=== PATIENT | female | born 1940 | race Caucasian/White ===

== ENCOUNTER 2017-04-09 10:18 | Day surgery (SDC) | payer MEDICARE, BC ==
[2017-04-03 13:47] VITALS: BMI 25.7
[~2017-04-09 10:18] MED LIST: ALPRAZolam 0.25 MG TAB PO PRN; ALPRAZolam 0.5 MG TAB PO PRN; ASPIRIN 325 MG TAB PO STA; ATORVASTATIN 80 MG TAB PO STA; NITROGLYCERIN SL TABS 0.4 MG TAB SUBLINGUAL PRN; SODIUM CHLORIDE 0.9% 1,000 ML in EMPTY BAG 1 BAG IV ONE
[2017-04-09] MEDS ORDERED: MIDAZOLAM 2 MG/2 ML VIAL ONE (10:57)
[2017-04-09] MEDS ORDERED: fentaNYL (PF) 50 MCG/ML 2 ML AMP ONE (10:57)
[2017-04-09] MEDS: BENZOCAINE SPRAY 1 SPRAY CAN MUCOUS MEM ONE ×2 (11:06→11:37)
[2017-04-09] MEDS ORDERED: BENZOCAINE SPRAY 1 SPRAY CAN MUCOUS MEM ONE (11:35)
[2017-04-09] MEDS ORDERED: MIDAZOLAM 2 MG/2 ML VIAL IV ONE (11:37)
[2017-04-09] MEDS ORDERED: fentaNYL (PF) 50 MCG/ML 2 ML AMP IV ONE (11:40)
[2017-04-09] MEDS ORDERED: SODIUM CHLORIDE 0.9% 1,000 ML IV ONE (12:01)
[2017-04-09] MEDS ORDERED: LIDOCAINE 2% INJ 20 MG/ML (20 ML MDV) ONE (12:19)
[2017-04-09] MEDS ORDERED: LIDOCAINE 2% INJ 20 MG/ML SQ ONE (12:26)
[2017-04-09] MEDS ORDERED: SODIUM CHLORIDE 0.9% 1,000 ML IV SCH (13:30)
[2017-04-09] MEDS ORDERED: RX INFO: IV CONTRAST WAS GIVEN 1 EACH MISC MISCELLANE PRN (13:30)
[2017-04-09] MEDS ORDERED: IOHEXOL 350 MG/ML 125ML BOTTLE INJ ONE (13:31)
[2017-04-09 14:05] VITALS: RESP 16
--- NOTE | 2017-04-09 15:05 | ECHOT ---
TRANSESOPHAGEAL ECHOCARDIOGRAM: Mrs. Mcdonough is a 76-year-old female who was advised transesophageal echocardiogram to assess the aortic stenosis. Patient was given intravenous sedation with Versed and fentanyl and transesophageal echocardiogram was performed without any complications. Left ventricular chamber is normal in size with mild degree of left ventricular hypertrophy and normal left ventricular systolic function. Aortic wall is calcified, appears to be bicuspid with aortic valve area by HALEY examination appears to be in the range of 0.5 to 0.6 cm2 suggestive of severe aortic stenosis. There is mild mitral regurgitation and moderate tricuspid regurgitation is noted. The left atrium is mildly enlarged. Left atrial appendage is clear. Intra-atrial septum is intact. There is no evidence of any PFO. The descending thoracic aorta shows mild diffuse atherosclerotic plaque. FINAL IMPRESSION: This study shows aortic valve to be calcified with aortic wall area in the range of 0.5 to 0.6 cm2 suggestive of severe aortic stenosis. Left ventricular systolic function is normal. There is evidence of mild degree of mitral regurgitation, moderate degree of tricuspid regurgitation. There is no evidence of any patent foramen ovale. MTDD
--- NOTE | 2017-04-09 16:48 | US ---
EXAMINATION TYPE: US carotid duplex BILAT DATE OF EXAM: 04/09/2017 COMPARISON: NONE CLINICAL HISTORY: Ankle Brachial Index (BEL) . EXAM MEASUREMENTS: RIGHT: Peak Systolic Velocity (PSV) cm/sec ----- Right CCA: 62.4 ----- Right ICA: 111.8 ----- Right ECA: 100.2 ICA/CCA ratio: 1.8 RIGHT: End Diastole cm/sec ----- Right CCA: 15.9 ----- Right ICA: 36.2 ----- Right ECA: 8.6 LEFT: Peak Systolic Velocity (PSV) cm/sec ----- Left CCA: 68.2 ----- Left ICA: 104.5 ----- Left ECA: 90.0 ICA/CCA ratio: 1.5 LEFT: End Diastole cm/sec ----- Left CCA: 18.8 ----- Left ICA: 40.6 ----- Left ECA: 8.9 VERTEBRALS (direction of flow): Right Vertebral: Antegrade Left Vertebral: Antegrade No significant stenosis visualized IMPRESSION: No evidence for hemodynamically significant stenosis. Criteria for Assigning % of Stenosis / Diameter reduction (Estimation based on the indirect measurements of the internal carotid artery velocities (ICA PSV). 1. Normal (no stenosis)=ICA PSV < 125 cm/s: ratio < 2.0: ICA EDV<40 cm/s. 2. Less than 50% stenosis=ICA PSV < 125 cm/s: ratio < 2.0: ICA EDV<40 cm/s. 3. 50 to 69% stenosis=ICA PSV of 125 to 230 cm/s: ration 2.0 ? 4.0: ICA EDV 40-100 cm/s. 4. Greater than 70% stenosis to near occlusion= ICA PSV > 230 cm/s: ratio > 4.0: ICA EDV > 100 cm/s. 5. Near occlusion= ICA PSV velocities may be low or undetectable: variable ratio and ICA EDV. 6. Total occlusion=unable to detect flow.
--- NOTE | 2017-04-09 16:50 | P.GSCN ---
History of Present Illness Consult date: 04/09/17 Reason for Consult: Severe aortic stenosis Requesting physician: Denis Robles History of present illness: This is a 76-year-old female patient who is followed on an outpatient basis by Dr. Katerina Dexter. The patient has a history of hyperlipidemia, breast cancer status post lumpectomy in 1989 with 35 treatments of radiation and 6 months of chemotherapy treatment, she also underwent a right mastectomy and 2012 , hysterectomy with subsequent oophorectomy, and cholecystectomy. The patient has a history of aortic stenosis which has been followed on an outpatient basis with serial 2-D echocardiograms. Recently, the patient was following up with her primary care physician on a 6 month checkup and was noted to have a worsening murmur. Subsequently the patient underwent a 2-D echocardiogram which showed her aortic valve to be moderately to severely thickened and calcified, her calculated aortic valve area was 0.5 cm with a maximum pressure gradient of 97 mmHg and a mean pressure gradient of 40 mmHg, trace aortic regurgitation, mild mitral regurgitation, mild tricuspid regurgitation, mild pulmonic regurgitation, and it showed her left ventricular systolic function to be normal with an ejection fraction of 60%. The patient reports that she wakes up frequently during the night and feels a pressure or thumping to her left chest and feels that she can sometimes hear her murmur. For further evaluation she was seen by Dr. VC Robles from [facility] who recommended the patient undergo a cardiac catheterization and transesophageal cardiogram. On the patient underwent an elective cardiac catheterization and transesophageal echocardiogram. Her HALEY results showed her aortic valve to be calcified with aortic and aortic valve area of 0.5-0.6 cm, a left ventricular systolic function to be normal, mild degree of mitral regurgitation, and a moderate degree of tricuspid regurgitation. Patient's cardiac catheterization results demonstrated normal coronary arteries with severe aortic stenosis. Subsequently Dr. Alejandro Somers from cardiothoracic surgery was asked to evaluate the patient. Review of Systems A 14 point review of systems was completed and was negative except for what was mentioned in the HPI. Past Medical History Past Medical History: Cancer, Hyperlipidemia Additional Past Medical History / Comment(s): increased fatigue and feels like heart is pounding at night,heart murmur, having difficulty sleeping at night, breast CA with lumpectomy 1989, 35 treatments of radiation and 6 months of chemotherapy, 2013 right breast mastectomy,increased gas and freq diarrhea, urge urinary incontinence. History of Any Multi-Drug Resistant Organisms: None Reported Past Surgical History: Cholecystectomy, Hysterectomy Additional Past Surgical History / Comment(s): right lumpectomy 1989, right masectomy 2012, hemorrhoidectomy. Past Anesthesia/Blood Transfusion Reactions: No Reported Reaction Past Psychological History: No Psychological Hx Reported Smoking Status: Never smoker Past Alcohol Use History: Occasional Additional Past Alcohol Use History / Comment(s): Less than 1 drink a week Past Drug Use History: None Reported - Past Family History Mother Additional Family Medical History / Comment(s): Alzheimer's Father Additional Family Medical History / Comment(s): heart problems due to rheumatic fever Sister(s) Family Medical History: Cancer Additional Family Medical History / Comment(s): 1 sister of ovarian cancer in 1993 , her other sister was diagnosed with breast cancer. Medications and Allergies Home Medications Medication Instructions Recorded Confirmed Type Anastrozole [Arimidex] 1 mg PO HS 09/23/15 04/09/17 History Simvastatin [Zocor] 20 mg PO HS 09/23/15 04/09/17 History Aspirin 81 mg PO DAILY 04/03/17 04/09/17 History Cholecalciferol [Vitamin D3] 500 unit PO DAILY 04/03/17 04/09/17 History L.acidoph,Paracasei, B.lactis 1 each PO DAILY 04/03/17 04/09/17 History [Probiotic] Multivit-Min/Iron/Folic/Lutein 1 each PO DAILY 04/03/17 04/09/17 History [Centrum Silver Women Tablet] Allergies Allergy/AdvReac Type Severity Reaction Status Date / Time Penicillins Allergy Rash/Hives Verified 04/03/17 13:37 Surgical - Exam Vital Signs Temp Pulse Resp BP Pulse Ox 98.0 F 56 L 18 168/77 98 04/09/17 10:31 04/09/17 10:31 04/09/17 10:31 04/09/17 10:31 04/09/17 10:31 - General well developed, well nourished, no distress, no pain - Eyes normal ocular movement - ENT normal pinna, normal nares, no hearing loss, no congestion - Neck . no masses, trachea midline, no lymphadectomy, no venous distension carotid bruit: bilateral - Respiratory Respirations are symmetrical and unlabored. normal expansion, normal respiratory effort, clear to percussion, clear to auscultation - Cardiovascular Heart Rate: 65 (Remote telemetry showing normal sinus rhythm.) Rhythm: regular Heart Sounds: normal: S1, S2 Abnormal Heart Sounds: systolic murmur (Pansystolic) - Abdomen Abdomen: soft, non tender (, Nondistended.), bowel sounds (Positive to all 4 abdominal quadrants.), surgical scars - Genitourinary Deferred - Rectum Deferred - Integumentary Warm and dry. no rash, no growths, no abnormal pigmentation - Neurologic Alert. normal coordination, normal sensation - Musculoskeletal normal gait, normal posture - Psychiatric oriented to time, oriented to person, oriented to place, speech is normal, memory intact Results - Labs Comments: Lab results pending, nasal swab and urinalysis result pending. - Imaging Comments: Carotid Doppler results pending. Chest x-ray: pending CT scan - chest: pending (CAT scan of the chest without contrast results.) Additional studies: Transesophageal echocardiogram results reviewed, 2-D echocardiogram results reviewed, and heart catheterization results were reviewed. Assessment and Plan (1) Aortic valve stenosis, nonrheumatic Status: Acute (2) Hyperlipidemia Status: Acute (3) History of cancer of right breast Status: Acute Plan: The patient was seen and examined, preoperative testing has been ordered and the results are pending. Preoperative teaching was initiated, and reinforced. She will follow-up in the office with Dr. Somers as scheduled on Saturday, 2016 at 11:15 AM to review her test results and to discuss possible surgical intervention. Thank you Dr. VC Robles for this consult and we will look forward to working with you in the care of your patient. Time with Patient: Greater than 30
[2017-04-09 18:45] LABS: Appearance,Urine Clear (Clear); Bilirubin,Urine Negative (Negative); Glucose,Urine (UA) 1+ (Negative); Ketones,Urine 1+ (Negative); Leukocyte Esterase,Urine Negative (Negative); Nitrite,Urine Negative (Negative); PH, Urine 6.5 (5.0-8.0); Particle Count 435; Protein,Urine Negative (Negative); RBC,Urine <1 /hpf (0-5); Specific Gravity,Urine 1.036 (1.001-1.035); Squamous Epithelial Cell,Urine <1 /hpf (0-4); UA Billing (MACRO vs. MICRO) MICRO; Urobilinogen,Urine <2.0 mg/dL (<2.0); WBC,Urine <1 /hpf (0-5)
[2017-04-09 19:01] LABS: Basophils % (A) 0 %; CH 31.9; Eosinophils # (A) 0.1 k/uL (0-0.7); Eosinophils % (A) 1 %; HCT 38.6 % (34.0-46.0); HDW 2.46; HGB 12.9 gm/dL (11.4-16.0); Luc # (Auto) 0.11; Luc % (Auto) 1; Lymphocytes # (A) 1.6 k/uL (1.0-4.8); Lymphocytes % (A) 20 %; MCH 32.4 pg (25.0-35.0); MCHC 33.3 g/dL (31.0-37.0); MCV 97.3 fL (80.0-100.0); Mean Platelet Volume 7.7; Monocytes # (A) 0.5 k/uL (0-1.0); Monocytes % (A) 6 %; Neutrophils % (A) 73 %; RBC 3.97 m/uL (3.80-5.40); RDW 12.7 % (11.5-15.5); WBC 8.2 k/uL (3.8-10.6); WBC (Perox) 8.13
[2017-04-09 19:10] LABS: ALT 35 U/L (9-52); AST 29 U/L (14-36); Alkaline Phosphatase 58 U/L (38-126); Anion Gap 8 mmol/L; Blood Urea Nitrogen 13 mg/dL (7-17); Calcium 8.7 mg/dL (8.4-10.2); Carbon Dioxide 24 mmol/L (22-30); Chloride 104 mmol/L (98-107); Cholesterol 106 mg/dL (<200); Glucose 194 mg/dL (74-99); HDL Cholesterol 44 mg/dL (40-60); Magnesium 1.8 mg/dL (1.6-2.3); Non-African American GFR(MDRD) >60 (>60 ml/min/1.73 sqM); Potassium 3.7 mmol/L (3.5-5.1); Sodium 136 mmol/L (137-145); Total Bilirubin 0.8 mg/dL (0.2-1.3); Total Protein 5.6 g/dL (6.3-8.2)
[2017-04-09 19:39] LABS: Hepatitis B Surface Ag Index 0.05; INR 1.1 (<1.2); Partial Thromboplastin Time 22.3 sec (22.0-30.0)
[2017-04-09 19:45] LABS: Hepatitis B Core IgM Index 0.02
[2017-04-09 19:56] LABS: Hepatitis C Virus IgG Ab Negative (Negative); Hepatitis C Virus IgG Index 0.02
[2017-04-09 20:10] VITALS: BP 127/59; PULSE 74; TEMP 98
[2017-04-09 20:26] LABS: Hemoglobin A1C 5.6 % (4.2-6.1)
--- NOTE | 2017-04-10 07:03 | CT ---
EXAMINATION TYPE: CT chest wo con DATE OF EXAM: 04/09/2017 COMPARISON: NONE HISTORY: Pre-Op. Hx of right breast CA. CT DLP: 316.0 mGycm. Automated Exposure Control for Dose Reduction was Utilized. TECHNIQUE: CT scan of the thorax is performed without IV contrast. FINDINGS: There has been a previous right-sided mastectomy. There is elevation of the right hemidiaphragm. The lungs are clear without evidence of metastatic disease. There are clips in the right axilla. There is no significant axillary, internal mammary, mediastinal or hilar adenopathy. There is no pleu ral or pericardial fluid. The heart is not enlarged. The aorta is normal in caliber. There is a small hiatal hernia. 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 There is some increased density associated with the posterior upper pole calyx of the right kidney wi thout a discrete calculus. This may be medullary calcification. The gallbladder is been removed. Visualized portions of the upper abdomen are otherwise normal. There is mild hypertrophic spondylosis within the spine. No bony destructive lesion is seen. IMPRESSION: 1. STATUS POST RIGHT MASTECTOMY AND AXILLARY DISSECTION. 2. ELEVATION OF THE RIGHT HEMIDIAPHRAGM. 3. NO EVIDENCE OF METASTATIC DISEASE AT THIS TIME. 4. SMALL HIATAL HERNIA. 5. SOME CALCIFICATION ASSOCIATED WITH THE POSTERIOR POLE CALYX RIGHT KIDNEY WITHOUT ISCHEMIC CALCULUS . 6. MILD HYPERTROPHIC CHANGE OF THE SPINE.
--- NOTE | 2017-04-10 07:26 | XR ---
EXAMINATION TYPE: XR chest 2V DATE OF EXAM: 04/09/2017 HISTORY: PreOp Cardiac Surgery. REFERENCE: Previous study dated 11/04/2010. FINDINGS: There are surgical skin clips in the right exit lobe. There is chronic appearing elevation right hemidiaphragm. The lungs are clear. Heart size is obscured. Pleural spaces are clear. IMPRESSION: NO DEFINITE ACUTE INTRATHORACIC ABNORMALITY AT THIS TIME.
--- NOTE | 2017-04-11 06:15 | CC ---
CARDIAC CATHETERIZATION REPORT DATE OF PROCEDURE: 04/09/2017 Mrs. Mcdonough is a 76-year-old female who was seen in the office for cardiac evaluation. The patient was found to have severe aortic stenosis. In view of that the patient was advised right and left heart catheterization. The right groin was prepped and draped in the usual manner. Initially, right femoral artery was entered using Seldinger technique and #6 [place] sheath was placed in. Subsequently right femoral vein was entered using Seldinger technique and # 8 [place] sheath was placed in. A right heart catheter was attempted and [place] catheter was advanced. However, the catheter could not be advanced beyond the IVC into the ( ). A guidewire was also used, however, the guidewire as well as the catheter was going into the hepatic vein. IVC gram was performed, which showed that the junction of the IVC and the right atrium was tortuous and we could not advance the [place] catheter into the right atrium and so the procedure was terminated. Subsequently, the coronary angiography was performed in multiple projections and the aortic valve was entered and the left ventricular pressures were obtained. HEMODYNAMICS: The peak gradient across the aortic valve was about 40 mmHg and left ventricular end-diastolic pressure was 20 to 24 mmHg. SELECTIVE CORONARY ANGIOGRAPHY: Left main coronary artery was patent. LAD is a good caliber blood vessel and gives rise to a diagonal branch. LAD and its branches are normal. Circumflex coronary artery gives rise to a good size obtuse marginal branch and it is normal. Right coronary artery is normal. FINAL IMPRESSION: This study reveals normal coronary arteries. A peak gradient of 40 mmHg was noted across the aortic valve, however, by Doppler study and transesophageal echocardiographic study this patient does have evidence of severe aortic stenosis. Right heart catheter was incomplete as the [place] catheter could not be advanced into the right atrium. RECOMMENDATIONS: We will get a surgical opinion for aortic valve replacement, preferably TAVR. SAMSOND
--- NOTE | 2017-04-11 15:09 | CDI ---
The TRANSESOPHAGEAL ECHOCARDIOGRAM report states "Patient was given intravenous sedation with Versed and fentanyl". Will you please clarify the level of sedation, such as moderate or conscious? The Cardiac Cath report does not state if the patient received a type of sedation or anesthesia. Will you please describe what type of sedation was used? This information is required for proper coding and billing purposes. Please answer as an addendum to your op report. If you don't understand what is needed, please contact my coding assistant, Desiree Diaz . Thank you, NICOLE Martin
--- NOTE | 2017-04-17 11:15 | P.VSCSTY ---
Greater Saphenous Vein Mapping This is bilateral lower extremity greater saphenous vein mapping. Date of service 04/09/2017 Vein quality and ultrasound appearance normal. Vein size groin right 7.3 x 7.3 groin left 6.8 x 5.7 High thigh right 5.7 x 5.2 high thigh left 3.9 x 3.2 Mid thigh right 3.4 x 3.3 mid thigh left 4.2 x 4.1 Above-knee right 3.7 x 3.9 above- knee left 3.7 x 3.3 Below knee right 3.4 x 3.6 below-knee left 4.3 x 4.9 Mid calf right 2.2 x 2.0 mid calf left 3.2 x 3.3 Ankle right 1.2 x 2.0 ankle left 2.3 x 2.7 Impression usable bilateral greater saphenous vein. The left leg is somewhat more consistent. Right ankle may be a bit small..
--- NOTE | 2017-04-19 15:21 | CDI ---
PHYSICIAN QUERY SECOND REQUEST -- ADDENDUM REQUIRED Dear Dr. Robles, The TRANSESOPHAGEAL ECHOCARDIOGRAM report states "Patient was given intravenous sedation with Versed and fentanyl". Will you please clarify the level of sedation, such as moderate or conscious? The Cardiac Cath report does not state if the patient received a type of sedation or anesthesia. Will you please describe what type of sedation was used? This information is required for proper coding and billing purposes. Please answer as an addendum to your op report. If you don't understand what is needed, please contact my manager truck, Desiree Diaz . Thank you, NICOLE Martin
--- NOTE | 2017-04-30 09:22 | CDI ---
Dear Dr. Robles, This is the second query request and an answer is needed in order to code and bill properly. The TRANSESOPHAGEAL ECHOCARDIOGRAM report states "Patient was given intravenous sedation with Versed and fentanyl". Will you please clarify the level of sedation, such as moderate or conscious? The Cardiac Cath report does not state if the patient received a type of sedation or anesthesia. Will you please describe what type of sedation was used? This information is required for proper coding and billing purposes. Please answer as an addendum to your op report. If you don't understand what is needed, please contact my subcontract manager, Desiree Diaz . Thank you, NICOLE Martin
--- NOTE | 2017-05-08 08:54 | CDI ---
THIRD QUERY REQUEST. RESPONSE REQUIRED. Dear. Dr. Robles, The TRANSESOPHAGEAL ECHOCARDIOGRAM report states "Patient was given intravenous sedation with Versed and fentanyl". Will you please clarify the level of sedation, such as moderate or conscious? The Cardiac Cath report does not state if the patient received a type of sedation or anesthesia. Will you please describe what type of sedation was used? This information is required for proper coding and billing purposes. Please answer as an addendum to your op report. If you don't understand what is needed, please contact my financial compliance manager, Desiree Diaz . Thank you, NICOLE Martin
== END 2017-04-09 20:15 | disposition home or self-care (01) ==
LOC: CATHCVL 10:18 → 3OBS 13:30 → CATHCVL 20:15
PROVIDERS: ATTEND Internal Medicine Cardiovascular Disease
DX: I70.0 Atherosclerosis of aorta (principal); R01.1 Cardiac murmur, unspecified; I37.1 Nonrheumatic pulmonary valve insufficiency; K44.9 Diaphragmatic hernia without obstruction or gangrene; N28.89 Other specified disorders of kidney and ureter; M47.9 Spondylosis, unspecified; E78.2 Mixed hyperlipidemia; Z85.3 Personal history of malignant neoplasm of breast; Z92.21 Personal history of antineoplastic chemotherapy; Z92.3 Personal history of irradiation; Z90.11 Acquired absence of right breast and nipple; Z79.899 Other long term (current) drug therapy; Z79.82 Long term (current) use of aspirin; Z88.0 Allergy status to penicillin
CPT/HCPCS: 94150; 93312; 93320; 93325; 93460; 83880; 80061; 80053; 80074; 84443; 83036; 83735; 85025; 85610; 85730; 81001; 87070; 87086; 71020; 93970; 93880; 71250; C1760; C1769 ×3; C1894 ×2; J2001; J2250; J3010; Q9967

== ENCOUNTER → 2017-04-24 | Outpatient (CLI) | payer MEDICARE, BC ==
[2017-04-24 09:19] LABS: ALT 28 U/L (9-52); AST 26 U/L (14-36); Alkaline Phosphatase 74 U/L (38-126); Anion Gap 9 mmol/L; Blood Urea Nitrogen 11 mg/dL (7-17); Calcium 9.6 mg/dL (8.4-10.2); Carbon Dioxide 27 mmol/L (22-30); Chloride 105 mmol/L (98-107); Glucose 70 mg/dL (74-99); Non-African American GFR(MDRD) >60 (>60 ml/min/1.73 sqM); Potassium 4.3 mmol/L (3.5-5.1); Sodium 141 mmol/L (137-145); Total Bilirubin 0.6 mg/dL (0.2-1.3); Total Protein 6.9 g/dL (6.3-8.2)
[2017-04-24 09:25] LABS: CH 32.6; CHCM 32.1; HCT 41.7 % (34.0-46.0); HDW 2.49; HGB 13.3 gm/dL (11.4-16.0); MCH 32.5 pg (25.0-35.0); MCHC 31.8 g/dL (31.0-37.0); Macrocytosis Slight; Mean Platelet Volume 7.9; RBC 4.09 m/uL (3.80-5.40); RDW 13.5 % (11.5-15.5); WBC 5.5 k/uL (3.8-10.6)
== END | disposition home or self-care (01) ==
LOC: LABWHC1 08:43
PROVIDERS: ATTEND Surgery
DX: I35.0 Nonrheumatic aortic (valve) stenosis (principal)
CPT/HCPCS: 36415; 80053; 83735; 85027

== ENCOUNTER 2017-04-29 05:45 | Inpatient (IN) | payer MEDICARE, BC ==
[~2017-04-29 05:45] MED LIST changes: +ALBUMIN HUMAN 25% 50 ML IV ONE; +ALBUMIN HUMAN 5% 500 ML IVPB ONE; -ALPRAZolam 0.25 MG TAB PO PRN; -ALPRAZolam 0.5 MG TAB PO PRN; +AMINOCAPROIC ACID 250 MG/ML 20 ML VIAL IV ONE; +AMINOCAPROIC ACID 5,000 MG in DEXTROSE 5% IN WATER 50 ML IV ONE; +ASPIRIN 325 MG TAB PO ONE; -ASPIRIN 325 MG TAB PO STA; +ATORVASTATIN 10 MG TAB PO ONE; -ATORVASTATIN 80 MG TAB PO STA; +CALCIUM CHLORIDE 100 MG/ML 10 ML SYRINGE IV ONE; +CHLORHEXIDINE GLUCONATE 15 ML CUP MUCOUS MEM ONE; +CLEVIDIPINE BUTYRATE 25 MG in EMPTY BAG 1 BAG IV ONE; +DEXTROSE 5% IN WATER 1,000 ML with POTASSIUM CHLORIDE 110 MEQ, MAGNESIUM SULFATE 16 MEQ... IV ONE; +DEXTROSE 5% IN WATER 1,000 ML with POTASSIUM CHLORIDE 25 MEQ, SODIUM CHLORIDE 4MEQ/ML V... IV ONE; +HEPARIN SODIUM 1,000 UN/ML (10ML VL) IV ONE; +HEPARIN SODIUM,PORCINE 5,000 UNIT in SODIUM CHLORIDE 0.9% 500 ML IV ONE; +INSULIN REGULAR 100 UNIT in SODIUM CHLORIDE 0.9% 100 ML IV ONE; +LACTATED RINGERS 1,000 ML IV ONE; +LACTATED RINGERS 1,000 ML IV SCH; +MAGNESIUM SULFATE MG 500 MG/ML VIAL IV ONE; +MANNITOL 25% 12.5 GM/50 ML VIAL IV ONE; +METOPROLOL TARTRATE 12.5 MG TAB PO ONE; +MUPIROCIN 2% OINT 22 GM TUBE NASAL ONE; +NITROGLYCERIN SL TABS 0.4 MG TAB SUBLINGUAL ONE; -NITROGLYCERIN SL TABS 0.4 MG TAB SUBLINGUAL PRN; +NITROGLYCERIN-D5W PMX 25 MG/250 ML BTL IV ONE; +NITROGLYCERIN-D5W PMX 50 MG in DEXTROSE/WATER 1 250ML.BAG IV ONE; +NOREPINEPHRIN 4 MG-0.9% NS PMX 4 MG/250 ML ML IV ONE; +PHENYLEPHRINE 40 MG in SODIUM CHLORIDE 0.9% 250 ML IV ONE; +PHENYLEPHRINE-0.9% NACL SYG 1 MG/10 ML SYRINGE IV ONE; +PROPOFOL 1,000 MG/100 ML VIAL IV ONE; +PROTAMINE SULFATE 10 MG/ML 25 ML VIAL IV ONE; +PROTAMINE SULFATE 250 MG in EMPTY BAG 1 BAG IV ONE; +SODIUM BICARB 8.4% 50 ML SYR (1 MEQ/ML) IV ONE; +SODIUM CHLORIDE 0.9% 1,000 ML IV ONE; -SODIUM CHLORIDE 0.9% 1,000 ML in EMPTY BAG 1 BAG IV ONE; +ceFAZolin 1,000 MG in SODIUM CHLORIDE 0.9% IRRIGATIO 1,000 ML IRRIGATION ONE; +ceFAZolin 2,000 MG in SODIUM CHLORIDE 0.9% 30 ML IVPB ONE
[2017-04-29] MEDS ORDERED: VECURONIUM 10 MG VIAL IV ONE ×2 (08:10→19:45)
[2017-04-29] MEDS ORDERED: SODIUM CHLORIDE 0.9% IRRIG 1,000 ML BTL IRRIGATION ONE (08:10)
[2017-04-29] MEDS ORDERED: CALCIUM CHLORIDE 100 MG/ML 10 ML SYRINGE ONE (08:10)
[2017-04-29] MEDS ORDERED: PROTAMINE SULFATE 10 MG/ML 5 ML VIAL IV ONE (08:10)
[2017-04-29] MEDS ORDERED: ALBUMIN HUMAN 5% 500 ML VIAL IVPB ONE (08:10)
[2017-04-29] MEDS ORDERED: ELECTROLYTE-R (PH 7.4) 1,000 ML IV.SOLN IV ONE (08:10)
[2017-04-29] MEDS ORDERED: LIDOCAINE 2% SYG (PF) 100 MG/5 ML ONE (08:10)
[2017-04-29] MEDS ORDERED: MIDAZOLAM 2 MG/2 ML VIAL ONE ×2 (08:10→19:45)
[2017-04-29] MEDS ORDERED: WATER FOR INJECTION, STERILE 10 ML VIAL IV ONE (08:10)
[2017-04-29] MEDS ORDERED: PROTAMINE SULFATE 10 MG/ML 25 ML VIAL IV ONE (08:10)
[2017-04-29] MEDS ORDERED: fentaNYL (PF) 50 MCG/ML 2 ML AMP ONE (08:10)
[2017-04-29] MEDS ORDERED: HEPARIN SODIUM,PORCINE 10,000 UNIT/ML 1 ML VIAL ONE (08:10)
[2017-04-29] MEDS ORDERED: ceFAZolin 1,000 MG VIAL ONE (08:10)
[2017-04-29] MEDS ORDERED: PROPOFOL 10 MG/ML 20 ML VIAL IV ONE (08:10)
[2017-04-29] MEDS ORDERED: MAGNESIUM SULFATE 4 MEQ/ML 2 ML VIAL ONE ×2 (08:10→19:45)
[2017-04-29] MEDS ORDERED: fentaNYL (PF) 50 MCG/ML 50 ML VIAL ONE (08:10)
[2017-04-29 09:00] LABS: Glucose,Whole Blood 96 mg/dL (75-99)
[2017-04-29 09:41] LABS: Glucose,Whole Blood 109 mg/dL (75-99)
[2017-04-29 10:21] LABS: Glucose,Whole Blood 253 mg/dL (75-99)
[2017-04-29 11:03] LABS: Glucose,Whole Blood 211 mg/dL (75-99)
[2017-04-29 11:45] LABS: Glucose,Whole Blood 192 mg/dL (75-99)
[2017-04-29 13:13] LABS: Partial Thromboplastin Time 50.6 sec (22.0-30.0)
[2017-04-29 13:14] LABS: Basophils % (A) 0 %; CH 32.7; CHCM 32.5; Eosinophils % (A) 0 %; HCT 21.8 % (34.0-46.0); HDW 2.48; Luc # (Auto) 0.04; Luc % (Auto) 1; Lymphocytes # (A) 0.7 k/uL (1.0-4.8); Lymphocytes % (A) 12 %; MCH 31.6 pg (25.0-35.0); MCHC 31.2 g/dL (31.0-37.0); MCV 101.2 fL (80.0-100.0); Macrocytosis Slight; Mean Platelet Volume 8.5; Monocytes # (A) 0.4 k/uL (0-1.0); Monocytes % (A) 6 %; Neutrophils # (A) 5.2 k/uL (1.3-7.7); Neutrophils % (A) 81 %; RBC 2.16 m/uL (3.80-5.40); RDW 13.6 % (11.5-15.5); WBC 6.4 k/uL (3.8-10.6); WBC (Perox) 6.46
[2017-04-29 13:15] LABS: INR 1.8 (<1.2); Prothrombin Time 17.7 sec (9.0-12.0)
[2017-04-29 13:19] LABS: Glucose,Whole Blood 136 mg/dL (75-99)
[2017-04-29 13:22] LABS: HGB 6.8 gm/dL (11.4-16.0)
[2017-04-29 14:05] LABS: Glucose,Whole Blood 157 mg/dL (75-99)
[2017-04-29 14:45] LABS: Glucose,Whole Blood 170 mg/dL (75-99)
[2017-04-29] MEDS ORDERED: BENZOCAINE/MENTHOL LOZENG 1 EACH LOZENGE MUCOUS MEM PRN (14:52)
[2017-04-29] MEDS ORDERED: Potassium Replacement Protocol 1 EACH MISC MISCELLANE PRN (14:52)
[2017-04-29] MEDS ORDERED: ONDANSETRON 4 MG/2 ML VIAL IVP PRN (14:52)
[2017-04-29] MEDS ORDERED: METOCLOPRAMIDE 5 MG/ML 2 ML VIAL IVP PRN (14:52)
[2017-04-29] MEDS ORDERED: CALCIUM GLUCONATE 2,000 MG in SODIUM CHLORIDE 0.9% 100 ML IVPB PRN (14:52)
[2017-04-29] MEDS ORDERED: Phosphorus Replacement Protoco 1 EACH MISC MISCELLANE PRN (14:52)
[2017-04-29] MEDS ORDERED: Magnesium Replacement Protocol 1 EACH MISC MISCELLANE PRN (14:52)
[2017-04-29] MEDS ORDERED: ALBUMIN HUMAN 5% 250 ML IVPB ONE (14:59)
[2017-04-29] MEDS: INSULIN REGULAR 100 UNIT in SODIUM CHLORIDE 0.9% 100 ML IV SCH (15:15)
--- NOTE | 2017-04-29 15:15 | XR ---
EXAMINATION TYPE: XR chest 1V portable DATE OF EXAM: 04/29/2017 COMPARISON: Prior chest x-ray 04/09/2017 HISTORY: Postop cardiac surgery TECHNIQUE: Single frontal view of the chest is obtained. FINDINGS: Patient is rotated. Patient is post median sternotomy and aortic valve replacement. Endotr acheal tube, NG tube, right jugular central venous catheter, median sternal drain are in place and ar e overlying appropriate positions. Surgical clips are present in the right axilla. There is no sizabl e pneumothorax or pleural effusion evident. There is persistent elevation of the right hemidiaphragm. Heart size within normal limits accounting for technique. Minimal patchy basilar density is noted. P ulmonary vascularity mildly increased, interstitium somewhat prominent, lung volumes may be low. Surg ical clips present in the upper abdomen. IMPRESSION: Satisfactory postoperative chest x-ray, there may be a component of volume overload. Pro bable basilar atelectasis.
[2017-04-29 15:16] LABS: Ionized Calcium 3.9 mg/dL (4.5-5.3)
[2017-04-29 15:19] LABS: Partial Thromboplastin Time 36.9 sec (22.0-30.0)
[2017-04-29 15:23] LABS: INR 1.6 (<1.2); Prothrombin Time 15.1 sec (9.0-12.0)
[2017-04-29 15:26] LABS: ABG Base Excess -0.8 mmol/L; ABG HCO3 23 mmol/L (21-25); ABG PCO2 38 mmHg (35-45); ABG PH 7.41 (7.35-7.45); ABG PO2 382 mmHg (83-108); ABG TCO2 25 mmol/L (19-24)
[2017-04-29 15:26] LABS: ALT 266 U/L (9-52); AST 512 U/L (14-36); Alkaline Phosphatase 32 U/L (38-126); Anion Gap 9 mmol/L; Basophils % (A) 0 %; Blood Urea Nitrogen 7 mg/dL (7-17); CH 31.3; CHCM 33.4; Calcium 7.8 mg/dL (8.4-10.2); Carbon Dioxide 25 mmol/L (22-30); Chloride 106 mmol/L (98-107); Eosinophils % (A) 0 %; Glucose 150 mg/dL (74-99); HCT 21.6 % (34.0-46.0); HDW 2.78; HGB 7.1 gm/dL (11.4-16.0); Luc # (Auto) 0.03; Luc % (Auto) 1; Lymphocytes # (A) 0.7 k/uL (1.0-4.8); Lymphocytes % (A) 14 %; MCH 30.9 pg (25.0-35.0); MCHC 32.7 g/dL (31.0-37.0); Monocytes # (A) 0.4 k/uL (0-1.0); Monocytes % (A) 7 %; Neutrophils # (A) 4.2 k/uL (1.3-7.7); Neutrophils % (A) 78 %; Non-African American GFR(MDRD) >60 (>60 ml/min/1.73 sqM); Potassium 4.2 mmol/L (3.5-5.1); RBC 2.29 m/uL (3.80-5.40); RDW 15.1 % (11.5-15.5); Sodium 140 mmol/L (137-145); Total Bilirubin 1.6 mg/dL (0.2-1.3); Total Protein 4.4 g/dL (6.3-8.2); WBC 5.3 k/uL (3.8-10.6); WBC (Perox) 5.37
[2017-04-29 15:30] LABS: MCV 94.3 fL (80.0-100.0)
[2017-04-29] MEDS: IPRATROPIUM-ALBUTEROL 3 ML NEB INHALATION SCH ×4 (15:45→22:55)
[2017-04-29 16:26] LABS: Glucose,Whole Blood 185 mg/dL (75-99)
--- NOTE | 2017-04-29 16:41 | P.CNPUL ---
History of Present Illness Consult date: 04/29/17 Requesting physician: Alejandro Somers Reason for consult: other (Status post aortic valve replacement, patient is presently on mechanical ventilation) Chief complaint: Status post aortic valve replacement History of present illness: This is a 76-year-old female who is primarily a patient of Dr. andrade, had history of multiple medical problems including breast cancer, previous radiation treatment and chemotherapy, history of right mastectomy, multiple surgical procedures including hysterectomy and cholecystectomy, patient had a recent echocardiogram which revealed evidence of significant aortic stenosis. There was also trace of aortic regurgitation, her EF was 60%. On 04/09/2017, elective cardiac catheterization and HALEY showed aortic valve area of 0.5-0.6 cm and she was noted to have normal coronaries as well as trace of mitral regurgitation. Patient was referred to cardiac surgery, today she underwent elective aortic valve replacement by Dr. Somers. Postoperatively patient was noted to be on mechanical ventilation, and I was asked to see her on consultation. Chest x-ray was relatively unremarkable except for postoperative changes, tubes and lines were noted to be in the proper position, ABG showed pO2 of 382 pCO2 of 38 pH of 7.41. Postoperative hemoglobin was 7.1, and the patient was noted to have moderate the bleeding from the chest tubes. She was already receiving blood products as well as cryoprecipitate. So far the patient received 10 units of cryoprecipitate, 1 unit of platelets, 4 units of fresh was a plasma. And 3 units of packed RBCs. Ventilator settings were reviewed she is presently on IMV of 12 tidal volume of 450 PEEP of 5 and FiO2 of 50%. Patient is sedated, hemodynamically stable in spite of the moderate to bleeding noted. Review of Systems Cannot be obtained, patient is fully sedated on mechanical ventilation. Past Medical History Past Medical History: Cancer, Hyperlipidemia Additional Past Medical History / Comment(s): increased fatigue and feels like heart is pounding at night,heart murmur, having difficulty sleeping at night, breast CA 1989- treatments of radiation and 6 months of chemotherapy, increased gas and freq diarrhea, urge urinary incontinence. finishing antibiotic today-stated was put on by surgeon because of hx. past UTI's History of Any Multi-Drug Resistant Organisms: None Reported Past Surgical History: Appendectomy, Breast Surgery, Cholecystectomy, Heart Catheterization, Hysterectomy Additional Past Surgical History / Comment(s): right lumpectomy 1989, right mastectomy 2012, hemorrhoidectomy. Past Anesthesia/Blood Transfusion Reactions: No Reported Reaction Smoking Status: Never smoker - Past Family History Mother Family Medical History: No Reported History Additional Family Medical History / Comment(s): Alzheimer's Father Additional Family Medical History / Comment(s): heart problems due to rheumatic fever Sister(s) Family Medical History: Cancer Additional Family Medical History / Comment(s): 1 sister of ovarian cancer in 1993 , her other sister was diagnosed with breast cancer. Medications and Allergies Home Medications Medication Instructions Recorded Confirmed Type Anastrozole [Arimidex] 1 mg PO HS 09/23/15 04/29/17 History Simvastatin [Zocor] 20 mg PO HS 09/23/15 04/29/17 History Aspirin 81 mg PO DAILY 04/03/17 04/29/17 History Cholecalciferol [Vitamin D3] 500 unit PO DAILY 04/03/17 04/29/17 History L.acidoph,Paracasei, B.lactis 1 cap PO DAILY 04/03/17 04/29/17 History [Probiotic] Multivit-Min/Iron/Folic/Lutein 1 tab PO DAILY 04/03/17 04/29/17 History [Centrum Silver Women Tablet] Ciprofloxacin HCl [Cipro] 500 mg PO BID 04/29/17 04/29/17 History Allergies Allergy/AdvReac Type Severity Reaction Status Date / Time Penicillins Allergy Rash/Hives Verified 04/24/17 09:01 Physical Exam Vitals: Vital Signs Temp Pulse Pulse Resp BP BP Pulse Ox 04/29/17 16:16 65 04/29/17 16:11 95.4 F L 72 12 125/59 100 04/29/17 16:09 95.4 F L 70 12 131/59 100 04/29/17 15:56 63 04/29/17 15:30 64 100 04/29/17 15:27 95.0 F L 60 12 133/59 100 04/29/17 15:17 95.0 F L 60 12 127/53 100 04/29/17 15:15 70 100 04/29/17 15:00 54 L 100 04/29/17 14:52 95.2 F L 100 04/29/17 14:45 70 100 04/29/17 14:39 78 04/29/17 14:22 94.8 F L 65 12 74/36 04/29/17 13:37 94.8 F L 68 12 100/60 04/29/17 06:02 98.2 F 67 16 164/73 96 Intake and Output 04/29/17 04/29/17 04/29/17 06:59 14:59 22:59 Intake Total 1342 1244 Output Total 3400 220 Balance -2058 1024 Intake: IV 32 610 Albumin 250 LR 50 PRBC 310 Blood Product 1310 634 Cryoprecipitate Unit 10 [id number] Cryoprecipitate Unit 10 [id number] Cryoprecipitate Unit 10 [id number] Cryoprecipitate Unit 10 [id number] Cryoprecipitate Unit 10 [id number] Cryoprecipitate Unit 10 [id number] Cryoprecipitate Unit 10 [id number] Cryoprecipitate Unit 10 [id number] Cryoprecipitate Unit 10 [id number] Cryoprecipitate Unit 10 [id number] Ffp 24 Cpd Unit 0 [id number] Ffp 24 Cpda Unit 184 [id number] Ffp 24 Cpda Unit 213 [id number] Ffp 24 Cpda Unit 224 [id number] Platelet Pheresis Acda1 293 Unit [id number] Rc As-1 Unit 310 [id number] Rc As-3 Unit 310 [id number] Rc Pheresis As-3 Unit 310 [id number] Output: Chest Tube Drainage 180 MSx2 180 Urine 1400 40 Estimated Blood Loss 2000 ABP, PAP, CO, CI - Last 8 Hours Arterial Blood Pressure 132/56 Arterial Blood Pressure 90/40 Arterial Blood Pressure 94/40 Arterial Blood Pressure 104/33 Pulmonary Artery Pressure 40/17 Pulmonary Artery Pressure 37/16 Pulmonary Artery Pressure 38/15 Pulmonary Artery Pressure 41/11 Cardiac Output 5.3 Cardiac Output 5.3 Cardiac Output 5.3 Cardiac Output 5.3 Cardiac Index 3.0 Physical Exam: Revealed a 76-year-old female on mechanical ventilation, in no distress. Endotracheal tube and orogastric tube were noted to be intact. 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 Strep pericardial rub.] Abdomen: [Soft, nontender, no megaly, no rebound, no guarding, normal bowel sounds.] Extremities: [No clubbing, no edema, no cyanosis.] Neurological Exam:cannot be assessed. Results - Laboratory Findings CBC and BMP: 04/29/17 14:40 04/29/17 14:40 ABG ABG pH 7.41 (7.35-7.45) 04/29/17 15:19 ABG pCO2 38 mmHg (35-45) 04/29/17 15:19 ABG pO2 382 mmHg (83-108) H 04/29/17 15:19 ABG O2 Saturation 100.0 % (94-97) H 04/29/17 15:19 PT/INR, D-dimer PT 15.1 sec (9.0-12.0) H 04/29/17 14:40 INR 1.6 (<1.2) H 04/29/17 14:40 Abnormal lab findings: Abnormal Labs 04/24/17 04/29/17 04/29/17 08:45 09:40 10:17 RBC Hgb Hct MCV Plt Count Lymphocytes # PT INR APTT Fibrinogen ABG pO2 ABG Total CO2 ABG O2 Saturation Creatinine Glucose POC Glucose (mg/dL) 109 H 253 H Calcium Ionized Calcium Sofya Total Bilirubin AST ALT Alkaline Phosphatase Total Protein Albumin Crossmatch See Detail 04/29/17 04/29/17 04/29/17 10:49 11:41 12:45 RBC 2.16 L Hgb 6.8 L* D Hct 21.8 L MCV 101.2 H Plt Count 117 L D Lymphocytes # 0.7 L PT INR APTT Fibrinogen ABG pO2 ABG Total CO2 ABG O2 Saturation Creatinine Glucose POC Glucose (mg/dL) 211 H 192 H Calcium Ionized Calcium Sofya Total Bilirubin AST ALT Alkaline Phosphatase Total Protein Albumin Crossmatch 04/29/17 04/29/17 04/29/17 12:45 13:16 14:02 RBC Hgb Hct MCV Plt Count Lymphocytes # PT 17.7 H INR 1.8 H APTT 50.6 H Fibrinogen 87 L* ABG pO2 ABG Total CO2 ABG O2 Saturation Creatinine Glucose POC Glucose (mg/dL) 136 H 157 H Calcium Ionized Calcium Sofya Total Bilirubin AST ALT Alkaline Phosphatase Total Protein Albumin Crossmatch 04/29/17 04/29/17 04/29/17 14:40 14:40 14:40 RBC 2.29 L Hgb 7.1 L Hct 21.6 L MCV Plt Count 113 L Lymphocytes # 0.7 L PT 15.1 H INR 1.6 H APTT 36.9 H Fibrinogen ABG pO2 ABG Total CO2 ABG O2 Saturation Creatinine 0.47 L Glucose 150 H POC Glucose (mg/dL) Calcium 7.8 L Ionized Calcium Sofya 3.9 L Total Bilirubin 1.6 H AST 512 H ALT 266 H Alkaline Phosphatase 32 L Total Protein 4.4 L Albumin 3.1 L Crossmatch 04/29/17 04/29/17 04/29/17 14:43 15:19 16:24 RBC Hgb Hct MCV Plt Count Lymphocytes # PT INR APTT Fibrinogen ABG pO2 382 H ABG Total CO2 25 H ABG O2 Saturation 100.0 H Creatinine Glucose POC Glucose (mg/dL) 170 H 185 H Calcium Ionized Calcium Sofya Total Bilirubin AST ALT Alkaline Phosphatase Total Protein Albumin Crossmatch - Diagnostic Findings Chest x-ray: image reviewed Assessment and Plan Plan: Impression: 1 status post aortic valve replacement for severe aortic stenosis 2 postoperative anemia secondary to intraoperative and perioperative blood loss. , Expected. 3 history of breast cancer and previous lumpectomy followed by radiation and chemotherapy. History of right breast mastectomy. Recommendation: I fully agree with the present treatment plan, patient is being transfused with different blood products and she received already cryoprecipitate. Ventilator settings and chest x-ray were reviewed. We will continue to follow the protocol for possible weaning and extubation later this evening or in a.m. Time with Patient: Greater than 30
[2017-04-29 16:46] LABS: Glucose,Whole Blood 188 mg/dL (75-99)
[2017-04-29] MEDS: PROPOFOL 1,000 MG/100 ML VIAL IV SCH (16:47)
[2017-04-29 17:01] LABS: Basophils % (A) 0 %; CH 31.8; CHCM 33.6; Eosinophils % (A) 0 %; HDW 2.79; Luc # (Auto) 0.02; Luc % (Auto) 1; Lymphocytes # (A) 0.3 k/uL (1.0-4.8); Lymphocytes % (A) 7 %; MCH 31.9 pg (25.0-35.0); MCHC 33.4 g/dL (31.0-37.0); MCV 95.4 fL (80.0-100.0); Mean Platelet Volume 8.6; Monocytes # (A) 0.3 k/uL (0-1.0); Monocytes % (A) 7 %; Neutrophils # (A) 3.8 k/uL (1.3-7.7); Neutrophils % (A) 86 %; RBC 1.87 m/uL (3.80-5.40); RDW 15.2 % (11.5-15.5); WBC 4.5 k/uL (3.8-10.6); WBC (Perox) 4.27
[2017-04-29 17:02] LABS: INR 1.3 (<1.2); Partial Thromboplastin Time 30.5 sec (22.0-30.0); Prothrombin Time 12.6 sec (9.0-12.0)
[2017-04-29 17:05] LABS: HCT 17.8 % (34.0-46.0)
[2017-04-29 18:06] LABS: Appearance,Urine Clear (Clear); Bilirubin,Urine Negative (Negative); Glucose,Urine (UA) Negative (Negative); Ketones,Urine Trace (Negative); Leukocyte Esterase,Urine Negative (Negative); Nitrite,Urine Negative (Negative); PH, Urine 5.5 (5.0-8.0); Protein,Urine Negative (Negative); Specific Gravity,Urine 1.013 (1.001-1.035); UA Billing (MACRO vs. MICRO) CHEM; Urobilinogen,Urine <2.0 mg/dL (<2.0)
[2017-04-29 18:19] LABS: Glucose,Whole Blood 142 mg/dL (75-99)
[2017-04-29] MEDS: ACETAMINOPHEN IV (For NPO) 1,000 MG in EMPTY BAG 1 BAG IVPB SCH ×2 (18:34→18:39)
[2017-04-29] MEDS: NITROGLYCERIN-D5W PMX 50 MG in DEXTROSE/WATER 1 250ML.BAG IV SCH (18:37)
[2017-04-29] MEDS: LACTATED RINGERS 1,000 ML IV SCH (18:37)
[2017-04-29] MEDS: ceFAZolin 2 GM in SODIUM CHLORIDE 0.9% 100 ML IVPB SCH ×2 (18:38→19:30)
[2017-04-29 18:56] LABS: Glucose,Whole Blood 122 mg/dL (75-99)
[2017-04-29 19:07] LABS: Basophils % (A) 0 %; CH 31.3; CHCM 34.3; Eosinophils % (A) 0 %; HCT 24.4 % (34.0-46.0); HDW 2.81; Luc # (Auto) 0.03; Luc % (Auto) 1; Lymphocytes # (A) 0.4 k/uL (1.0-4.8); Lymphocytes % (A) 7 %; MCH 30.3 pg (25.0-35.0); MCHC 32.9 g/dL (31.0-37.0); Mean Platelet Volume 9.3; Monocytes # (A) 0.3 k/uL (0-1.0); Monocytes % (A) 6 %; Neutrophils # (A) 4.6 k/uL (1.3-7.7); Neutrophils % (A) 86 %; RBC 2.65 m/uL (3.80-5.40); RDW 15.9 % (11.5-15.5); WBC 5.4 k/uL (3.8-10.6); WBC (Perox) 5.43
[2017-04-29] MEDS ORDERED: ALBUMIN HUMAN 5% 250 ML BOTTLE IVPB ONE (19:45)
[2017-04-29 20:17] LABS: Glucose,Whole Blood 112 mg/dL (75-99)
[2017-04-29 20:49] LABS: Mean Platelet Volume 7.6
[2017-04-29 20:58] LABS: INR 1.3 (<1.2); Partial Thromboplastin Time 30.9 sec (22.0-30.0); Prothrombin Time 13.2 sec (9.0-12.0)
[2017-04-29 21:31] LABS: Glucose,Whole Blood 151 mg/dL (75-99)
[2017-04-29 22:04] LABS: Glucose,Whole Blood 130 mg/dL (75-99)
[2017-04-29 22:19] LABS: Ionized Calcium 4.9 mg/dL (4.5-5.3)
--- NOTE | 2017-04-29 22:24 | XR ---
EXAM: XR Chest, 1 View CLINICAL HISTORY: Reason: post CABG TECHNIQUE: Frontal view of the chest. COMPARISON: Earlier same date FINDINGS/IMPRESSION: Tip of endotracheal tube appears low. Projects less than a centimeter above the inferior rodrigue. Suggest retraction by about 3 cm for more ideal positioning. Other tubes and lines appear in stable position. Increasing bilateral lung opacities extending from the perihilar regions suspicious for edema. No other significant changes. Critical Value Communications 04/29/17 22:31 Verify Receipt with Nurse Verified receipt with bill of lading clerk Adelfo who will give to RN Fannie on 04/29 22:31 (-04:00)
[2017-04-29 22:26] LABS: Anion Gap 6 mmol/L; Blood Urea Nitrogen 8 mg/dL (7-17); Calcium 8.2 mg/dL (8.4-10.2); Carbon Dioxide 25 mmol/L (22-30); Chloride 108 mmol/L (98-107); Glucose 117 mg/dL (74-99); Non-African American GFR(MDRD) >60 (>60 ml/min/1.73 sqM); Phosphorous 3.4 mg/dL (2.5-4.5); Potassium 3.6 mmol/L (3.5-5.1); Sodium 139 mmol/L (137-145)
[2017-04-29 23:08] LABS: Glucose,Whole Blood 133 mg/dL (75-99)
[2017-04-29] MEDS: MORPHINE SULFATE 2 MG/ML SYRINGE IVP PRN (23:10)
[2017-04-29 23:38] LABS: Basophils % (A) 0 %; CH 31.8; CHCM 34.3; Eosinophils % (A) 0 %; HCT 25.5 % (34.0-46.0); HDW 2.89; HGB 8.3 gm/dL (11.4-16.0); Luc # (Auto) 0.02; Luc % (Auto) 1; Lymphocytes # (A) 0.4 k/uL (1.0-4.8); Lymphocytes % (A) 9 %; MCH 30.5 pg (25.0-35.0); MCHC 32.7 g/dL (31.0-37.0); MCV 93.4 fL (80.0-100.0); Mean Platelet Volume 8.8; Monocytes # (A) 0.3 k/uL (0-1.0); Monocytes % (A) 5 %; Neutrophils # (A) 4.2 k/uL (1.3-7.7); Neutrophils % (A) 85 %; RBC 2.73 m/uL (3.80-5.40); RDW 15.5 % (11.5-15.5); WBC 4.9 k/uL (3.8-10.6); WBC (Perox) 5.27
[2017-04-30 00:07] LABS: Glucose,Whole Blood 126 mg/dL (75-99)
[2017-04-30] MEDS: HEPARIN SODIUM,PORCINE 5,000 UNIT/ML 1 ML VIAL SQ SCH ×4 (00:07→16:28)
[2017-04-30] MEDS ORDERED: POTASSIUM CHLORIDE ORAL LIQUID 40 MEQ/30 ML CUP NG-TUBE SCH ×2 (01:00→02:00)
[2017-04-30 01:03] LABS: Glucose,Whole Blood 116 mg/dL (75-99)
[2017-04-30 01:40] LABS: Basophils % (A) 0 %; CH 32.1; CHCM 34.8; Eosinophils % (A) 0 %; HCT 25.3 % (34.0-46.0); HDW 2.92; HGB 8.2 gm/dL (11.4-16.0); Luc # (Auto) 0.06; Luc % (Auto) 1; Lymphocytes # (A) 0.6 k/uL (1.0-4.8); Lymphocytes % (A) 10 %; MCH 30.2 pg (25.0-35.0); MCHC 32.5 g/dL (31.0-37.0); MCV 92.8 fL (80.0-100.0); Mean Platelet Volume 9.3; Monocytes # (A) 0.5 k/uL (0-1.0); Monocytes % (A) 7 %; Neutrophils # (A) 5.1 k/uL (1.3-7.7); Neutrophils % (A) 82 %; RBC 2.73 m/uL (3.80-5.40); RDW 15.6 % (11.5-15.5); WBC 6.2 k/uL (3.8-10.6); WBC (Perox) 6.08
[2017-04-30 01:48] LABS: INR 1.2 (<1.2); Partial Thromboplastin Time 29.8 sec (22.0-30.0); Prothrombin Time 12.3 sec (9.0-12.0)
[2017-04-30] MEDS: PROPOFOL 1,000 MG/100 ML VIAL IV SCH (01:51)
[2017-04-30 02:04] LABS: Glucose,Whole Blood 109 mg/dL (75-99)
[2017-04-30 03:05] LABS: Glucose,Whole Blood 118 mg/dL (75-99)
[2017-04-30] MEDS: IPRATROPIUM-ALBUTEROL 3 ML NEB INHALATION SCH ×7 (03:19→20:50)
[2017-04-30] MEDS: ALBUMIN HUMAN 5% 250 ML in EMPTY BAG 1 BAG IVPB PRN ×3 (03:54→23:44)
[2017-04-30 04:13] LABS: Glucose,Whole Blood 127 mg/dL (75-99)
[2017-04-30 05:06] LABS: Glucose,Whole Blood 123 mg/dL (75-99)
[2017-04-30 05:13] LABS: Basophils % (A) 0 %; CH 31.8; CHCM 34.8; Eosinophils % (A) 0 %; HCT 25.2 % (34.0-46.0); HDW 3.05; HGB 8.3 gm/dL (11.4-16.0); Luc # (Auto) 0.05; Luc % (Auto) 1; Lymphocytes # (A) 0.7 k/uL (1.0-4.8); Lymphocytes % (A) 11 %; MCH 30.5 pg (25.0-35.0); MCHC 33.1 g/dL (31.0-37.0); MCV 92.1 fL (80.0-100.0); Mean Platelet Volume 9.1; Monocytes # (A) 0.5 k/uL (0-1.0); Monocytes % (A) 8 %; Neutrophils % (A) 80 %; RBC 2.73 m/uL (3.80-5.40); WBC 6.3 k/uL (3.8-10.6); WBC (Perox) 6.51
[2017-04-30 05:21] LABS: INR 1.2 (<1.2); Prothrombin Time 12.3 sec (9.0-12.0)
[2017-04-30 05:23] LABS: ALT 115 U/L (9-52); AST 115 U/L (14-36); Alkaline Phosphatase 33 U/L (38-126); Anion Gap 8 mmol/L; Blood Urea Nitrogen 10 mg/dL (7-17); Calcium 8.4 mg/dL (8.4-10.2); Carbon Dioxide 24 mmol/L (22-30); Chloride 109 mmol/L (98-107); Glucose 113 mg/dL (74-99); Non-African American GFR(MDRD) >60 (>60 ml/min/1.73 sqM); Potassium 4.1 mmol/L (3.5-5.1); Sodium 141 mmol/L (137-145); Total Bilirubin 1.8 mg/dL (0.2-1.3); Total Protein 4.6 g/dL (6.3-8.2)
[2017-04-30 05:31] LABS: Ionized Calcium 4.9 mg/dL (4.5-5.3)
[2017-04-30 05:37] LABS: ABG Base Excess 1.2 mmol/L; ABG HCO3 23 mmol/L (21-25); ABG Oxygen Saturation 99.9 % (94-97); ABG PCO2 27 mmHg (35-45); ABG PH 7.53 (7.35-7.45); ABG PO2 284 mmHg (83-108); ABG TCO2 24 mmol/L (19-24)
[2017-04-30 05:39] LABS: ABG Base Excess 0.7 mmol/L; ABG HCO3 24 mmol/L (21-25); ABG Oxygen Saturation 99.8 % (94-97); ABG PCO2 35 mmHg (35-45); ABG PH 7.45 (7.35-7.45); ABG PO2 220 mmHg (83-108); ABG TCO2 25 mmol/L (19-24)
[2017-04-30 05:39] LABS: ABG HCO3 22 mmol/L (21-25); ABG PCO2 34 mmHg (35-45); ABG PH 7.43 (7.35-7.45); ABG PO2 365 mmHg (83-108); ABG TCO2 23 mmol/L (19-24)
[2017-04-30 05:40] LABS: ABG Base Excess 0.5 mmol/L; ABG HCO3 24 mmol/L (21-25); ABG PCO2 32 mmHg (35-45); ABG PH 7.48 (7.35-7.45); ABG PO2 288 mmHg (83-108); ABG TCO2 24 mmol/L (19-24)
[2017-04-30 05:40] LABS: ABG Base Excess -1.3 mmol/L
[2017-04-30 05:41] LABS: ABG Oxygen Saturation 99.9 % (94-97)
[2017-04-30 05:41] LABS: ABG Base Excess -1.3 mmol/L; ABG HCO3 22 mmol/L (21-25); ABG PCO2 34 mmHg (35-45); ABG PH 7.43 (7.35-7.45); ABG PO2 248 mmHg (83-108); ABG TCO2 23 mmol/L (19-24)
[2017-04-30 05:42] LABS: ABG Oxygen Saturation 99.9 % (94-97)
[2017-04-30 05:42] LABS: ABG Base Excess -2.8 mmol/L; ABG HCO3 21 mmol/L (21-25); ABG Oxygen Saturation 99.9 % (94-97); ABG PCO2 34 mmHg (35-45); ABG PH 7.41 (7.35-7.45); ABG PO2 292 mmHg (83-108); ABG TCO2 22 mmol/L (19-24)
[2017-04-30 05:44] LABS: ABG Base Excess 0.3 mmol/L; ABG HCO3 24 mmol/L (21-25); ABG PCO2 33 mmHg (35-45); ABG PH 7.47 (7.35-7.45); ABG PO2 361 mmHg (83-108); ABG TCO2 25 mmol/L (19-24)
[2017-04-30 06:15] LABS: Glucose,Whole Blood 117 mg/dL (75-99)
[2017-04-30 07:14] LABS: Glucose,Whole Blood 116 mg/dL (75-99)
--- NOTE | 2017-04-30 07:38 | XR ---
EXAMINATION TYPE: XR chest 1V portable DATE OF EXAM: 04/30/2017 HISTORY: Post Op CABG COMPARISON: April 29, 2017 TECHNIQUE: Single view of the chest is submitted. FINDINGS: Endotracheal tube, NG tube, SG catheter, mediastinal drains are appropriately placed. Post operative changes of CABG. No sizeable pneumothorax. Scattered Pleural-parenchymal opacities may reflect atelectasis. Elevation right hemidiaphragm. The heart mildly enlarged. IMPRESSION: 1. Post operative changes of CABG.
[2017-04-30 08:12] LABS: Glucose,Whole Blood 121 mg/dL (75-99)
[2017-04-30 08:38] LABS: ABG Base Excess -0.3 mmol/L; ABG HCO3 24 mmol/L (21-25); ABG PCO2 38 mmHg (35-45); ABG PH 7.42 (7.35-7.45); ABG PO2 89 mmHg (83-108); ABG TCO2 25 mmol/L (19-24)
[2017-04-30] MEDS: ACETAMINOPHEN IV (For NPO) 1,000 MG in EMPTY BAG 1 BAG IVPB SCH ×3 (08:38→12:00)
[2017-04-30] MEDS: ceFAZolin 2 GM in SODIUM CHLORIDE 0.9% 100 ML IVPB SCH (08:39)
[2017-04-30] MEDS: METOPROLOL TARTRATE 12.5 MG TAB PO SCH ×2 (08:40→21:38)
[2017-04-30] MEDS: ASPIRIN 81 MG CHEW PO SCH (08:40)
--- NOTE | 2017-04-30 08:43 | OP ---
DATE OF PROCEDURE: 04/29/2017 SURGEON: Dr. Alejandro Somers. FINISH CARPENTER: Lily Ozuna and Denisse Ho [facility] PREOPERATIVE DIAGNOSIS: Severe calcific aortic valve stenosis, hyperlipidemia, preserved left ventricular function, status post right modified radical mastectomy with radiation with resultant phrenic never paralysis and elevation of right hemidiaphragm. POSTOPERATIVE DIAGNOSIS: Severe trileaflet calcific aortic valve stenosis. PROCEDURE: 1. Aortic valve replacement using a 21 mm pericardia bioprosthesis Magna Ease bovine. 2. Exclusion of the left atrial appendage using a 35 mm AtriClip. 3. Intraoperative transesophageal echocardiogram and epiaortic scanning. INDICATIONS FOR THE PROCEDURE: The patient is a 76-year-old lady diagnosed at this point with severe aortic valve stenosis. Cardiac catheterization showed nonsignificant coronary artery disease. The patient is status post modified radical mastectomy with elevation of the right hemidiaphragm, probably from the radiation that followed. The patient is being brought in for surgical aortic valve replacement. The risks, benefits and alternatives were discussed with her. She understood and agreed to proceed. DESCRIPTION OF THE PROCEDURE: The patient had a right internal jugular [place] catheter and a right radial arterial line placed. her cardiac index was 2 and PA pressure were normal. Subsequently, general endotracheal anesthesia was induced on ( ). A Morales catheter was inserted. Chest, abdomen and both lower extremities were prepped and draped using ChloraPrep. Ioban was used to cover the skin. The patient received 2 gm of Cefazolin intravenously. Transesophageal echocardiogram showed severe aortic valve stenosis that appeared to be trileaflet, contrary to the preop diagnosis of bicuspid aortic valve. The left ventricular function was preserved. There were no other significant valvular abnormalities except for a mild mitral valve regurgitation. Midline sternotomy was performed and the bone was reasonably perfused. No bone wax was used. Standard retractor was used and the mediastinal fat was transected between two ties. Epiaortic scanning revealed normal ascending aorta. Pericardium was opened in a vertical fashion. The pericardial cradle was created. Findings included a normal soft aorta and a normal size heart. After systemic heparinization and placement of respective pledgeted pursestring , aortic cannulation with a 21 Swedish Soft-Flow cannula. Venous cannulation with a 29 three stage cannula was performed. Antegrade as well as retrograde cardioplegia were placed.. Cardiopulmonary bypass was initiated with adequate decompression of the heart. The aorta was clamped and during 64 minutes of aortic clamping, myocardial protection was achieved with initial dose of antegrade cold blood cardioplegia followed by retrograde cold blood cardioplegia. All subsequent doses were given at 15 minute interval. First part of the surgery was to exclude the left atrial appendage with a 35 mm Atriclip deployed at its base. Subsequently, the aorta was opened in a transverse fashion around 1 cm above the sinotubular junction. The aortic wall was reasonably thick. Exploration revealed the presence of a trileaflet severely calcified aortic valve that was stenotic. The valve was excised and the annulus debrided nicely. Further irrigation performed. The annulus was measured to a 21 mm bovine Magna Ease pericardial bioprosthesis which was selected and prepared on the back table as we passed a total of 14 Tycron 2-0 sutures pledgeted on the ventricular side. All those sutures were passed into the cusp of the valve symmetrically and the valve was seated nicely in the supraannular position. All the needles cut and the sutures tied using the core- knot device. Both coronary arteries were cleared. Prewarming was started as we closed the arthrotomy using Prolene 4-0 in two layers pledgeted on each corner in a horizontal mattress and the second layer in [id number] technique. Usual deaiiring maneuvers were done. Lidocaine and magnesium were given. Aorta was unclamped with the head down and the aortic vent on high suction. The patient regained spontaneous sinus rhythm. The HALEY showed no paravalvular leak and deairing was guided by HALEY. Once satisfied, we were able to wean off cardiopulmonary bypass without the need of any inotropic or vasopressor support. Two monopolar atrial pacing wires were affixed to the right atrium and one bipolar ventricular pacing wire was driven via the inferior aspect of the right ventricle. I had passed one bipolar ventricular pacing wire on the anterior aspect of the right ventricle but that caused bleeding and it was removed at that level and the bleeding controlled with a pledgeted Prolene 4-0. After repeated of reperfusion we were able to wean off bypass without the need for any inotropic or vasopressor support Test dose than full dose protamine were given. Hemostasis achieved. I applied some CoSeal over the aortotomy. Decannulation followed. The aortic cannulation site was reinforced with a Prolene 4-0 . The venous cannulation site was also reinforced with running 4-0 Prolene. Pericardium was approximated over the aorta. Two mediastinal drains 32F were placed. After ensuring adequate hemostasis, although patient seemed coagulopathic with profuse bleeding from a porous sternum, and hemodynamics and after correct sponge, instrument and needle count, the sternum was approximated using six interrupted stainless steel wires after interposing Fibrillar between the sternal edges. Thorough irrigation with Cefazolin followed. The rest of the closure proceeded in layers. Skin glue was applied. The patient did not receive any blood bank product but received 1200 cc of Cell Saver blood. She was transferred to the ICU in normal sinus rhythm at 73 mean arterial pressure of 63, PA pressure of 29/14 with a cardiac index of 2. MTDD
--- NOTE | 2017-04-30 08:59 | P.CRDCN ---
History of Present Illness Consult date: 04/30/17 History of present illness: This is a pleasant 77-year-old female patient who sees Dr. VC Robles as an outpatient who was admitted to the hospital yesterday and underwent an aortic valve replacement using a bioprosthetic valve for severe symptomatic aortic stenosis. The surgery was complicated by bleeding from the mediastinal tube and the patient was taken again to the OR for the bleeding. Currently the patient is intubated and she is on ventilator. She seems to be awake. The patient is going to be extubated later on today. Hemodynamically she continues to be stable and continues to be in normal sinus mechanism. She is not on any vasopressors at this point. Past Medical History Past Medical History: Cancer, Hyperlipidemia Additional Past Medical History / Comment(s): increased fatigue and feels like heart is pounding at night,heart murmur, having difficulty sleeping at night, breast CA 1989- treatments of radiation and 6 months of chemotherapy, increased gas and freq diarrhea, urge urinary incontinence. finishing antibiotic today-stated was put on by surgeon because of hx. past UTI's History of Any Multi-Drug Resistant Organisms: None Reported Past Surgical History: Appendectomy, Breast Surgery, Cholecystectomy, Heart Catheterization, Hysterectomy Additional Past Surgical History / Comment(s): right lumpectomy 1989, right mastectomy 2012, hemorrhoidectomy. Past Anesthesia/Blood Transfusion Reactions: No Reported Reaction Smoking Status: Never smoker - Past Family History Mother Family Medical History: No Reported History Additional Family Medical History / Comment(s): Alzheimer's Father Additional Family Medical History / Comment(s): heart problems due to rheumatic fever Sister(s) Family Medical History: Cancer Additional Family Medical History / Comment(s): 1 sister of ovarian cancer in 1993 , her other sister was diagnosed with breast cancer. Medications and Allergies Home Medications Medication Instructions Recorded Confirmed Type Anastrozole [Arimidex] 1 mg PO HS 09/23/15 04/29/17 History Simvastatin [Zocor] 20 mg PO HS 09/23/15 04/29/17 History Aspirin 81 mg PO DAILY 04/03/17 04/29/17 History Cholecalciferol [Vitamin D3] 500 unit PO DAILY 04/03/17 04/29/17 History L.acidoph,Paracasei, B.lactis 1 cap PO DAILY 04/03/17 04/29/17 History [Probiotic] Multivit-Min/Iron/Folic/Lutein 1 tab PO DAILY 04/03/17 04/29/17 History [Centrum Silver Women Tablet] Ciprofloxacin HCl [Cipro] 500 mg PO BID 04/29/17 04/29/17 History Allergies Allergy/AdvReac Type Severity Reaction Status Date / Time Penicillins Allergy Rash/Hives Verified 04/24/17 09:01 Physical Exam Vitals: Vital Signs Temp Pulse Resp BP Pulse Ox 04/30/17 07:56 90 04/30/17 07:49 99 04/30/17 07:33 70 04/30/17 07:00 71 17 99 04/30/17 06:30 69 18 100 04/30/17 06:00 70 18 99 04/30/17 05:30 69 17 100 04/30/17 05:00 76 16 100 04/30/17 04:30 68 15 100 04/30/17 04:00 65 14 100 04/30/17 03:31 70 04/30/17 03:30 65 12 100 04/30/17 03:20 77 04/30/17 03:00 62 12 100 04/30/17 02:45 62 12 100 04/30/17 02:30 65 14 100 04/30/17 02:15 63 12 100 04/30/17 02:00 65 12 100 04/30/17 01:45 65 12 100 04/30/17 01:30 61 15 100 04/30/17 01:15 61 13 100 04/30/17 01:00 61 12 100 04/30/17 00:45 61 12 100 04/30/17 00:30 61 12 100 04/30/17 00:15 61 12 100 04/30/17 00:00 63 12 100 04/29/17 23:45 63 12 100 04/29/17 23:30 62 12 100 04/29/17 23:15 62 12 100 04/29/17 23:06 76 04/29/17 23:00 62 12 100 04/29/17 22:55 68 04/29/17 22:45 68 12 100 04/29/17 22:30 72 12 100 04/29/17 22:15 71 12 100 04/29/17 22:00 71 04/29/17 19:30 57 L 12 100 04/29/17 19:15 57 L 12 100 04/29/17 19:00 57 L 100 04/29/17 18:45 57 L 100 04/29/17 18:30 57 L 100 04/29/17 18:15 57 L 100 04/29/17 18:00 60 100 04/29/17 17:45 62 100 04/29/17 17:30 62 100 04/29/17 17:15 64 100 04/29/17 17:00 66 100 04/29/17 16:58 96.8 F L 65 12 118/55 100 04/29/17 16:48 96.4 F L 68 12 120/55 100 04/29/17 16:45 66 100 04/29/17 16:30 71 100 04/29/17 16:26 96.4 F L 68 12 105/52 100 04/29/17 16:16 65 04/29/17 16:15 62 100 04/29/17 16:11 95.4 F L 72 12 125/59 100 04/29/17 16:09 95.4 F L 70 12 131/59 100 04/29/17 16:00 61 100 04/29/17 15:56 63 04/29/17 15:45 65 100 04/29/17 15:30 64 100 04/29/17 15:27 95.0 F L 60 12 133/59 100 04/29/17 15:17 95.0 F L 60 12 127/53 100 04/29/17 15:15 70 100 04/29/17 15:00 54 L 100 04/29/17 14:52 95.2 F L 100 04/29/17 14:45 70 100 04/29/17 14:39 78 04/29/17 14:22 94.8 F L 65 12 74/36 04/29/17 13:37 94.8 F L 68 12 100/60 Intake and Output 04/29/17 04/30/17 04/30/17 22:59 06:59 14:59 Intake Total 3174.247 1157.637 89 Output Total 4157 919 63 Balance -982.753 238.637 26 Intake: IV 1816 1062 89 0.9 NaCl- for CO 30 340 30 injectate 0.9 NaCl- for Pressure 18 72 9 bag infusion Albumin 250 250 Cryopricipitate 100 FFP 545 LR 50 400 50 PLT 203 PRBC 620 Intake, IV Titration 211.247 95.637 Amount Insulin Regular 100 unit 11.247 13.352 In Sodium Chloride 0.9% 100 ml @ Per Protocol IV .Q0M [facility] Rx#:[id number] Lactated Ringers 1,000 ml 200 @ 50 mls/hr IV .Q20H [facility] Rx#:[id number] Propofol 1,000 mg In 100 82.285 ml @ Titrate IV .Q0M [facility] Rx#:[id number] Blood Product 1147 Cryoprecipitate Unit 10 [id number] Cryoprecipitate Unit 10 [id number] Cryoprecipitate Unit 10 [id number] Cryoprecipitate Unit 10 [id number] Cryoprecipitate Unit 10 [id number] Cryoprecipitate Unit 10 [id number] Cryoprecipitate Unit 10 [id number] Cryoprecipitate Unit 10 [id number] Cryoprecipitate Unit 10 [id number] Cryoprecipitate Unit 10 [id number] Ffp 24 Cpd Unit 0 [id number] Ffp 24 Cpda Unit 224 [id number] Platelet Pheresis Acda2 203 Unit [id number] Rc As-1 Unit 310 [id number] Rc As-1 Unit 310 [id number] Rc As-1 Unit 0 [id number] Rc As-1 Unit 0 [id number] Output: Chest Tube Drainage 2690 290 10 MSx2 2690 290 10 Gastric Drainage 100 60 30 Urine 867 569 23 Estimated Blood Loss 500 Other: Voiding Method Indwelling Catheter Indwelling Catheter Weight 73.6 kg ABP, PAP, CO, CI - Last 8 Hours Arterial Blood Pressure 119/55 Arterial Blood Pressure 109/49 Arterial Blood Pressure 112/53 Arterial Blood Pressure 120/54 Arterial Blood Pressure 115/56 Arterial Blood Pressure 122/55 Arterial Blood Pressure 114/52 Arterial Blood Pressure 121/55 Arterial Blood Pressure 118/55 Arterial Blood Pressure 117/55 Arterial Blood Pressure 114/55 Arterial Blood Pressure 119/56 Arterial Blood Pressure 120/56 Arterial Blood Pressure 121/57 Arterial Blood Pressure 120/58 Arterial Blood Pressure 121/56 Arterial Blood Pressure 108/51 Pulmonary Artery Pressure 31/17 Pulmonary Artery Pressure 29/13 Pulmonary Artery Pressure 31/17 Pulmonary Artery Pressure 32/17 Pulmonary Artery Pressure 33/18 Pulmonary Artery Pressure 35/18 Pulmonary Artery Pressure 33/17 Pulmonary Artery Pressure 30/16 Pulmonary Artery Pressure 32/17 Pulmonary Artery Pressure 32/16 Pulmonary Artery Pressure 33/17 Pulmonary Artery Pressure 33/16 Pulmonary Artery Pressure 32/16 Pulmonary Artery Pressure 33/17 Pulmonary Artery Pressure 36/20 Pulmonary Artery Pressure 33/17 Pulmonary Artery Pressure 30/15 Cardiac Output 4.2 Cardiac Output 4.2 Cardiac Output 4.4 Cardiac Output 4.9 Cardiac Output 4.1 Cardiac Output 3.8 Cardiac Output 4 Cardiac Output 3.5 Cardiac Output 3.8 Cardiac Output 3.8 Cardiac Index 2.4 Cardiac Index 2.4 Cardiac Index 2.5 Cardiac Index 2.8 Cardiac Index 2.3 Cardiac Index 2.1 Cardiac Index 2.3 Cardiac Index 2.0 Cardiac Index 2.1 - Constitutional General appearance: no acute distress - Respiratory Respiratory: bilateral: diminished - Cardiovascular Rhythm: regular Heart sounds: normal: S1, S2 Results 04/30/17 05:00 04/30/17 05:00 Cardiac Enzymes 04/29/17 04/30/17 Range/Units 14:40 05:00 AST 512 H 115 H (14-36) U/L Coagulation 04/29/17 04/29/17 04/29/17 Range/Units 12:45 14:40 16:40 PT 17.7 H 15.1 H 12.6 H (9.0-12.0) sec APTT 50.6 H 36.9 H 30.5 H (22.0-30.0) sec 04/29/17 04/30/17 04/30/17 Range/Units 20:40 01:15 05:00 PT 13.2 H 12.3 H 12.3 H (9.0-12.0) sec APTT 30.9 H 29.8 (22.0-30.0) sec CBC 04/29/17 04/29/17 04/29/17 Range/Units 12:45 14:40 16:40 WBC 6.4 5.3 4.5 (3.8-10.6) k/uL RBC 2.16 L 2.29 L 1.87 L (3.80-5.40) m/uL Hgb 6.8 L* D 7.1 L 6.0 L* (11.4-16.0) gm/dL Hct 21.8 L 21.6 L 17.8 L* (34.0-46.0) % Plt Count 117 L D 113 L 79 L (150-450) k/uL 04/29/17 04/29/17 04/29/17 Range/Units 18:50 20:40 22:04 WBC 5.4 4.9 (3.8-10.6) k/uL RBC 2.65 L 2.73 L (3.80-5.40) m/uL Hgb 8.0 L D 8.3 L (11.4-16.0) gm/dL Hct 24.4 L 25.5 L (34.0-46.0) % Plt Count 103 L 93 L 84 L (150-450) k/uL 04/30/17 04/30/17 Range/Units 01:15 05:00 WBC 6.2 6.3 (3.8-10.6) k/uL RBC 2.73 L 2.73 L (3.80-5.40) m/uL Hgb 8.2 L 8.3 L (11.4-16.0) gm/dL Hct 25.3 L 25.2 L (34.0-46.0) % Plt Count 85 L 90 L (150-450) k/uL Comprehensive Metabolic Panel 04/29/17 04/29/17 04/30/17 Range/Units 14:40 22:04 05:00 Sodium 140 139 141 (137-145) mmol/L Potassium 4.2 3.6 4.1 (3.5-5.1) mmol/L Chloride 106 108 H 109 H (98-107) mmol/L Carbon Dioxide 25 25 24 (22-30) mmol/L BUN 7 8 10 (7-17) mg/dL Creatinine 0.47 L 0.46 L 0.50 L (0.52-1.04) mg/dL Glucose 150 H 117 H 113 H (74-99) mg/dL Calcium 7.8 L 8.2 L 8.4 (8.4-10.2) mg/dL AST 512 H 115 H (14-36) U/L ALT 266 H 115 H (9-52) U/L Alkaline Phosphatase 32 L 33 L (38-126) U/L Total Protein 4.4 L 4.6 L (6.3-8.2) g/dL Albumin 3.1 L 3.0 L (3.5-5.0) g/dL Current Medications Generic Name Dose Route Start Last Admin Trade Name Freq PRN Reason Stop Dose Admin Hydrocodone Bitart/Acetaminophen 2 each 04/30/17 11:49 [place] 5-325 PO Q4HR PRN Severe Pain Hydrocodone Bitart/Acetaminophen 1 each 04/30/17 11:49 [place] 5-325 PO Q4HR PRN Moderate Pain Albuterol/Ipratropium 3 ml 04/29/17 14:52 04/30/17 07:31 Duoneb 0.5 Mg-3 Mg/3 Ml Soln INHALATION 3 ml RT-Q4H [facility] Administration Albuterol/Ipratropium 3 ml 04/30/17 11:50 Duoneb 0.5 Mg-3 Mg/3 Ml Soln INHALATION RT-Q2H PRN Shortness Of Breath Or Wheezing Albuterol/Ipratropium 3 ml 04/30/17 11:50 04/30/17 07:33 Duoneb 0.5 Mg-3 Mg/3 Ml Soln INHALATION Not Given RT-QID [facility] Aspirin 81 mg 04/30/17 09:00 04/30/17 08:40 Aspirin PO 81 mg DAILY [facility] Administration Benzocaine/Menthol 1 each 04/29/17 14:52 Cepacol Lozenge MUCOUS MEM Q2H PRN Sore Throat Bisacodyl 10 mg 04/30/17 11:50 Dulcolax RECTAL DAILY PRN Constipation Clopidogrel Bisulfate 75 mg 04/30/17 09:00 Plavix PO DAILY [facility] Heparin Sodium (Porcine) 5,000 unit 04/29/17 19:50 04/30/17 08:39 Heparin SQ 5,000 unit Q8HR [facility] Administration Albumin Human 250 ml/ IV 250 mls @ 250 mls/hr 04/29/17 14:52 04/30/17 03:54 Solution IVPB 05/01/17 14:53 250 mls/hr Q1HR PRN Administration For Volume Acetaminophen 1,000 mg/ IV 100 mls @ 400 mls/hr 04/29/17 14:52 04/30/17 08:38 Solution IVPB 04/30/17 14:53 400 mls/hr Q6HR [facility] Administration Cefazolin Sodium 2 gm/ Sodium 100 mls @ 100 mls/hr 04/29/17 16:00 04/30/17 08 :39 Chloride IVPB 04/30/17 08:59 100 mls/hr Q8HR [facility] Administration Calcium Gluconate 2,000 mg/ 120 mls @ 100 mls/hr 04/29/17 14:52 04/29/17 17: 12 Sodium Chloride IVPB 04/30/17 14:53 100 mls/hr ONCE PRN Administration Ionized Calcium less than 4.4 Insulin Human Regular 100 unit 101 mls @ 0 mls/hr 04/29/17 14:52 04/30/17 05: 05 / Sodium Chloride IV 0.5 units/hr .Q0M [facility] 0.5 mls/hr Protocol Titration Per Protocol Lactated Ringer's 1,000 mls @ 50 mls/hr 04/29/17 14:52 04/29/17 18:37 Lactated Ringers IV 50 mls/hr .Q20H [facility] Administration Nitroglycerin/Dextrose 50 mg/ 250 mls @ 1.5 mls/hr 04/29/17 14:52 04/29/17 18 :37 IV Solution IV Not Given .Q24H [facility] 5 MCG/MIN Propofol 1,000 mg in 100 mls @ 0 mls/hr 04/29/17 14:52 04/30/17 05:36 Diprivan IV 2.49 mcg/kg/min .Q0M [facility] 1.1 mls/hr Protocol Titration Titrate Magnesium Hydroxide 2,400 mg 04/30/17 11:50 Milk Of Magnesia PO BID PRN Constipation Metoclopramide HCl 5 mg 04/29/17 14:52 Reglan IVP Q4H PRN Nausea And Vomiting Metoprolol Tartrate 12.5 mg 04/30/17 09:00 04/30/17 08:40 Lopressor PO 12.5 mg BID [facility] Administration Miscellaneous Information 1 each 04/29/17 14:52 Magnesium Per Protocol MISCELLANE DAILY PRN Per Protocol Protocol Miscellaneous Information 1 each 04/29/17 14:52 Phosphorus Per Protocol MISCELLANE DAILY PRN Per Protocol Protocol Miscellaneous Information 1 each 04/29/17 14:52 Potassium Per Protocol MISCELLANE DAILY PRN Per Protocol Protocol Morphine Sulfate 2 mg 08/14/17 14:52 04/29/17 23:10 Morphine Sulfate (Inj) IVP 2 mg Q2H PRN Administration Severe Pain Ondansetron HCl 4 mg 04/29/17 14:52 Zofran IVP Q6HR PRN Nausea And Vomiting Oxycodone HCl 10 mg 04/29/17 14:52 Oxyir PO 04/30/17 14:53 Q4H PRN Severe Pain Oxycodone HCl 5 mg 04/29/17 14:52 Oxyir PO 04/30/17 14:53 Q4H PRN Moderate Pain Pantoprazole Sodium 40 mg 04/30/17 09:00 04/30/17 08:40 Protonix IVP 40 mg DAILY [facility] Administration Senna/Docusate Sodium 2 each 04/30/17 21:00 Senokot-S PO HS [facility] Sodium Chloride 10 ml 04/29/17 21:00 04/30/17 00:00 Saline Flush IV 10 ml BID [facility] Administration Intake and Output 04/29/17 04/30/17 04/30/17 22:59 06:59 14:59 Intake Total 3174.247 1157.637 89 Output Total 4157 919 63 Balance -982.753 238.637 26 Intake: IV 1816 1062 89 0.9 NaCl- for CO 30 340 30 injectate 0.9 NaCl- for Pressure 18 72 9 bag infusion Albumin 250 250 Cryopricipitate 100 FFP 545 LR 50 400 50 PLT 203 PRBC 620 Intake, IV Titration 211.247 95.637 Amount Insulin Regular 100 unit 11.247 13.352 In Sodium Chloride 0.9% 100 ml @ Per Protocol IV .Q0M [facility] Rx#:[id number] Lactated Ringers 1,000 ml 200 @ 50 mls/hr IV .Q20H [facility] Rx#:[id number] Propofol 1,000 mg In 100 82.285 ml @ Titrate IV .Q0M [facility] Rx#:[id number] Blood Product 1147 Cryoprecipitate Unit 10 [id number] Cryoprecipitate Unit 10 [id number] Cryoprecipitate Unit 10 [id number] Cryoprecipitate Unit 10 [id number] Cryoprecipitate Unit 10 [id number] Cryoprecipitate Unit 10 [id number] Cryoprecipitate Unit 10 [id number] Cryoprecipitate Unit 10 [id number] Cryoprecipitate Unit 10 [id number] Cryoprecipitate Unit 10 [id number] Ffp 24 Cpd Unit 0 [id number] Ffp 24 Cpda Unit 224 [id number] Platelet Pheresis Acda2 203 Unit [id number] Rc As-1 Unit 310 [id number] Rc As-1 Unit 310 [id number] Rc As-1 Unit 0 [id number] Rc As-1 Unit 0 [id number] Output: Chest Tube Drainage 2690 290 10 MSx2 2690 290 10 Gastric Drainage 100 60 30 Urine 867 569 23 Estimated Blood Loss 500 Other: Voiding Method Indwelling Catheter Indwelling Catheter Weight 73.6 kg 04/30/17 05:00 04/30/17 05:00 Assessment and Plan Plan: This is a pleasant 77-year-old female patient was admitted to the hospital and underwent an aortic valve replacement using a bioprosthetic valve for severe symptomatic aortic stenosis. The patient is going to be extubated later on today. Hemodynamically she continues to be stable. She is currently on aspirin. We are holding Plavix and statin at this point.
[2017-04-30 09:00] LABS: Glucose,Whole Blood 133 mg/dL (75-99)
[2017-04-30] MEDS ORDERED: PANTOPRAZOLE 40 MG/10 ML VIAL IVP SCH (09:00)
[2017-04-30] MEDS ORDERED: ATORVASTATIN 40 MG TAB PO SCH (09:00)
[2017-04-30] MEDS ORDERED: ASPIRIN 325 MG TAB PO SCH (09:00)
[2017-04-30] MEDS: MORPHINE SULFATE 2 MG/ML SYRINGE IVP PRN (09:03)
[2017-04-30 10:01] LABS: Glucose,Whole Blood 139 mg/dL (75-99)
[2017-04-30 11:05] LABS: Glucose,Whole Blood 129 mg/dL (75-99)
--- NOTE | 2017-04-30 11:11 | OP ---
DATE OF SERVICE: 04/29/17 SURGEON: DR. OTT SHANK BONER: LYNDA SANCHEZ NP PREOPERATIVE DIAGNOSIS: Status post aortic valve replacement, postoperative bleeding. POSTOPERATIVE DIAGNOSIS: Status post aortic valve replacement, postoperative bleeding. Sternal edge bleeders. PROCEDURE PERFORMED: Re-sternotomy, evacuation of mediastinal clots and control of bleeding. The patient is a 76 -year-old lady that underwent earlier today aortic valve replacement. The patient was coagulopathic postoperatively and had increased chest tube output. At some point and despite correcting her coagulopathy, she had persistent moderate level mediastinal drains output and I decided to bring the patient to the OR. She remained hemodynamically stable throughout the whole course. Risks, benefits and alternatives were discussed with the patient s son. DESCRIPTION OF THE PROCEDURE: The patient was brought to the operating room from the ICU, intubated. Again, she remained hemodynamically stable. The patient received 2 gm of Cefazolin intravenously. The chest was prepped and draped using ChloraPrep. Ioban was used to cover the skin. The skin incision was reopened and all suture material removed. The subcutaneous closure was also reopened and suture removed. The fascial layer was also reopened and all the suture removed. We removed six stainless steel wires. There was moderate amount of anterior mediastinal clot. There were no clots in the pericardium. Thorough irrigation was performed. At this point, after thorough exploration, all we could see was some bleeding from the lower aspect of the sterna edge inferiorly towards the right side. There was no bleeding from the wire side. The marrow was not bleeding at this point. We opened the pericardial closure over the aorta and looked at the aortotomy one more time. There was no bleeding. All cannulation sites were fine and no bleeder. All pacemaker sites , entry and exits were checked. There was no bleeding. The exit and entry ports of the chest tube were also checked and there was no bleeding. With that , thorough irrigation was performed one more time. Pericardium was reapproximated over the aorta. Subsequently the sternum was closed using six interrupted stainless steel wires. We paid careful control to all the wire sites. We interposed fibrillar between the sterna edges. Thorough irrigation with Cefazolin followed. The rest of the closure proceeded in layers. Skin glue was applied. The patient was transferred back to the ICU in stable condition. Cardiac index was 2. PA pressure 42/23 and mean arterial pressure 76 on no pressors. MTDD
--- NOTE | 2017-04-30 11:19 | P.PN ---
Subjective Principal diagnosis: Status post aortic valve replacement using a bioprosthetic valve for severe symptomatic aortic stenosis. Postoperative day #1. This is a 76-year-old female who is primarily a patient of Dr. andrade, had history of multiple medical problems including breast cancer, previous radiation treatment and chemotherapy, history of right mastectomy, multiple surgical procedures including hysterectomy and cholecystectomy, patient had a recent echocardiogram which revealed evidence of significant aortic stenosis. There was also trace of aortic regurgitation, her EF was 60%. On 04/09/2017, elective cardiac catheterization and HALEY showed aortic valve area of 0.5-0.6 cm and she was noted to have normal coronaries as well as trace of mitral regurgitation. Patient was referred to cardiac surgery, today she underwent elective aortic valve replacement by Dr. Somers. Postoperatively patient was noted to be on mechanical ventilation, and I was asked to see her on consultation. Chest x-ray was relatively unremarkable except for postoperative changes, tubes and lines were noted to be in the proper position, ABG showed pO2 of 382 pCO2 of 38 pH of 7.41. Postoperative hemoglobin was 7.1, and the patient was noted to have moderate the bleeding from the chest tubes. She was already receiving blood products as well as cryoprecipitate. So far the patient received 10 units of cryoprecipitate, 1 unit of platelets, 4 units of fresh was a plasma. And 3 units of packed RBCs. Ventilator settings were reviewed she is presently on IMV of 12 tidal volume of 450 PEEP of 5 and FiO2 of 50%. Patient is sedated, hemodynamically stable in spite of the moderate to bleeding noted. Patient was reevaluated today on 04/30/2017, her postoperative bleeding yesterday required reexploration in the ER, and finally the bleeding was controlled. Patient came back to the ICU, and early this morning she had a relatively adequate blood gases, good weaning parameters, chest x-ray showed postoperative changes with right hemidiaphragm elevation, and atelectasis, however considering the overall picture, patient was extubated uneventfully and placed on a nasal cannula. Labs were reviewed, hemoglobin is 8.2. Patient received a total of 5 units of packed RBCs, 4 units of fresh frozen plasma, 1 unit of platelets, and 10 units of cryoprecipitate. Objective - Vital Signs Vital signs: Vital Signs Temp 96.8 F L 04/29/17 16:58 Pulse 76 04/30/17 10:00 Resp 25 H 04/30/17 10:00 BP 118/55 04/29/17 16:58 Pulse Ox 96 04/30/17 10:00 Intake & Output 04/29/17 04/30/17 04/30/17 18:59 06:59 18:59 Intake Total 4158.247 1515.637 288.458 Output Total 6390 2086 280 Balance -2231.753 -570.363 8.458 Weight 73.6 kg Intake: IV 1800 1110 286 0.9 NaCl- for CO 370 50 injectate 0.9 NaCl- for Pressure 90 36 bag infusion Albumin 250 250 Cryopricipitate 100 FFP 545 LR 50 400 200 PLT 203 PRBC 620 Intake, IV Titration 211.247 95.637 2.458 Amount Insulin Regular 100 unit 11.247 13.352 2.458 In Sodium Chloride 0.9% 100 ml @ Per Protocol IV .Q0M PEPE Rx#:[id number] Lactated Ringers 1,000 ml 200 @ 50 mls/hr IV .Q20H PEPE Rx#:[id number] Propofol 1,000 mg In 100 82.285 ml @ Titrate IV .Q0M PEPE Rx#:[id number] Blood Product 2147 310 Cryoprecipitate Unit 10 [id number] Cryoprecipitate Unit 10 [id number] Cryoprecipitate Unit 10 [id number] Cryoprecipitate Unit 10 [id number] Cryoprecipitate Unit 10 [id number] Cryoprecipitate Unit 10 [id number] Cryoprecipitate Unit 10 [id number] Cryoprecipitate Unit 10 [id number] Cryoprecipitate Unit 10 [id number] Cryoprecipitate Unit 10 [id number] Ffp 24 Cpd Unit 0 [id number] Ffp 24 Cpda Unit 184 [id number] Ffp 24 Cpda Unit 213 [id number] Ffp 24 Cpda Unit 224 [id number] Platelet Pheresis Acda1 293 Unit [id number] Platelet Pheresis Acda2 203 Unit [id number] Rc As-1 Unit 310 [id number] Rc As-1 Unit 310 [id number] Rc As-1 Unit 0 [id number] Rc As-1 Unit 0 [id number] Rc As-3 Unit 310 [id number] Rc Pheresis As-3 Unit 310 [id number] Output: Chest Tube Drainage 2240 740 140 MSx2 2240 740 140 Gastric Drainage 160 30 Urine 2150 686 110 Estimated Blood Loss 2000 500 Other: Voiding Method Indwelling Catheter Indwelling Catheter Indwelling Catheter ABP, PAP, CO, CI - Last Documented Arterial Blood Pressure 114/54 Pulmonary Artery Pressure 32/16 Cardiac Output 5.4 Cardiac Index 3 - Exam Physical Exam: Revealed a 77-year-old female in no distress. Off mechanical ventilation HEENT:[Neck is supple.] [No neck masses.] [No thyromegaly.] [No JVD.] Chest: [Diminished breath sounds at the bases no crackles or rhonchi or wheezes Cardiac Exam: [Normal S1 and S2, no S3 gallop, no murmur.] Abdomen: [Soft, nontender, no megaly, no rebound, no guarding, normal bowel sounds.] Extremities: [No clubbing, no edema, no cyanosis.] Neurological Exam: [No focal neurologic deficit.] - Labs CBC & Chem 7: 04/30/17 05:00 04/30/17 05:00 Labs: Abnormal Lab Results - Last 24 Hours (Table) 04/24/17 04/29/17 04/29/17 Range/Units 08:45 08:47 09:41 RBC (3.80-5.40) m/uL Hgb (11.4-16.0) gm/dL Hct (34.0-46.0) % MCV (80.0-100.0) fL RDW (11.5-15.5) % Plt Count (150-450) k/uL Lymphocytes # (1.0-4.8) k/uL PT (9.0-12.0) sec INR (<1.2) APTT (22.0-30.0) sec Fibrinogen (200-500) mg/dL ABG pH 7.53 H (7.35-7.45) ABG pCO2 27 L (35-45) mmHg ABG pO2 284 H 220 H (83-108) mmHg ABG Total CO2 25 H (19-24) mmol/L ABG O2 Saturation 99.9 H 99.8 H (94-97) % ABG Hematocrit 33 L (34.0-46.0) % ABG Potassium (3.4-4.5) mmol/L Chloride (98-107) mmol/L Creatinine (0.52-1.04) mg/dL Glucose (74-99) mg/dL POC Glucose (mg/dL) (75-99) mg/dL Calcium (8.4-10.2) mg/dL Ionized Calcium Sofya (4.5-5.3) mg/dL Total Bilirubin (0.2-1.3) mg/dL AST (14-36) U/L ALT (9-52) U/L Alkaline Phosphatase (38-126) U/L Total Protein (6.3-8.2) g/dL Albumin (3.5-5.0) g/dL Arterial Blood Potassium (3.4-4.5) mmol/L Urine Ketones (Negative) Crossmatch See Detail 04/29/17 04/29/17 04/29/17 Range/Units 10:18 10:51 11:41 RBC (3.80-5.40) m/uL Hgb (11.4-16.0) gm/dL Hct (34.0-46.0) % MCV (80.0-100.0) fL RDW (11.5-15.5) % Plt Count (150-450) k/uL Lymphocytes # (1.0-4.8) k/uL PT (9.0-12.0) sec INR (<1.2) APTT (22.0-30.0) sec Fibrinogen (200-500) mg/dL ABG pH 7.48 H (7.35-7.45) ABG pCO2 34 L 32 L (35-45) mmHg ABG pO2 365 H 288 H (83-108) mmHg ABG Total CO2 (19-24) mmol/L ABG O2 Saturation 100.0 H 99.9 H (94-97) % ABG Hematocrit 28 L 26 L (34.0-46.0) % ABG Potassium 5.3 H 4.6 H (3.4-4.5) mmol/L Chloride (98-107) mmol/L Creatinine (0.52-1.04) mg/dL Glucose (74-99) mg/dL POC Glucose (mg/dL) 192 H (75-99) mg/dL Calcium (8.4-10.2) mg/dL Ionized Calcium Sofya (4.5-5.3) mg/dL Total Bilirubin (0.2-1.3) mg/dL AST (14-36) U/L ALT (9-52) U/L Alkaline Phosphatase (38-126) U/L Total Protein (6.3-8.2) g/dL Albumin (3.5-5.0) g/dL Arterial Blood Potassium 5.3 H 4.6 H (3.4-4.5) mmol/L Urine Ketones (Negative) Crossmatch 04/29/17 04/29/17 04/29/17 Range/Units 11:42 12:45 12:45 RBC 2.16 L (3.80-5.40) m/uL Hgb 6.8 L* D (11.4-16.0) gm/dL Hct 21.8 L (34.0-46.0) % MCV 101.2 H (80.0-100.0) fL RDW (11.5-15.5) % Plt Count 117 L D (150-450) k/uL Lymphocytes # 0.7 L (1.0-4.8) k/uL PT 17.7 H (9.0-12.0) sec INR 1.8 H (<1.2) APTT 50.6 H (22.0-30.0) sec Fibrinogen 87 L* (200-500) mg/dL ABG pH (7.35-7.45) ABG pCO2 34 L (35-45) mmHg ABG pO2 248 H (83-108) mmHg ABG Total CO2 (19-24) mmol/L ABG O2 Saturation 99.9 H (94-97) % ABG Hematocrit 26 L (34.0-46.0) % ABG Potassium (3.4-4.5) mmol/L Chloride (98-107) mmol/L Creatinine (0.52-1.04) mg/dL Glucose (74-99) mg/dL POC Glucose (mg/dL) (75-99) mg/dL Calcium (8.4-10.2) mg/dL Ionized Calcium Sofya (4.5-5.3) mg/dL Total Bilirubin (0.2-1.3) mg/dL AST (14-36) U/L ALT (9-52) U/L Alkaline Phosphatase (38-126) U/L Total Protein (6.3-8.2) g/dL Albumin (3.5-5.0) g/dL Arterial Blood Potassium (3.4-4.5) mmol/L Urine Ketones (Negative) Crossmatch 04/29/17 04/29/17 04/29/17 Range/Units 13:16 13:17 14:02 RBC (3.80-5.40) m/uL Hgb (11.4-16.0) gm/dL Hct (34.0-46.0) % MCV (80.0-100.0) fL RDW (11.5-15.5) % Plt Count (150-450) k/uL Lymphocytes # (1.0-4.8) k/uL PT (9.0-12.0) sec INR (<1.2) APTT (22.0-30.0) sec Fibrinogen (200-500) mg/dL ABG pH (7.35-7.45) ABG pCO2 34 L (35-45) mmHg ABG pO2 292 H (83-108) mmHg ABG Total CO2 (19-24) mmol/L ABG O2 Saturation 99.9 H (94-97) % ABG Hematocrit 22 L (34.0-46.0) % ABG Potassium (3.4-4.5) mmol/L Chloride (98-107) mmol/L Creatinine (0.52-1.04) mg/dL Glucose (74-99) mg/dL POC Glucose (mg/dL) 136 H 157 H (75-99) mg/dL Calcium (8.4-10.2) mg/dL Ionized Calcium Sofya (4.5-5.3) mg/dL Total Bilirubin (0.2-1.3) mg/dL AST (14-36) U/L ALT (9-52) U/L Alkaline Phosphatase (38-126) U/L Total Protein (6.3-8.2) g/dL Albumin (3.5-5.0) g/dL Arterial Blood Potassium (3.4-4.5) mmol/L Urine Ketones (Negative) Crossmatch 04/29/17 04/29/17 04/29/17 Range/Units 14:02 14:40 14:40 RBC 2.29 L (3.80-5.40) m/uL Hgb 7.1 L (11.4-16.0) gm/dL Hct 21.6 L (34.0-46.0) % MCV (80.0-100.0) fL RDW (11.5-15.5) % Plt Count 113 L (150-450) k/uL Lymphocytes # 0.7 L (1.0-4.8) k/uL PT (9.0-12.0) sec INR (<1.2) APTT (22.0-30.0) sec Fibrinogen (200-500) mg/dL ABG pH 7.47 H (7.35-7.45) ABG pCO2 33 L (35-45) mmHg ABG pO2 361 H (83-108) mmHg ABG Total CO2 25 H (19-24) mmol/L ABG O2 Saturation 100.0 H (94-97) % ABG Hematocrit 20 L* (34.0-46.0) % ABG Potassium 4.6 H (3.4-4.5) mmol/L Chloride (98-107) mmol/L Creatinine 0.47 L (0.52-1.04) mg/dL Glucose 150 H (74-99) mg/dL POC Glucose (mg/dL) (75-99) mg/dL Calcium 7.8 L (8.4-10.2) mg/dL Ionized Calcium Sofya 3.9 L (4.5-5.3) mg/dL Total Bilirubin 1.6 H (0.2-1.3) mg/dL AST 512 H (14-36) U/L ALT 266 H (9-52) U/L Alkaline Phosphatase 32 L (38-126) U/L Total Protein 4.4 L (6.3-8.2) g/dL Albumin 3.1 L (3.5-5.0) g/dL Arterial Blood Potassium 4.6 H (3.4-4.5) mmol/L Urine Ketones (Negative) Crossmatch 0804/29/17 04/29/17 Range/Units 14:40 14:43 15:19 RBC (3.80-5.40) m/uL Hgb (11.4-16.0) gm/dL Hct (34.0-46.0) % MCV (80.0-100.0) fL RDW (11.5-15.5) % Plt Count (150-450) k/uL Lymphocytes # (1.0-4.8) k/uL PT 15.1 H (9.0-12.0) sec INR 1.6 H (<1.2) APTT 36.9 H (22.0-30.0) sec Fibrinogen (200-500) mg/dL ABG pH (7.35-7.45) ABG pCO2 (35-45) mmHg ABG pO2 382 H (83-108) mmHg ABG Total CO2 25 H (19-24) mmol/L ABG O2 Saturation 100.0 H (94-97) % ABG Hematocrit (34.0-46.0) % ABG Potassium (3.4-4.5) mmol/L Chloride (98-107) mmol/L Creatinine (0.52-1.04) mg/dL Glucose (74-99) mg/dL POC Glucose (mg/dL) 170 H (75-99) mg/dL Calcium (8.4-10.2) mg/dL Ionized Calcium Sofya (4.5-5.3) mg/dL Total Bilirubin (0.2-1.3) mg/dL AST (14-36) U/L ALT (9-52) U/L Alkaline Phosphatase (38-126) U/L Total Protein (6.3-8.2) g/dL Albumin (3.5-5.0) g/dL Arterial Blood Potassium (3.4-4.5) mmol/L Urine Ketones (Negative) Crossmatch 04/29/17 04/29/17 04/29/17 Range/Units 16:24 16:40 16:40 RBC 1.87 L (3.80-5.40) m/uL Hgb 6.0 L* (11.4-16.0) gm/dL Hct 17.8 L* (34.0-46.0) % MCV (80.0-100.0) fL RDW (11.5-15.5) % Plt Count 79 L (150-450) k/uL Lymphocytes # 0.3 L (1.0-4.8) k/uL PT 12.6 H (9.0-12.0) sec INR 1.3 H (<1.2) APTT 30.5 H (22.0-30.0) sec Fibrinogen (200-500) mg/dL ABG pH (7.35-7.45) ABG pCO2 (35-45) mmHg ABG pO2 (83-108) mmHg ABG Total CO2 (19-24) mmol/L ABG O2 Saturation (94-97) % ABG Hematocrit (34.0-46.0) % ABG Potassium (3.4-4.5) mmol/L Chloride (98-107) mmol/L Creatinine (0.52-1.04) mg/dL Glucose (74-99) mg/dL POC Glucose (mg/dL) 185 H (75-99) mg/dL Calcium (8.4-10.2) mg/dL Ionized Calcium Sofya (4.5-5.3) mg/dL Total Bilirubin (0.2-1.3) mg/dL AST (14-36) U/L ALT (9-52) U/L Alkaline Phosphatase (38-126) U/L Total Protein (6.3-8.2) g/dL Albumin (3.5-5.0) g/dL Arterial Blood Potassium (3.4-4.5) mmol/L Urine Ketones (Negative) Crossmatch 04/29/17 04/29/17 04/29/17 Range/Units 16:44 17:55 18:17 RBC (3.80-5.40) m/uL Hgb (11.4-16.0) gm/dL Hct (34.0-46.0) % MCV (80.0-100.0) fL RDW (11.5-15.5) % Plt Count (150-450) k/uL Lymphocytes # (1.0-4.8) k/uL PT (9.0-12.0) sec INR (<1.2) APTT (22.0-30.0) sec Fibrinogen (200-500) mg/dL ABG pH (7.35-7.45) ABG pCO2 (35-45) mmHg ABG pO2 (83-108) mmHg ABG Total CO2 (19-24) mmol/L ABG O2 Saturation (94-97) % ABG Hematocrit (34.0-46.0) % ABG Potassium (3.4-4.5) mmol/L Chloride (98-107) mmol/L Creatinine (0.52-1.04) mg/dL Glucose (74-99) mg/dL POC Glucose (mg/dL) 188 H 142 H (75-99) mg/dL Calcium (8.4-10.2) mg/dL Ionized Calcium Sofya (4.5-5.3) mg/dL Total Bilirubin (0.2-1.3) mg/dL AST (14-36) U/L ALT (9-52) U/L Alkaline Phosphatase (38-126) U/L Total Protein (6.3-8.2) g/dL Albumin (3.5-5.0) g/dL Arterial Blood Potassium (3.4-4.5) mmol/L Urine Ketones Trace H (Negative) Crossmatch 04/29/17 04/29/17 04/29/17 Range/Units 18:48 18:50 20:13 RBC 2.65 L (3.80-5.40) m/uL Hgb 8.0 L D (11.4-16.0) gm/dL Hct 24.4 L (34.0-46.0) % MCV (80.0-100.0) fL RDW 15.9 H (11.5-15.5) % Plt Count 103 L (150-450) k/uL Lymphocytes # 0.4 L (1.0-4.8) k/uL PT (9.0-12.0) sec INR (<1.2) APTT (22.0-30.0) sec Fibrinogen (200-500) mg/dL ABG pH (7.35-7.45) ABG pCO2 (35-45) mmHg ABG pO2 (83-108) mmHg ABG Total CO2 (19-24) mmol/L ABG O2 Saturation (94-97) % ABG Hematocrit (34.0-46.0) % ABG Potassium (3.4-4.5) mmol/L Chloride (98-107) mmol/L Creatinine (0.52-1.04) mg/dL Glucose (74-99) mg/dL POC Glucose (mg/dL) 122 H 112 H (75-99) mg/dL Calcium (8.4-10.2) mg/dL Ionized Calcium Sofya (4.5-5.3) mg/dL Total Bilirubin (0.2-1.3) mg/dL AST (14-36) U/L ALT (9-52) U/L Alkaline Phosphatase (38-126) U/L Total Protein (6.3-8.2) g/dL Albumin (3.5-5.0) g/dL Arterial Blood Potassium (3.4-4.5) mmol/L Urine Ketones (Negative) Crossmatch 04/29/17 04/29/17 04/29/17 Range/Units 20:40 20:40 21:17 RBC (3.80-5.40) m/uL Hgb (11.4-16.0) gm/dL Hct (34.0-46.0) % MCV (80.0-100.0) fL RDW (11.5-15.5) % Plt Count 93 L (150-450) k/uL Lymphocytes # (1.0-4.8) k/uL PT 13.2 H (9.0-12.0) sec INR 1.3 H (<1.2) APTT 30.9 H (22.0-30.0) sec Fibrinogen 168 L (200-500) mg/dL ABG pH (7.35-7.45) ABG pCO2 (35-45) mmHg ABG pO2 (83-108) mmHg ABG Total CO2 (19-24) mmol/L ABG O2 Saturation (94-97) % ABG Hematocrit (34.0-46.0) % ABG Potassium (3.4-4.5) mmol/L Chloride (98-107) mmol/L Creatinine (0.52-1.04) mg/dL Glucose (74-99) mg/dL POC Glucose (mg/dL) 151 H (75-99) mg/dL Calcium (8.4-10.2) mg/dL Ionized Calcium Sofya (4.5-5.3) mg/dL Total Bilirubin (0.2-1.3) mg/dL AST (14-36) U/L ALT (9-52) U/L Alkaline Phosphatase (38-126) U/L Total Protein (6.3-8.2) g/dL Albumin (3.5-5.0) g/dL Arterial Blood Potassium (3.4-4.5) mmol/L Urine Ketones (Negative) Crossmatch 04/29/17 04/29/17 04/29/17 Range/Units 22:02 22:04 22:04 RBC 2.73 L (3.80-5.40) m/uL Hgb 8.3 L (11.4-16.0) gm/dL Hct 25.5 L (34.0-46.0) % MCV (80.0-100.0) fL RDW (11.5-15.5) % Plt Count 84 L (150-450) k/uL Lymphocytes # 0.4 L (1.0-4.8) k/uL PT (9.0-12.0) sec INR (<1.2) APTT (22.0-30.0) sec Fibrinogen (200-500) mg/dL ABG pH (7.35-7.45) ABG pCO2 (35-45) mmHg ABG pO2 (83-108) mmHg ABG Total CO2 (19-24) mmol/L ABG O2 Saturation (94-97) % ABG Hematocrit (34.0-46.0) % ABG Potassium (3.4-4.5) mmol/L Chloride 108 H (98-107) mmol/L Creatinine 0.46 L (0.52-1.04) mg/dL Glucose 117 H (74-99) mg/dL POC Glucose (mg/dL) 130 H (75-99) mg/dL Calcium 8.2 L (8.4-10.2) mg/dL Ionized Calcium Sofya (4.5-5.3) mg/dL Total Bilirubin (0.2-1.3) mg/dL AST (14-36) U/L ALT (9-52) U/L Alkaline Phosphatase (38-126) U/L Total Protein (6.3-8.2) g/dL Albumin (3.5-5.0) g/dL Arterial Blood Potassium (3.4-4.5) mmol/L Urine Ketones (Negative) Crossmatch 04/29/17 04/30/17 04/30/17 Range/Units 23:05 00:05 01:02 RBC (3.80-5.40) m/uL Hgb (11.4-16.0) gm/dL Hct (34.0-46.0) % MCV (80.0-100.0) fL RDW (11.5-15.5) % Plt Count (150-450) k/uL Lymphocytes # (1.0-4.8) k/uL PT (9.0-12.0) sec INR (<1.2) APTT (22.0-30.0) sec Fibrinogen (200-500) mg/dL ABG pH (7.35-7.45) ABG pCO2 (35-45) mmHg ABG pO2 (83-108) mmHg ABG Total CO2 (19-24) mmol/L ABG O2 Saturation (94-97) % ABG Hematocrit (34.0-46.0) % ABG Potassium (3.4-4.5) mmol/L Chloride (98-107) mmol/L Creatinine (0.52-1.04) mg/dL Glucose (74-99) mg/dL POC Glucose (mg/dL) 133 H 126 H 116 H (75-99) mg/dL Calcium (8.4-10.2) mg/dL Ionized Calcium Sofya (4.5-5.3) mg/dL Total Bilirubin (0.2-1.3) mg/dL AST (14-36) U/L ALT (9-52) U/L Alkaline Phosphatase (38-126) U/L Total Protein (6.3-8.2) g/dL Albumin (3.5-5.0) g/dL Arterial Blood Potassium (3.4-4.5) mmol/L Urine Ketones (Negative) Crossmatch 04/30/17 04/30/17 04/30/17 Range/Units 01:15 01:15 02:02 RBC 2.73 L (3.80-5.40) m/uL Hgb 8.2 L (11.4-16.0) gm/dL Hct 25.3 L (34.0-46.0) % MCV (80.0-100.0) fL RDW 15.6 H (11.5-15.5) % Plt Count 85 L (150-450) k/uL Lymphocytes # 0.6 L (1.0-4.8) k/uL PT 12.3 H (9.0-12.0) sec INR 1.2 H (<1.2) APTT (22.0-30.0) sec Fibrinogen (200-500) mg/dL ABG pH (7.35-7.45) ABG pCO2 (35-45) mmHg ABG pO2 (83-108) mmHg ABG Total CO2 (19-24) mmol/L ABG O2 Saturation (94-97) % ABG Hematocrit (34.0-46.0) % ABG Potassium (3.4-4.5) mmol/L Chloride (98-107) mmol/L Creatinine (0.52-1.04) mg/dL Glucose (74-99) mg/dL POC Glucose (mg/dL) 109 H (75-99) mg/dL Calcium (8.4-10.2) mg/dL Ionized Calcium Sofya (4.5-5.3) mg/dL Total Bilirubin (0.2-1.3) mg/dL AST (14-36) U/L ALT (9-52) U/L Alkaline Phosphatase (38-126) U/L Total Protein (6.3-8.2) g/dL Albumin (3.5-5.0) g/dL Arterial Blood Potassium (3.4-4.5) mmol/L Urine Ketones (Negative) Crossmatch 04/30/17 04/30/17 04/30/17 Range/Units 03:03 04:10 04:59 RBC (3.80-5.40) m/uL Hgb (11.4-16.0) gm/dL Hct (34.0-46.0) % MCV (80.0-100.0) fL RDW (11.5-15.5) % Plt Count (150-450) k/uL Lymphocytes # (1.0-4.8) k/uL PT (9.0-12.0) sec INR (<1.2) APTT (22.0-30.0) sec Fibrinogen (200-500) mg/dL ABG pH (7.35-7.45) ABG pCO2 (35-45) mmHg ABG pO2 (83-108) mmHg ABG Total CO2 (19-24) mmol/L ABG O2 Saturation (94-97) % ABG Hematocrit (34.0-46.0) % ABG Potassium (3.4-4.5) mmol/L Chloride (98-107) mmol/L Creatinine (0.52-1.04) mg/dL Glucose (74-99) mg/dL POC Glucose (mg/dL) 118 H 127 H 123 H (75-99) mg/dL Calcium (8.4-10.2) mg/dL Ionized Calcium Sofya (4.5-5.3) mg/dL Total Bilirubin (0.2-1.3) mg/dL AST (14-36) U/L ALT (9-52) U/L Alkaline Phosphatase (38-126) U/L Total Protein (6.3-8.2) g/dL Albumin (3.5-5.0) g/dL Arterial Blood Potassium (3.4-4.5) mmol/L Urine Ketones (Negative) Crossmatch 04/30/17 04/30/17 04/30/17 Range/Units 05:00 05:00 05:00 RBC 2.73 L (3.80-5.40) m/uL Hgb 8.3 L (11.4-16.0) gm/dL Hct 25.2 L (34.0-46.0) % MCV (80.0-100.0) fL RDW 16.0 H (11.5-15.5) % Plt Count 90 L (150-450) k/uL Lymphocytes # 0.7 L (1.0-4.8) k/uL PT 12.3 H (9.0-12.0) sec INR 1.2 H (<1.2) APTT (22.0-30.0) sec Fibrinogen (200-500) mg/dL ABG pH (7.35-7.45) ABG pCO2 (35-45) mmHg ABG pO2 (83-108) mmHg ABG Total CO2 (19-24) mmol/L ABG O2 Saturation (94-97) % ABG Hematocrit (34.0-46.0) % ABG Potassium (3.4-4.5) mmol/L Chloride 109 H (98-107) mmol/L Creatinine 0.50 L (0.52-1.04) mg/dL Glucose 113 H (74-99) mg/dL POC Glucose (mg/dL) (75-99) mg/dL Calcium (8.4-10.2) mg/dL Ionized Calcium Sofya (4.5-5.3) mg/dL Total Bilirubin 1.8 H (0.2-1.3) mg/dL AST 115 H (14-36) U/L ALT 115 H (9-52) U/L Alkaline Phosphatase 33 L (38-126) U/L Total Protein 4.6 L (6.3-8.2) g/dL Albumin 3.0 L (3.5-5.0) g/dL Arterial Blood Potassium (3.4-4.5) mmol/L Urine Ketones (Negative) Crossmatch 04/30/17 04/30/17 04/30/17 Range/Units 06:14 07:07 08:10 RBC (3.80-5.40) m/uL Hgb (11.4-16.0) gm/dL Hct (34.0-46.0) % MCV (80.0-100.0) fL RDW (11.5-15.5) % Plt Count (150-450) k/uL Lymphocytes # (1.0-4.8) k/uL PT (9.0-12.0) sec INR (<1.2) APTT (22.0-30.0) sec Fibrinogen (200-500) mg/dL ABG pH (7.35-7.45) ABG pCO2 (35-45) mmHg ABG pO2 (83-108) mmHg ABG Total CO2 (19-24) mmol/L ABG O2 Saturation (94-97) % ABG Hematocrit (34.0-46.0) % ABG Potassium (3.4-4.5) mmol/L Chloride (98-107) mmol/L Creatinine (0.52-1.04) mg/dL Glucose (74-99) mg/dL POC Glucose (mg/dL) 117 H 116 H 121 H (75-99) mg/dL Calcium (8.4-10.2) mg/dL Ionized Calcium Sofya (4.5-5.3) mg/dL Total Bilirubin (0.2-1.3) mg/dL AST (14-36) U/L ALT (9-52) U/L Alkaline Phosphatase (38-126) U/L Total Protein (6.3-8.2) g/dL Albumin (3.5-5.0) g/dL Arterial Blood Potassium (3.4-4.5) mmol/L Urine Ketones (Negative) Crossmatch 04/30/17 04/30/17 04/30/17 Range/Units 08:32 08:59 10:00 RBC (3.80-5.40) m/uL Hgb (11.4-16.0) gm/dL Hct (34.0-46.0) % MCV (80.0-100.0) fL RDW (11.5-15.5) % Plt Count (150-450) k/uL Lymphocytes # (1.0-4.8) k/uL PT (9.0-12.0) sec INR (<1.2) APTT (22.0-30.0) sec Fibrinogen (200-500) mg/dL ABG pH (7.35-7.45) ABG pCO2 (35-45) mmHg ABG pO2 (83-108) mmHg ABG Total CO2 25 H (19-24) mmol/L ABG O2 Saturation (94-97) % ABG Hematocrit (34.0-46.0) % ABG Potassium (3.4-4.5) mmol/L Chloride (98-107) mmol/L Creatinine (0.52-1.04) mg/dL Glucose (74-99) mg/dL POC Glucose (mg/dL) 133 H 139 H (75-99) mg/dL Calcium (8.4-10.2) mg/dL Ionized Calcium Sofya (4.5-5.3) mg/dL Total Bilirubin (0.2-1.3) mg/dL AST (14-36) U/L ALT (9-52) U/L Alkaline Phosphatase (38-126) U/L Total Protein (6.3-8.2) g/dL Albumin (3.5-5.0) g/dL Arterial Blood Potassium (3.4-4.5) mmol/L Urine Ketones (Negative) Crossmatch 04/30/17 Range/Units 11:03 RBC (3.80-5.40) m/uL Hgb (11.4-16.0) gm/dL Hct (34.0-46.0) % MCV (80.0-100.0) fL RDW (11.5-15.5) % Plt Count (150-450) k/uL Lymphocytes # (1.0-4.8) k/uL PT (9.0-12.0) sec INR (<1.2) APTT (22.0-30.0) sec Fibrinogen (200-500) mg/dL ABG pH (7.35-7.45) ABG pCO2 (35-45) mmHg ABG pO2 (83-108) mmHg ABG Total CO2 (19-24) mmol/L ABG O2 Saturation (94-97) % ABG Hematocrit (34.0-46.0) % ABG Potassium (3.4-4.5) mmol/L Chloride (98-107) mmol/L Creatinine (0.52-1.04) mg/dL Glucose (74-99) mg/dL POC Glucose (mg/dL) 129 H (75-99) mg/dL Calcium (8.4-10.2) mg/dL Ionized Calcium Sofya (4.5-5.3) mg/dL Total Bilirubin (0.2-1.3) mg/dL AST (14-36) U/L ALT (9-52) U/L Alkaline Phosphatase (38-126) U/L Total Protein (6.3-8.2) g/dL Albumin (3.5-5.0) g/dL Arterial Blood Potassium (3.4-4.5) mmol/L Urine Ketones (Negative) Crossmatch Microbiology - Last 24 Hours (Table) 04/29/17 17:55 Urine Culture - Preliminary Urine,Catheterized Assessment and Plan Plan: Impression: 1 status post aortic valve replacement for severe aortic stenosis 2 postoperative anemia secondary to intraoperative and perioperative blood loss. , However the bleeding became more extensive requiring reexploration, patient was taken back to the OR, and this was unexpected. 3 history of breast cancer and previous lumpectomy followed by radiation and chemotherapy. History of right breast mastectomy. Recommendation: Patient was extubated uneventfully, continue incentive spirometry, bronchodilators, early ambulation, and continue to monitor for any further episodes of bleeding. We'll continue to follow. Time with Patient: Less than 30
[2017-04-30] MEDS ORDERED: IPRATROPIUM-ALBUTEROL 3 ML NEB INHALATION PRN (11:50)
[2017-04-30 12:20] LABS: Glucose,Whole Blood 120 mg/dL (75-99)
[2017-04-30 13:34] LABS: Glucose,Whole Blood 118 mg/dL (75-99)
[2017-04-30] MEDS: CLOPIDOGREL 75 MG TAB PO SCH (13:48)
[2017-04-30 14:26] LABS: Glucose,Whole Blood 114 mg/dL (75-99)
[2017-04-30 15:08] LABS: Glucose,Whole Blood 113 mg/dL (75-99)
--- NOTE | 2017-04-30 16:03 | P.PN ---
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 POD #1 elective aortic valve replacement using a 21 mm pericardial bioprosthesis magna ease bovine. Exclusion of the left atrial appendage using a 35 mm AtriClip. Intraoperative transesophageal echocardiogram and epi-aortic scanning. Postoperative bleeding, inherent to this surgery. POD #1 return to the OR for emergent exploratory chest, evacuation of clots Patient is currently up in the chair in no acute distress. Was extubated this morning. Denies pain, shortness of breath. Tolerating diet. Objective - Vital Signs Vital signs: Vital Signs Temp 96.8 F L 04/29/17 16:58 Pulse 83 04/30/17 15:26 Resp 18 04/30/17 15:00 BP 118/55 04/29/17 16:58 Pulse Ox 96 04/30/17 14:00 Intake & Output 04/29/17 04/30/17 04/30/17 18:59 06:59 18:59 Intake Total 4789.247 1515.637 881.458 Output Total 6390 2086 558 Balance -1600.753 -570.363 323.458 Weight 73.6 kg Intake: IV 1800 1110 569 0.9 NaCl- for CO 370 50 injectate 0.9 NaCl- for Pressure 90 69 bag infusion Albumin 250 250 Cryopricipitate 100 FFP 545 LR 50 400 450 PLT 203 PRBC 620 Intake, IV Titration 211.247 95.637 2.458 Amount Insulin Regular 100 unit 11.247 13.352 2.458 In Sodium Chloride 0.9% 100 ml @ Per Protocol IV .Q0M PEPE Rx#:[id number] Lactated Ringers 1,000 ml 200 @ 20 mls/hr IV .Q24H PEPE Rx#:[id number] Propofol 1,000 mg In 100 82.285 ml @ Titrate IV .Q0M PEPE Rx#:[id number] Blood Product 2778 310 310 Cryoprecipitate Unit 10 [id number] Cryoprecipitate Unit 10 [id number] Cryoprecipitate Unit 10 [id number] Cryoprecipitate Unit 10 [id number] Cryoprecipitate Unit 10 [id number] Cryoprecipitate Unit 10 [id number] Cryoprecipitate Unit 10 [id number] Cryoprecipitate Unit 10 [id number] Cryoprecipitate Unit 10 [id number] Cryoprecipitate Unit 10 [id number] Ffp 24 Cpd Unit 321 [id number] Ffp 24 Cpda Unit 184 [id number] Ffp 24 Cpda Unit 213 [id number] Ffp 24 Cpda Unit 224 [id number] Platelet Pheresis Acda1 293 Unit [id number] Platelet Pheresis Acda2 203 Unit [id number] Rc As-1 Unit 310 [id number] Rc As-1 Unit 310 [id number] Rc As-1 Unit 310 [id number] Rc As-1 Unit 0 310 [id number] Rc As-3 Unit 310 [id number] Rc Pheresis As-3 Unit 310 [id number] Output: Chest Tube Drainage 2240 740 300 MSx2 2240 740 300 Gastric Drainage 160 30 Urine 2150 686 228 Estimated Blood Loss 1999 500 Other: Voiding Method Indwelling Catheter Indwelling Catheter Indwelling Catheter ABP, PAP, CO, CI - Last Documented Arterial Blood Pressure 102/51 Pulmonary Artery Pressure 34/19 Cardiac Output 5.4 Cardiac Index 3.0 - Constitutional General appearance: Present: cooperative, no acute distress - Respiratory Details: Lungs sounds diminished bilaterally. Respirations even, nonlabored. Currently on 3 L nasal cannula with oxygen saturations 96%. Mediastinal chest tube to - 20 cm wall suction, 170 mL serosanguineous drainage overnight, 800 mL present in second atrium. No air leak present. - Cardiovascular Details: S1, S2 present. Regular rate and rhythm, normal sinus rhythm on telemetry. A/ V epicardial pacemaker wires present, connected to generator which is currently turned off. Sternum stable. Heart hugger in place with patient demonstrating appropriate use. No edema present. Palpable pulses bilaterally. Teds/SCDs present. Right internal jugular Cordis, left radial arterial line present. - Gastrointestinal Gastrointestinal Comment(s): Abdomen soft, nontender, nondistended. Active bowel sounds 4 quadrants. Tolerating diet. - Genitourinary Genitourinary Comment(s): Morales present draining clear, yellow urine. - Neurologic Neurologic: Present: CNII-XII intact - Musculoskeletal Musculoskeletal: Present: gait normal, strength equal bilaterally - Psychiatric Psychiatric: Present: A&O x's 3, appropriate affect, intact judgment & insight - Allied health notes Allied health notes reviewed: nursing - Labs CBC & Chem 7: 04/30/17 05:00 04/30/17 05:00 Labs: Abnormal Lab Results - Last 24 Hours (Table) 04/24/17 04/29/17 04/29/17 Range/Units 08:45 08:47 09:41 RBC (3.80-5.40) m/uL Hgb (11.4-16.0) gm/dL Hct (34.0-46.0) % RDW (11.5-15.5) % Plt Count (150-450) k/uL Lymphocytes # (1.0-4.8) k/uL PT (9.0-12.0) sec INR (<1.2) APTT (22.0-30.0) sec Fibrinogen (200-500) mg/dL ABG pH 7.53 H (7.35-7.45) ABG pCO2 27 L (35-45) mmHg ABG pO2 284 H 220 H (83-108) mmHg ABG Total CO2 25 H (19-24) mmol/L ABG O2 Saturation 99.9 H 99.8 H (94-97) % ABG Hematocrit 33 L (34.0-46.0) % ABG Potassium (3.4-4.5) mmol/L Chloride (98-107) mmol/L Creatinine (0.52-1.04) mg/dL Glucose (74-99) mg/dL POC Glucose (mg/dL) (75-99) mg/dL Calcium (8.4-10.2) mg/dL Total Bilirubin (0.2-1.3) mg/dL AST (14-36) U/L ALT (9-52) U/L Alkaline Phosphatase (38-126) U/L Total Protein (6.3-8.2) g/dL Albumin (3.5-5.0) g/dL Arterial Blood Potassium (3.4-4.5) mmol/L Urine Ketones (Negative) Crossmatch See Detail 0804/29/17 04/29/17 Range/Units 10:18 10:51 11:42 RBC (3.80-5.40) m/uL Hgb (11.4-16.0) gm/dL Hct (34.0-46.0) % RDW (11.5-15.5) % Plt Count (150-450) k/uL Lymphocytes # (1.0-4.8) k/uL PT (9.0-12.0) sec INR (<1.2) APTT (22.0-30.0) sec Fibrinogen (200-500) mg/dL ABG pH 7.48 H (7.35-7.45) ABG pCO2 34 L 32 L 34 L (35-45) mmHg ABG pO2 365 H 288 H 248 H (83-108) mmHg ABG Total CO2 (19-24) mmol/L ABG O2 Saturation 100.0 H 99.9 H 99.9 H (94-97) % ABG Hematocrit 28 L 26 L 26 L (34.0-46.0) % ABG Potassium 5.3 H 4.6 H (3.4-4.5) mmol/L Chloride (98-107) mmol/L Creatinine (0.52-1.04) mg/dL Glucose (74-99) mg/dL POC Glucose (mg/dL) (75-99) mg/dL Calcium (8.4-10.2) mg/dL Total Bilirubin (0.2-1.3) mg/dL AST (14-36) U/L ALT (9-52) U/L Alkaline Phosphatase (38-126) U/L Total Protein (6.3-8.2) g/dL Albumin (3.5-5.0) g/dL Arterial Blood Potassium 5.3 H 4.6 H (3.4-4.5) mmol/L Urine Ketones (Negative) Crossmatch 04/29/17 04/29/17 04/29/17 Range/Units 13:17 14:02 16:24 RBC (3.80-5.40) m/uL Hgb (11.4-16.0) gm/dL Hct (34.0-46.0) % RDW (11.5-15.5) % Plt Count (150-450) k/uL Lymphocytes # (1.0-4.8) k/uL PT (9.0-12.0) sec INR (<1.2) APTT (22.0-30.0) sec Fibrinogen (200-500) mg/dL ABG pH 7.47 H (7.35-7.45) ABG pCO2 34 L 33 L (35-45) mmHg ABG pO2 292 H 361 H (83-108) mmHg ABG Total CO2 25 H (19-24) mmol/L ABG O2 Saturation 99.9 H 100.0 H (94-97) % ABG Hematocrit 22 L 20 L* (34.0-46.0) % ABG Potassium 4.6 H (3.4-4.5) mmol/L Chloride (98-107) mmol/L Creatinine (0.52-1.04) mg/dL Glucose (74-99) mg/dL POC Glucose (mg/dL) 185 H (75-99) mg/dL Calcium (8.4-10.2) mg/dL Total Bilirubin (0.2-1.3) mg/dL AST (14-36) U/L ALT (9-52) U/L Alkaline Phosphatase (38-126) U/L Total Protein (6.3-8.2) g/dL Albumin (3.5-5.0) g/dL Arterial Blood Potassium 4.6 H (3.4-4.5) mmol/L Urine Ketones (Negative) Crossmatch 04/29/17 04/29/17 04/29/17 Range/Units 16:40 16:40 16:44 RBC 1.87 L (3.80-5.40) m/uL Hgb 6.0 L* (11.4-16.0) gm/dL Hct 17.8 L* (34.0-46.0) % RDW (11.5-15.5) % Plt Count 79 L (150-450) k/uL Lymphocytes # 0.3 L (1.0-4.8) k/uL PT 12.6 H (9.0-12.0) sec INR 1.3 H (<1.2) APTT 30.5 H (22.0-30.0) sec Fibrinogen (200-500) mg/dL ABG pH (7.35-7.45) ABG pCO2 (35-45) mmHg ABG pO2 (83-108) mmHg ABG Total CO2 (19-24) mmol/L ABG O2 Saturation (94-97) % ABG Hematocrit (34.0-46.0) % ABG Potassium (3.4-4.5) mmol/L Chloride (98-107) mmol/L Creatinine (0.52-1.04) mg/dL Glucose (74-99) mg/dL POC Glucose (mg/dL) 188 H (75-99) mg/dL Calcium (8.4-10.2) mg/dL Total Bilirubin (0.2-1.3) mg/dL AST (14-36) U/L ALT (9-52) U/L Alkaline Phosphatase (38-126) U/L Total Protein (6.3-8.2) g/dL Albumin (3.5-5.0) g/dL Arterial Blood Potassium (3.4-4.5) mmol/L Urine Ketones (Negative) Crossmatch 04/29/17 04/29/17 04/29/17 Range/Units 17:55 18:17 18:48 RBC (3.80-5.40) m/uL Hgb (11.4-16.0) gm/dL Hct (34.0-46.0) % RDW (11.5-15.5) % Plt Count (150-450) k/uL Lymphocytes # (1.0-4.8) k/uL PT (9.0-12.0) sec INR (<1.2) APTT (22.0-30.0) sec Fibrinogen (200-500) mg/dL ABG pH (7.35-7.45) ABG pCO2 (35-45) mmHg ABG pO2 (83-108) mmHg ABG Total CO2 (19-24) mmol/L ABG O2 Saturation (94-97) % ABG Hematocrit (34.0-46.0) % ABG Potassium (3.4-4.5) mmol/L Chloride (98-107) mmol/L Creatinine (0.52-1.04) mg/dL Glucose (74-99) mg/dL POC Glucose (mg/dL) 142 H 122 H (75-99) mg/dL Calcium (8.4-10.2) mg/dL Total Bilirubin (0.2-1.3) mg/dL AST (14-36) U/L ALT (9-52) U/L Alkaline Phosphatase (38-126) U/L Total Protein (6.3-8.2) g/dL Albumin (3.5-5.0) g/dL Arterial Blood Potassium (3.4-4.5) mmol/L Urine Ketones Trace H (Negative) Crossmatch 04/29/17 04/29/17 04/29/17 Range/Units 18:50 20:13 20:40 RBC 2.65 L (3.80-5.40) m/uL Hgb 8.0 L D (11.4-16.0) gm/dL Hct 24.4 L (34.0-46.0) % RDW 15.9 H (11.5-15.5) % Plt Count 103 L (150-450) k/uL Lymphocytes # 0.4 L (1.0-4.8) k/uL PT 13.2 H (9.0-12.0) sec INR 1.3 H (<1.2) APTT 30.9 H (22.0-30.0) sec Fibrinogen 168 L (200-500) mg/dL ABG pH (7.35-7.45) ABG pCO2 (35-45) mmHg ABG pO2 (83-108) mmHg ABG Total CO2 (19-24) mmol/L ABG O2 Saturation (94-97) % ABG Hematocrit (34.0-46.0) % ABG Potassium (3.4-4.5) mmol/L Chloride (98-107) mmol/L Creatinine (0.52-1.04) mg/dL Glucose (74-99) mg/dL POC Glucose (mg/dL) 112 H (75-99) mg/dL Calcium (8.4-10.2) mg/dL Total Bilirubin (0.2-1.3) mg/dL AST (14-36) U/L ALT (9-52) U/L Alkaline Phosphatase (38-126) U/L Total Protein (6.3-8.2) g/dL Albumin (3.5-5.0) g/dL Arterial Blood Potassium (3.4-4.5) mmol/L Urine Ketones (Negative) Crossmatch 04/29/17 04/29/17 04/29/17 Range/Units 20:40 21:17 22:02 RBC (3.80-5.40) m/uL Hgb (11.4-16.0) gm/dL Hct (34.0-46.0) % RDW (11.5-15.5) % Plt Count 93 L (150-450) k/uL Lymphocytes # (1.0-4.8) k/uL PT (9.0-12.0) sec INR (<1.2) APTT (22.0-30.0) sec Fibrinogen (200-500) mg/dL ABG pH (7.35-7.45) ABG pCO2 (35-45) mmHg ABG pO2 (83-108) mmHg ABG Total CO2 (19-24) mmol/L ABG O2 Saturation (94-97) % ABG Hematocrit (34.0-46.0) % ABG Potassium (3.4-4.5) mmol/L Chloride (98-107) mmol/L Creatinine (0.52-1.04) mg/dL Glucose (74-99) mg/dL POC Glucose (mg/dL) 151 H 130 H (75-99) mg/dL Calcium (8.4-10.2) mg/dL Total Bilirubin (0.2-1.3) mg/dL AST (14-36) U/L ALT (9-52) U/L Alkaline Phosphatase (38-126) U/L Total Protein (6.3-8.2) g/dL Albumin (3.5-5.0) g/dL Arterial Blood Potassium (3.4-4.5) mmol/L Urine Ketones (Negative) Crossmatch 04/29/17 04/29/17 04/29/17 Range/Units 22:04 22:04 23:05 RBC 2.73 L (3.80-5.40) m/uL Hgb 8.3 L (11.4-16.0) gm/dL Hct 25.5 L (34.0-46.0) % RDW (11.5-15.5) % Plt Count 84 L (150-450) k/uL Lymphocytes # 0.4 L (1.0-4.8) k/uL PT (9.0-12.0) sec INR (<1.2) APTT (22.0-30.0) sec Fibrinogen (200-500) mg/dL ABG pH (7.35-7.45) ABG pCO2 (35-45) mmHg ABG pO2 (83-108) mmHg ABG Total CO2 (19-24) mmol/L ABG O2 Saturation (94-97) % ABG Hematocrit (34.0-46.0) % ABG Potassium (3.4-4.5) mmol/L Chloride 108 H (98-107) mmol/L Creatinine 0.46 L (0.52-1.04) mg/dL Glucose 117 H (74-99) mg/dL POC Glucose (mg/dL) 133 H (75-99) mg/dL Calcium 8.2 L (8.4-10.2) mg/dL Total Bilirubin (0.2-1.3) mg/dL AST (14-36) U/L ALT (9-52) U/L Alkaline Phosphatase (38-126) U/L Total Protein (6.3-8.2) g/dL Albumin (3.5-5.0) g/dL Arterial Blood Potassium (3.4-4.5) mmol/L Urine Ketones (Negative) Crossmatch 04/30/17 04/30/17 04/30/17 Range/Units 00:05 01:02 01:15 RBC 2.73 L (3.80-5.40) m/uL Hgb 8.2 L (11.4-16.0) gm/dL Hct 25.3 L (34.0-46.0) % RDW 15.6 H (11.5-15.5) % Plt Count 85 L (150-450) k/uL Lymphocytes # 0.6 L (1.0-4.8) k/uL PT (9.0-12.0) sec INR (<1.2) APTT (22.0-30.0) sec Fibrinogen (200-500) mg/dL ABG pH (7.35-7.45) ABG pCO2 (35-45) mmHg ABG pO2 (83-108) mmHg ABG Total CO2 (19-24) mmol/L ABG O2 Saturation (94-97) % ABG Hematocrit (34.0-46.0) % ABG Potassium (3.4-4.5) mmol/L Chloride (98-107) mmol/L Creatinine (0.52-1.04) mg/dL Glucose (74-99) mg/dL POC Glucose (mg/dL) 126 H 116 H (75-99) mg/dL Calcium (8.4-10.2) mg/dL Total Bilirubin (0.2-1.3) mg/dL AST (14-36) U/L ALT (9-52) U/L Alkaline Phosphatase (38-126) U/L Total Protein (6.3-8.2) g/dL Albumin (3.5-5.0) g/dL Arterial Blood Potassium (3.4-4.5) mmol/L Urine Ketones (Negative) Crossmatch 04/30/17 04/30/17 04/30/17 Range/Units 01:15 02:02 03:03 RBC (3.80-5.40) m/uL Hgb (11.4-16.0) gm/dL Hct (34.0-46.0) % RDW (11.5-15.5) % Plt Count (150-450) k/uL Lymphocytes # (1.0-4.8) k/uL PT 12.3 H (9.0-12.0) sec INR 1.2 H (<1.2) APTT (22.0-30.0) sec Fibrinogen (200-500) mg/dL ABG pH (7.35-7.45) ABG pCO2 (35-45) mmHg ABG pO2 (83-108) mmHg ABG Total CO2 (19-24) mmol/L ABG O2 Saturation (94-97) % ABG Hematocrit (34.0-46.0) % ABG Potassium (3.4-4.5) mmol/L Chloride (98-107) mmol/L Creatinine (0.52-1.04) mg/dL Glucose (74-99) mg/dL POC Glucose (mg/dL) 109 H 118 H (75-99) mg/dL Calcium (8.4-10.2) mg/dL Total Bilirubin (0.2-1.3) mg/dL AST (14-36) U/L ALT (9-52) U/L Alkaline Phosphatase (38-126) U/L Total Protein (6.3-8.2) g/dL Albumin (3.5-5.0) g/dL Arterial Blood Potassium (3.4-4.5) mmol/L Urine Ketones (Negative) Crossmatch 04/30/17 04/30/17 04/30/17 Range/Units 04:10 04:59 05:00 RBC 2.73 L (3.80-5.40) m/uL Hgb 8.3 L (11.4-16.0) gm/dL Hct 25.2 L (34.0-46.0) % RDW 16.0 H (11.5-15.5) % Plt Count 90 L (150-450) k/uL Lymphocytes # 0.7 L (1.0-4.8) k/uL PT (9.0-12.0) sec INR (<1.2) APTT (22.0-30.0) sec Fibrinogen (200-500) mg/dL ABG pH (7.35-7.45) ABG pCO2 (35-45) mmHg ABG pO2 (83-108) mmHg ABG Total CO2 (19-24) mmol/L ABG O2 Saturation (94-97) % ABG Hematocrit (34.0-46.0) % ABG Potassium (3.4-4.5) mmol/L Chloride (98-107) mmol/L Creatinine (0.52-1.04) mg/dL Glucose (74-99) mg/dL POC Glucose (mg/dL) 127 H 123 H (75-99) mg/dL Calcium (8.4-10.2) mg/dL Total Bilirubin (0.2-1.3) mg/dL AST (14-36) U/L ALT (9-52) U/L Alkaline Phosphatase (38-126) U/L Total Protein (6.3-8.2) g/dL Albumin (3.5-5.0) g/dL Arterial Blood Potassium (3.4-4.5) mmol/L Urine Ketones (Negative) Crossmatch 04/30/17 04/30/17 04/30/17 Range/Units 05:00 05:00 06:14 RBC (3.80-5.40) m/uL Hgb (11.4-16.0) gm/dL Hct (34.0-46.0) % RDW (11.5-15.5) % Plt Count (150-450) k/uL Lymphocytes # (1.0-4.8) k/uL PT 12.3 H (9.0-12.0) sec INR 1.2 H (<1.2) APTT (22.0-30.0) sec Fibrinogen (200-500) mg/dL ABG pH (7.35-7.45) ABG pCO2 (35-45) mmHg ABG pO2 (83-108) mmHg ABG Total CO2 (19-24) mmol/L ABG O2 Saturation (94-97) % ABG Hematocrit (34.0-46.0) % ABG Potassium (3.4-4.5) mmol/L Chloride 109 H (98-107) mmol/L Creatinine 0.50 L (0.52-1.04) mg/dL Glucose 113 H (74-99) mg/dL POC Glucose (mg/dL) 117 H (75-99) mg/dL Calcium (8.4-10.2) mg/dL Total Bilirubin 1.8 H (0.2-1.3) mg/dL AST 115 H (14-36) U/L ALT 115 H (9-52) U/L Alkaline Phosphatase 33 L (38-126) U/L Total Protein 4.6 L (6.3-8.2) g/dL Albumin 3.0 L (3.5-5.0) g/dL Arterial Blood Potassium (3.4-4.5) mmol/L Urine Ketones (Negative) Crossmatch 04/30/17 04/30/17 04/30/17 Range/Units 07:07 08:10 08:32 RBC (3.80-5.40) m/uL Hgb (11.4-16.0) gm/dL Hct (34.0-46.0) % RDW (11.5-15.5) % Plt Count (150-450) k/uL Lymphocytes # (1.0-4.8) k/uL PT (9.0-12.0) sec INR (<1.2) APTT (22.0-30.0) sec Fibrinogen (200-500) mg/dL ABG pH (7.35-7.45) ABG pCO2 (35-45) mmHg ABG pO2 (83-108) mmHg ABG Total CO2 25 H (19-24) mmol/L ABG O2 Saturation (94-97) % ABG Hematocrit (34.0-46.0) % ABG Potassium (3.4-4.5) mmol/L Chloride (98-107) mmol/L Creatinine (0.52-1.04) mg/dL Glucose (74-99) mg/dL POC Glucose (mg/dL) 116 H 121 H (75-99) mg/dL Calcium (8.4-10.2) mg/dL Total Bilirubin (0.2-1.3) mg/dL AST (14-36) U/L ALT (9-52) U/L Alkaline Phosphatase (38-126) U/L Total Protein (6.3-8.2) g/dL Albumin (3.5-5.0) g/dL Arterial Blood Potassium (3.4-4.5) mmol/L Urine Ketones (Negative) Crossmatch 04/30/17 04/30/17 04/30/17 Range/Units 08:59 10:00 11:03 RBC (3.80-5.40) m/uL Hgb (11.4-16.0) gm/dL Hct (34.0-46.0) % RDW (11.5-15.5) % Plt Count (150-450) k/uL Lymphocytes # (1.0-4.8) k/uL PT (9.0-12.0) sec INR (<1.2) APTT (22.0-30.0) sec Fibrinogen (200-500) mg/dL ABG pH (7.35-7.45) ABG pCO2 (35-45) mmHg ABG pO2 (83-108) mmHg ABG Total CO2 (19-24) mmol/L ABG O2 Saturation (94-97) % ABG Hematocrit (34.0-46.0) % ABG Potassium (3.4-4.5) mmol/L Chloride (98-107) mmol/L Creatinine (0.52-1.04) mg/dL Glucose (74-99) mg/dL POC Glucose (mg/dL) 133 H 139 H 129 H (75-99) mg/dL Calcium (8.4-10.2) mg/dL Total Bilirubin (0.2-1.3) mg/dL AST (14-36) U/L ALT (9-52) U/L Alkaline Phosphatase (38-126) U/L Total Protein (6.3-8.2) g/dL Albumin (3.5-5.0) g/dL Arterial Blood Potassium (3.4-4.5) mmol/L Urine Ketones (Negative) Crossmatch 04/30/17 04/30/17 04/30/17 Range/Units 12:18 13:33 14:24 RBC (3.80-5.40) m/uL Hgb (11.4-16.0) gm/dL Hct (34.0-46.0) % RDW (11.5-15.5) % Plt Count (150-450) k/uL Lymphocytes # (1.0-4.8) k/uL PT (9.0-12.0) sec INR (<1.2) APTT (22.0-30.0) sec Fibrinogen (200-500) mg/dL ABG pH (7.35-7.45) ABG pCO2 (35-45) mmHg ABG pO2 (83-108) mmHg ABG Total CO2 (19-24) mmol/L ABG O2 Saturation (94-97) % ABG Hematocrit (34.0-46.0) % ABG Potassium (3.4-4.5) mmol/L Chloride (98-107) mmol/L Creatinine (0.52-1.04) mg/dL Glucose (74-99) mg/dL POC Glucose (mg/dL) 120 H 118 H 114 H (75-99) mg/dL Calcium (8.4-10.2) mg/dL Total Bilirubin (0.2-1.3) mg/dL AST (14-36) U/L ALT (9-52) U/L Alkaline Phosphatase (38-126) U/L Total Protein (6.3-8.2) g/dL Albumin (3.5-5.0) g/dL Arterial Blood Potassium (3.4-4.5) mmol/L Urine Ketones (Negative) Crossmatch 04/30/17 Range/Units 15:06 RBC (3.80-5.40) m/uL Hgb (11.4-16.0) gm/dL Hct (34.0-46.0) % RDW (11.5-15.5) % Plt Count (150-450) k/uL Lymphocytes # (1.0-4.8) k/uL PT (9.0-12.0) sec INR (<1.2) APTT (22.0-30.0) sec Fibrinogen (200-500) mg/dL ABG pH (7.35-7.45) ABG pCO2 (35-45) mmHg ABG pO2 (83-108) mmHg ABG Total CO2 (19-24) mmol/L ABG O2 Saturation (94-97) % ABG Hematocrit (34.0-46.0) % ABG Potassium (3.4-4.5) mmol/L Chloride (98-107) mmol/L Creatinine (0.52-1.04) mg/dL Glucose (74-99) mg/dL POC Glucose (mg/dL) 113 H (75-99) mg/dL Calcium (8.4-10.2) mg/dL Total Bilirubin (0.2-1.3) mg/dL AST (14-36) U/L ALT (9-52) U/L Alkaline Phosphatase (38-126) U/L Total Protein (6.3-8.2) g/dL Albumin (3.5-5.0) g/dL Arterial Blood Potassium (3.4-4.5) mmol/L Urine Ketones (Negative) Crossmatch Microbiology - Last 24 Hours (Table) 04/29/17 17:55 Urine Culture - Preliminary Urine,Catheterized - Imaging and Cardiology Chest x-ray: report reviewed, image reviewed Assessment and Plan (1) Severe aortic valve stenosis Status: Acute (2) Status post chemotherapy Status: Acute (3) Status post radiation therapy Status: Acute (4) History of cancer of right breast Status: Acute (5) Hyperlipidemia Status: Acute Plan: 1. Continue low-dose aspirin, heparin, beta taylor. Hold Plavix for now. Hold statin for now with elevated liver enzymes. Will maximize beta taylor therapy as tolerated. 2. Wean oxygen, encourage incentive spirometry use. 3. Increase activity, out of bed to chair. Physical therapy to follow. 4. GI/DVT prophylaxis. 5. [place] catheter discontinued this morning. 6. Will monitor daily labs, x-rays. 7. Insulin management per primary care service. 8. Pain management per ordered medications. 9. More recommendations as patient progresses. Time with Patient: Greater than 30
[2017-04-30 16:16] LABS: Glucose,Whole Blood 125 mg/dL (75-99)
[2017-04-30] MEDS: KETOROLAC 30 MG/ML 1 ML VIAL IVP SCH ×2 (16:27→23:52)
[2017-04-30] MEDS: NITROGLYCERIN-D5W PMX 50 MG in DEXTROSE/WATER 1 250ML.BAG IV SCH (16:28)
[2017-04-30 17:09] LABS: Glucose,Whole Blood 135 mg/dL (75-99)
[2017-04-30 17:59] LABS: Glucose,Whole Blood 156 mg/dL (75-99)
[2017-04-30 19:15] LABS: Glucose,Whole Blood 160 mg/dL (75-99)
[2017-04-30] MEDS: LACTATED RINGERS 1,000 ML IV SCH (19:19)
[2017-04-30 20:02] LABS: Glucose,Whole Blood 142 mg/dL (75-99)
[2017-04-30 21:07] LABS: Glucose,Whole Blood 123 mg/dL (75-99)
[2017-04-30] MEDS: HYDROcodone/APAP 5-325MG 1 EACH TAB PO PRN (21:37)
[2017-04-30] MEDS: SENNOSIDES-DOCUSATE SODIUM 1 EACH TAB PO SCH (21:38)
[2017-04-30 22:04] LABS: Glucose,Whole Blood 108 mg/dL (75-99)
[2017-04-30 23:10] LABS: Glucose,Whole Blood 101 mg/dL (75-99)
[2017-05-01 00:07] LABS: Glucose,Whole Blood 110 mg/dL (75-99)
[2017-05-01] MEDS: ALBUMIN HUMAN 5% 250 ML in EMPTY BAG 1 BAG IVPB PRN (00:07)
[2017-05-01 01:12] LABS: Glucose,Whole Blood 116 mg/dL (75-99)
[2017-05-01] MEDS: HEPARIN SODIUM,PORCINE 5,000 UNIT/ML 1 ML VIAL SQ SCH ×4 (01:42→23:30)
[2017-05-01 01:55] LABS: Glucose,Whole Blood 117 mg/dL (75-99)
[2017-05-01 03:06] LABS: Glucose,Whole Blood 117 mg/dL (75-99)
[2017-05-01 03:36] LABS: Ionized Calcium 5.1 mg/dL (4.5-5.3)
[2017-05-01 03:43] LABS: ALT 58 U/L (9-52); AST 39 U/L (14-36); Alkaline Phosphatase 33 U/L (38-126); Anion Gap 9 mmol/L; Blood Urea Nitrogen 16 mg/dL (7-17); Calcium 8.7 mg/dL (8.4-10.2); Carbon Dioxide 25 mmol/L (22-30); Chloride 106 mmol/L (98-107); Glucose 102 mg/dL (74-99); Non-African American GFR(MDRD) >60 (>60 ml/min/1.73 sqM); Potassium 4.1 mmol/L (3.5-5.1); Sodium 140 mmol/L (137-145); Total Bilirubin 1.4 mg/dL (0.2-1.3); Total Protein 4.6 g/dL (6.3-8.2)
[2017-05-01 03:46] LABS: Basophils % (A) 0 %; CHCM 33.1; Eosinophils # (A) 0.1 k/uL (0-0.7); Eosinophils % (A) 1 %; HCT 20.5 % (34.0-46.0); HDW 3.03; Luc # (Auto) 0.13; Luc % (Auto) 2; Lymphocytes # (A) 1.4 k/uL (1.0-4.8); Lymphocytes % (A) 18 %; MCH 30.6 pg (25.0-35.0); MCHC 32.4 g/dL (31.0-37.0); MCV 94.5 fL (80.0-100.0); Monocytes # (A) 0.5 k/uL (0-1.0); Monocytes % (A) 6 %; Neutrophils # (A) 5.8 k/uL (1.3-7.7); Neutrophils % (A) 73 %; RBC 2.17 m/uL (3.80-5.40); RDW 15.8 % (11.5-15.5); WBC 7.9 k/uL (3.8-10.6); WBC (Perox) 8.19
[2017-05-01 04:04] LABS: Glucose,Whole Blood 111 mg/dL (75-99)
[2017-05-01 04:10] LABS: HGB 6.6 gm/dL (11.4-16.0)
[2017-05-01] MEDS ORDERED: FUROSEMIDE 10 MG/ML 2 ML VIAL IV STA (04:18)
[2017-05-01 05:06] LABS: Glucose,Whole Blood 113 mg/dL (75-99)
[2017-05-01 06:06] LABS: Glucose,Whole Blood 106 mg/dL (75-99)
[2017-05-01] MEDS: KETOROLAC 30 MG/ML 1 ML VIAL IVP SCH ×2 (06:06→11:58)
[2017-05-01 07:11] LABS: Glucose,Whole Blood 120 mg/dL (75-99)
[2017-05-01 08:04] LABS: Glucose,Whole Blood 133 mg/dL (75-99)
[2017-05-01] MEDS: HYDROcodone/APAP 5-325MG 1 EACH TAB PO PRN ×5 (08:04→22:18)
[2017-05-01] MEDS: PANTOPRAZOLE 40 MG TABLET PO SCH (08:05)
[2017-05-01] MEDS: CLOPIDOGREL 75 MG TAB PO SCH (08:06)
[2017-05-01] MEDS: ASPIRIN 81 MG CHEW PO SCH (08:06)
--- NOTE | 2017-05-01 08:38 | XR ---
EXAMINATION TYPE: XR chest 1V portable DATE OF EXAM: 05/01/2017 Comparison: 04/30/2017 Clinical History: 77-year-old female Post Operative Cardiac Surgery Findings: Heart margin obscured by adjacent pleural-parenchymal disease. There appears to be some leftward medi astinal shift though there is also leftward rotation altering the normal cardiac and mediastinal cont ours. Median sternotomy wires are present with prosthetic aortic valve. 2 mediastinal drains are pres ent. Right axillary surgical clips. Interval extubation and removal of the [place] catheter. Right IJ sheath remains in place. Perihilar and interstitial opacities persist though lung volumes are dimi nished as compared to prior exam. Small left effusion with a continued retrocardiac opacity. Increasi ng small to moderate right pleural effusion, possibly with a prominent subpulmonic component. Impression: 1. Worsening lung volumes and aeration after extubation with persistent interstitial edema. 2. Apparent elevation of the right hemidiaphragm. A moderate effusion with a prominent subpulmonic co mponent and underlying atelectasis is possible. 3. Continued small left effusion with dense retrocardiac atelectasis.
[2017-05-01] MEDS: IPRATROPIUM-ALBUTEROL 3 ML NEB INHALATION SCH ×2 (08:50→12:20)
--- NOTE | 2017-05-01 08:50 | P.PN ---
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 POD #2 elective aortic valve replacement using a 21 mm pericardial bioprosthesis magna ease bovine. Exclusion of the left atrial appendage using a 35 mm AtriClip. Intraoperative transesophageal echocardiogram and epi-aortic scanning. Postoperative bleeding, inherent to this surgery. POD #2 return to the OR for emergent exploratory chest, evacuation of clots Patient is currently up in the chair in no acute distress. Denies pain, shortness of breath. States she feels much better sitting up in the chair versus lying in the bed. Hemoglobin was low this morning, received 1 unit packed red blood cells followed by 20 mg IV Lasix. Objective - Vital Signs Vital signs: Vital Signs Temp 97.5 F L 05/01/ 08:00 Pulse 82 05/01/17 08:00 Resp 21 05/01/17 08:00 BP 112/62 05/01/17 08:00 Pulse Ox 96 05/01/17 08:00 Intake & Output 04/30/05/01/17 05/01/17 18:59 06:59 18:59 Intake Total 8984.926 4702.249 483 Output Total 698 798 140 Balance 194.142 7550.249 343 Weight 77.4 kg Intake: IV 687 1352 173 0.9 NaCl- for CO 50 injectate 0.9 NaCl- for Pressure 87 72 12 bag infusion Albumin 500 LR 550 480 80 PRBC 300 81 Intake, IV Titration 10.504 6.249 Amount Insulin Regular 100 unit 10.504 6.249 In Sodium Chloride 0.9% 100 ml @ Per Protocol IV .Q0M [facility] Rx#:[id number] Oral 500 Blood Product 310 0 310 Rc As-1 Unit 0 310 [id number] Rc As-1 Unit 310 [id number] Output: Chest Tube Drainage 350 260 40 MSx2 350 260 40 Gastric Drainage 30 Urine 318 538 100 Other: Voiding Method Indwelling Catheter Indwelling Catheter ABP, PAP, CO, CI - Last Documented Arterial Blood Pressure 116/56 Pulmonary Artery Pressure 34/19 Cardiac Output 5.4 Cardiac Index 3.0 - Constitutional General appearance: Present: cooperative, no acute distress - Respiratory Details: Lungs sounds diminished bilaterally. Respirations even, nonlabored. Currently on 3 L nasal cannula with oxygen saturation 96%. Only able to achieve 500 mL on her incentive spirometer. Mediastinal chest tubes to -20 cm wall suction, 170 mL serosanguineous drainage overnight, 650 mL last 24 hours. No air leak present. - Cardiovascular Details: S1, S2 present. Regular rate and rhythm, normal sinus rhythm on telemetry. Sternum stable. A/V epicardial pacemaker wires present, capped. Right internal jugular Cordis, left radial arterial line present. Palpable pulses bilaterally. No edema present. Heart hugger in place with patient demonstrating appropriate use. Teds/SCDs present. - Gastrointestinal Gastrointestinal Comment(s): Abdomen soft, nontender, nondistended. Active bowel sounds 4 quadrants. Tolerating diet. - Genitourinary Genitourinary Comment(s): Morales present draining clear, yellow urine. Output dwindled overnight. After blood and Lasix given output has picked up. - Integumentary Integumentary Comment(s): Anterior chest incision well approximated and covered with dry intact dressing. - Neurologic Neurologic: Present: CNII-XII intact - Musculoskeletal Musculoskeletal: Present: gait normal, strength equal bilaterally - Psychiatric Psychiatric: Present: A&O x's 3, appropriate affect, intact judgment & insight - Allied health notes Allied health notes reviewed: nursing - Labs CBC & Chem 7: 05/01/17 03:15 05/01/17 03:15 Labs: Abnormal Lab Results - Last 24 Hours (Table) 04/24/17 04/30/17 04/30/17 Range/Units 08:45 08:59 10:00 RBC (3.80-5.40) m/uL Hgb (11.4-16.0) gm/dL Hct (34.0-46.0) % RDW (11.5-15.5) % Plt Count (150-450) k/uL Glucose (74-99) mg/dL POC Glucose (mg/dL) 133 H 139 H (75-99) mg/dL Total Bilirubin (0.2-1.3) mg/dL AST (14-36) U/L ALT (9-52) U/L Alkaline Phosphatase (38-126) U/L Total Protein (6.3-8.2) g/dL Albumin (3.5-5.0) g/dL Crossmatch See Detail 04/30/17 04/30/17 04/30/17 Range/Units 11:03 12:18 13:33 RBC (3.80-5.40) m/uL Hgb (11.4-16.0) gm/dL Hct (34.0-46.0) % RDW (11.5-15.5) % Plt Count (150-450) k/uL Glucose (74-99) mg/dL POC Glucose (mg/dL) 129 H 120 H 118 H (75-99) mg/dL Total Bilirubin (0.2-1.3) mg/dL AST (14-36) U/L ALT (9-52) U/L Alkaline Phosphatase (38-126) U/L Total Protein (6.3-8.2) g/dL Albumin (3.5-5.0) g/dL Crossmatch 04/30/17 04/30/17 04/30/17 Range/Units 14:24 15:06 16:09 RBC (3.80-5.40) m/uL Hgb (11.4-16.0) gm/dL Hct (34.0-46.0) % RDW (11.5-15.5) % Plt Count (150-450) k/uL Glucose (74-99) mg/dL POC Glucose (mg/dL) 114 H 113 H 125 H (75-99) mg/dL Total Bilirubin (0.2-1.3) mg/dL AST (14-36) U/L ALT (9-52) U/L Alkaline Phosphatase (38-126) U/L Total Protein (6.3-8.2) g/dL Albumin (3.5-5.0) g/dL Crossmatch 04/30/17 04/30/17 04/30/17 Range/Units 17:07 17:58 19:14 RBC (3.80-5.40) m/uL Hgb (11.4-16.0) gm/dL Hct (34.0-46.0) % RDW (11.5-15.5) % Plt Count (150-450) k/uL Glucose (74-99) mg/dL POC Glucose (mg/dL) 135 H 156 H 160 H (75-99) mg/dL Total Bilirubin (0.2-1.3) mg/dL AST (14-36) U/L ALT (9-52) U/L Alkaline Phosphatase (38-126) U/L Total Protein (6.3-8.2) g/dL Albumin (3.5-5.0) g/dL Crossmatch 04/30/17 04/30/17 04/30/17 Range/Units 20:01 21:06 22:02 RBC (3.80-5.40) m/uL Hgb (11.4-16.0) gm/dL Hct (34.0-46.0) % RDW (11.5-15.5) % Plt Count (150-450) k/uL Glucose (74-99) mg/dL POC Glucose (mg/dL) 142 H 123 H 108 H (75-99) mg/dL Total Bilirubin (0.2-1.3) mg/dL AST (14-36) U/L ALT (9-52) U/L Alkaline Phosphatase (38-126) U/L Total Protein (6.3-8.2) g/dL Albumin (3.5-5.0) g/dL Crossmatch 04/30/17 05/01/17 05/01/17 Range/Units 23:08 00:04 01:09 RBC (3.80-5.40) m/uL Hgb (11.4-16.0) gm/dL Hct (34.0-46.0) % RDW (11.5-15.5) % Plt Count (150-450) k/uL Glucose (74-99) mg/dL POC Glucose (mg/dL) 101 H 110 H 116 H (75-99) mg/dL Total Bilirubin (0.2-1.3) mg/dL AST (14-36) U/L ALT (9-52) U/L Alkaline Phosphatase (38-126) U/L Total Protein (6.3-8.2) g/dL Albumin (3.5-5.0) g/dL Crossmatch 05/01/17 05/01/17 05/01/17 Range/Units 01:53 03:04 03:15 RBC (3.80-5.40) m/uL Hgb (11.4-16.0) gm/dL Hct (34.0-46.0) % RDW (11.5-15.5) % Plt Count (150-450) k/uL Glucose 102 H (74-99) mg/dL POC Glucose (mg/dL) 117 H 117 H (75-99) mg/dL Total Bilirubin 1.4 H (0.2-1.3) mg/dL AST 39 H (14-36) U/L ALT 58 H (9-52) U/L Alkaline Phosphatase 33 L (38-126) U/L Total Protein 4.6 L (6.3-8.2) g/dL Albumin 3.1 L (3.5-5.0) g/dL Crossmatch 05/01/17 05/01/17 05/01/17 Range/Units 03:15 04:00 05:04 RBC 2.17 L (3.80-5.40) m/uL Hgb 6.6 L* D (11.4-16.0) gm/dL Hct 20.5 L (34.0-46.0) % RDW 15.8 H (11.5-15.5) % Plt Count 65 L (150-450) k/uL Glucose (74-99) mg/dL POC Glucose (mg/dL) 111 H 113 H (75-99) mg/dL Total Bilirubin (0.2-1.3) mg/dL AST (14-36) U/L ALT (9-52) U/L Alkaline Phosphatase (38-126) U/L Total Protein (6.3-8.2) g/dL Albumin (3.5-5.0) g/dL Crossmatch 05/01/17 05/01/17 05/01/17 Range/Units 06:05 07:10 08:02 RBC (3.80-5.40) m/uL Hgb (11.4-16.0) gm/dL Hct (34.0-46.0) % RDW (11.5-15.5) % Plt Count (150-450) k/uL Glucose (74-99) mg/dL POC Glucose (mg/dL) 106 H 120 H 133 H (75-99) mg/dL Total Bilirubin (0.2-1.3) mg/dL AST (14-36) U/L ALT (9-52) U/L Alkaline Phosphatase (38-126) U/L Total Protein (6.3-8.2) g/dL Albumin (3.5-5.0) g/dL Crossmatch Microbiology - Last 24 Hours (Table) 04/29/17 17:55 Urine Culture - Final Urine,Catheterized - Imaging and Cardiology Chest x-ray: report reviewed, image reviewed Assessment and Plan (1) Severe aortic valve stenosis Status: Acute (2) Status post chemotherapy Status: Acute (3) Status post radiation therapy Status: Acute (4) History of cancer of right breast Status: Acute (5) Hyperlipidemia Status: Acute Plan: 1. Continue low-dose aspirin, heparin, beta taylor. Hold Plavix for now. Will restart statin. Will maximize beta taylor therapy as tolerated. 2. Wean oxygen, encourage incentive spirometry use. 3. Increase activity, ambulate in hallway. Physical therapy to follow. 4. GI/DVT prophylaxis. 5. Will discontinue Morales, Cordis, a line later today. 6. Will monitor daily labs, x-rays. 7. Insulin management per primary care service. 8. Pain management per ordered medications. 9. More recommendations as patient progresses. Likely will transfer out of the ICU later today. Time with Patient: Greater than 30
--- NOTE | 2017-05-01 09:01 | P.PN ---
Subjective Principal diagnosis: Status post aVR This is a pleasant 77-year-old female patient who sees Dr. VC Robles as an outpatient who was admitted to the hospital yesterday and underwent an aortic valve replacement using a bioprosthetic valve for severe symptomatic aortic stenosis. The surgery was complicated by bleeding from the mediastinal tube and the patient was taken again to the OR for the bleeding. The patient was extubated yesterday. Hemodynamically she continues to be stable and not on any vasopressors. The hemoglobin is low and is about 6 and the patient is in process to receive one unit of packed RBC. Objective - Vital Signs Vital signs: Vital Signs Temp 97.5 F L 05/01/17 08:00 Pulse 80 05/01/17 08:50 Resp 21 05/01/17 08:00 BP 112/62 05/01/17 08:00 Pulse Ox 96 05/01/17 08:00 Intake & Output 04/30/17 05/01/17 05/01/17 18:59 06:59 18:59 Intake Total 7882.234 9440.249 483 Output Total 698 798 140 Balance 862.849 3617.249 343 Weight 77.4 kg Intake: IV 687 1352 173 0.9 NaCl- for CO 50 injectate 0.9 NaCl- for Pressure 87 72 12 bag infusion Albumin 500 LR 550 480 80 PRBC 300 81 Intake, IV Titration 10.504 6.249 Amount Insulin Regular 100 unit 10.504 6.249 In Sodium Chloride 0.9% 100 ml @ Per Protocol IV .Q0M [facility] Rx#:[id number] Oral 500 Blood Product 310 0 310 Rc As-1 Unit 0 310 [id number] Rc As-1 Unit 310 [id number] Output: Chest Tube Drainage 350 260 40 MSx2 350 260 40 Gastric Drainage 30 Urine 318 538 100 Other: Voiding Method Indwelling Catheter Indwelling Catheter ABP, PAP, CO, CI - Last Documented Arterial Blood Pressure 116/56 Pulmonary Artery Pressure 34/19 Cardiac Output 5.4 Cardiac Index 3.0 - Constitutional General appearance: Present: no acute distress - Respiratory Respiratory: bilateral: diminished - Cardiovascular Rhythm: regular Heart sounds: normal: S1, S2 - Labs CBC & Chem 7: 05/01/17 03:15 05/01/17 03:15 Labs: Abnormal Lab Results - Last 24 Hours (Table) 0804/30/17 04/30/17 Range/Units 08:45 08:59 10:00 RBC (3.80-5.40) m/uL Hgb (11.4-16.0) gm/dL Hct (34.0-46.0) % RDW (11.5-15.5) % Plt Count (150-450) k/uL Glucose (74-99) mg/dL POC Glucose (mg/dL) 133 H 139 H (75-99) mg/dL Total Bilirubin (0.2-1.3) mg/dL AST (14-36) U/L ALT (9-52) U/L Alkaline Phosphatase (38-126) U/L Total Protein (6.3-8.2) g/dL Albumin (3.5-5.0) g/dL Crossmatch See Detail 04/30/17 04/30/17 04/30/17 Range/Units 11:03 12:18 13:33 RBC (3.80-5.40) m/uL Hgb (11.4-16.0) gm/dL Hct (34.0-46.0) % RDW (11.5-15.5) % Plt Count (150-450) k/uL Glucose (74-99) mg/dL POC Glucose (mg/dL) 129 H 120 H 118 H (75-99) mg/dL Total Bilirubin (0.2-1.3) mg/dL AST (14-36) U/L ALT (9-52) U/L Alkaline Phosphatase (38-126) U/L Total Protein (6.3-8.2) g/dL Albumin (3.5-5.0) g/dL Crossmatch 04/30/17 04/30/17 04/30/17 Range/Units 14:24 15:06 16:09 RBC (3.80-5.40) m/uL Hgb (11.4-16.0) gm/dL Hct (34.0-46.0) % RDW (11.5-15.5) % Plt Count (150-450) k/uL Glucose (74-99) mg/dL POC Glucose (mg/dL) 114 H 113 H 125 H (75-99) mg/dL Total Bilirubin (0.2-1.3) mg/dL AST (14-36) U/L ALT (9-52) U/L Alkaline Phosphatase (38-126) U/L Total Protein (6.3-8.2) g/dL Albumin (3.5-5.0) g/dL Crossmatch 04/30/17 04/30/17 04/30/17 Range/Units 17:07 17:58 19:14 RBC (3.80-5.40) m/uL Hgb (11.4-16.0) gm/dL Hct (34.0-46.0) % RDW (11.5-15.5) % Plt Count (150-450) k/uL Glucose (74-99) mg/dL POC Glucose (mg/dL) 135 H 156 H 160 H (75-99) mg/dL Total Bilirubin (0.2-1.3) mg/dL AST (14-36) U/L ALT (9-52) U/L Alkaline Phosphatase (38-126) U/L Total Protein (6.3-8.2) g/dL Albumin (3.5-5.0) g/dL Crossmatch 04/30/17 04/30/17 04/30/17 Range/Units 20:01 21:06 22:02 RBC (3.80-5.40) m/uL Hgb (11.4-16.0) gm/dL Hct (34.0-46.0) % RDW (11.5-15.5) % Plt Count (150-450) k/uL Glucose (74-99) mg/dL POC Glucose (mg/dL) 142 H 123 H 108 H (75-99) mg/dL Total Bilirubin (0.2-1.3) mg/dL AST (14-36) U/L ALT (9-52) U/L Alkaline Phosphatase (38-126) U/L Total Protein (6.3-8.2) g/dL Albumin (3.5-5.0) g/dL Crossmatch 04/30/17 05/01/17 05/01/17 Range/Units 23:08 00:04 01:09 RBC (3.80-5.40) m/uL Hgb (11.4-16.0) gm/dL Hct (34.0-46.0) % RDW (11.5-15.5) % Plt Count (150-450) k/uL Glucose (74-99) mg/dL POC Glucose (mg/dL) 101 H 110 H 116 H (75-99) mg/dL Total Bilirubin (0.2-1.3) mg/dL AST (14-36) U/L ALT (9-52) U/L Alkaline Phosphatase (38-126) U/L Total Protein (6.3-8.2) g/dL Albumin (3.5-5.0) g/dL Crossmatch 05/01/17 05/01/17 05/01/17 Range/Units 01:53 03:04 03:15 RBC (3.80-5.40) m/uL Hgb (11.4-16.0) gm/dL Hct (34.0-46.0) % RDW (11.5-15.5) % Plt Count (150-450) k/uL Glucose 102 H (74-99) mg/dL POC Glucose (mg/dL) 117 H 117 H (75-99) mg/dL Total Bilirubin 1.4 H (0.2-1.3) mg/dL AST 39 H (14-36) U/L ALT 58 H (9-52) U/L Alkaline Phosphatase 33 L (38-126) U/L Total Protein 4.6 L (6.3-8.2) g/dL Albumin 3.1 L (3.5-5.0) g/dL Crossmatch 05/01/17 05/01/17 05/01/17 Range/Units 03:15 04:00 05:04 RBC 2.17 L (3.80-5.40) m/uL Hgb 6.6 L* D (11.4-16.0) gm/dL Hct 20.5 L (34.0-46.0) % RDW 15.8 H (11.5-15.5) % Plt Count 65 L (150-450) k/uL Glucose (74-99) mg/dL POC Glucose (mg/dL) 111 H 113 H (75-99) mg/dL Total Bilirubin (0.2-1.3) mg/dL AST (14-36) U/L ALT (9-52) U/L Alkaline Phosphatase (38-126) U/L Total Protein (6.3-8.2) g/dL Albumin (3.5-5.0) g/dL Crossmatch 05/01/17 05/01/17 05/01/17 Range/Units 06:05 07:10 08:02 RBC (3.80-5.40) m/uL Hgb (11.4-16.0) gm/dL Hct (34.0-46.0) % RDW (11.5-15.5) % Plt Count (150-450) k/uL Glucose (74-99) mg/dL POC Glucose (mg/dL) 106 H 120 H 133 H (75-99) mg/dL Total Bilirubin (0.2-1.3) mg/dL AST (14-36) U/L ALT (9-52) U/L Alkaline Phosphatase (38-126) U/L Total Protein (6.3-8.2) g/dL Albumin (3.5-5.0) g/dL Crossmatch Microbiology - Last 24 Hours (Table) 04/29/17 17:55 Urine Culture - Final Urine,Catheterized Assessment and Plan Plan: This is a pleasant 77-year-old female patient was admitted to the hospital and underwent an aortic valve replacement using a bioprosthetic valve for severe symptomatic aortic stenosis. The patient hemodynamically is a stable and overall she seems to be doing good. She is going to receive one unit of packed RBC later on today.
[2017-05-01 09:16] LABS: Glucose,Whole Blood 146 mg/dL (75-99)
[2017-05-01] MEDS ORDERED: FUROSEMIDE 10 MG/ML 4 ML VIAL IV STA (09:17)
[2017-05-01] MEDS: INSULIN REGULAR 100 UNIT in SODIUM CHLORIDE 0.9% 100 ML IV SCH (09:17)
[2017-05-01 10:04] LABS: Glucose,Whole Blood 133 mg/dL (75-99)
[2017-05-01] MEDS ORDERED: DEXTROSE 5% IN WATER 100 ML with AMIODARONE 150 MG IV ONE ×2 (10:04→12:53)
[2017-05-01 10:20] LABS: Anisocytosis Slight; CH 28.8; CHCM 32.4; HCT 25.1 % (34.0-46.0); Hypochromasia Slight; MCH 29.3 pg (25.0-35.0); MCHC 32.8 g/dL (31.0-37.0); Mean Platelet Volume 9.8; Poikilocytosis Slight; RBC 2.81 m/uL (3.80-5.40); RDW 18.9 % (11.5-15.5); WBC 8.6 k/uL (3.8-10.6)
[2017-05-01 10:24] LABS: HGB 8.2 gm/dL (11.4-16.0); MCV 89.3 fL (80.0-100.0)
[2017-05-01] MEDS: AMIODARONE 450 MG in DEXTROSE 5% IN WATER 250 ML IV SCH ×4 (10:49→18:20)
[2017-05-01 11:02] LABS: Glucose,Whole Blood 153 mg/dL (75-99)
[2017-05-01] MEDS: METOPROLOL TARTRATE 12.5 MG TAB PO SCH ×3 (11:33→21:12)
--- NOTE | 2017-05-01 11:46 | P.PN ---
Subjective Principal diagnosis: Status post aortic valve replacement using a bioprosthetic valve for severe symptomatic aortic stenosis. Postoperative day # 2 This is a 76-year-old female who is primarily a patient of Dr. andrade, had history of multiple medical problems including breast cancer, previous radiation treatment and chemotherapy, history of right mastectomy, multiple surgical procedures including hysterectomy and cholecystectomy, patient had a recent echocardiogram which revealed evidence of significant aortic stenosis. There was also trace of aortic regurgitation, her EF was 60%. On 04/09/2017, elective cardiac catheterization and HALEY showed aortic valve area of 0.5-0.6 cm and she was noted to have normal coronaries as well as trace of mitral regurgitation. Patient was referred to cardiac surgery, today she underwent elective aortic valve replacement by Dr. Somers. Postoperatively patient was noted to be on mechanical ventilation, and I was asked to see her on consultation. Chest x-ray was relatively unremarkable except for postoperative changes, tubes and lines were noted to be in the proper position, ABG showed pO2 of 382 pCO2 of 38 pH of 7.41. Postoperative hemoglobin was 7.1, and the patient was noted to have moderate the bleeding from the chest tubes. She was already receiving blood products as well as cryoprecipitate. So far the patient received 10 units of cryoprecipitate, 1 unit of platelets, 4 units of fresh was a plasma. And 3 units of packed RBCs. Ventilator settings were reviewed she is presently on IMV of 12 tidal volume of 450 PEEP of 5 and FiO2 of 50%. Patient is sedated, hemodynamically stable in spite of the moderate to bleeding noted. Patient was reevaluated today on 04/30/2017, her postoperative bleeding yesterday required reexploration in the ER, and finally the bleeding was controlled. Patient came back to the ICU, and early this morning she had a relatively adequate blood gases, good weaning parameters, chest x-ray showed postoperative changes with right hemidiaphragm elevation, and atelectasis, however considering the overall picture, patient was extubated uneventfully and placed on a nasal cannula. Labs were reviewed, hemoglobin is 8.2. Patient received a total of 5 units of packed RBCs, 4 units of fresh frozen plasma, 1 unit of platelets, and 10 units of cryoprecipitate. Patient was reevaluated today on , clinically the patient seems to be doing quite well, however her chest x-ray seems to be worse with significant elevation of the right hemidiaphragm, and suspect mild interstitial edema with right pleural effusion. Given earlier a dose of Lasix 20 mg with fair response and 400 mL of urine noted post Lasix, patient will likely benefit from another dose of 40 mg of Lasix today. She did receive a unit of packed RBCs for hemoglobin of 6.6 today. In spite of her abnormal chest x-ray, the patient denies being short of breath. No cough no wheezing and no chest pain. Posttransfusion hemoglobin was noted to be 8.2. Objective - Vital Signs Vital signs: Vital Signs Temp 97.5 F L 05/01/17 08:00 Pulse 99 05/01/17 11:00 Resp 25 H 05/01/17 11:00 BP 100/62 05/01/17 11:00 Pulse Ox 96 05/01/17 11:00 Intake & Output 04/30/17 05/01/17 05/01/17 18:59 06:59 18:59 Intake Total 5848.483 7451.249 773.02 Output Total 698 798 820 Balance 644.138 9975.249 -46.98 Weight 77.4 kg Intake: IV 687 1352 461 0.9 NaCl- for CO 50 injectate 0.9 NaCl- for Pressure 87 72 30 bag infusion Albumin 500 LR 550 480 200 PRBC 300 81 amiodarone 150 Intake, IV Titration 10.504 6.249 2.02 Amount Insulin Regular 100 unit 10.504 6.249 2.02 In Sodium Chloride 0.9% 100 ml @ Per Protocol IV .Q0M [facility] 234 BEDS AT [facility] Rx#:[id number] Oral 500 Blood Product 310 0 310 As-1 Unit 0 310 [id number] As-1 Unit 310 [id number] Output: Chest Tube Drainage 350 260 130 MSx2 350 260 130 Gastric Drainage 30 Urine 318 538 690 Other: Voiding Method Indwelling Catheter Indwelling Catheter ABP, PAP, CO, CI - Last Documented Arterial Blood Pressure 102/57 Pulmonary Artery Pressure 34/19 Cardiac Output 5.4 Cardiac Index 3.0 - Exam Physical Exam: Revealed a 77-year-old female in no distress. On nasal cannula HEENT:[Neck is supple.] [No neck masses.] [No thyromegaly.] [No JVD.] Chest: [Diminished breath sounds at the bases no crackles or rhonchi or wheezes Cardiac Exam: [Normal S1 and S2, no S3 gallop, no murmur.] Abdomen: [Soft, nontender, no megaly, no rebound, no guarding, normal bowel sounds.] Extremities: [No clubbing, no edema, no cyanosis.] Neurological Exam: [No focal neurologic deficit.] - Labs CBC & Chem 7: 05/01/17 10:01 05/01/17 03:15 Labs: Abnormal Lab Results - Last 24 Hours (Table) 04/24/17 04/30/17 04/30/17 Range/Units 08:45 12:18 13:33 RBC (3.80-5.40) m/uL Hgb (11.4-16.0) gm/dL Hct (34.0-46.0) % RDW (11.5-15.5) % Plt Count (150-450) k/uL Glucose (74-99) mg/dL POC Glucose (mg/dL) 120 H 118 H (75-99) mg/dL Total Bilirubin (0.2-1.3) mg/dL AST (14-36) U/L ALT (9-52) U/L Alkaline Phosphatase (38-126) U/L Total Protein (6.3-8.2) g/dL Albumin (3.5-5.0) g/dL Crossmatch See Detail 04/30/17 04/30/17 04/30/17 Range/Units 14:24 15:06 16:09 RBC (3.80-5.40) m/uL Hgb (11.4-16.0) gm/dL Hct (34.0-46.0) % RDW (11.5-15.5) % Plt Count (150-450) k/uL Glucose (74-99) mg/dL POC Glucose (mg/dL) 114 H 113 H 125 H (75-99) mg/dL Total Bilirubin (0.2-1.3) mg/dL AST (14-36) U/L ALT (9-52) U/L Alkaline Phosphatase (38-126) U/L Total Protein (6.3-8.2) g/dL Albumin (3.5-5.0) g/dL Crossmatch 0804/30/17 04/30/17 Range/Units 17:07 17:58 19:14 RBC (3.80-5.40) m/uL Hgb (11.4-16.0) gm/dL Hct (34.0-46.0) % RDW (11.5-15.5) % Plt Count (150-450) k/uL Glucose (74-99) mg/dL POC Glucose (mg/dL) 135 H 156 H 160 H (75-99) mg/dL Total Bilirubin (0.2-1.3) mg/dL AST (14-36) U/L ALT (9-52) U/L Alkaline Phosphatase (38-126) U/L Total Protein (6.3-8.2) g/dL Albumin (3.5-5.0) g/dL Crossmatch 04/30/17 04/30/17 04/30/17 Range/Units 20:01 21:06 22:02 RBC (3.80-5.40) m/uL Hgb (11.4-16.0) gm/dL Hct (34.0-46.0) % RDW (11.5-15.5) % Plt Count (150-450) k/uL Glucose (74-99) mg/dL POC Glucose (mg/dL) 142 H 123 H 108 H (75-99) mg/dL Total Bilirubin (0.2-1.3) mg/dL AST (14-36) U/L ALT (9-52) U/L Alkaline Phosphatase (38-126) U/L Total Protein (6.3-8.2) g/dL Albumin (3.5-5.0) g/dL Crossmatch 04/30/17 05/01/17 05/01/17 Range/Units 23:08 00:04 01:09 RBC (3.80-5.40) m/uL Hgb (11.4-16.0) gm/dL Hct (34.0-46.0) % RDW (11.5-15.5) % Plt Count (150-450) k/uL Glucose (74-99) mg/dL POC Glucose (mg/dL) 101 H 110 H 116 H (75-99) mg/dL Total Bilirubin (0.2-1.3) mg/dL AST (14-36) U/L ALT (9-52) U/L Alkaline Phosphatase (38-126) U/L Total Protein (6.3-8.2) g/dL Albumin (3.5-5.0) g/dL Crossmatch 05/01/17 05/01/17 05/01/17 Range/Units 01:53 03:04 03:15 RBC (3.80-5.40) m/uL Hgb (11.4-16.0) gm/dL Hct (34.0-46.0) % RDW (11.5-15.5) % Plt Count (150-450) k/uL Glucose 102 H (74-99) mg/dL POC Glucose (mg/dL) 117 H 117 H (75-99) mg/dL Total Bilirubin 1.4 H (0.2-1.3) mg/dL AST 39 H (14-36) U/L ALT 58 H (9-52) U/L Alkaline Phosphatase 33 L (38-126) U/L Total Protein 4.6 L (6.3-8.2) g/dL Albumin 3.1 L (3.5-5.0) g/dL Crossmatch 05/01/17 05/01/17 05/01/17 Range/Units 03:15 04:00 05:04 RBC 2.17 L (3.80-5.40) m/uL Hgb 6.6 L* D (11.4-16.0) gm/dL Hct 20.5 L (34.0-46.0) % RDW 15.8 H (11.5-15.5) % Plt Count 65 L (150-450) k/uL Glucose (74-99) mg/dL POC Glucose (mg/dL) 111 H 113 H (75-99) mg/dL Total Bilirubin (0.2-1.3) mg/dL AST (14-36) U/L ALT (9-52) U/L Alkaline Phosphatase (38-126) U/L Total Protein (6.3-8.2) g/dL Albumin (3.5-5.0) g/dL Crossmatch 05/01/17 05/01/17 05/01/17 Range/Units 06:05 07:10 08:02 RBC (3.80-5.40) m/uL Hgb (11.4-16.0) gm/dL Hct (34.0-46.0) % RDW (11.5-15.5) % Plt Count (150-450) k/uL Glucose (74-99) mg/dL POC Glucose (mg/dL) 106 H 120 H 133 H (75-99) mg/dL Total Bilirubin (0.2-1.3) mg/dL AST (14-36) U/L ALT (9-52) U/L Alkaline Phosphatase (38-126) U/L Total Protein (6.3-8.2) g/dL Albumin (3.5-5.0) g/dL Crossmatch 05/01/17 05/01/17 05/01/17 Range/Units 09:14 10:01 10:02 RBC 2.81 L (3.80-5.40) m/uL Hgb 8.2 L D (11.4-16.0) gm/dL Hct 25.1 L (34.0-46.0) % RDW 18.9 H (11.5-15.5) % Plt Count 69 L (150-450) k/uL Glucose (74-99) mg/dL POC Glucose (mg/dL) 146 H 133 H (75-99) mg/dL Total Bilirubin (0.2-1.3) mg/dL AST (14-36) U/L ALT (9-52) U/L Alkaline Phosphatase (38-126) U/L Total Protein (6.3-8.2) g/dL Albumin (3.5-5.0) g/dL Crossmatch 05/01/17 Range/Units 11:00 RBC (3.80-5.40) m/uL Hgb (11.4-16.0) gm/dL Hct (34.0-46.0) % RDW (11.5-15.5) % Plt Count (150-450) k/uL Glucose (74-99) mg/dL POC Glucose (mg/dL) 153 H (75-99) mg/dL Total Bilirubin (0.2-1.3) mg/dL AST (14-36) U/L ALT (9-52) U/L Alkaline Phosphatase (38-126) U/L Total Protein (6.3-8.2) g/dL Albumin (3.5-5.0) g/dL Crossmatch Microbiology - Last 24 Hours (Table) 04/29/17 17:55 Urine Culture - Final Urine,Catheterized Assessment and Plan Plan: Impression: 1 status post aortic valve replacement for severe aortic stenosis postoperative day #2 2 postoperative anemia secondary to intraoperative and perioperative blood loss. , However the bleeding became more extensive requiring reexploration, patient was taken back to the OR, and this was unexpected. 3 history of breast cancer and previous lumpectomy followed by radiation and chemotherapy. History of right breast mastectomy. 4 right hemidiaphragm elevation suspicious for previous injury and the right hemidiaphragm paralysis. Recommendation: Patient was extubated uneventfully, continue incentive spirometry, bronchodilators, early ambulation, patient was given a unit of packed RBCs today for hemoglobin of 6.6, she was also given Lasix, we'll continue to follow closely in the ICU. Time with Patient: Less than 30
[2017-05-01] MEDS: CHOLECALCIFEROL 400 UNIT TAB PO SCH (11:58)
[2017-05-01] MEDS: MULTIVITAMINS, THERA 1 EACH TAB PO SCH (11:59)
[2017-05-01 12:55] LABS: Glucose,Whole Blood 146 mg/dL (75-99)
[2017-05-01 14:03] LABS: Glucose,Whole Blood 176 mg/dL (75-99)
[2017-05-01 16:42] LABS: Glucose,Whole Blood 154 mg/dL (75-99)
[2017-05-01] MEDS: LEVALBUTEROL NEB 1.25 MG/3 ML AMP INHALATION SCH ×2 (16:48→20:36)
[2017-05-01] MEDS: IPRATROPIUM 0.5 MG/2.5 ML NEBU INHALATION SCH ×2 (16:48→20:36)
[2017-05-01] MEDS: LACTATED RINGERS 1,000 ML IV SCH (16:51)
[2017-05-01 18:06] LABS: Glucose,Whole Blood 153 mg/dL (75-99)
[2017-05-01 19:06] LABS: Glucose,Whole Blood 149 mg/dL (75-99)
[2017-05-01 20:04] LABS: Glucose,Whole Blood 164 mg/dL (75-99)
[2017-05-01 20:04] LABS: Glucose,Whole Blood 156 mg/dL (75-99)
[2017-05-01 21:11] LABS: Glucose,Whole Blood 126 mg/dL (75-99)
[2017-05-01] MEDS: ATORVASTATIN 40 MG TAB PO SCH (21:12)
[2017-05-01] MEDS: ANASTROZOLE 1 MG TAB PO SCH (21:12)
[2017-05-01] MEDS: SENNOSIDES-DOCUSATE SODIUM 1 EACH TAB PO SCH (21:12)
[2017-05-01 22:07] LABS: Glucose,Whole Blood 130 mg/dL (75-99)
[2017-05-01 23:24] LABS: Glucose,Whole Blood 129 mg/dL (75-99)
[2017-05-02 00:13] LABS: Glucose,Whole Blood 137 mg/dL (75-99)
[2017-05-02 01:08] LABS: Glucose,Whole Blood 125 mg/dL (75-99)
[2017-05-02 03:19] LABS: Glucose,Whole Blood 117 mg/dL (75-99)
[2017-05-02] MEDS: HYDROcodone/APAP 5-325MG 1 EACH TAB PO PRN ×4 (03:23→18:24)
[2017-05-02 04:12] LABS: Glucose,Whole Blood 135 mg/dL (75-99)
[2017-05-02 05:08] LABS: Anisocytosis Slight; Basophils % (A) 0 %; CH 29.6; CHCM 31.7; Eosinophils # (A) 0.1 k/uL (0-0.7); Eosinophils % (A) 1 %; HCT 28.3 % (34.0-46.0); HGB 8.9 gm/dL (11.4-16.0); Hypochromasia Slight; Luc # (Auto) 0.18; Luc % (Auto) 2; Lymphocytes # (A) 1.2 k/uL (1.0-4.8); Lymphocytes % (A) 11 %; MCH 29.4 pg (25.0-35.0); MCHC 31.3 g/dL (31.0-37.0); MCV 93.9 fL (80.0-100.0); Mean Platelet Volume 9.9; Monocytes # (A) 0.7 k/uL (0-1.0); Monocytes % (A) 6 %; Neutrophils # (A) 8.5 k/uL (1.3-7.7); Neutrophils % (A) 80 %; RBC 3.02 m/uL (3.80-5.40); RDW 19.6 % (11.5-15.5); WBC 10.6 k/uL (3.8-10.6); WBC (Perox) 10.98
[2017-05-02 05:13] LABS: Ionized Calcium 4.8 mg/dL (4.5-5.3)
[2017-05-02 05:21] LABS: Glucose,Whole Blood 114 mg/dL (75-99)
[2017-05-02 05:28] LABS: ALT 53 U/L (9-52); AST 41 U/L (14-36); Alkaline Phosphatase 48 U/L (38-126); Anion Gap 10 mmol/L; Blood Urea Nitrogen 23 mg/dL (7-17); Calcium 8.9 mg/dL (8.4-10.2); Carbon Dioxide 22 mmol/L (22-30); Chloride 102 mmol/L (98-107); Glucose 113 mg/dL (74-99); Non-African American GFR(MDRD) >60 (>60 ml/min/1.73 sqM); Phosphorous 3.7 mg/dL (2.5-4.5); Potassium 4.4 mmol/L (3.5-5.1); Sodium 134 mmol/L (137-145); Total Protein 5.1 g/dL (6.3-8.2)
[2017-05-02 05:59] LABS: Glucose,Whole Blood 114 mg/dL (75-99)
[2017-05-02] MEDS ORDERED: INSULIN REGULAR 100 UNIT in SODIUM CHLORIDE 0.9% 100 ML IV SCH (07:00)
[2017-05-02] MEDS: AMIODARONE 450 MG in DEXTROSE 5% IN WATER 250 ML IV SCH ×4 (07:15→08:51)
[2017-05-02 07:19] LABS: Glucose,Whole Blood 128 mg/dL (75-99)
[2017-05-02] MEDS: PANTOPRAZOLE 40 MG TABLET PO SCH (07:21)
--- NOTE | 2017-05-02 07:26 | XR ---
EXAMINATION TYPE: XR chest 1V portable DATE OF EXAM: 05/02/2017 Comparison: 05/01/2017 and 04/09/2017 Clinical History: 77-year-old female Post Operative Cardiac Surgery Findings: Lung volumes remain diminished. Median sternotomy wires are present with post-CABG clips in the media stinum. Continued elevation of the right hemidiaphragm. The hepatic flexure in the right subphrenic r egion. Mediastinal drains are present. Right axillary surgical clips. Continued perihilar and interst itial densities. Areas may be minimally improved. Dense retrocardiac opacity with small bilateral eff usions persist. Impression: 1. Continued low lung volumes and hypoventilatory changes. 2. Continued elevation of the right hemidiaphragm which appears to have been present on the preoperat annita exam as well. 3. Small effusions with adjacent atelectasis and/or consolidation. 4. The dense retrocardiac opacity continues; left lower lobe/partial left lower lobe collapse not exc luded.
[2017-05-02 08:21] LABS: Glucose,Whole Blood 132 mg/dL (75-99)
[2017-05-02] MEDS: ASPIRIN 81 MG CHEW PO SCH (08:40)
[2017-05-02] MEDS: HEPARIN SODIUM,PORCINE 5,000 UNIT/ML 1 ML VIAL SQ SCH ×3 (08:40→23:08)
[2017-05-02] MEDS: METOPROLOL TARTRATE 25 MG TAB PO SCH ×2 (08:41→22:05)
[2017-05-02] MEDS: AMIODARONE 200 MG TAB PO SCH ×2 (08:41→22:04)
[2017-05-02 09:15] LABS: Glucose,Whole Blood 128 mg/dL (75-99)
[2017-05-02] MEDS: IPRATROPIUM 0.5 MG/2.5 ML NEBU INHALATION SCH ×5 (09:22→20:54)
[2017-05-02] MEDS: LEVALBUTEROL NEB 1.25 MG/3 ML AMP INHALATION SCH ×4 (09:23→20:54)
[2017-05-02] MEDS: MUPIROCIN 2% OINT 22 GM TUBE NASAL SCH ×2 (10:08→22:07)
[2017-05-02 10:27] LABS: Glucose,Whole Blood 116 mg/dL (75-99)
[2017-05-02 11:08] LABS: Glucose,Whole Blood 113 mg/dL (75-99)
--- NOTE | 2017-05-02 11:49 | P.PN ---
Subjective Principal diagnosis: AVR Status post AVR This is a pleasant 77-year-old female patient who sees Dr. VC Robles as an outpatient who was admitted to the hospital yesterday and underwent an aortic valve replacement using a bioprosthetic valve for severe symptomatic aortic stenosis. The surgery was complicated by bleeding from the mediastinal tube and the patient was taken again to the OR for the bleeding. 05/02/2017 Patient seen and examined this morning, continues to have chest tube in place. Earlier this morning she had an episode of nausea but that the time of my examination states that she was feeling much better. Breathing is overall stable. Let pressure 132/70 with a heart rate in the 70s. Chest x-ray shows continued low lung volumes, continued elevation of right hemidiaphragm, small bilateral effusions. Patient has been encouraged regarding the regular use of her incentive spirometry. Objective - Vital Signs Vital signs: Vital Signs Temp 97.6 F 05/02/17 08:25 Pulse 72 05/02/17 08:25 Resp 20 05/02/17 08:25 BP 133/73 05/02/17 08:25 Pulse Ox 95 05/02/17 08:25 Intake & Output 05/01/17 05/02/17 05/02/17 18:59 06:59 18:59 Intake Total 1559.624 701.050 212.395 Output Total 1455 80 10 Balance 104.624 621.050 202.395 Weight 78.3 kg 78.9 kg Intake: IV 981.5 660.4 0.9 NaCl- for Pressure 54 bag infusion 0.9 carrier 20 LR 480 440 PRBC 81 amiodarone 366.5 200.4 Intake, IV Titration 268.124 40.650 212.395 Amount Amiodarone 450 mg In 259 23.02 211.435 Dextrose 5% in Water 250 ml @ 1 MG/MIN 34.53 mls/ hr IV .Q7H31M PEPE Rx#: [id number] Insulin Regular 100 unit 9.124 17.630 0 In Sodium Chloride 0.9% 100 ml @ Per Protocol IV .Q0M PEPE Rx#:[id number] Insulin Regular 100 unit 0.96 In Sodium Chloride 0.9% 100 ml @ Titrate IV .Q0M PEPE Rx#:[id number] Blood Product 310 Rc As-1 Unit 310 [id number] Output: Chest Tube Drainage 230 80 10 MSx2 230 80 10 Urine 1225 Other: Voiding Method Indwelling Catheter Bedside Commode Bedside Commode # Voids 1 1 ABP, PAP, CO, CI - Last Documented Arterial Blood Pressure 139/72 Pulmonary Artery Pressure 34/19 Cardiac Output 5.4 Cardiac Index 3.0 - Exam PHYSICAL EXAMINATION: HEENT: Head is atraumatic, normocephalic. Pupils equal, round. Neck is supple. There is no elevated jugular venous pressure. HEART EXAMINATION: Heart S1, S2 normal. No murmur or gallop heard. CHEST EXAMINATION: Lungs are clear with diminished air entry to bilateral bases. ABDOMEN: Soft, nontender. Bowel sounds are heard. No organomegaly noted. EXTREMITIES:[ 2+ peripheral pulses with no evidence of peripheral edema and no calf tenderness noted]. NEUROLOGIC [patient is awake, alert and oriented -3.] . - Labs CBC & Chem 7: 05/02/17 04:35 05/02/17 04:35 Labs: Abnormal Lab Results - Last 24 Hours (Table) 05/01/17 05/01/17 05/01/17 Range/Units 12:53 14:02 16:40 RBC (3.80-5.40) m/uL Hgb (11.4-16.0) gm/dL Hct (34.0-46.0) % RDW (11.5-15.5) % Plt Count (150-450) k/uL Neutrophils # (1.3-7.7) k/uL Sodium (137-145) mmol/L BUN (7-17) mg/dL Creatinine (0.52-1.04) mg/dL Glucose (74-99) mg/dL POC Glucose (mg/dL) 146 H 176 H 154 H (75-99) mg/dL AST (14-36) U/L ALT (9-52) U/L Total Protein (6.3-8.2) g/dL Albumin (3.5-5.0) g/dL 05/01/17 05/01/17 05/01/17 Range/Units 18:02 19:05 20:01 RBC (3.80-5.40) m/uL Hgb (11.4-16.0) gm/dL Hct (34.0-46.0) % RDW (11.5-15.5) % Plt Count (150-450) k/uL Neutrophils # (1.3-7.7) k/uL Sodium (137-145) mmol/L BUN (7-17) mg/dL Creatinine (0.52-1.04) mg/dL Glucose (74-99) mg/dL POC Glucose (mg/dL) 153 H 149 H 164 H (75-99) mg/dL AST (14-36) U/L ALT (9-52) U/L Total Protein (6.3-8.2) g/dL Albumin (3.5-5.0) g/dL 05/01/17 05/01/17 05/01/17 Range/Units 20:03 21:09 22:05 RBC (3.80-5.40) m/uL Hgb (11.4-16.0) gm/dL Hct (34.0-46.0) % RDW (11.5-15.5) % Plt Count (150-450) k/uL Neutrophils # (1.3-7.7) k/uL Sodium (137-145) mmol/L BUN (7-17) mg/dL Creatinine (0.52-1.04) mg/dL Glucose (74-99) mg/dL POC Glucose (mg/dL) 156 H 126 H 130 H (75-99) mg/dL AST (14-36) U/L ALT (9-52) U/L Total Protein (6.3-8.2) g/dL Albumin (3.5-5.0) g/dL 05/01/17 05/02/17 05/02/17 Range/Units 23:23 00:11 01:06 RBC (3.80-5.40) m/uL Hgb (11.4-16.0) gm/dL Hct (34.0-46.0) % RDW (11.5-15.5) % Plt Count (150-450) k/uL Neutrophils # (1.3-7.7) k/uL Sodium (137-145) mmol/L BUN (7-17) mg/dL Creatinine (0.52-1.04) mg/dL Glucose (74-99) mg/dL POC Glucose (mg/dL) 129 H 137 H 125 H (75-99) mg/dL AST (14-36) U/L ALT (9-52) U/L Total Protein (6.3-8.2) g/dL Albumin (3.5-5.0) g/dL 05/02/17 05/02/17 05/02/17 Range/Units 03:03 04:11 04:35 RBC 3.02 L (3.80-5.40) m/uL Hgb 8.9 L (11.4-16.0) gm/dL Hct 28.3 L (34.0-46.0) % RDW 19.6 H (11.5-15.5) % Plt Count 90 L (150-450) k/uL Neutrophils # 8.5 H (1.3-7.7) k/uL Sodium (137-145) mmol/L BUN (7-17) mg/dL Creatinine (0.52-1.04) mg/dL Glucose (74-99) mg/dL POC Glucose (mg/dL) 117 H 135 H (75-99) mg/dL AST (14-36) U/L ALT (9-52) U/L Total Protein (6.3-8.2) g/dL Albumin (3.5-5.0) g/dL 05/02/17 05/02/17 05/02/17 Range/Units 04:35 05:19 05:57 RBC (3.80-5.40) m/uL Hgb (11.4-16.0) gm/dL Hct (34.0-46.0) % RDW (11.5-15.5) % Plt Count (150-450) k/uL Neutrophils # (1.3-7.7) k/uL Sodium 134 L (137-145) mmol/L BUN 23 H (7-17) mg/dL Creatinine 0.50 L (0.52-1.04) mg/dL Glucose 113 H (74-99) mg/dL POC Glucose (mg/dL) 114 H 114 H (75-99) mg/dL AST 41 H (14-36) U/L ALT 53 H (9-52) U/L Total Protein 5.1 L (6.3-8.2) g/dL Albumin 3.3 L (3.5-5.0) g/dL 05/02/17 05/02/17 05/02/17 Range/Units 07:17 08:19 09:04 RBC (3.80-5.40) m/uL Hgb (11.4-16.0) gm/dL Hct (34.0-46.0) % RDW (11.5-15.5) % Plt Count (150-450) k/uL Neutrophils # (1.3-7.7) k/uL Sodium (137-145) mmol/L BUN (7-17) mg/dL Creatinine (0.52-1.04) mg/dL Glucose (74-99) mg/dL POC Glucose (mg/dL) 128 H 132 H 128 H (75-99) mg/dL AST (14-36) U/L ALT (9-52) U/L Total Protein (6.3-8.2) g/dL Albumin (3.5-5.0) g/dL 05/02/17 05/02/17 Range/Units 10:17 11:04 RBC (3.80-5.40) m/uL Hgb (11.4-16.0) gm/dL Hct (34.0-46.0) % RDW (11.5-15.5) % Plt Count (150-450) k/uL Neutrophils # (1.3-7.7) k/uL Sodium (137-145) mmol/L BUN (7-17) mg/dL Creatinine (0.52-1.04) mg/dL Glucose (74-99) mg/dL POC Glucose (mg/dL) 116 H 113 H (75-99) mg/dL AST (14-36) U/L ALT (9-52) U/L Total Protein (6.3-8.2) g/dL Albumin (3.5-5.0) g/dL Assessment and Plan (1) S/P AVR (aortic valve replacement) Status: Acute (2) Postoperative anemia Status: Acute (3) Hx of breast cancer Status: Acute Plan: Patient has been encouraged on the use of her incentive spirometry. She did receive a dose of 40 and a dose of 20 IV Lasix. We will make sugars daily CBC and to monitor hemoglobin closely. Remaining in normal sinus rhythm. DNP note has been reviewed, I agree with a documented findings and plan of care. Patient was seen and examined.
[2017-05-02] MEDS: MAGNESIUM HYDROXIDE 2,400 MG/10 ML CUP PO PRN (11:54)
[2017-05-02] MEDS: MULTIVITAMINS, THERA 1 EACH TAB PO SCH (11:54)
[2017-05-02] MEDS: CHOLECALCIFEROL 400 UNIT TAB PO SCH (11:54)
--- NOTE | 2017-05-02 12:11 | P.PN ---
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 POD #3 elective aortic valve replacement using a 21 mm pericardial bioprosthesis magna ease bovine. Exclusion of the left atrial appendage using a 35 mm AtriClip. Intraoperative transesophageal echocardiogram and epi-aortic scanning. Postoperative bleeding, inherent to this surgery. POD #3 return to the OR for emergent exploratory chest, evacuation of clots Postoperative paroxysmal atrial fibrillation with conversion back into sinus rhythm, an expected outcome of surgery. Patient is currently up in bed in no acute distress. Was transferred this morning from the ICU to [address] [place] [address]. Apparently she was awake most of the night. She did go into atrial fibrillation yesterday, was treated with IV amiodarone, and has converted back into normal sinus rhythm. She does state that she is somewhat short of breath. Objective - Vital Signs Vital signs: Vital Signs Temp 98 F 05/02/17 00:00 Pulse 62 05/02/17 04:00 Resp 17 05/02/17 04:00 BP 135/71 05/02/17 04:00 Pulse Ox 96 05/02/17 04:00 Intake & Output 05/01/17 05/02/17 05/02/17 18:59 06:59 18:59 Intake Total 1559.624 701.050 211.435 Output Total 1455 80 Balance 104.624 621.050 211.435 Weight 78.3 kg Intake: IV 981.5 660.4 0.9 NaCl- for Pressure 54 bag infusion 0.9 carrier 20 LR 480 440 PRBC 81 amiodarone 366.5 200.4 Intake, IV Titration 268.124 40.650 211.435 Amount Amiodarone 450 mg In 259 23.02 211.435 Dextrose 5% in Water 250 ml @ 1 MG/MIN 34.53 mls/ hr IV .Q7H31M PEPE Rx#: [id number] Insulin Regular 100 unit 9.124 17.630 0 In Sodium Chloride 0.9% 100 ml @ Per Protocol IV .Q0M PEPE Rx#:[id number] Blood Product 310 Rc As-1 Unit 310 [id number] Output: Chest Tube Drainage 230 80 MSx2 230 80 Urine 1225 Other: Voiding Method Indwelling Catheter Bedside Commode # Voids 1 1 ABP, PAP, CO, CI - Last Documented Arterial Blood Pressure 139/72 Pulmonary Artery Pressure 34/19 Cardiac Output 5.4 Cardiac Index 3.0 - Constitutional General appearance: Present: cooperative, no acute distress - Respiratory Details: Lungs sounds diminished bilaterally. Respirations even, nonlabored. Currently on 2 L nasal cannula with oxygen saturation 96%. Only able to achieve 250 mL on her incentive spirometry. - Cardiovascular Details: S1, S2 present. Regular rate and rhythm, normal sinus rhythm on telemetry. Sternum stable. A/V epicardial pacemaker wires present, capped. Heart hugger in place with patient demonstrating appropriate use. Palpable pulses bilaterally. No edema present. Mediastinal chest tube to -20 cm wall suction, 60 mL serosanguineous drainage overnight , 310 mL the last 24 hours. No air leak present. - Gastrointestinal Gastrointestinal Comment(s): abdomen soft, nontender, nondistended. Hypoactive bowel sounds present 4 quadrants. Tolerating diet. - Genitourinary Genitourinary Comment(s): Morales discontinued yesterday. Voiding clear, yellow urine. Excellent diuresis after Lasix given yesterday. - Integumentary Integumentary Comment(s): Anterior chest incision well approximated and covered with dry intact dressing. - Neurologic Neurologic: Present: CNII-XII intact - Musculoskeletal Musculoskeletal: Present: gait normal, strength equal bilaterally - Psychiatric Psychiatric Comment(s): Flat affect, tearful at times. Psychiatric: Present: A&O x's 3, intact judgment & insight - Allied health notes Allied health notes reviewed: nursing - Labs CBC & Chem 7: 05/02/17 04:35 05/02/17 04:35 Labs: Abnormal Lab Results - Last 24 Hours (Table) 05/01/17 05/01/17 05/01/17 Range/Units 08:02 09:14 10:01 RBC 2.81 L (3.80-5.40) m/uL Hgb 8.2 L D (11.4-16.0) gm/dL Hct 25.1 L (34.0-46.0) % RDW 18.9 H (11.5-15.5) % Plt Count 69 L (150-450) k/uL Neutrophils # (1.3-7.7) k/uL Sodium (137-145) mmol/L BUN (7-17) mg/dL Creatinine (0.52-1.04) mg/dL Glucose (74-99) mg/dL POC Glucose (mg/dL) 133 H 146 H (75-99) mg/dL AST (14-36) U/L ALT (9-52) U/L Total Protein (6.3-8.2) g/dL Albumin (3.5-5.0) g/dL 05/01/17 05/01/17 05/01/17 Range/Units 10:02 11:00 12:53 RBC (3.80-5.40) m/uL Hgb (11.4-16.0) gm/dL Hct (34.0-46.0) % RDW (11.5-15.5) % Plt Count (150-450) k/uL Neutrophils # (1.3-7.7) k/uL Sodium (137-145) mmol/L BUN (7-17) mg/dL Creatinine (0.52-1.04) mg/dL Glucose (74-99) mg/dL POC Glucose (mg/dL) 133 H 153 H 146 H (75-99) mg/dL AST (14-36) U/L ALT (9-52) U/L Total Protein (6.3-8.2) g/dL Albumin (3.5-5.0) g/dL 05/01/17 05/01/17 05/01/17 Range/Units 14:02 16:40 18:02 RBC (3.80-5.40) m/uL Hgb (11.4-16.0) gm/dL Hct (34.0-46.0) % RDW (11.5-15.5) % Plt Count (150-450) k/uL Neutrophils # (1.3-7.7) k/uL Sodium (137-145) mmol/L BUN (7-17) mg/dL Creatinine (0.52-1.04) mg/dL Glucose (74-99) mg/dL POC Glucose (mg/dL) 176 H 154 H 153 H (75-99) mg/dL AST (14-36) U/L ALT (9-52) U/L Total Protein (6.3-8.2) g/dL Albumin (3.5-5.0) g/dL 05/01/17 05/01/17 05/01/17 Range/Units 19:05 20:01 20:03 RBC (3.80-5.40) m/uL Hgb (11.4-16.0) gm/dL Hct (34.0-46.0) % RDW (11.5-15.5) % Plt Count (150-450) k/uL Neutrophils # (1.3-7.7) k/uL Sodium (137-145) mmol/L BUN (7-17) mg/dL Creatinine (0.52-1.04) mg/dL Glucose (74-99) mg/dL POC Glucose (mg/dL) 149 H 164 H 156 H (75-99) mg/dL AST (14-36) U/L ALT (9-52) U/L Total Protein (6.3-8.2) g/dL Albumin (3.5-5.0) g/dL 05/01/17 05/01/17 05/01/17 Range/Units 21:09 22:05 23:23 RBC (3.80-5.40) m/uL Hgb (11.4-16.0) gm/dL Hct (34.0-46.0) % RDW (11.5-15.5) % Plt Count (150-450) k/uL Neutrophils # (1.3-7.7) k/uL Sodium (137-145) mmol/L BUN (7-17) mg/dL Creatinine (0.52-1.04) mg/dL Glucose (74-99) mg/dL POC Glucose (mg/dL) 126 H 130 H 129 H (75-99) mg/dL AST (14-36) U/L ALT (9-52) U/L Total Protein (6.3-8.2) g/dL Albumin (3.5-5.0) g/dL 05/02/17 05/02/17 05/02/17 Range/Units 00:11 01:06 03:03 RBC (3.80-5.40) m/uL Hgb (11.4-16.0) gm/dL Hct (34.0-46.0) % RDW (11.5-15.5) % Plt Count (150-450) k/uL Neutrophils # (1.3-7.7) k/uL Sodium (137-145) mmol/L BUN (7-17) mg/dL Creatinine (0.52-1.04) mg/dL Glucose (74-99) mg/dL POC Glucose (mg/dL) 137 H 125 H 117 H (75-99) mg/dL AST (14-36) U/L ALT (9-52) U/L Total Protein (6.3-8.2) g/dL Albumin (3.5-5.0) g/dL 05/02/17 05/02/17 05/02/17 Range/Units 04:11 04:35 04:35 RBC 3.02 L (3.80-5.40) m/uL Hgb 8.9 L (11.4-16.0) gm/dL Hct 28.3 L (34.0-46.0) % RDW 19.6 H (11.5-15.5) % Plt Count 90 L (150-450) k/uL Neutrophils # 8.5 H (1.3-7.7) k/uL Sodium 134 L (137-145) mmol/L BUN 23 H (7-17) mg/dL Creatinine 0.50 L (0.52-1.04) mg/dL Glucose 113 H (74-99) mg/dL POC Glucose (mg/dL) 135 H (75-99) mg/dL AST 41 H (14-36) U/L ALT 53 H (9-52) U/L Total Protein 5.1 L (6.3-8.2) g/dL Albumin 3.3 L (3.5-5.0) g/dL 05/02/17 05/02/17 05/02/17 Range/Units 05:19 05:57 07:17 RBC (3.80-5.40) m/uL Hgb (11.4-16.0) gm/dL Hct (34.0-46.0) % RDW (11.5-15.5) % Plt Count (150-450) k/uL Neutrophils # (1.3-7.7) k/uL Sodium (137-145) mmol/L BUN (7-17) mg/dL Creatinine (0.52-1.04) mg/dL Glucose (74-99) mg/dL POC Glucose (mg/dL) 114 H 114 H 128 H (75-99) mg/dL AST (14-36) U/L ALT (9-52) U/L Total Protein (6.3-8.2) g/dL Albumin (3.5-5.0) g/dL Microbiology - Last 24 Hours (Table) 04/29/17 17:55 Urine Culture - Final Urine,Catheterized - Imaging and Cardiology Chest x-ray: report reviewed, image reviewed Assessment and Plan (1) Severe aortic valve stenosis Status: Acute (2) Status post chemotherapy Status: Acute (3) Status post radiation therapy Status: Acute (4) History of cancer of right breast Status: Acute (5) Hyperlipidemia Status: Acute Plan: 1. Continue low-dose aspirin, heparin, beta taylor , statin. Hold Plavix for now. Will maximize beta taylor therapy as tolerated. 2. continue amiodarone, will transition to oral amiodarone for A. fib prophylaxis. 3. Wean oxygen, encourage incentive spirometry use. 4. Increase activity, ambulate in hallway. Physical therapy to follow. 5. GI/DVT prophylaxis. 6. Will monitor daily labs, x-rays. 7. Insulin management per primary care service. 8. Pain management per ordered medications. 9. More recommendations as patient progresses. Discharge planning in progress. Time with Patient: Greater than 30
[2017-05-02] MEDS: INSULIN LISPRO (humaLOG) 300 UNIT/3 ML VIAL SQ SCH ×3 (12:31→22:09)
--- NOTE | 2017-05-02 12:41 | P.PN ---
Subjective Principal diagnosis: Status post aortic valve replacement using a bioprosthetic valve for severe symptomatic aortic stenosis. Postoperative day # 3 This is a 76-year-old female who is primarily a patient of Dr. andrade, had history of multiple medical problems including breast cancer, previous radiation treatment and chemotherapy, history of right mastectomy, multiple surgical procedures including hysterectomy and cholecystectomy, patient had a recent echocardiogram which revealed evidence of significant aortic stenosis. There was also trace of aortic regurgitation, her EF was 60%. On 04/09/2017, elective cardiac catheterization and HALEY showed aortic valve area of 0.5-0.6 cm and she was noted to have normal coronaries as well as trace of mitral regurgitation. Patient was referred to cardiac surgery, today she underwent elective aortic valve replacement by Dr. Somers. Postoperatively patient was noted to be on mechanical ventilation, and I was asked to see her on consultation. Chest x-ray was relatively unremarkable except for postoperative changes, tubes and lines were noted to be in the proper position, ABG showed pO2 of 382 pCO2 of 38 pH of 7.41. Postoperative hemoglobin was 7.1, and the patient was noted to have moderate the bleeding from the chest tubes. She was already receiving blood products as well as cryoprecipitate. So far the patient received 10 units of cryoprecipitate, 1 unit of platelets, 4 units of fresh was a plasma. And 3 units of packed RBCs. Ventilator settings were reviewed she is presently on IMV of 12 tidal volume of 450 PEEP of 5 and FiO2 of 50%. Patient is sedated, hemodynamically stable in spite of the moderate to bleeding noted. Patient was reevaluated today on 04/30/2017, her postoperative bleeding yesterday required reexploration in the ER, and finally the bleeding was controlled. Patient came back to the ICU, and early this morning she had a relatively adequate blood gases, good weaning parameters, chest x-ray showed postoperative changes with right hemidiaphragm elevation, and atelectasis, however considering the overall picture, patient was extubated uneventfully and placed on a nasal cannula. Labs were reviewed, hemoglobin is 8.2. Patient received a total of 5 units of packed RBCs, 4 units of fresh frozen plasma, 1 unit of platelets, and 10 units of cryoprecipitate. Patient was reevaluated today on 05/01/2017, clinically the patient seems to be doing quite well, however her chest x-ray seems to be worse with significant elevation of the right hemidiaphragm, and suspect mild interstitial edema with right pleural effusion. Given earlier a dose of Lasix 20 mg with fair response and 400 mL of urine noted post Lasix, patient will likely benefit from another dose of 40 mg of Lasix today. She did receive a unit of packed RBCs for hemoglobin of 6.6 today. In spite of her abnormal chest x-ray, the patient denies being short of breath. No cough no wheezing and no chest pain. Posttransfusion hemoglobin was noted to be 8.2. Patient was reevaluated today on 05/02/2017, feeling much better compared to yesterday, however she is generally weak and sleepy. No shortness of breath, no fever, no chills, no hemoptysis. Hemoglobin today is 8.9, rest of the labs were reviewed. Chest x-ray showed improvement compared to yesterday, she continues to have low lung volumes and hypoventilatory changes with elevated right hemidiaphragm. Small effusion is noted. Objective - Vital Signs Vital signs: Vital Signs Temp 97.6 F 05/02/17 08:25 Pulse 72 05/02/17 08:25 Resp 20 05/02/17 08:25 BP 133/73 05/02/17 08:25 Pulse Ox 95 05/02/17 08:25 Intake & Output 05/01/17 05/02/17 05/02/17 18:59 06:59 18:59 Intake Total 1559.624 701.050 212.395 Output Total 1455 80 10 Balance 104.624 621.050 202.395 Weight 78.3 kg 78.9 kg Intake: IV 981.5 660.4 0.9 NaCl- for Pressure 54 bag infusion 0.9 carrier 20 LR 480 440 PRBC 81 amiodarone 366.5 200.4 Intake, IV Titration 268.124 40.650 212.395 Amount Amiodarone 450 mg In 259 23.02 211.435 Dextrose 5% in Water 250 ml @ 1 MG/MIN 34.53 mls/ hr IV .Q7H31M [facility] Rx#: [id number] Insulin Regular 100 unit 9.124 17.630 0 In Sodium Chloride 0.9% 100 ml @ Per Protocol IV .Q0M [facility] Rx#:[id number] Insulin Regular 100 unit 0.96 In Sodium Chloride 0.9% 100 ml @ Titrate IV .Q0M [facility] Rx#:[id number] Blood Product 310 Rc As-1 Unit 310 [id number] Output: Chest Tube Drainage 230 80 10 MSx2 230 80 10 Urine 1225 Other: Voiding Method Indwelling Catheter Bedside Commode Bedside Commode # Voids 1 1 ABP, PAP, CO, CI - Last Documented Arterial Blood Pressure 139/72 Pulmonary Artery Pressure 34/19 Cardiac Output 5.4 Cardiac Index 3.0 - Exam Physical Exam: Revealed a 77-year-old female in no distress. On nasal cannula HEENT:[Neck is supple.] [No neck masses.] [No thyromegaly.] [No JVD.] Chest: [Diminished breath sounds at the bases no crackles or rhonchi or wheezes Cardiac Exam: [Normal S1 and S2, no S3 gallop, no murmur.] Abdomen: [Soft, nontender, no megaly, no rebound, no guarding, normal bowel sounds.] Extremities: [No clubbing, no edema, no cyanosis.] Neurological Exam: [No focal neurologic deficit.] - Labs CBC & Chem 7: 05/02/17 04:35 05/02/17 04:35 Labs: Abnormal Lab Results - Last 24 Hours (Table) 05/01/17 05/01/17 05/01/17 Range/Units 12:53 14:02 16:40 RBC (3.80-5.40) m/uL Hgb (11.4-16.0) gm/dL Hct (34.0-46.0) % RDW (11.5-15.5) % Plt Count (150-450) k/uL Neutrophils # (1.3-7.7) k/uL Sodium (137-145) mmol/L BUN (7-17) mg/dL Creatinine (0.52-1.04) mg/dL Glucose (74-99) mg/dL POC Glucose (mg/dL) 146 H 176 H 154 H (75-99) mg/dL AST (14-36) U/L ALT (9-52) U/L Total Protein (6.3-8.2) g/dL Albumin (3.5-5.0) g/dL 05/01/17 05/01/17 05/01/17 Range/Units 18:02 19:05 20:01 RBC (3.80-5.40) m/uL Hgb (11.4-16.0) gm/dL Hct (34.0-46.0) % RDW (11.5-15.5) % Plt Count (150-450) k/uL Neutrophils # (1.3-7.7) k/uL Sodium (137-145) mmol/L BUN (7-17) mg/dL Creatinine (0.52-1.04) mg/dL Glucose (74-99) mg/dL POC Glucose (mg/dL) 153 H 149 H 164 H (75-99) mg/dL AST (14-36) U/L ALT (9-52) U/L Total Protein (6.3-8.2) g/dL Albumin (3.5-5.0) g/dL 05/01/17 05/01/17 05/01/17 Range/Units 20:03 21:09 22:05 RBC (3.80-5.40) m/uL Hgb (11.4-16.0) gm/dL Hct (34.0-46.0) % RDW (11.5-15.5) % Plt Count (150-450) k/uL Neutrophils # (1.3-7.7) k/uL Sodium (137-145) mmol/L BUN (7-17) mg/dL Creatinine (0.52-1.04) mg/dL Glucose (74-99) mg/dL POC Glucose (mg/dL) 156 H 126 H 130 H (75-99) mg/dL AST (14-36) U/L ALT (9-52) U/L Total Protein (6.3-8.2) g/dL Albumin (3.5-5.0) g/dL 05/01/17 05/02/17 05/02/17 Range/Units 23:23 00:11 01:06 RBC (3.80-5.40) m/uL Hgb (11.4-16.0) gm/dL Hct (34.0-46.0) % RDW (11.5-15.5) % Plt Count (150-450) k/uL Neutrophils # (1.3-7.7) k/uL Sodium (137-145) mmol/L BUN (7-17) mg/dL Creatinine (0.52-1.04) mg/dL Glucose (74-99) mg/dL POC Glucose (mg/dL) 129 H 137 H 125 H (75-99) mg/dL AST (14-36) U/L ALT (9-52) U/L Total Protein (6.3-8.2) g/dL Albumin (3.5-5.0) g/dL 05/02/17 05/02/17 05/02/17 Range/Units 03:03 04:11 04:35 RBC 3.02 L (3.80-5.40) m/uL Hgb 8.9 L (11.4-16.0) gm/dL Hct 28.3 L (34.0-46.0) % RDW 19.6 H (11.5-15.5) % Plt Count 90 L (150-450) k/uL Neutrophils # 8.5 H (1.3-7.7) k/uL Sodium (137-145) mmol/L BUN (7-17) mg/dL Creatinine (0.52-1.04) mg/dL Glucose (74-99) mg/dL POC Glucose (mg/dL) 117 H 135 H (75-99) mg/dL AST (14-36) U/L ALT (9-52) U/L Total Protein (6.3-8.2) g/dL Albumin (3.5-5.0) g/dL 05/02/17 05/02/17 05/02/17 Range/Units 04:35 05:19 05:57 RBC (3.80-5.40) m/uL Hgb (11.4-16.0) gm/dL Hct (34.0-46.0) % RDW (11.5-15.5) % Plt Count (150-450) k/uL Neutrophils # (1.3-7.7) k/uL Sodium 134 L (137-145) mmol/L BUN 23 H (7-17) mg/dL Creatinine 0.50 L (0.52-1.04) mg/dL Glucose 113 H (74-99) mg/dL POC Glucose (mg/dL) 114 H 114 H (75-99) mg/dL AST 41 H (14-36) U/L ALT 53 H (9-52) U/L Total Protein 5.1 L (6.3-8.2) g/dL Albumin 3.3 L (3.5-5.0) g/dL 05/02/17 05/02/17 05/02/17 Range/Units 07:17 08:19 09:04 RBC (3.80-5.40) m/uL Hgb (11.4-16.0) gm/dL Hct (34.0-46.0) % RDW (11.5-15.5) % Plt Count (150-450) k/uL Neutrophils # (1.3-7.7) k/uL Sodium (137-145) mmol/L BUN (7-17) mg/dL Creatinine (0.52-1.04) mg/dL Glucose (74-99) mg/dL POC Glucose (mg/dL) 128 H 132 H 128 H (75-99) mg/dL AST (14-36) U/L ALT (9-52) U/L Total Protein (6.3-8.2) g/dL Albumin (3.5-5.0) g/dL 05/02/17 05/02/17 Range/Units 10:17 11:04 RBC (3.80-5.40) m/uL Hgb (11.4-16.0) gm/dL Hct (34.0-46.0) % RDW (11.5-15.5) % Plt Count (150-450) k/uL Neutrophils # (1.3-7.7) k/uL Sodium (137-145) mmol/L BUN (7-17) mg/dL Creatinine (0.52-1.04) mg/dL Glucose (74-99) mg/dL POC Glucose (mg/dL) 116 H 113 H (75-99) mg/dL AST (14-36) U/L ALT (9-52) U/L Total Protein (6.3-8.2) g/dL Albumin (3.5-5.0) g/dL Assessment and Plan Plan: Impression: 1 status post aortic valve replacement for severe aortic stenosis postoperative day #3 2 postoperative anemia secondary to intraoperative and perioperative blood loss. , However the bleeding became more extensive requiring reexploration, patient was taken back to the OR, and this was unexpected. 3 history of breast cancer and previous lumpectomy followed by radiation and chemotherapy. History of right breast mastectomy. 4 right hemidiaphragm elevation suspicious for previous injury and the right hemidiaphragm paralysis. Recommendation: continue incentive spirometry, bronchodilators, ambulation, chest x-ray seems to be improving, will continue to follow. Time with Patient: Less than 30
--- NOTE | 2017-05-02 14:18 | CDI ---
In responding to this query, please exercise your independent professional judgment. The [facility] Coding Staff and Clinical Documentation Specialists appreciate your assistance in clarifying documentation, maintaining compliance with coding guidelines, accurately documenting patients condition and capturing severity of illness. The fact that a question is asked does not imply that any particular answer is desired or expected. Communication forms are a method of clarifying documentation and are not made part of the Legal Health Record. Thank you in advance for your clarification. Last Revision, July 2015 Raj Sommer [address] [place] [address] Documentation Clarification Form Date: 05/02/2017 1:37:00 PM From: Veronicatito Morales Admit Date: 04/29/2017 5:45:00 AM Patient Name: Chely Mcdonough Visit Number: [id number] Discharge Date: Dr. Alejandro Somers/Adwoa [facility] A diagnosis of anemia and bleeding lacks and specificity to accurately reflect your patients severity of condition and clarification is needed. Patient history/risk factors: Breast cancer, Aortic stenosis nonrheumatic Clinical Indicators: Post aortic valve replacement had persistent moderate level mediastinal drains output with bleeding noted at sternal edge. Hemoglobin: 7.1, 6.6 Hematocrit: 21.6, 20.5 Treatment: Monitor CBC Transfusion PRBC [id number], evacuation of mediastinal clots and control of bleeding In order to capture the severity of condition, please clarify the type of anemia and etiology if known: Acute blood loss anemia Acute on chronic blood loss anemia Chronic blood loss anemia Iron deficiency anemia Anemia of chronic kidney disease Unable to determine Other, please specify Please document in your progress notes and discharge summary in order to capture severity of illness and risk of mortality. Include clinical findings that support your diagnosis. FYI: Press F11 to launch patient chart. DIONNA
[2017-05-02 16:57] LABS: Glucose,Whole Blood 132 mg/dL (75-99)
[2017-05-02 20:42] LABS: Glucose,Whole Blood 130 mg/dL (75-99)
[2017-05-02] MEDS: ATORVASTATIN 40 MG TAB PO SCH (22:04)
[2017-05-02] MEDS: ANASTROZOLE 1 MG TAB PO SCH (22:04)
[2017-05-02] MEDS: SENNOSIDES-DOCUSATE SODIUM 1 EACH TAB PO SCH (23:07)
[2017-05-03 02:34] LABS: Glucose,Whole Blood 113 mg/dL (75-99)
[2017-05-03 03:11] VITALS: RESP 18
[2017-05-03 06:19] LABS: Glucose,Whole Blood 117 mg/dL (75-99)
[2017-05-03] MEDS: INSULIN LISPRO (humaLOG) 300 UNIT/3 ML VIAL SQ SCH ×4 (06:22→20:55)
[2017-05-03] MEDS: PANTOPRAZOLE 40 MG TABLET PO SCH (06:28)
[2017-05-03] MEDS: HYDROcodone/APAP 5-325MG 1 EACH TAB PO PRN ×5 (06:28→23:19)
[2017-05-03 06:52] LABS: Anisocytosis Moderate; CHCM 31.8; HDW 3.04; HGB 9.4 gm/dL (11.4-16.0); Hypochromasia Slight; MCH 30.7 pg (25.0-35.0); MCHC 32.4 g/dL (31.0-37.0); MCV 94.7 fL (80.0-100.0); Macrocytosis Slight; Mean Platelet Volume 9.4; RBC 3.06 m/uL (3.80-5.40); RDW 20.1 % (11.5-15.5); WBC 9.5 k/uL (3.8-10.6)
[2017-05-03 07:15] LABS: ALT 50 U/L (9-52); AST 27 U/L (14-36); Alkaline Phosphatase 49 U/L (38-126); Anion Gap 6 mmol/L; Blood Urea Nitrogen 20 mg/dL (7-17); Calcium 8.5 mg/dL (8.4-10.2); Carbon Dioxide 32 mmol/L (22-30); Chloride 99 mmol/L (98-107); Glucose 105 mg/dL (74-99); Non-African American GFR(MDRD) >60 (>60 ml/min/1.73 sqM); Potassium 4.3 mmol/L (3.5-5.1); Sodium 137 mmol/L (137-145); Total Bilirubin 1.1 mg/dL (0.2-1.3); Total Protein 5.1 g/dL (6.3-8.2)
--- NOTE | 2017-05-03 07:57 | P.PN ---
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 POD #4 elective aortic valve replacement using a 21 mm pericardial bioprosthesis magna ease bovine. Exclusion of the left atrial appendage using a 35 mm AtriClip. Intraoperative transesophageal echocardiogram and epi-aortic scanning. Postoperative acute blood loss anemia, inherent to this surgery. POD #4 return to the OR for emergent exploratory chest, evacuation of clots Postoperative paroxysmal atrial fibrillation with conversion back into sinus rhythm, an expected outcome of surgery. Patient is currently up in bed in no acute distress. States pain is controlled with ordered medications. Denies shortness of breath. Patient is very teary- eyed, with concerns over the possibility of going home soon. States she does not feel ready to go home. Objective - Vital Signs Vital signs: Vital Signs Temp 97.5 F L 05/03/17 04:00 Pulse 74 05/03/17 04:00 Resp 18 05/03/17 04:00 BP 124/67 05/03/17 04:00 Pulse Ox 97 05/03/17 04:00 Intake & Output 05/02/17 05/03/17 05/03/17 18:59 06:59 18:59 Intake Total 700.395 Output Total 380 85 Balance 320.395 -85 Weight 78.9 kg 78.4 kg Intake: IV 70 0.9 carrier 70 amiodarone 0 Intake, IV Titration 212.395 Amount Amiodarone 450 mg In 211.435 Dextrose 5% in Water 250 ml @ 1 MG/MIN 34.53 mls/ hr IV .Q7H31M [facility] Rx#: [id number] Insulin Regular 100 unit 0 In Sodium Chloride 0.9% 100 ml @ Per Protocol IV .Q0M [facility] Rx#:[id number] Insulin Regular 100 unit 0.96 In Sodium Chloride 0.9% 100 ml @ Titrate IV .Q0M [facility] Rx#:[id number] Oral 418 Output: Chest Tube Drainage 80 85 MSx2 80 85 Urine 300 Other: Voiding Method Bedside Commode Bedside Commode # Voids 1 2 ABP, PAP, CO, CI - Last Documented Arterial Blood Pressure 139/72 Pulmonary Artery Pressure 34/19 Cardiac Output 5.4 Cardiac Index 3.0 - Constitutional General appearance: Present: cooperative, no acute distress - Respiratory Details: Lungs sounds diminished bilaterally. Respirations even, nonlabored. Currently on 2 L nasal cannula oxygen saturation 97%. Able to achieve 500 mL on her incentive spirometry. Effective cough. - Cardiovascular Details: S1, S2 present. Regular rate and rhythm, normal sinus rhythm on telemetry. Sternum stable. A/V epicardial pacemaker wires present, capped. Mediastinal chest tube to -20 cm wall suction, 50 mL serous output overnight, 225 mL in the last 24 hours. No air leak present. Palpable pulses bilaterally. No edema present. Heart hugger in place patient demonstrating appropriate use. Teds/ SCDs present. - Gastrointestinal Gastrointestinal Comment(s): Abdomen soft, nontender, nondistended. Active bowel sounds 4 quadrants. Tolerating diet. - Genitourinary Genitourinary Comment(s): Continues to void clear, yellow urine. - Neurologic Neurologic: Present: CNII-XII intact - Musculoskeletal Musculoskeletal: Present: gait normal, strength equal bilaterally - Psychiatric Psychiatric Comment(s): Appears teary-eyed, highly anxious and slightly depressed. Psychiatric: Present: A&O x's 3 - Allied health notes Allied health notes reviewed: nursing - Labs CBC & Chem 7: 05/03/17 06:15 05/03/17 06:15 Labs: Abnormal Lab Results - Last 24 Hours (Table) 05/02/17 05/02/17 05/02/17 Range/Units 08:19 09:04 10:17 RBC (3.80-5.40) m/uL Hgb (11.4-16.0) gm/dL Hct (34.0-46.0) % RDW (11.5-15.5) % Plt Count (150-450) k/uL Carbon Dioxide (22-30) mmol/L BUN (7-17) mg/dL Glucose (74-99) mg/dL POC Glucose (mg/dL) 132 H 128 H 116 H (75-99) mg/dL Total Protein (6.3-8.2) g/dL Albumin (3.5-5.0) g/dL 05/02/17 05/02/17 05/02/17 Range/Units 11:04 16:54 20:39 RBC (3.80-5.40) m/uL Hgb (11.4-16.0) gm/dL Hct (34.0-46.0) % RDW (11.5-15.5) % Plt Count (150-450) k/uL Carbon Dioxide (22-30) mmol/L BUN (7-17) mg/dL Glucose (74-99) mg/dL POC Glucose (mg/dL) 113 H 132 H 130 H (75-99) mg/dL Total Protein (6.3-8.2) g/dL Albumin (3.5-5.0) g/dL 05/03/17 05/03/17 05/03/17 Range/Units 02:32 06:15 06:15 RBC 3.06 L (3.80-5.40) m/uL Hgb 9.4 L (11.4-16.0) gm/dL Hct 29.0 L (34.0-46.0) % RDW 20.1 H (11.5-15.5) % Plt Count 132 L (150-450) k/uL Carbon Dioxide 32 H (22-30) mmol/L BUN 20 H (7-17) mg/dL Glucose 105 H (74-99) mg/dL POC Glucose (mg/dL) 113 H (75-99) mg/dL Total Protein 5.1 L (6.3-8.2) g/dL Albumin 3.1 L (3.5-5.0) g/dL 05/03/17 Range/Units 06:16 RBC (3.80-5.40) m/uL Hgb (11.4-16.0) gm/dL Hct (34.0-46.0) % RDW (11.5-15.5) % Plt Count (150-450) k/uL Carbon Dioxide (22-30) mmol/L BUN (7-17) mg/dL Glucose (74-99) mg/dL POC Glucose (mg/dL) 117 H (75-99) mg/dL Total Protein (6.3-8.2) g/dL Albumin (3.5-5.0) g/dL - Imaging and Cardiology Chest x-ray: image reviewed Assessment and Plan (1) Severe aortic valve stenosis Status: Acute (2) Status post chemotherapy Status: Acute (3) Status post radiation therapy Status: Acute (4) History of cancer of right breast Status: Acute (5) Hyperlipidemia Status: Acute Plan: 1. Continue low-dose aspirin, heparin, beta taylor , statin. Hold Plavix for now. Will maximize beta taylor therapy as tolerated. 2. Continue amiodarone for A. fib prophylaxis. 3. Wean oxygen, encourage incentive spirometry use. 4. Increase activity, ambulate in hallway. Physical therapy following. 5. GI/DVT prophylaxis. 6. Will monitor daily labs, x-rays. 7. Zoloft added. 8. Likely will discontinue mediastinal chest tube today. 9. Pain management per ordered medications. 10. More recommendations as patient progresses. Discharge planning in progress. Dr. Frank consulted for the possibility of inpatient rehab at discharge. Time with Patient: Greater than 30 <Jim Hardy - Last Filed: 05/03/17 11:50> Objective - Vital Signs Vital signs: Vital Signs Temp 97.9 F 05/03/17 08:00 Pulse 76 05/03/17 08:00 Resp 18 05/03/17 08:00 BP 111/60 05/03/17 08:00 Pulse Ox 99 05/03/17 08:00 Intake & Output 05/02/17 05/03/17 05/03/17 18:59 06:59 18:59 Intake Total 700.395 Output Total 380 85 16 Balance 320.395 -85 -16 Weight 78.9 kg 78.4 kg Intake: IV 70 0.9 carrier 70 amiodarone 0 Intake, IV Titration 212.395 Amount Amiodarone 450 mg In 211.435 Dextrose 5% in Water 250 ml @ 1 MG/MIN 34.53 mls/ hr IV .Q7H31M [facility] Rx#: [id number] Insulin Regular 100 unit 0 In Sodium Chloride 0.9% 100 ml @ Per Protocol IV .Q0M [facility] Rx#:[id number] Insulin Regular 100 unit 0.96 In Sodium Chloride 0.9% 100 ml @ Titrate IV .Q0M [facility] Rx#:[id number] Oral 418 Output: Chest Tube Drainage 80 85 16 MSx2 80 85 16 Urine 300 Other: Voiding Method Bedside Commode Bedside Commode Toilet # Voids 1 2 ABP, PAP, CO, CI - Last Documented Arterial Blood Pressure 139/72 Pulmonary Artery Pressure 34/19 Cardiac Output 5.4 Cardiac Index 3.0 - Labs CBC & Chem 7: 05/03/17 06:15 05/03/17 06:15 Labs: Abnormal Lab Results - Last 24 Hours (Table) 05/02/17 05/02/17 05/03/17 Range/Units 16:54 20:39 02:32 RBC (3.80-5.40) m/uL Hgb (11.4-16.0) gm/dL Hct (34.0-46.0) % RDW (11.5-15.5) % Plt Count (150-450) k/uL Carbon Dioxide (22-30) mmol/L BUN (7-17) mg/dL Glucose (74-99) mg/dL POC Glucose (mg/dL) 132 H 130 H 113 H (75-99) mg/dL Total Protein (6.3-8.2) g/dL Albumin (3.5-5.0) g/dL 05/03/17 05/03/17 05/03/17 Range/Units 06:15 06:15 06:16 RBC 3.06 L (3.80-5.40) m/uL Hgb 9.4 L (11.4-16.0) gm/dL Hct 29.0 L (34.0-46.0) % RDW 20.1 H (11.5-15.5) % Plt Count 132 L (150-450) k/uL Carbon Dioxide 32 H (22-30) mmol/L BUN 20 H (7-17) mg/dL Glucose 105 H (74-99) mg/dL POC Glucose (mg/dL) 117 H (75-99) mg/dL Total Protein 5.1 L (6.3-8.2) g/dL Albumin 3.1 L (3.5-5.0) g/dL Assessment and Plan Plan: The patient was seen and examined. I agree with the above assessment and plan. Overall she remains somewhat anxious. We have been encouraging ambulation in the hallway. Physical therapy will be working with her and she will be evaluated by Dr. Frank for possible transfer to inpatient rehab. Her Plavix remains on hold. We will discontinue her mediastinal chest tube. We will continue to wean her oxygen as tolerated.
--- NOTE | 2017-05-03 08:09 | P.PN ---
Progress Note - Text 5 meter walk test done preoperatively: #1 4.29 sec, #2 4.50 sec, #3 4.53 sec.
[2017-05-03] MEDS: IPRATROPIUM 0.5 MG/2.5 ML NEBU INHALATION SCH ×4 (08:45→20:46)
[2017-05-03] MEDS: LEVALBUTEROL NEB 1.25 MG/3 ML AMP INHALATION SCH ×2 (08:45→12:11)
[2017-05-03] MEDS: AMIODARONE 200 MG TAB PO SCH ×2 (08:50→20:56)
[2017-05-03] MEDS: ASPIRIN 81 MG CHEW PO SCH (08:50)
[2017-05-03] MEDS: SERTRALINE 25 MG TAB PO SCH (08:50)
[2017-05-03] MEDS: HEPARIN SODIUM,PORCINE 5,000 UNIT/ML 1 ML VIAL SQ SCH ×3 (08:50→23:14)
[2017-05-03] MEDS: METOPROLOL TARTRATE 25 MG TAB PO SCH ×2 (08:50→20:57)
[2017-05-03] MEDS: MUPIROCIN 2% OINT 22 GM TUBE NASAL SCH ×2 (08:51→20:55)
[2017-05-03] MEDS: MAGNESIUM HYDROXIDE 2,400 MG/10 ML CUP PO PRN (08:58)
--- NOTE | 2017-05-03 09:07 | XR ---
EXAMINATION TYPE: XR chest 1V portable DATE OF EXAM: 05/03/2017 COMPARISON: NONE HISTORY: Status post cardiac surgery. Shortness of breath. TECHNIQUE: Single frontal view of the chest is obtained. FINDINGS: There is right hemithorax volume loss with right hemidiaphragm elevation and subsegmental atelectasis radiating from the zaira. Small pleural effusions blunt the costophrenic angles. Prior rig ht axillary dissection is redemonstrated. Low lung volumes are seen. Midline sternotomy wires are int act. Cardia mediastinal silhouette is obscured. Mediastinal drains are again present as well as cardi ac prosthetic valve. IMPRESSION: Small stable bilateral pleural effusions and multifocal atelectasis with chronic right h emidiaphragm elevation and postsurgical changes of the chest.
[2017-05-03] MEDS: MULTIVITAMINS, THERA 1 EACH TAB PO SCH (11:19)
[2017-05-03] MEDS: CHOLECALCIFEROL 400 UNIT TAB PO SCH (11:19)
[2017-05-03 11:53] LABS: Glucose,Whole Blood 111 mg/dL (75-99)
--- NOTE | 2017-05-03 12:55 | P.CONS ---
History of Present Illness - Chief Complaint Cardiac debility - History of Present Illness I had him to see patient for inpatient rehab consultation with regard to cardiac debility. She was admitted April 29 was severe aortic stenosis for elective aVR performed by Dr. Somers. Seen in ICU by Drs. Aceves and Kellie. Chest x-rays followed for small effusions and atelectasis. Also chronic elevation right hemidiaphragm. PT reports moderate assistance for bed mobility and total to maximal assistance for transfers. Patient reports two-person transfer at least from bed to Ekaterina chair. OT prescribed. Social history as elicited from patient and sons: 77-year-old right-handed white female who is lives in a first-floor home, with basement, alone. Describes independent with cooking, laundry, driving, standing shower and gait without device. Regular doctors Dr. Dexter. Family history of cardiac disease in father. Review of Systems Review of systems: ENT: Denies sneezes or discharge. Eyes: Denies discharge or photophobia. Cardiac: Denies chest pain or palpitation. Some mild anterior chest discomfort. Pulmonary: Denies cough or shortness of breath. Breast: Denies discharge or lumps. Gastrointestinal: Denies nausea, emesis, constipation, diarrhea. Genitourinary: Denies discharge or frequency. Musculoskeletal: Discomfort and outbursts/middle back.. Neurologic: Perhaps mild generalized weakness. Endocrine: Denies shakes or sweats. Oncology: Denies cancers. Dermatologic: Denies rash, itching, pruritus. ALLERGY/immunology: Denies sneezes, rashes. Past Medical History Past Medical History: Cancer, Hyperlipidemia Additional Past Medical History / Comment(s): increased fatigue and feels like heart is pounding at night,heart murmur, having difficulty sleeping at night, breast CA 1989- treatments of radiation and 6 months of chemotherapy, increased gas and freq diarrhea, urge urinary incontinence. finishing antibiotic today-stated was put on by surgeon because of hx. past UTI's History of Any Multi-Drug Resistant Organisms: None Reported Past Surgical History: Appendectomy, Breast Surgery, Cholecystectomy, Heart Catheterization, Hysterectomy Additional Past Surgical History / Comment(s): right lumpectomy 1989, right mastectomy 2012, hemorrhoidectomy. Past Anesthesia/Blood Transfusion Reactions: No Reported Reaction Smoking Status: Never smoker - Past Family History Mother Family Medical History: No Reported History Additional Family Medical History / Comment(s): Alzheimer's Father Additional Family Medical History / Comment(s): heart problems due to rheumatic fever Sister(s) Family Medical History: Cancer Additional Family Medical History / Comment(s): 1 sister of ovarian cancer in 1993 , her other sister was diagnosed with breast cancer. Medications and Allergies Home Medications Medication Instructions Recorded Confirmed Type Anastrozole [Arimidex] 1 mg PO HS 09/23/15 04/29/17 History Simvastatin [Zocor] 20 mg PO HS 09/23/15 04/29/17 History Aspirin 81 mg PO DAILY 04/03/17 04/29/17 History Cholecalciferol [Vitamin D3] 500 unit PO DAILY 04/03/17 04/29/17 History L.acidoph,Paracasei, B.lactis 1 cap PO DAILY 04/03/17 04/29/17 History [Probiotic] Multivit-Min/Iron/Folic/Lutein 1 tab PO DAILY 04/03/17 04/29/17 History [Centrum Silver Women Tablet] Ciprofloxacin HCl [Cipro] 500 mg PO BID 04/29/17 04/29/17 History Allergies Allergy/AdvReac Type Severity Reaction Status Date / Time Penicillins Allergy Rash/Hives Verified 04/24/17 09:01 Physical Exam Vitals: Vital Signs Temp Pulse Resp BP Pulse Ox 05/03/17 11:45 98.5 F 67 18 95/80 98 05/03/17 08:00 97.9 F 76 18 111/60 99 05/03/17 04:00 97.5 F L 74 18 124/67 97 05/03/17 00:00 97 F L 70 18 128/78 99 05/02/17 20:00 97 F L 69 18 135/71 97 05/02/17 16:00 96.9 F L 66 16 131/76 96 Intake and Output 05/02/17 05/03/17 05/03/17 22:59 06:59 14:59 Intake Total 168 Output Total 85 32 Balance 168 -85 -32 Intake: IV 50 0.9 carrier 50 Oral 118 Output: Chest Tube Drainage 85 32 MSx2 85 32 Other: Voiding Method Bedside Commode Bedside Commode Toilet # Voids 1 2 Weight 78.4 kg Skin: Atrophic, intact. General: Overweight and comfortable appearance. Head: Normocephalic, atraumatic. Eyes: Symmetric. Pupils equal round. Ears: Symmetric. Hearing within normal limits. Mouth: Clear. Neck: Supple. Carotid without bruit. Cardiac: Regular rate and rhythm. Lungs: Clear anteriorly and posteriorly. Abdomen: Soft active nontender. Extremities: Normal tone. Neurological: Mental status: Alert, cooperative, pleasant. Cranial nerves: Symmetric facial tone and trapezius. Motor: Able to elevate limbs off of Ekaterina chair. Sensation: Intact throughout. DTRs: Symmetric and equal throughout. Mobility: Sits and stands with 2 person assistance . Results CBC & Chem 7: 05/03/17 06:15 05/03/17 06:15 Labs: Abnormal Lab Results - Last 24 Hours (Table) 05/02/17 05/02/17 05/03/17 Range/Units 16:54 20:39 02:32 RBC (3.80-5.40) m/uL Hgb (11.4-16.0) gm/dL Hct (34.0-46.0) % RDW (11.5-15.5) % Plt Count (150-450) k/uL Carbon Dioxide (22-30) mmol/L BUN (7-17) mg/dL Glucose (74-99) mg/dL POC Glucose (mg/dL) 132 H 130 H 113 H (75-99) mg/dL Total Protein (6.3-8.2) g/dL Albumin (3.5-5.0) g/dL 05/03/17 05/03/17 05/03/17 Range/Units 06:15 06:15 06:16 RBC 3.06 L (3.80-5.40) m/uL Hgb 9.4 L (11.4-16.0) gm/dL Hct 29.0 L (34.0-46.0) % RDW 20.1 H (11.5-15.5) % Plt Count 132 L (150-450) k/uL Carbon Dioxide 32 H (22-30) mmol/L BUN 20 H (7-17) mg/dL Glucose 105 H (74-99) mg/dL POC Glucose (mg/dL) 117 H (75-99) mg/dL Total Protein 5.1 L (6.3-8.2) g/dL Albumin 3.1 L (3.5-5.0) g/dL 05/03/17 Range/Units 11:49 RBC (3.80-5.40) m/uL Hgb (11.4-16.0) gm/dL Hct (34.0-46.0) % RDW (11.5-15.5) % Plt Count (150-450) k/uL Carbon Dioxide (22-30) mmol/L BUN (7-17) mg/dL Glucose (74-99) mg/dL POC Glucose (mg/dL) 111 H (75-99) mg/dL Total Protein (6.3-8.2) g/dL Albumin (3.5-5.0) g/dL Chest x-ray: report reviewed (Chest x-rays followed for small effusions, atelectasis, chronic elevation right hemidiaphragm.) Assessment and Plan (1) S/P AVR (aortic valve replacement) Status: Acute Plan: Impression: 1. Cardiac debility. 2. Status post AVR. 3. Is cancer. 4. Dyslipidemia. 5. Overweight to obese. Comments and plan: At this time PT and OT are prescribed. Safety concerns noted currently. Must evaluate endurance issues with regard to possible rehab versus a lesser aggressive program. Follow progress over weekend and review case Saturday a.m.
--- NOTE | 2017-05-03 13:25 | P.PN ---
Subjective Principal diagnosis: S/P AVR This is a pleasant 77-year-old female patient who sees Dr. VC Robles as an outpatient. She was admitted to the hospital and underwent an aortic valve replacement using a bioprosthetic valve for severe symptomatic aortic stenosis. The surgery was complicated by bleeding from the mediastinal tube and the patient was taken again to the OR for the bleeding. Upon examination today, patient verbalizes feeling better than she did yesterday. Chest x-ray from this morning showed small stable bilateral pleural effusions and multifocal atelectasis with chronic right aleksandr-diaphragm elevation and postsurgical changes. Patient is anticipating removal of her chest tube today. She continues to be encouraged use of her incentive spirometer. She complains of some lower extremity edema. Objective - Vital Signs Vital signs: Vital Signs Temp 98.5 F 05/03/17 11:45 Pulse 67 05/03/17 11:45 Resp 18 05/03/17 11:45 BP 95/80 05/03/17 11:45 Pulse Ox 98 05/03/17 11:45 Intake & Output 05/02/17 05/03/17 05/03/17 18:59 06:59 18:59 Intake Total 700.395 Output Total 380 85 32 Balance 320.395 -85 -32 Weight 78.9 kg 78.4 kg Intake: IV 70 0.9 carrier 70 amiodarone 0 Intake, IV Titration 212.395 Amount Amiodarone 450 mg In 211.435 Dextrose 5% in Water 250 ml @ 1 MG/MIN 34.53 mls/ hr IV .Q7H31M PEPE Rx#: [id number] Insulin Regular 100 unit 0 In Sodium Chloride 0.9% 100 ml @ Per Protocol IV .Q0M PEPE Rx#:[id number] Insulin Regular 100 unit 0.96 In Sodium Chloride 0.9% 100 ml @ Titrate IV .Q0M PEPE Rx#:[id number] Oral 418 Output: Chest Tube Drainage 80 85 32 MSx2 80 85 32 Urine 300 Other: Voiding Method Bedside Commode Bedside Commode Toilet # Voids 1 2 ABP, PAP, CO, CI - Last Documented Arterial Blood Pressure 139/72 Pulmonary Artery Pressure 34/19 Cardiac Output 5.4 Cardiac Index 3.0 - Exam PHYSICAL EXAMINATION: HEENT: Head is atraumatic, normocephalic. Pupils equal, round. Neck is supple. There is no elevated jugular venous pressure. HEART EXAMINATION: Heart sounds regular, S1 and S2 normal. No murmur or gallop heard. CHEST EXAMINATION: Lungs are clear to auscultation with diminished air entry bilateral bases. No chest wall tenderness is noted on palpation or with deep breathing. ABDOMEN: Soft, nontender. Bowel sounds are heard. No organomegaly noted. EXTREMITIES: 2+ peripheral pulses with evidence of trace peripheral edema and no calf tenderness noted. NEUROLOGIC patient is awake, alert and oriented x3. . - Labs CBC & Chem 7: 05/03/17 06:15 05/03/17 06:15 Labs: Abnormal Lab Results - Last 24 Hours (Table) 05/02/17 05/02/17 05/03/17 Range/Units 16:54 20:39 02:32 RBC (3.80-5.40) m/uL Hgb (11.4-16.0) gm/dL Hct (34.0-46.0) % RDW (11.5-15.5) % Plt Count (150-450) k/uL Carbon Dioxide (22-30) mmol/L BUN (7-17) mg/dL Glucose (74-99) mg/dL POC Glucose (mg/dL) 132 H 130 H 113 H (75-99) mg/dL Total Protein (6.3-8.2) g/dL Albumin (3.5-5.0) g/dL 05/03/17 05/03/17 05/03/17 Range/Units 06:15 06:15 06:16 RBC 3.06 L (3.80-5.40) m/uL Hgb 9.4 L (11.4-16.0) gm/dL Hct 29.0 L (34.0-46.0) % RDW 20.1 H (11.5-15.5) % Plt Count 132 L (150-450) k/uL Carbon Dioxide 32 H (22-30) mmol/L BUN 20 H (7-17) mg/dL Glucose 105 H (74-99) mg/dL POC Glucose (mg/dL) 117 H (75-99) mg/dL Total Protein 5.1 L (6.3-8.2) g/dL Albumin 3.1 L (3.5-5.0) g/dL 05/03/17 Range/Units 11:49 RBC (3.80-5.40) m/uL Hgb (11.4-16.0) gm/dL Hct (34.0-46.0) % RDW (11.5-15.5) % Plt Count (150-450) k/uL Carbon Dioxide (22-30) mmol/L BUN (7-17) mg/dL Glucose (74-99) mg/dL POC Glucose (mg/dL) 111 H (75-99) mg/dL Total Protein (6.3-8.2) g/dL Albumin (3.5-5.0) g/dL Assessment and Plan Plan: Assessment and plan #1 status post aortic valve replacement #2 postoperative anemia #3 history of breast cancer Patient continues to be encouraged on the use of her incentive spirometer. Medications were reviewed and I'll continue the same. We'll continue to follow the patient provide further recommendations accordingly. DYNAMOMETER REPAIRER note has been reviewed, I agree with a documented findings and plan of care. Patient was seen and examined.
[2017-05-03] MEDS: BISACODYL 10 MG SUPP RECTAL PRN (14:55)
[2017-05-03] MEDS: ALBUTEROL NEBULIZED 2.5 MG/3 ML INHALATION SCH ×2 (15:46→20:46)
[2017-05-03 16:55] LABS: Glucose,Whole Blood 113 mg/dL (75-99)
[2017-05-03 20:44] LABS: Glucose,Whole Blood 120 mg/dL (75-99)
[2017-05-03] MEDS: ATORVASTATIN 40 MG TAB PO SCH (20:57)
[2017-05-03] MEDS: SENNOSIDES-DOCUSATE SODIUM 1 EACH TAB PO SCH (20:57)
[2017-05-03] MEDS: ANASTROZOLE 1 MG TAB PO SCH (20:57)
[2017-05-04 03:16] LABS: Glucose,Whole Blood 111 mg/dL (75-99)
[2017-05-04 05:39] LABS: Glucose,Whole Blood 110 mg/dL (75-99)
[2017-05-04] MEDS: INSULIN LISPRO (humaLOG) 300 UNIT/3 ML VIAL SQ SCH ×4 (06:36→21:12)
[2017-05-04] MEDS: PANTOPRAZOLE 40 MG TABLET PO SCH (06:41)
[2017-05-04 06:45] LABS: Anisocytosis Moderate; CH 29.8; CHCM 31.1; HCT 28.1 % (34.0-46.0); HDW 3.05; HGB 8.7 gm/dL (11.4-16.0); Hypochromasia Slight; MCH 29.8 pg (25.0-35.0); MCV 96.4 fL (80.0-100.0); Macrocytosis Slight; Mean Platelet Volume 9.6; RBC 2.92 m/uL (3.80-5.40); RDW 20.5 % (11.5-15.5); WBC 9.4 k/uL (3.8-10.6)
[2017-05-04 06:53] LABS: ALT 47 U/L (9-52); AST 27 U/L (14-36); Alkaline Phosphatase 55 U/L (38-126); Anion Gap 5 mmol/L; Blood Urea Nitrogen 19 mg/dL (7-17); Calcium 8.4 mg/dL (8.4-10.2); Carbon Dioxide 30 mmol/L (22-30); Chloride 99 mmol/L (98-107); Glucose 103 mg/dL (74-99); Magnesium 1.9 mg/dL (1.6-2.3); Non-African American GFR(MDRD) >60 (>60 ml/min/1.73 sqM); Potassium 4.2 mmol/L (3.5-5.1); Sodium 134 mmol/L (137-145); Total Protein 4.9 g/dL (6.3-8.2)
[2017-05-04] MEDS: HYDROcodone/APAP 5-325MG 1 EACH TAB PO PRN ×4 (07:13→20:19)
--- NOTE | 2017-05-04 07:26 | XR ---
EXAMINATION TYPE: XR chest 2V DATE OF EXAM: 05/04/2017 COMPARISON: Yesterday HISTORY: Postop cardiac surgery TECHNIQUE: Frontal and lateral views of the chest are obtained. FINDINGS: There is markedly elevated right diaphragm there is interposition of the hepatic flexure o f the colon. There is mild pulmonary vascular congestion. There is blunting of costophrenic angles. T here are sternal wires. There is surgical clips at the right axilla. IMPRESSION: Elevated right diaphragm consistent with paralysis. Mild congestive heart failure withou t change compared to yesterday.
[2017-05-04] MEDS: IPRATROPIUM 0.5 MG/2.5 ML NEBU INHALATION SCH ×4 (08:24→18:54)
[2017-05-04] MEDS: ALBUTEROL NEBULIZED 2.5 MG/3 ML INHALATION SCH ×4 (08:24→18:54)
[2017-05-04] MEDS: HEPARIN SODIUM,PORCINE 5,000 UNIT/ML 1 ML VIAL SQ SCH ×3 (08:26→23:17)
[2017-05-04] MEDS: AMIODARONE 200 MG TAB PO SCH ×2 (08:30→21:11)
[2017-05-04] MEDS: ASPIRIN 81 MG CHEW PO SCH (08:30)
[2017-05-04] MEDS: METOPROLOL TARTRATE 25 MG TAB PO SCH ×3 (08:31→21:14)
[2017-05-04] MEDS: SERTRALINE 25 MG TAB PO SCH (08:32)
--- NOTE | 2017-05-04 08:45 | P.PN ---
<Adwoa Huang - Last Filed: 05/04/17 08:36> Subjective Principal diagnosis: Severe calcific aortic valve stenosis, hyperlipidemia, preserved left ventricular function, history of breast cancer status post right modified radical mastectomy with radiation with resultant phrenic nerve paralysis and elevation of right hemidiaphragm. POD #5 elective aortic valve replacement using a 21 mm pericardial bioprosthesis magna ease bovine. Exclusion of the left atrial appendage using a 35 mm AtriClip. Intraoperative transesophageal echocardiogram and epi-aortic scanning. Postoperative acute blood loss anemia, inherent to this surgery. POD #5 return to the OR for emergent exploratory chest, evacuation of clots Postoperative paroxysmal atrial fibrillation with conversion back into sinus rhythm, an expected outcome of surgery. Patient is sitting up in the chair in no acute distress eating breakfast. States she feels incredibly weak, doesn't feel she is ready to go home, considering rehab. Epicardial pacemaker wires, mediastinal chest tubes were discontinued yesterday. Objective - Vital Signs Vital signs: Vital Signs Temp 97.0 F L 05/04/17 04:00 Pulse 76 05/04/17 04:00 Resp 18 05/04/17 04:00 BP 149/78 05/04/17 04:00 Pulse Ox 98 05/04/17 04:00 Intake & Output 05/03/17 05/04/17 05/04/17 18:59 06:59 18:59 Intake Total 118 Output Total 32 Balance 86 Weight 78.2 kg Intake: Oral 118 Output: Chest Tube Drainage 32 MSx2 32 Other: Voiding Method Toilet Toilet # Voids 2 1 # Bowel Movements 1 1 ABP, PAP, CO, CI - Last Documented Arterial Blood Pressure 139/72 Pulmonary Artery Pressure 34/19 Cardiac Output 5.4 Cardiac Index 3.0 - Constitutional General appearance: Present: cooperative, no acute distress - Respiratory Details: Lungs sounds diminished bilaterally. Respirations even, nonlabored. Was on room air this morning, oxygen saturation 88%. Placed back on 3 L nasal cannula. Able to achieve 750 mL on her incentive spirometry. - Cardiovascular Details: S1, S2 present. Regular rate and rhythm, normal sinus rhythm on telemetry. Sternum stable. Heart hugger in place with patient demonstrating appropriate use. Palpable pulses bilaterally. Trace lower extremity edema. - Gastrointestinal Gastrointestinal Comment(s): Abdomen soft, nontender, nondistended. Active bowel sounds 4 quadrants. Tolerating diet. Positive bowel movement yesterday - Genitourinary Genitourinary Comment(s): Continues to void. - Neurologic Neurologic: Present: CNII-XII intact - Musculoskeletal Musculoskeletal: Present: gait normal, strength equal bilaterally - Psychiatric Psychiatric Comment(s): Still anxious, constantly worried about discharge. Psychiatric: Present: A&O x's 3 - Allied health notes Allied health notes reviewed: nursing - Labs CBC & Chem 7: 05/04/17 06:03 05/04/17 05:54 Labs: Abnormal Lab Results - Last 24 Hours (Table) 05/03/17 05/03/17 05/03/17 Range/Units 11:49 16:54 20:42 RBC (3.80-5.40) m/uL Hgb (11.4-16.0) gm/dL Hct (34.0-46.0) % RDW (11.5-15.5) % Plt Count (150-450) k/uL Sodium (137-145) mmol/L BUN (7-17) mg/dL Creatinine (0.52-1.04) mg/dL Glucose (74-99) mg/dL POC Glucose (mg/dL) 111 H 113 H 120 H (75-99) mg/dL Total Protein (6.3-8.2) g/dL Albumin (3.5-5.0) g/dL 05/04/17 05/04/17 05/04/17 Range/Units 03:14 05:37 05:54 RBC (3.80-5.40) m/uL Hgb (11.4-16.0) gm/dL Hct (34.0-46.0) % RDW (11.5-15.5) % Plt Count (150-450) k/uL Sodium 134 L (137-145) mmol/L BUN 19 H (7-17) mg/dL Creatinine 0.46 L (0.52-1.04) mg/dL Glucose 103 H (74-99) mg/dL POC Glucose (mg/dL) 111 H 110 H (75-99) mg/dL Total Protein 4.9 L (6.3-8.2) g/dL Albumin 2.9 L (3.5-5.0) g/dL 05/04/17 Range/Units 06:03 RBC 2.92 L (3.80-5.40) m/uL Hgb 8.7 L (11.4-16.0) gm/dL Hct 28.1 L (34.0-46.0) % RDW 20.5 H (11.5-15.5) % Plt Count 141 L (150-450) k/uL Sodium (137-145) mmol/L BUN (7-17) mg/dL Creatinine (0.52-1.04) mg/dL Glucose (74-99) mg/dL POC Glucose (mg/dL) (75-99) mg/dL Total Protein (6.3-8.2) g/dL Albumin (3.5-5.0) g/dL - Imaging and Cardiology Chest x-ray: report reviewed, image reviewed Assessment and Plan (1) Severe aortic valve stenosis Status: Acute (2) Status post chemotherapy Status: Acute (3) Status post radiation therapy Status: Acute (4) History of cancer of right breast Status: Acute (5) Hyperlipidemia Status: Acute Plan: 1. Continue low-dose aspirin, heparin, beta taylor, statin. Will maximize beta taylor therapy as tolerated. 2. Continue amiodarone for A. fib prophylaxis. 3. Wean oxygen, encourage incentive spirometry use. 4. Increase activity, ambulate in hallway. Physical therapy following. 5. GI/DVT prophylaxis. 6. Will monitor daily labs, x-rays. 7. Continue Zoloft. 8. Pain management per ordered medications. 9. More recommendations as patient progresses. Discharge planning in progress. Dr. Frank consulted for the possibility of inpatient rehab at discharge, documented safety concerns and he will re-evaluate her on Saturday. Patient offered home with home care, doesn't feel she is strong enough to go home. Time with Patient: Greater than 30 <Jim Hardy - Last Filed: 05/04/17 11:53> Objective - Vital Signs Vital signs: Vital Signs Temp 97.0 F L 05/04/17 08:00 Pulse 73 05/04/17 08:00 Resp 18 05/04/17 08:00 BP 109/76 05/04/17 08:00 Pulse Ox 98 05/04/17 08:00 Intake & Output 05/03/17 05/04/17 05/04/17 18:59 06:59 18:59 Intake Total 118 Output Total 32 200 Balance 86 -200 Weight 78.2 kg Intake: Oral 118 Output: Chest Tube Drainage 32 MSx2 32 Urine 200 Other: Voiding Method Toilet Toilet Toilet # Voids 2 1 # Bowel Movements 1 1 ABP, PAP, CO, CI - Last Documented Arterial Blood Pressure 139/72 Pulmonary Artery Pressure 34/19 Cardiac Output 5.4 Cardiac Index 3.0 - Labs CBC & Chem 7: 05/04/17 06:03 05/04/17 05:54 Labs: Abnormal Lab Results - Last 24 Hours (Table) 05/03/17 05/03/17 05/03/17 Range/Units 11:49 16:54 20:42 RBC (3.80-5.40) m/uL Hgb (11.4-16.0) gm/dL Hct (34.0-46.0) % RDW (11.5-15.5) % Plt Count (150-450) k/uL Sodium (137-145) mmol/L BUN (7-17) mg/dL Creatinine (0.52-1.04) mg/dL Glucose (74-99) mg/dL POC Glucose (mg/dL) 111 H 113 H 120 H (75-99) mg/dL Total Protein (6.3-8.2) g/dL Albumin (3.5-5.0) g/dL 05/04/17 05/04/17 05/04/17 Range/Units 03:14 05:37 05:54 RBC (3.80-5.40) m/uL Hgb (11.4-16.0) gm/dL Hct (34.0-46.0) % RDW (11.5-15.5) % Plt Count (150-450) k/uL Sodium 134 L (137-145) mmol/L BUN 19 H (7-17) mg/dL Creatinine 0.46 L (0.52-1.04) mg/dL Glucose 103 H (74-99) mg/dL POC Glucose (mg/dL) 111 H 110 H (75-99) mg/dL Total Protein 4.9 L (6.3-8.2) g/dL Albumin 2.9 L (3.5-5.0) g/dL 05/04/17 Range/Units 06:03 RBC 2.92 L (3.80-5.40) m/uL Hgb 8.7 L (11.4-16.0) gm/dL Hct 28.1 L (34.0-46.0) % RDW 20.5 H (11.5-15.5) % Plt Count 141 L (150-450) k/uL Sodium (137-145) mmol/L BUN (7-17) mg/dL Creatinine (0.52-1.04) mg/dL Glucose (74-99) mg/dL POC Glucose (mg/dL) (75-99) mg/dL Total Protein (6.3-8.2) g/dL Albumin (3.5-5.0) g/dL Assessment and Plan Plan: The patient was seen and examined. I agree with the above assessment and plan. We will give her a dose of Lasix today. We will continue to encourage activity with physical therapy. We will continue to evaluate disposition regarding home versus rehab.
--- NOTE | 2017-05-04 11:14 | P.PN ---
Subjective Principal diagnosis: AVR Status post AVR This is a pleasant 77-year-old female patient who sees Dr. VC Robles as an outpatient who was admitted to the hospital yesterday and underwent an aortic valve replacement using a bioprosthetic valve for severe symptomatic aortic stenosis. The surgery was complicated by bleeding from the mediastinal tube and the patient was taken again to the OR for the bleeding. 05/02/2017 Patient seen and examined this morning, continues to have chest tube in place. Earlier this morning she had an episode of nausea but that the time of my examination states that she was feeling much better. Breathing is overall stable. Let pressure 132/70 with a heart rate in the 70s. Chest x-ray shows continued low lung volumes, continued elevation of right hemidiaphragm, small bilateral effusions. Patient has been encouraged regarding the regular use of her incentive spirometry. 05/04/2017 Seen and examined this morning, sitting up in the chair. Chest tubes have been removed. Overall she does states she's feeling mildly better today, although still feeling very weak.Blood Pressure 110/70 with a heart rate in the 70s. Hgb8.7, sodium 134, potassium 4.2, BUN 19, creatinine 0.4. Objective - Vital Signs Vital signs: Vital Signs Temp 97.0 F L 05/04/17 08:00 Pulse 73 05/04/17 08:00 Resp 18 05/04/17 08:00 BP 109/76 05/04/17 08:00 Pulse Ox 98 05/04/17 08:00 Intake & Output 05/03/17 05/04/17 05/04/17 18:59 06:59 18:59 Intake Total 118 Output Total 32 200 Balance 86 -200 Weight 78.2 kg Intake: Oral 118 Output: Chest Tube Drainage 32 MSx2 32 Urine 200 Other: Voiding Method Toilet Toilet Toilet # Voids 2 1 # Bowel Movements 1 1 ABP, PAP, CO, CI - Last Documented Arterial Blood Pressure 139/72 Pulmonary Artery Pressure 34/19 Cardiac Output 5.4 Cardiac Index 3.0 - Exam PHYSICAL EXAMINATION: HEENT: Head is atraumatic, normocephalic. Pupils equal, round. Neck is supple. There is no elevated jugular venous pressure. HEART EXAMINATION: Heart S1, S2 normal. No murmur or gallop heard. CHEST EXAMINATION: Lungs are clear with diminished air entry to bilateral bases. ABDOMEN: Soft, nontender. Bowel sounds are heard. No organomegaly noted. EXTREMITIES:[ 2+ peripheral pulses with no evidence of peripheral edema and no calf tenderness noted]. NEUROLOGIC [patient is awake, alert and oriented -3.] . - Labs CBC & Chem 7: 05/04/17 06:03 05/04/17 05:54 Labs: Abnormal Lab Results - Last 24 Hours (Table) 05/03/17 05/03/17 05/03/17 Range/Units 11:49 16:54 20:42 RBC (3.80-5.40) m/uL Hgb (11.4-16.0) gm/dL Hct (34.0-46.0) % RDW (11.5-15.5) % Plt Count (150-450) k/uL Sodium (137-145) mmol/L BUN (7-17) mg/dL Creatinine (0.52-1.04) mg/dL Glucose (74-99) mg/dL POC Glucose (mg/dL) 111 H 113 H 120 H (75-99) mg/dL Total Protein (6.3-8.2) g/dL Albumin (3.5-5.0) g/dL 05/04/17 05/04/17 05/04/17 Range/Units 03:14 05:37 05:54 RBC (3.80-5.40) m/uL Hgb (11.4-16.0) gm/dL Hct (34.0-46.0) % RDW (11.5-15.5) % Plt Count (150-450) k/uL Sodium 134 L (137-145) mmol/L BUN 19 H (7-17) mg/dL Creatinine 0.46 L (0.52-1.04) mg/dL Glucose 103 H (74-99) mg/dL POC Glucose (mg/dL) 111 H 110 H (75-99) mg/dL Total Protein 4.9 L (6.3-8.2) g/dL Albumin 2.9 L (3.5-5.0) g/dL 05/04/17 Range/Units 06:03 RBC 2.92 L (3.80-5.40) m/uL Hgb 8.7 L (11.4-16.0) gm/dL Hct 28.1 L (34.0-46.0) % RDW 20.5 H (11.5-15.5) % Plt Count 141 L (150-450) k/uL Sodium (137-145) mmol/L BUN (7-17) mg/dL Creatinine (0.52-1.04) mg/dL Glucose (74-99) mg/dL POC Glucose (mg/dL) (75-99) mg/dL Total Protein (6.3-8.2) g/dL Albumin (3.5-5.0) g/dL Assessment and Plan (1) S/P AVR (aortic valve replacement) Status: Acute (2) Postoperative anemia Status: Acute (3) Hx of breast cancer Status: Acute Plan: Cardiology's perspective, we'll recommend to continue patient on her current medications. Patient is being worked up for possible transferred to rehab. DNP note has been reviewed, I agree with a documented findings and plan of care. Patient was seen and examined.
[2017-05-04] MEDS: CHOLECALCIFEROL 400 UNIT TAB PO SCH (11:28)
[2017-05-04] MEDS: MULTIVITAMINS, THERA 1 EACH TAB PO SCH (11:28)
--- NOTE | 2017-05-04 11:38 | P.PN ---
Subjective Principal diagnosis: Status post aortic valve replacement using a bioprosthetic valve for severe symptomatic aortic stenosis. Postoperative day # 5 This is a 76-year-old female who is primarily a patient of Dr. andrade, had history of multiple medical problems including breast cancer, previous radiation treatment and chemotherapy, history of right mastectomy, multiple surgical procedures including hysterectomy and cholecystectomy, patient had a recent echocardiogram which revealed evidence of significant aortic stenosis. There was also trace of aortic regurgitation, her EF was 60%. On 04/09/2017, elective cardiac catheterization and HALEY showed aortic valve area of 0.5-0.6 cm and she was noted to have normal coronaries as well as trace of mitral regurgitation. Patient was referred to cardiac surgery, today she underwent elective aortic valve replacement by Dr. Somers. Postoperatively patient was noted to be on mechanical ventilation, and I was asked to see her on consultation. Chest x-ray was relatively unremarkable except for postoperative changes, tubes and lines were noted to be in the proper position, ABG showed pO2 of 382 pCO2 of 38 pH of 7.41. Postoperative hemoglobin was 7.1, and the patient was noted to have moderate the bleeding from the chest tubes. She was already receiving blood products as well as cryoprecipitate. So far the patient received 10 units of cryoprecipitate, 1 unit of platelets, 4 units of fresh was a plasma. And 3 units of packed RBCs. Ventilator settings were reviewed she is presently on IMV of 12 tidal volume of 450 PEEP of 5 and FiO2 of 50%. Patient is sedated, hemodynamically stable in spite of the moderate to bleeding noted. Patient was reevaluated today on 04/30/2017, her postoperative bleeding yesterday required reexploration in the ER, and finally the bleeding was controlled. Patient came back to the ICU, and early this morning she had a relatively adequate blood gases, good weaning parameters, chest x-ray showed postoperative changes with right hemidiaphragm elevation, and atelectasis, however considering the overall picture, patient was extubated uneventfully and placed on a nasal cannula. Labs were reviewed, hemoglobin is 8.2. Patient received a total of 5 units of packed RBCs, 4 units of fresh frozen plasma, 1 unit of platelets, and 10 units of cryoprecipitate. Patient was reevaluated today on 05/01/2017, clinically the patient seems to be doing quite well, however her chest x-ray seems to be worse with significant elevation of the right hemidiaphragm, and suspect mild interstitial edema with right pleural effusion. Given earlier a dose of Lasix 20 mg with fair response and 400 mL of urine noted post Lasix, patient will likely benefit from another dose of 40 mg of Lasix today. She did receive a unit of packed RBCs for hemoglobin of 6.6 today. In spite of her abnormal chest x-ray, the patient denies being short of breath. No cough no wheezing and no chest pain. Posttransfusion hemoglobin was noted to be 8.2. Patient was reevaluated today on 05/02/2017, feeling much better compared to yesterday, however she is generally weak and sleepy. No shortness of breath, no fever, no chills, no hemoptysis. Hemoglobin today is 8.9, rest of the labs were reviewed. Chest x-ray showed improvement compared to yesterday, she continues to have low lung volumes and hypoventilatory changes with elevated right hemidiaphragm. Small effusion is noted. Seen on 05/03/2017, patient is complaining of generalized weakness, slight shortness of breath, vague aches and pains from her recent surgery. No fever no chills no hemoptysis. Chest x-ray is basically about the same showing right hemidiaphragm elevation, and some component of pulmonary vascular congestion. Reevaluated on 05/04/2017, patient seems to be doing relatively well, remained generally weak, being considered for possible inpatient rehab. Her epicardial pacemaker wires and mediastinal chest tubes were discontinued yesterday. Patient is already ambulating minimally in the hallway. Chest x-ray was reviewed, right hemidiaphragm remains elevated, pulmonary vascular congestion is improving. Hemoglobin is 8.7 today, basic metabolic profile is relatively normal. Objective - Vital Signs Vital signs: Vital Signs Temp 97.0 F L 05/04/17 08:00 Pulse 73 05/04/17 08:00 Resp 18 05/04/17 08:00 BP 109/76 05/04/17 08:00 Pulse Ox 98 05/04/17 08:00 Intake & Output 05/03/17 05/04/17 05/04/17 18:59 06:59 18:59 Intake Total 118 Output Total 32 200 Balance 86 -200 Weight 78.2 kg Intake: Oral 118 Output: Chest Tube Drainage 32 MSx2 32 Urine 200 Other: Voiding Method Toilet Toilet Toilet # Voids 2 1 # Bowel Movements 1 1 ABP, PAP, CO, CI - Last Documented Arterial Blood Pressure 139/72 Pulmonary Artery Pressure 34/19 Cardiac Output 5.4 Cardiac Index 3.0 - Exam Physical Exam: Revealed a 77-year-old female in no distress. On nasal cannula HEENT:[Neck is supple.] [No neck masses.] [No thyromegaly.] [No JVD.] Chest: [Diminished breath sounds at the bases no crackles or rhonchi or wheezes Cardiac Exam: [Normal S1 and S2, no S3 gallop, no murmur.] Abdomen: [Soft, nontender, no megaly, no rebound, no guarding, normal bowel sounds.] Extremities: [No clubbing, no edema, no cyanosis.] Neurological Exam: [No focal neurologic deficit.] - Labs CBC & Chem 7: 05/04/17 06:03 05/04/17 05:54 Labs: Abnormal Lab Results - Last 24 Hours (Table) 05/03/17 05/03/17 05/03/17 Range/Units 11:49 16:54 20:42 RBC (3.80-5.40) m/uL Hgb (11.4-16.0) gm/dL Hct (34.0-46.0) % RDW (11.5-15.5) % Plt Count (150-450) k/uL Sodium (137-145) mmol/L BUN (7-17) mg/dL Creatinine (0.52-1.04) mg/dL Glucose (74-99) mg/dL POC Glucose (mg/dL) 111 H 113 H 120 H (75-99) mg/dL Total Protein (6.3-8.2) g/dL Albumin (3.5-5.0) g/dL 05/04/17 05/04/17 05/04/17 Range/Units 03:14 05:37 05:54 RBC (3.80-5.40) m/uL Hgb (11.4-16.0) gm/dL Hct (34.0-46.0) % RDW (11.5-15.5) % Plt Count (150-450) k/uL Sodium 134 L (137-145) mmol/L BUN 19 H (7-17) mg/dL Creatinine 0.46 L (0.52-1.04) mg/dL Glucose 103 H (74-99) mg/dL POC Glucose (mg/dL) 111 H 110 H (75-99) mg/dL Total Protein 4.9 L (6.3-8.2) g/dL Albumin 2.9 L (3.5-5.0) g/dL 05/04/17 Range/Units 06:03 RBC 2.92 L (3.80-5.40) m/uL Hgb 8.7 L (11.4-16.0) gm/dL Hct 28.1 L (34.0-46.0) % RDW 20.5 H (11.5-15.5) % Plt Count 141 L (150-450) k/uL Sodium (137-145) mmol/L BUN (7-17) mg/dL Creatinine (0.52-1.04) mg/dL Glucose (74-99) mg/dL POC Glucose (mg/dL) (75-99) mg/dL Total Protein (6.3-8.2) g/dL Albumin (3.5-5.0) g/dL Assessment and Plan Plan: Impression: 1 status post aortic valve replacement for severe aortic stenosis postoperative day #5 2 postoperative anemia secondary to intraoperative and perioperative blood loss. , However the bleeding became more extensive requiring reexploration, patient was taken back to the OR, and this was unexpected. 3 history of breast cancer and previous lumpectomy followed by radiation and chemotherapy. History of right breast mastectomy. 4 right hemidiaphragm elevation suspicious for previous injury and the right hemidiaphragm paralysis. Recommendation: continue incentive spirometry, bronchodilators, ambulation, chest x-ray seems to be improving, will continue to follow. Time with Patient: Less than 30
[2017-05-04] MEDS ORDERED: FUROSEMIDE 10 MG/ML 4 ML VIAL IV STA (11:47)
[2017-05-04 11:56] LABS: Glucose,Whole Blood 100 mg/dL (75-99)
[2017-05-04 16:44] LABS: Glucose,Whole Blood 104 mg/dL (75-99)
[2017-05-04 20:57] LABS: Glucose,Whole Blood 109 mg/dL (75-99)
[2017-05-04] MEDS: ATORVASTATIN 40 MG TAB PO SCH (21:11)
[2017-05-04] MEDS: ANASTROZOLE 1 MG TAB PO SCH (21:11)
[2017-05-04] MEDS: SENNOSIDES-DOCUSATE SODIUM 1 EACH TAB PO SCH (21:12)
[2017-05-05 02:06] LABS: Glucose,Whole Blood 121 mg/dL (75-99)
[2017-05-05] MEDS: HYDROcodone/APAP 5-325MG 1 EACH TAB PO PRN ×3 (03:50→17:30)
[2017-05-05] MEDS ORDERED: DEXTROSE 5% IN WATER 100 ML with AMIODARONE 150 MG IV ONE ×2 (04:16→07:45)
[2017-05-05 06:09] LABS: Glucose,Whole Blood 117 mg/dL (75-99)
[2017-05-05] MEDS: INSULIN LISPRO (humaLOG) 300 UNIT/3 ML VIAL SQ SCH ×4 (06:15→22:14)
[2017-05-05] MEDS: PANTOPRAZOLE 40 MG TABLET PO SCH (06:31)
[2017-05-05 06:54] LABS: Anisocytosis Moderate; CH 29.7; CHCM 30.5; HCT 30.1 % (34.0-46.0); HGB 9.2 gm/dL (11.4-16.0); Hypochromasia Moderate; MCHC 30.6 g/dL (31.0-37.0); MCV 97.9 fL (80.0-100.0); Macrocytosis Slight; RBC 3.07 m/uL (3.80-5.40); RDW 20.2 % (11.5-15.5); WBC 10.2 k/uL (3.8-10.6)
[2017-05-05 07:22] LABS: ALT 44 U/L (9-52); AST 31 U/L (14-36); Alkaline Phosphatase 57 U/L (38-126); Anion Gap 6 mmol/L; Blood Urea Nitrogen 20 mg/dL (7-17); Calcium 8.9 mg/dL (8.4-10.2); Carbon Dioxide 28 mmol/L (22-30); Chloride 98 mmol/L (98-107); Glucose 114 mg/dL (74-99); Magnesium 1.9 mg/dL (1.6-2.3); Non-African American GFR(MDRD) >60 (>60 ml/min/1.73 sqM); Potassium 4.4 mmol/L (3.5-5.1); Sodium 132 mmol/L (137-145); Total Bilirubin 0.8 mg/dL (0.2-1.3); Total Protein 5.1 g/dL (6.3-8.2)
--- NOTE | 2017-05-05 08:07 | XR ---
EXAMINATION TYPE: XR chest 2V DATE OF EXAM: 05/05/2017 COMPARISON: 05/04/2017 INDICATION: Post cardiac surgery TECHNIQUE: Frontal and lateral views of the chest are obtained. FINDINGS: The heart size is normal. The pulmonary vasculature is normal. There is elevation of the right diaphragm. Multiple surgical clips along the right side. Small left p leural effusion is present. Mild atelectasis is likely adjacent to the elevated right diaphragm. Ster notomy wires are present from prior cardiac valve surgery.. IMPRESSION: 1. Right days atelectasis. 2. Small left pleural effusion. 3. Exam is stable from comparison.
--- NOTE | 2017-05-05 08:09 | P.PN ---
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 POD #6 elective aortic valve replacement using a 21 mm pericardial bioprosthesis magna ease bovine. Exclusion of the left atrial appendage using a 35 mm AtriClip. Intraoperative transesophageal echocardiogram and epi-aortic scanning. Postoperative acute blood loss anemia, inherent to this surgery. POD #6 return to the OR for emergent exploratory chest, evacuation of clots Postoperative paroxysmal atrial fibrillation with conversion back into sinus rhythm, an expected outcome of surgery. Patient is sitting up in the chair in no acute distress eating breakfast. States she still feeling weak and not ready to go home. Continues to complain of right shoulder ache. She did go back into atrial fibrillation this morning. Objective - Vital Signs Vital signs: Vital Signs Temp 97.1 F L 05/05/17 04:15 Pulse 100 05/05/17 04:15 Resp 18 05/05/17 04:15 BP 107/66 05/05/17 04:15 Pulse Ox 97 05/05/17 04:15 Intake & Output 05/04/17 05/05/17 05/05/17 18:59 06:59 18:59 Intake Total 836 Output Total 200 Balance 636 Weight 78.2 kg 78.5 kg Intake: Oral 836 Output: Urine 200 Other: Voiding Method Toilet Toilet # Voids 2 1 ABP, PAP, CO, CI - Last Documented Arterial Blood Pressure 139/72 Pulmonary Artery Pressure 34/19 Cardiac Output 5.4 Cardiac Index 3.0 - Constitutional General appearance: Present: cooperative, no acute distress - Respiratory Details: Lungs sounds diminished bilaterally. Respirations even, nonlabored. Currently has 2 L nasal cannula with oxygen saturation 97%. Only able to achieve 500 mL on incentive spirometry. - Cardiovascular Details: S1, S2 present. Irregular rate and rhythm, atrial fibrillation on telemetry. Sternum stable. Palpable pulses bilaterally. No edema present. Heart hugger in place with patient demonstrating appropriate use. Teds/SCDs present. - Gastrointestinal Gastrointestinal Comment(s): Abdomen soft, nontender, nondistended. Active bowel sounds 4 quadrants. Tolerating diet. Positive bowel movement. - Genitourinary Genitourinary Comment(s): Continues to void. - Integumentary Integumentary Comment(s): Anterior chest incision well approximated with Dermabond dressing. - Neurologic Neurologic: Present: CNII-XII intact - Musculoskeletal Musculoskeletal: Present: gait normal, strength equal bilaterally - Psychiatric Psychiatric: Present: A&O x's 3, appropriate affect - Allied health notes Allied health notes reviewed: nursing - Labs CBC & Chem 7: 05/05/17 06:24 05/05/17 06:19 Labs: Abnormal Lab Results - Last 24 Hours (Table) 05/04/17 05/04/17 05/04/17 Range/Units 11:54 16:41 20:55 RBC (3.80-5.40) m/uL Hgb (11.4-16.0) gm/dL Hct (34.0-46.0) % MCHC (31.0-37.0) g/dL RDW (11.5-15.5) % Sodium (137-145) mmol/L BUN (7-17) mg/dL Creatinine (0.52-1.04) mg/dL Glucose (74-99) mg/dL POC Glucose (mg/dL) 100 H 104 H 109 H (75-99) mg/dL Total Protein (6.3-8.2) g/dL Albumin (3.5-5.0) g/dL 05/05/17 05/05/17 05/05/17 Range/Units 02:04 06:04 06:19 RBC (3.80-5.40) m/uL Hgb (11.4-16.0) gm/dL Hct (34.0-46.0) % MCHC (31.0-37.0) g/dL RDW (11.5-15.5) % Sodium 132 L (137-145) mmol/L BUN 20 H (7-17) mg/dL Creatinine 0.51 L (0.52-1.04) mg/dL Glucose 114 H (74-99) mg/dL POC Glucose (mg/dL) 121 H 117 H (75-99) mg/dL Total Protein 5.1 L (6.3-8.2) g/dL Albumin 3.0 L (3.5-5.0) g/dL 05/05/17 Range/Units 06:24 RBC 3.07 L (3.80-5.40) m/uL Hgb 9.2 L (11.4-16.0) gm/dL Hct 30.1 L (34.0-46.0) % MCHC 30.6 L (31.0-37.0) g/dL RDW 20.2 H (11.5-15.5) % Sodium (137-145) mmol/L BUN (7-17) mg/dL Creatinine (0.52-1.04) mg/dL Glucose (74-99) mg/dL POC Glucose (mg/dL) (75-99) mg/dL Total Protein (6.3-8.2) g/dL Albumin (3.5-5.0) g/dL - Imaging and Cardiology Chest x-ray: image reviewed Assessment and Plan (1) Severe aortic valve stenosis Status: Acute (2) Status post chemotherapy Status: Acute (3) Status post radiation therapy Status: Acute (4) History of cancer of right breast Status: Acute (5) Hyperlipidemia Status: Acute Plan: 1. Continue low-dose aspirin, heparin, beta taylor, statin. Will maximize beta taylor therapy as tolerated. 2. Continue amiodarone for A. fib prophylaxis. Additional IV bolus given this morning 2. 3. Wean oxygen, encourage incentive spirometry use. 4. Increase activity, ambulate in hallway. Physical therapy following. 5. GI/DVT prophylaxis. 6. Will monitor daily labs, x-rays. 7. Continue Zoloft. 8. Pain management per ordered medications. Toradol at re-added for pain control 9. Magnesium replacement ordered. 10. More recommendations as patient progresses. Discharge planning in progress. Dr. Frank to re-evaluate on Saturday for possible IPR placement at discharge. Patient offered home with home care, doesn't feel she is strong enough to go home. Time with Patient: Greater than 30 <Jim Hardy - Last Filed: 05/05/17 13:29> Objective - Vital Signs Vital signs: Vital Signs Temp 97.0 F L 05/05/17 08:10 Pulse 93 05/05/17 08:10 Resp 18 05/05/17 08:10 BP 104/58 05/05/17 08:10 Pulse Ox 97 05/05/17 08:28 Intake & Output 05/04/17 05/05/17 05/05/17 18:59 06:59 18:59 Intake Total 836 180 Output Total 200 Balance 636 180 Weight 78.2 kg 78.5 kg Intake: Oral 836 180 Output: Urine 200 Other: Voiding Method Toilet Toilet Toilet # Voids 2 1 1 ABP, PAP, CO, CI - Last Documented Arterial Blood Pressure 139/72 Pulmonary Artery Pressure 34/19 Cardiac Output 5.4 Cardiac Index 3.0 - Labs CBC & Chem 7: 05/05/17 06:24 05/05/17 06:19 Labs: Abnormal Lab Results - Last 24 Hours (Table) 05/04/17 05/04/17 05/05/17 Range/Units 16:41 20:55 02:04 RBC (3.80-5.40) m/uL Hgb (11.4-16.0) gm/dL Hct (34.0-46.0) % MCHC (31.0-37.0) g/dL RDW (11.5-15.5) % Sodium (137-145) mmol/L BUN (7-17) mg/dL Creatinine (0.52-1.04) mg/dL Glucose (74-99) mg/dL POC Glucose (mg/dL) 104 H 109 H 121 H (75-99) mg/dL Total Protein (6.3-8.2) g/dL Albumin (3.5-5.0) g/dL 05/05/17 05/05/17 05/05/17 Range/Units 06:04 06:19 06:24 RBC 3.07 L (3.80-5.40) m/uL Hgb 9.2 L (11.4-16.0) gm/dL Hct 30.1 L (34.0-46.0) % MCHC 30.6 L (31.0-37.0) g/dL RDW 20.2 H (11.5-15.5) % Sodium 132 L (137-145) mmol/L BUN 20 H (7-17) mg/dL Creatinine 0.51 L (0.52-1.04) mg/dL Glucose 114 H (74-99) mg/dL POC Glucose (mg/dL) 117 H (75-99) mg/dL Total Protein 5.1 L (6.3-8.2) g/dL Albumin 3.0 L (3.5-5.0) g/dL 05/05/17 Range/Units 11:37 RBC (3.80-5.40) m/uL Hgb (11.4-16.0) gm/dL Hct (34.0-46.0) % MCHC (31.0-37.0) g/dL RDW (11.5-15.5) % Sodium (137-145) mmol/L BUN (7-17) mg/dL Creatinine (0.52-1.04) mg/dL Glucose (74-99) mg/dL POC Glucose (mg/dL) 122 H (75-99) mg/dL Total Protein (6.3-8.2) g/dL Albumin (3.5-5.0) g/dL Assessment and Plan Plan: The patient was seen and examined. I agree with the above assessment and plan. This morning she developed some atrial fibrillation that was rate controlled. She was given an extra dose of amiodarone and has converted back to normal sinus rhythm now. We will continue to work with her as far as ambulating and activity. IPR will be evaluating her tomorrow for possible placement.
[2017-05-05] MEDS: KETOROLAC 30 MG/ML 1 ML VIAL IVP SCH ×3 (08:21→22:21)
[2017-05-05] MEDS: IPRATROPIUM 0.5 MG/2.5 ML NEBU INHALATION SCH ×4 (08:29→20:56)
[2017-05-05] MEDS: ALBUTEROL NEBULIZED 2.5 MG/3 ML INHALATION SCH ×4 (08:29→20:56)
[2017-05-05] MEDS: MAGNESIUM SULFATE-D5W PMX 1 GM in DEXTROSE/WATER 1 100ML.BAG IVPB SCH ×2 (09:53→10:55)
[2017-05-05] MEDS: HEPARIN SODIUM,PORCINE 5,000 UNIT/ML 1 ML VIAL SQ SCH ×2 (09:54→15:48)
[2017-05-05] MEDS: AMIODARONE 200 MG TAB PO SCH ×2 (09:54→22:21)
[2017-05-05] MEDS: METOPROLOL TARTRATE 25 MG TAB PO SCH ×3 (09:55→22:13)
[2017-05-05] MEDS: ASPIRIN 81 MG CHEW PO SCH (09:55)
[2017-05-05] MEDS: SERTRALINE 25 MG TAB PO SCH (09:56)
--- NOTE | 2017-05-05 10:02 | PN ---
Chely is sitting up in a chair. She had atrial fibrillation yesterday. She was given 2 boluses of IV amiodarone. She is already on amiodarone p.o. 400 mg b.i.d. She has mild sinus bradycardia. The 12-lead ECG shows sinus mechanism with normal MD interval with absolute QT interval about 440 ms. She is also on Lopressor 25 mg p.o. t.i.d. She is afebrile 97.1 degrees Fahrenheit. Pulse rate in the 50s to 60s. Respirations normal. Blood pressure 107/66 mmHg. IMPRESSION: 1. Aortic valve replacement. 2. Postoperative atrial fibrillation. 3. Left atrial appendage occlusion with AtriClip. SUGGEST: Taper off oral amiodarone at discharge. I will discharge her home on 400 mg p.o. daily for one month and this should be stopped completely thereafter. I will also reduce the dose of metoprolol to 25 mg twice daily at discharge. [facility]
[2017-05-05] MEDS: CHOLECALCIFEROL 400 UNIT TAB PO SCH (10:55)
[2017-05-05] MEDS: MULTIVITAMINS, THERA 1 EACH TAB PO SCH (10:55)
--- NOTE | 2017-05-05 10:57 | P.PN ---
Subjective Principal diagnosis: Status post aortic valve replacement using a bioprosthetic valve for severe symptomatic aortic stenosis. Postoperative day # 6 This is a 76-year-old female who is primarily a patient of Dr. andrade, had history of multiple medical problems including breast cancer, previous radiation treatment and chemotherapy, history of right mastectomy, multiple surgical procedures including hysterectomy and cholecystectomy, patient had a recent echocardiogram which revealed evidence of significant aortic stenosis. There was also trace of aortic regurgitation, her EF was 60%. On 04/09/2017, elective cardiac catheterization and HALEY showed aortic valve area of 0.5-0.6 cm and she was noted to have normal coronaries as well as trace of mitral regurgitation. Patient was referred to cardiac surgery, today she underwent elective aortic valve replacement by Dr. Somers. Postoperatively patient was noted to be on mechanical ventilation, and I was asked to see her on consultation. Chest x-ray was relatively unremarkable except for postoperative changes, tubes and lines were noted to be in the proper position, ABG showed pO2 of 382 pCO2 of 38 pH of 7.41. Postoperative hemoglobin was 7.1, and the patient was noted to have moderate the bleeding from the chest tubes. She was already receiving blood products as well as cryoprecipitate. So far the patient received 10 units of cryoprecipitate, 1 unit of platelets, 4 units of fresh was a plasma. And 3 units of packed RBCs. Ventilator settings were reviewed she is presently on IMV of 12 tidal volume of 450 PEEP of 5 and FiO2 of 50%. Patient is sedated, hemodynamically stable in spite of the moderate to bleeding noted. Patient was reevaluated today on 04/30/2017, her postoperative bleeding yesterday required reexploration in the ER, and finally the bleeding was controlled. Patient came back to the ICU, and early this morning she had a relatively adequate blood gases, good weaning parameters, chest x-ray showed postoperative changes with right hemidiaphragm elevation, and atelectasis, however considering the overall picture, patient was extubated uneventfully and placed on a nasal cannula. Labs were reviewed, hemoglobin is 8.2. Patient received a total of 5 units of packed RBCs, 4 units of fresh frozen plasma, 1 unit of platelets, and 10 units of cryoprecipitate. Patient was reevaluated today on 05/01/2017, clinically the patient seems to be doing quite well, however her chest x-ray seems to be worse with significant elevation of the right hemidiaphragm, and suspect mild interstitial edema with right pleural effusion. Given earlier a dose of Lasix 20 mg with fair response and 400 mL of urine noted post Lasix, patient will likely benefit from another dose of 40 mg of Lasix today. She did receive a unit of packed RBCs for hemoglobin of 6.6 today. In spite of her abnormal chest x-ray, the patient denies being short of breath. No cough no wheezing and no chest pain. Posttransfusion hemoglobin was noted to be 8.2. Patient was reevaluated today on 05/02/2017, feeling much better compared to yesterday, however she is generally weak and sleepy. No shortness of breath, no fever, no chills, no hemoptysis. Hemoglobin today is 8.9, rest of the labs were reviewed. Chest x-ray showed improvement compared to yesterday, she continues to have low lung volumes and hypoventilatory changes with elevated right hemidiaphragm. Small effusion is noted. Seen on 05/03/2017, patient is complaining of generalized weakness, slight shortness of breath, vague aches and pains from her recent surgery. No fever no chills no hemoptysis. Chest x-ray is basically about the same showing right hemidiaphragm elevation, and some component of pulmonary vascular congestion. Reevaluated on 05/04/2017, patient seems to be doing relatively well, remained generally weak, being considered for possible inpatient rehab. Her epicardial pacemaker wires and mediastinal chest tubes were discontinued yesterday. Patient is already ambulating minimally in the hallway. Chest x-ray was reviewed, right hemidiaphragm remains elevated, pulmonary vascular congestion is improving. Hemoglobin is 8.7 today, basic metabolic profile is relatively normal. Reevaluated on 05/05/2017, patient is feeling a bit stronger, denies shortness of breath, she had an episode of A. fib responded well to amiodarone. Presently in sinus rhythm. Chest x-ray is about the same CBC is relatively normal hemoglobin is 9.2 basic metabolic profile is normal. Objective - Vital Signs Vital signs: Vital Signs Temp 97.1 F L 05/05/17 04:15 Pulse 100 05/05/17 04:15 Resp 18 05/05/17 04:15 BP 107/66 05/05/17 04:15 Pulse Ox 97 05/05/17 08:28 Intake & Output 05/04/17 05/05/17 05/05/17 18:59 06:59 18:59 Intake Total 836 180 Output Total 200 Balance 636 180 Weight 78.2 kg 78.5 kg Intake: Oral 836 180 Output: Urine 200 Other: Voiding Method Toilet Toilet # Voids 2 1 ABP, PAP, CO, CI - Last Documented Arterial Blood Pressure 139/72 Pulmonary Artery Pressure 34/19 Cardiac Output 5.4 Cardiac Index 3.0 - Exam Physical Exam: Revealed a 77-year-old female in no distress. On nasal cannula HEENT:[Neck is supple.] [No neck masses.] [No thyromegaly.] [No JVD.] Chest: [Diminished breath sounds at the bases no crackles or rhonchi or wheezes Cardiac Exam: [Normal S1 and S2, no S3 gallop, no murmur.] Abdomen: [Soft, nontender, no megaly, no rebound, no guarding, normal bowel sounds.] Extremities: [No clubbing, no edema, no cyanosis.] Neurological Exam: [No focal neurologic deficit.] - Labs CBC & Chem 7: 05/05/17 06:24 05/05/17 06:19 Labs: Abnormal Lab Results - Last 24 Hours (Table) 05/04/17 05/04/17 05/04/17 Range/Units 11:54 16:41 20:55 RBC (3.80-5.40) m/uL Hgb (11.4-16.0) gm/dL Hct (34.0-46.0) % MCHC (31.0-37.0) g/dL RDW (11.5-15.5) % Sodium (137-145) mmol/L BUN (7-17) mg/dL Creatinine (0.52-1.04) mg/dL Glucose (74-99) mg/dL POC Glucose (mg/dL) 100 H 104 H 109 H (75-99) mg/dL Total Protein (6.3-8.2) g/dL Albumin (3.5-5.0) g/dL 05/05/17 05/05/17 05/05/17 Range/Units 02:04 06:04 06:19 RBC (3.80-5.40) m/uL Hgb (11.4-16.0) gm/dL Hct (34.0-46.0) % MCHC (31.0-37.0) g/dL RDW (11.5-15.5) % Sodium 132 L (137-145) mmol/L BUN 20 H (7-17) mg/dL Creatinine 0.51 L (0.52-1.04) mg/dL Glucose 114 H (74-99) mg/dL POC Glucose (mg/dL) 121 H 117 H (75-99) mg/dL Total Protein 5.1 L (6.3-8.2) g/dL Albumin 3.0 L (3.5-5.0) g/dL 05/05/17 Range/Units 06:24 RBC 3.07 L (3.80-5.40) m/uL Hgb 9.2 L (11.4-16.0) gm/dL Hct 30.1 L (34.0-46.0) % MCHC 30.6 L (31.0-37.0) g/dL RDW 20.2 H (11.5-15.5) % Sodium (137-145) mmol/L BUN (7-17) mg/dL Creatinine (0.52-1.04) mg/dL Glucose (74-99) mg/dL POC Glucose (mg/dL) (75-99) mg/dL Total Protein (6.3-8.2) g/dL Albumin (3.5-5.0) g/dL Assessment and Plan Plan: Impression: 1 status post aortic valve replacement for severe aortic stenosis postoperative day #6 2 postoperative anemia secondary to intraoperative and perioperative blood loss. , However the bleeding became more extensive requiring reexploration, patient was taken back to the OR, and this was unexpected. 3 history of breast cancer and previous lumpectomy followed by radiation and chemotherapy. History of right breast mastectomy. 4 right hemidiaphragm elevation suspicious for previous injury and the right hemidiaphragm paralysis. Recommendation: continue incentive spirometry, bronchodilators, ambulation, chest x-ray seems to be improving, will continue to follow. Time with Patient: Less than 30
[2017-05-05 11:39] LABS: Glucose,Whole Blood 122 mg/dL (75-99)
[2017-05-05 16:43] LABS: Glucose,Whole Blood 111 mg/dL (75-99)
[2017-05-05 20:42] LABS: Glucose,Whole Blood 164 mg/dL (75-99)
[2017-05-05] MEDS: ATORVASTATIN 40 MG TAB PO SCH (22:12)
[2017-05-05] MEDS: SENNOSIDES-DOCUSATE SODIUM 1 EACH TAB PO SCH (22:12)
[2017-05-05] MEDS: ANASTROZOLE 1 MG TAB PO SCH (22:13)
[2017-05-06] MEDS: HEPARIN SODIUM,PORCINE 5,000 UNIT/ML 1 ML VIAL SQ SCH ×3 (00:43→16:25)
[2017-05-06] MEDS: HYDROcodone/APAP 5-325MG 1 EACH TAB PO PRN ×3 (00:44→20:34)
[2017-05-06 02:07] LABS: Glucose,Whole Blood 119 mg/dL (75-99)
[2017-05-06] MEDS: KETOROLAC 30 MG/ML 1 ML VIAL IVP SCH ×5 (04:15→21:43)
[2017-05-06 06:02] LABS: Glucose,Whole Blood 117 mg/dL (75-99)
[2017-05-06] MEDS: INSULIN LISPRO (humaLOG) 300 UNIT/3 ML VIAL SQ SCH ×4 (06:18→20:36)
[2017-05-06] MEDS: PANTOPRAZOLE 40 MG TABLET PO SCH (06:22)
[2017-05-06 06:24] LABS: Anisocytosis Moderate; Basophils % (A) 0 %; CH 29.9; CHCM 31.5; Eosinophils # (A) 0.2 k/uL (0-0.7); Eosinophils % (A) 3 %; HCT 27.8 % (34.0-46.0); HDW 3.05; HGB 8.7 gm/dL (11.4-16.0); Hypochromasia Slight; Luc # (Auto) 0.17; Luc % (Auto) 2; Lymphocytes # (A) 1.1 k/uL (1.0-4.8); Lymphocytes % (A) 11 %; MCH 29.7 pg (25.0-35.0); MCHC 31.2 g/dL (31.0-37.0); MCV 95.3 fL (80.0-100.0); Macrocytosis Slight; Mean Platelet Volume 8.8; Monocytes # (A) 0.5 k/uL (0-1.0); Monocytes % (A) 6 %; Neutrophils # (A) 7.7 k/uL (1.3-7.7); Neutrophils % (A) 79 %; RBC 2.92 m/uL (3.80-5.40); RDW 20.1 % (11.5-15.5); WBC 9.7 k/uL (3.8-10.6); WBC (Perox) 10.42
[2017-05-06 06:35] LABS: Anion Gap 8 mmol/L; Blood Urea Nitrogen 23 mg/dL (7-17); Calcium 8.6 mg/dL (8.4-10.2); Carbon Dioxide 28 mmol/L (22-30); Chloride 93 mmol/L (98-107); Glucose 104 mg/dL (74-99); Magnesium 1.9 mg/dL (1.6-2.3); Non-African American GFR(MDRD) >60 (>60 ml/min/1.73 sqM); Potassium 4.6 mmol/L (3.5-5.1); Sodium 129 mmol/L (137-145)
[2017-05-06] MEDS ORDERED: ACETAMINOPHEN TAB 500 MG TAB PO PRN (07:27)
[2017-05-06] MEDS ORDERED: HYDROcodone/APAP 5-325MG 1 EACH TAB PO PRN (07:29)
--- NOTE | 2017-05-06 07:58 | P.PN ---
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 POD #7 elective aortic valve replacement using a 21 mm pericardial bioprosthesis magna ease bovine. Exclusion of the left atrial appendage using a 35 mm AtriClip. Intraoperative transesophageal echocardiogram and epi-aortic scanning. Postoperative acute blood loss anemia, inherent to this surgery. POD #7 return to the OR for emergent exploratory chest, evacuation of clots Postoperative paroxysmal atrial fibrillation with conversion back into sinus rhythm, an expected outcome of surgery. Patient is sitting up in the chair in no acute distress eating breakfast. States she is starting to feel better, right shoulder pain is gone. Ambulated in the hallway twice yesterday. Objective - Vital Signs Vital signs: Vital Signs Temp 96.8 F L 05/06/17 04:00 Pulse 90 05/06/17 04:00 Resp 18 05/06/17 04:00 BP 134/68 05/06/17 04:00 Pulse Ox 96 05/06/17 04:00 Intake & Output 05/05/17 05/06/17 05/06/17 18:59 06:59 18:59 Intake Total 180 400 Balance 180 400 Weight 78.5 kg 80.5 kg Intake: Oral 180 400 Other: Voiding Method Toilet Toilet # Voids 1 1 ABP, PAP, CO, CI - Last Documented Arterial Blood Pressure 139/72 Pulmonary Artery Pressure 34/19 Cardiac Output 5.4 Cardiac Index 3.0 - Constitutional General appearance: Present: cooperative, no acute distress - Respiratory Details: Lungs sounds diminished bilaterally. Respirations even, nonlabored. Currently on 2 L nasal cannula with oxygen saturation 96%. Only able to achieve 500 mL on her incentive spirometry. - Cardiovascular Details: S1, S2 present. Regular rate and rhythm, normal sinus rhythm on telemetry. Sternum stable. Palpable pulses bilaterally. Trace bilateral lower extremity edema present. Heart hugger in place with patient demonstrating appropriate use. Teds/SCDs present. - Gastrointestinal Gastrointestinal Comment(s): Abdomen soft, nontender, nondistended. Active bowel sounds 4 quadrants. Tolerating diet. No bowel movement since May 03. - Genitourinary Genitourinary Comment(s): Continues to void clear, yellow urine. - Musculoskeletal Musculoskeletal: Present: gait normal, strength equal bilaterally - Psychiatric Psychiatric: Present: A&O x's 3, appropriate affect, intact judgment & insight - Allied health notes Allied health notes reviewed: nursing - Labs CBC & Chem 7: 05/06/17 05:24 05/06/17 05:24 Labs: Abnormal Lab Results - Last 24 Hours (Table) 05/05/17 05/05/17 05/05/17 Range/Units 11:37 16:39 20:40 RBC (3.80-5.40) m/uL Hgb (11.4-16.0) gm/dL Hct (34.0-46.0) % RDW (11.5-15.5) % Sodium (137-145) mmol/L Chloride (98-107) mmol/L BUN (7-17) mg/dL Glucose (74-99) mg/dL POC Glucose (mg/dL) 122 H 111 H 164 H (75-99) mg/dL 05/06/17 05/06/17 05/06/17 Range/Units 02:04 05:24 05:24 RBC 2.92 L (3.80-5.40) m/uL Hgb 8.7 L (11.4-16.0) gm/dL Hct 27.8 L (34.0-46.0) % RDW 20.1 H (11.5-15.5) % Sodium 129 L (137-145) mmol/L Chloride 93 L (98-107) mmol/L BUN 23 H (7-17) mg/dL Glucose 104 H (74-99) mg/dL POC Glucose (mg/dL) 119 H (75-99) mg/dL 05/06/17 Range/Units 05:59 RBC (3.80-5.40) m/uL Hgb (11.4-16.0) gm/dL Hct (34.0-46.0) % RDW (11.5-15.5) % Sodium (137-145) mmol/L Chloride (98-107) mmol/L BUN (7-17) mg/dL Glucose (74-99) mg/dL POC Glucose (mg/dL) 117 H (75-99) mg/dL Assessment and Plan (1) Severe aortic valve stenosis Status: Acute (2) Status post chemotherapy Status: Acute (3) Status post radiation therapy Status: Acute (4) History of cancer of right breast Status: Acute (5) Hyperlipidemia Status: Acute Plan: 1. Continue low-dose aspirin, heparin, beta taylor, statin. Will maximize beta taylor therapy as tolerated. 2. Continue amiodarone for A. fib prophylaxis. 3. Wean oxygen, encourage incentive spirometry use. 4. Increase activity, ambulate in hallway. Physical therapy following. 5. GI/DVT prophylaxis. 6. Will monitor daily labs. 7. Continue Zoloft. 8. Pain management per ordered medications. 9. Magnesium replacement ordered. 10. MiraLAX added for constipation. 11. More recommendations as patient progresses. Discharge planning in progress. Dr. Frank to re-evaluate for possible IPR placement at discharge. Patient offered home with home care, doesn't feel she is strong enough to go home. Time with Patient: Greater than 30
[2017-05-06] MEDS: AMIODARONE 200 MG TAB PO SCH ×2 (08:11→20:35)
[2017-05-06] MEDS: ASPIRIN 81 MG CHEW PO SCH (08:12)
[2017-05-06] MEDS: SERTRALINE 25 MG TAB PO SCH (08:13)
[2017-05-06] MEDS: IPRATROPIUM 0.5 MG/2.5 ML NEBU INHALATION SCH ×4 (08:19→20:22)
[2017-05-06] MEDS: ALBUTEROL NEBULIZED 2.5 MG/3 ML INHALATION SCH ×4 (08:19→20:22)
[2017-05-06] MEDS: POLYETHYLENE GLYCOL 3350 17 GM POWD.PACK PO SCH (08:22)
[2017-05-06] MEDS ORDERED: METOPROLOL TARTRATE 50 MG TAB PO SCH (09:00)
[2017-05-06] MEDS: MAGNESIUM SULFATE-D5W PMX 1 GM in DEXTROSE/WATER 1 100ML.BAG IVPB SCH ×2 (09:33→10:55)
[2017-05-06 11:34] LABS: Glucose,Whole Blood 144 mg/dL (75-99)
--- NOTE | 2017-05-06 11:49 | P.PN ---
Subjective Progress note dated 05/06/2017 77-year-old female who is status post aortic valve replacement for severe aortic stenosis, postop day #7. She also suffers some postoperative anemia with pulp perioperative blood loss. In addition she has a history of breast cancer with previous lumpectomy followed by radiation and chemotherapy and right hemidiaphragm elevation from previous possible phrenic nerve injury. Other than that she's doing relatively well. Doing better on her deep breathing coughing and clearing of secretions. Respiratory status seems stable. Doing better on her incentive spirometry. Chest x-rays improved and only shows postsurgical changes. Objective - Vital Signs Vital signs: Vital Signs Temp 97.0 F L 05/06/17 08:00 Pulse 71 05/06/17 08:00 Resp 18 05/06/17 08:00 BP 117/61 05/06/17 08:00 Pulse Ox 93 L 05/06/17 08:38 Intake & Output 05/05/17 05/06/17 05/06/17 18:59 06:59 18:59 Intake Total 180 400 236 Balance 180 400 236 Weight 78.5 kg 80.5 kg Intake: Oral 180 400 236 Other: Voiding Method Toilet Toilet Toilet # Voids 1 1 ABP, PAP, CO, CI - Last Documented Arterial Blood Pressure 139/72 Pulmonary Artery Pressure 34/19 Cardiac Output 5.4 Cardiac Index 3.0 - Exam No acute distress, oriented 3. HEENT examination is grossly unremarkable. Nasal O2 in place. Oral mucosa is moist. Neck supple. Full range of motion. No adenopathy. No neck vein distention. Cardiovascular examination reveals regular rhythm rate. S1-S2 normal. No distinct murmur noted. Lungs are clear breath sounds are equal. No wheezes rhonchi or crackles. Abdomen soft. Extremities reveal some very mild edema. No cyanosis or clubbing. Skin without rash. There are a few areas of ecchymoses. Neurologic examination is brief but nonfocal. - Labs CBC & Chem 7: 05/06/17 05:24 05/06/17 05:24 Labs: Abnormal Lab Results - Last 24 Hours (Table) 05/05/17 05/05/17 05/06/17 Range/Units 16:39 20:40 02:04 RBC (3.80-5.40) m/uL Hgb (11.4-16.0) gm/dL Hct (34.0-46.0) % RDW (11.5-15.5) % Sodium (137-145) mmol/L Chloride (98-107) mmol/L BUN (7-17) mg/dL Glucose (74-99) mg/dL POC Glucose (mg/dL) 111 H 164 H 119 H (75-99) mg/dL 05/06/17 05/06/17 05/06/17 Range/Units 05:24 05:24 05:59 RBC 2.92 L (3.80-5.40) m/uL Hgb 8.7 L (11.4-16.0) gm/dL Hct 27.8 L (34.0-46.0) % RDW 20.1 H (11.5-15.5) % Sodium 129 L (137-145) mmol/L Chloride 93 L (98-107) mmol/L BUN 23 H (7-17) mg/dL Glucose 104 H (74-99) mg/dL POC Glucose (mg/dL) 117 H (75-99) mg/dL 05/06/17 Range/Units 11:33 RBC (3.80-5.40) m/uL Hgb (11.4-16.0) gm/dL Hct (34.0-46.0) % RDW (11.5-15.5) % Sodium (137-145) mmol/L Chloride (98-107) mmol/L BUN (7-17) mg/dL Glucose (74-99) mg/dL POC Glucose (mg/dL) 144 H (75-99) mg/dL Assessment and Plan (1) Hx of breast cancer Status: Acute (2) Postoperative anemia Status: Acute (3) S/P AVR (aortic valve replacement) Status: Acute (4) Severe aortic valve stenosis Status: Acute (5) Status post chemotherapy Status: Acute (6) Status post radiation therapy Status: Acute (7) Aortic valve stenosis, nonrheumatic Status: Acute (8) History of cancer of right breast Status: Acute (9) Hyperlipidemia Status: Acute Plan: Plan dated 05/06/2017 The patient's doing better. We'll continue with deep breathing coughing and clearing of secretions. Also recommend the use of hourly of the incentive spirometer as well as bronchodilators. The patient needs help with physical therapy and also her ambulation. We'll continue to follow. No additional recommendations are made. Prognosis is generally good. Time with Patient: Less than 30
[2017-05-06] MEDS: MULTIVITAMINS, THERA 1 EACH TAB PO SCH (12:16)
[2017-05-06] MEDS: CHOLECALCIFEROL 400 UNIT TAB PO SCH (12:16)
--- NOTE | 2017-05-06 12:19 | P.PN ---
Subjective Principal diagnosis: AVR Status post AVR This is a pleasant 77-year-old female patient who sees Dr. VC Robles as an outpatient who was admitted to the hospital yesterday and underwent an aortic valve replacement using a bioprosthetic valve for severe symptomatic aortic stenosis. The surgery was complicated by bleeding from the mediastinal tube and the patient was taken again to the OR for the bleeding. 05/02/2017 Patient seen and examined this morning, continues to have chest tube in place. Earlier this morning she had an episode of nausea but that the time of my examination states that she was feeling much better. Breathing is overall stable. Let pressure 132/70 with a heart rate in the 70s. Chest x-ray shows continued low lung volumes, continued elevation of right hemidiaphragm, small bilateral effusions. Patient has been encouraged regarding the regular use of her incentive spirometry. 05/04/2017 Seen and examined this morning, sitting up in the chair. Chest tubes have been removed. Overall she does states she's feeling mildly better today, although still feeling very weak.Blood Pressure 110/70 with a heart rate in the 70s. Hgb8.7, sodium 134, potassium 4.2, BUN 19, creatinine 0.4. 05/06/2017 Patient seen and examined this morning, sitting up in the chair at bedside. Son is present. Arrangements are being made for transfer to [facility] Objective - Vital Signs Vital signs: Vital Signs Temp 97.0 F L 05/06/17 12:00 Pulse 55 L 05/06/17 12:00 Resp 18 05/06/17 12:00 BP 102/57 05/06/17 12:00 Pulse Ox 93 L 05/06/17 12:00 Intake & Output 05/05/17 05/06/17 05/06/17 18:59 06:59 18:59 Intake Total 180 400 236 Balance 180 400 236 Weight 78.5 kg 80.5 kg Intake: Oral 180 400 236 Other: Voiding Method Toilet Toilet Toilet # Voids 1 1 ABP, PAP, CO, CI - Last Documented Arterial Blood Pressure 139/72 Pulmonary Artery Pressure 34/19 Cardiac Output 5.4 Cardiac Index 3.0 - Exam PHYSICAL EXAMINATION: HEENT: Head is atraumatic, normocephalic. Pupils equal, round. Neck is supple. There is no elevated jugular venous pressure. HEART EXAMINATION: Heart S1, S2 normal. No murmur or gallop heard. CHEST EXAMINATION: Lungs are clear with diminished air entry to bilateral bases. ABDOMEN: Soft, nontender. Bowel sounds are heard. No organomegaly noted. EXTREMITIES:[ 2+ peripheral pulses with no evidence of peripheral edema and no calf tenderness noted]. NEUROLOGIC [patient is awake, alert and oriented -3.] . - Labs CBC & Chem 7: 05/06/17 05:24 05/06/17 05:24 Labs: Abnormal Lab Results - Last 24 Hours (Table) 05/05/17 05/05/17 05/06/17 Range/Units 16:39 20:40 02:04 RBC (3.80-5.40) m/uL Hgb (11.4-16.0) gm/dL Hct (34.0-46.0) % RDW (11.5-15.5) % Sodium (137-145) mmol/L Chloride (98-107) mmol/L BUN (7-17) mg/dL Glucose (74-99) mg/dL POC Glucose (mg/dL) 111 H 164 H 119 H (75-99) mg/dL 05/06/17 05/06/17 05/06/17 Range/Units 05:24 05:24 05:59 RBC 2.92 L (3.80-5.40) m/uL Hgb 8.7 L (11.4-16.0) gm/dL Hct 27.8 L (34.0-46.0) % RDW 20.1 H (11.5-15.5) % Sodium 129 L (137-145) mmol/L Chloride 93 L (98-107) mmol/L BUN 23 H (7-17) mg/dL Glucose 104 H (74-99) mg/dL POC Glucose (mg/dL) 117 H (75-99) mg/dL 05/06/17 Range/Units 11:33 RBC (3.80-5.40) m/uL Hgb (11.4-16.0) gm/dL Hct (34.0-46.0) % RDW (11.5-15.5) % Sodium (137-145) mmol/L Chloride (98-107) mmol/L BUN (7-17) mg/dL Glucose (74-99) mg/dL POC Glucose (mg/dL) 144 H (75-99) mg/dL Assessment and Plan (1) S/P AVR (aortic valve replacement) Status: Acute (2) Postoperative anemia Status: Acute (3) Hx of breast cancer Status: Acute Plan: Cardiology's perspective, we'll recommend to continue patient on her current medications. Patient is being worked up for possible transferred to rehab. DNP note has been reviewed, I agree with a documented findings and plan of care. Patient was seen and examined.
[2017-05-06 14:13] LABS: ABG Base Excess -1.3 mmol/L; ABG HCO3 21 mmol/L (21-25); ABG Oxygen Saturation 99.8 % (94-97); ABG PCO2 28 mmHg (35-45); ABG PH 7.49 (7.35-7.45); ABG PO2 194 mmHg (83-108); ABG TCO2 22 mmol/L (19-24)
[2017-05-06 14:14] LABS: ABG Base Excess 0.8 mmol/L; ABG HCO3 23 mmol/L (21-25); ABG Oxygen Saturation 99.9 % (94-97); ABG PCO2 28 mmHg (35-45); ABG PH 7.53 (7.35-7.45); ABG PO2 305 mmHg (83-108); ABG TCO2 24 mmol/L (19-24)
[2017-05-06 14:40] VITALS: BMI 29.5
--- NOTE | 2017-05-06 15:45 | P.DS ---
Providers Date of admission: 04/29/17 05:45 Attending physician: Alejandro Somers Consults: 04/29/17 14:52 Consult Physician Routine Consulting Provider: Aga Gallardo Consult Reason/Comments: Therapy Director Consult: post cardiac surgery Do you want consulting provider notified?: Yes Consult Physician Routine Consulting Provider: Denis Robles Consult Reason/Comments: Bead Wrapper Consult: post cardiac surgery Do you want consulting provider notified?: Yes 05/03/17 07:56 Consult Physician Routine Consulting Provider: Floyd Frank Consult Reason/Comments: inpatient rehab placement Do you want consulting provider notified?: Yes Primary care physician: Aram Ballesteros - Discharge Diagnosis(es) (1) Severe aortic valve stenosis Current Visit: Yes Status: Acute (2) Status post chemotherapy Current Visit: Yes Status: Acute (3) Status post radiation therapy Current Visit: Yes Status: Acute (4) History of cancer of right breast Current Visit: No Status: Acute (5) Hyperlipidemia Current Visit: No Status: Acute Hospital Course: FINAL DIAGNOSIS: 1. Severe calcific aortic valve stenosis 2. Hyperlipidemia 3. Preserved left ventricular function 4. History of breast cancer status post right modified radical mastectomy with radiation with recurrent phrenic nerve paralysis and elevation of the right hemidiaphragm 5. Paroxysmal atrial fibrillation PRINCIPAL PROCEDURE: 1.Elective aortic valve replacement with a 21 mm pericardial bioprosthesis magna ease bovine 2.Exclusion of the left atrial appendage using a 35 mm AtriClip 3.Intraoperative transesophageal echocardiogram 4.Epi-aortic scanning. 5.Emergent exploration of the chest and evacuation of clots HISTORY OF PRESENT ILLNESS: This 76 year old female was being followed on an outpatient basis for aortic stenosis with serial echocardiograms. Recently, she was found to have a worsening murmur by her primary care physician, subsequently underwent a 2-D echocardiogram and was found to have a moderately to severely thickened and calcified aortic valve with a valve area of 0.5 centimeter squared with a mean pressure gradient of 40 mmHG, trace aortic regurgitation, mild mitral regurgitation, mild tricuspid regurgitation, mild pulmonic regurgitation and normal ventricular systolic function with and ejection fraction of 60%. Her symptomatology included pressure/thumping in her chest which wakes her from sleep. She was recommended to undergo heart catheterization and transesophageal echocardiogram which took place 04/09/17. Her catheterization revealed normal coronaries. The HALEY demonstrated a calcified aortic valve with a valve area 0.5-0.6 cm squared, normal left ventricular function, mild mitral regurgitation, and moderate tricuspid regurgitation. Dr. Somers from cardiothoracic surgery was consulted for surgical recommendations. The patient was recommended to have bioprostetic aortic valve replacement. An extensive discussion was had with the patient and her family, risks and benefits were explained, and consent was obtained to proceed with sugery. HOSPITAL COURSE: The patient was brought to the hospital on 04/29/2017, taken to the preoperative area, prepared in usual fashion, and subsequently taken to the operating room where Dr. Somers performed an elective aortic valve replacement with a 21 mm pericardial bioprosthesis magna ease bovine, exclusion of the left atrial appendage using a 35 mm AtriClip, intraoperative transesophageal echocardiogram, and epi-aortic scanning. She did have postoperative acute blood loss anemia and returned to the OR for emergent exploratory chest with evacuation of clots. Upon completion of surgery the patient was transferred to the cardiovascular intensive care unit where she was recovered, monitored hemodynamically, and where she progressed to cardiac rehabilitation phase 1. She developed post operative atrial fibrillation which was treated accordingly. She was extubated, all lines, tubes, and drips were discontinued when appropriate, and she was transferred to [address] [place] [address] for further monitoring and rehabilitation. Her oxygen was titrated down, she continued to work with physical therapy, and was ready to be discharged to inpatient rehabilitation on postoperative day #7. She received written and verbal instructions regarding her medications, activity restrictions, signs and symptoms requiring physician notification, and follow-up appointments. COMPLICATIONS: The patient experienced acute blood loss anemia, treated with blood transfusion and return to the operating room as well as paroxysmal atrial fibrillation. DISCHARGE INSTRUCTIONS: 1. No driving for 4 weeks, or until physician gives their ok. 2. The patient should sleep in their own bed, no medical bed needed. 3. Stairs are not an issue. If the bedroom is upstairs, it is advised that the patient go up at night and down in the morning for the first week. Go slowly, using handrail and take 1 step at a time. 4. JAEL hose are to be worn for 30 days or until physician discontinues. 5. Heart hugger is to be worn 100% of the time until physician discontinues.( except when showering) 6. No lifting, pushing, or pulling more than 10 pounds for 12 weeks. The physician will advise of any restriction changes. 7. The patient is expected to continue the prescribed walking program. 8. Continue pain control per as needed orders. 9. Continue with incentive spirometry and splinting/heart hugger until otherwise directed by the physician. 10. Must shower daily using liquid antibacterial soap and a separate white washcloth for each individual incision. 11. Routine sternal incision care. No powders, lotions, ointments on incisions. 12. Please call surgeon/ROAD DESIGN DRAFTSPERSON for temp greater than 101 F or purulent drainage from incisions. 13. All prescriptions given by surgeon for 30 days. Refills need to be filled through livestock slaughterer/primary care physician. INPATIENT REHAB/HOME HEALTH SERVICES TO PROVIDE: RN SKILLED HOME CARE SERVICES FOR POST-OP SURGICAL PATIENTS WITH THE FOLLOWING: Coronary Artery Bypass Surgery (CABG), Mitral Valve Replacement/ Repair ( MVR), Aortic Valve Replacement/Repair (AVR) RN TO CONTINUE EDUCATION FROM ``ROAD TO A HEALTH HEART PATIENT EDUCATION MANUAL (GIVEN TO PATIENT IN THE HOSPITAL) MEDICATION RECONCILIATION WITH EDUCATION NEEDED ON FIRST HOME VISIT EMPHASIZE IMPORTANCE OF WEARING BREAST SUPPORT/HEART HUGGER ENCOURAGE USE OF INCENTIVE SPIROMETER 10 X EVERY HOUR WHILE AWAKE ENCOURAGE UTILIZATION OF LOWER EXTREMITY COMPRESSION STOCKINGS/JAEL HOSE and ELEVATE LEGS ABOVE LEVEL OF HEART WHILE AT REST. ENCOURAGE AMBULATION 3-5x/day INCREASING TOLERATES, WHILE AVOID EXTREMES IN TEMPERATURE FREQUENCY: RN TO OPEN THE PATIENT WITHIN 24 HOURS OF DISCHARGE FROM THE HOSPITAL WITH TELEHEALTH INSTALLED AT [facility], RN TO VISIT 2-3 X A WEEK FOR 4 WEEKS ESTABLISHED BY PATIENT NEEDS. REMOVAL OF SUTURES: NURSING SERVICES TO REMOVE SUTURES TWO WEEKS POST SURGICAL DATE 05/13/17. If any questions regarding suture removal please call the office at [phone]. LABORATORY: CBC, CMP TO BE DRAWN ON THE THIRD DAY HOME, Saturday05/10/2017 (RAN STAT) FAX RESULTS TO [phone]. TELEHEALTH PARAMETERS: WEIGHT: NOTIFY MD OF WEIGHT GAIN OF 2 LBS IN 24 HOURS OR 5 LBS IN ONE WEEK HR: NOTIFY MD OF HR <55 BPM OR HR>100 BPM BP: NOTIFY MD IF BP <90/55 OR BP>140/100 O2 SAT: NOTIFY MD IF PO2<93% ON ROOM AIR SEND TELEHEALTH REPORT TO WOOD TYPE CUTTER AND CARDIOVASCULAR SURGEON THE FIRST WEEK OF CARE AND THEN BI-WEEKLY. PLEASE ADDITIONALLY COMMUNICATE ANY ABNORMALS AND NEW FINDINGS TO THE SURGEONS OFFICE. A Red armband has been placed on the patient. It should be worn for 30 days post surgery and will be removed by the cardiac surgeons. If an ER visit is necessary, please make sure the number on the Red armband is called. Plan - Discharge Summary New Discharge Prescriptions: New Acetaminophen Tab [Tylenol] 500 mg PO Q6HR PRN tab PRN Reason: Fever and/ or Mild Pain Albuterol Nebulized [Ventolin Nebulized] 2.5 mg INHALATION RT-QID neb Amiodarone [Cordarone] 400 mg PO BID tab Atorvastatin [Lipitor] 40 mg PO HS tab Heparin Sodium,Porcine [Heparin Sodium] 5,000 unit SQ Q8HR vial HYDROcodone/APAP 5-325MG [Erie 5-325] 1 - 2 each PO Q6HR PRN #120 tab PRN Reason: Moderate Pain Ipratropium Nebulized [Atrovent Nebulized] 0.5 mg INHALATION RT-QID neb Magnesium Hydroxide [Milk of Magnesia Concentrate] 2,400 mg PO BID PRN dose PRN Reason: Constipation Metoprolol Tartrate [Lopressor] 50 mg PO BID tab Pantoprazole [Protonix] 40 mg PO AC-BRKFST tab Polyethylene Glycol 3350 [Miralax] 17 gm PO DAILY pack Sennosides-Docusate Sodium [Senokot-S] 2 each PO HS tab Sertraline [Zoloft] 25 mg PO DAILY tab Continue Anastrozole [Arimidex] 1 mg PO HS Aspirin 81 mg PO DAILY Multivit-Min/Iron/Folic/Lutein [Centrum Silver Women Tablet] 1 tab PO DAILY L.acidoph,Paracasei, B.lactis [Probiotic] 1 cap PO DAILY Cholecalciferol [Vitamin D3] 500 unit PO DAILY Discontinued Simvastatin [Zocor] 20 mg PO HS Ciprofloxacin HCl [Cipro] 500 mg PO BID Discharge Medication List Anastrozole [Arimidex] 1 mg PO HS 09/23/15 [History] Aspirin 81 mg PO DAILY 04/03/17 [History] Cholecalciferol [Vitamin D3] 500 unit PO DAILY 04/03/17 [History] L.acidoph,Paracasei, B.lactis [Probiotic] 1 cap PO DAILY 04/03/17 [History] Multivit-Min/Iron/Folic/Lutein [Centrum Silver Women Tablet] 1 tab PO DAILY [History] Acetaminophen Tab [Tylenol] 500 mg PO Q6HR PRN tab 05/06/17 [Rx] Albuterol Nebulized [Ventolin Nebulized] 2.5 mg INHALATION RT-QID neb 05/06/17 [Rx] Amiodarone [Cordarone] 400 mg PO BID tab 05/06/17 [Rx] Atorvastatin [Lipitor] 40 mg PO HS tab 05/06/17 [Rx] HYDROcodone/APAP 5-325MG [Erie 5-325] 1 - 2 each PO Q6HR PRN #120 tab 05/06/17 [Rx] Heparin Sodium,Porcine [Heparin Sodium] 5,000 unit SQ Q8HR vial 05/06/17 [Rx] Ipratropium Nebulized [Atrovent Nebulized] 0.5 mg INHALATION RT-QID neb [Rx] Magnesium Hydroxide [Milk of Magnesia Concentrate] 2,400 mg PO BID PRN dose [Rx] Metoprolol Tartrate [Lopressor] 50 mg PO BID tab 05/06/17 [Rx] Pantoprazole [Protonix] 40 mg PO AC-BRKFST tab 05/06/17 [Rx] Polyethylene Glycol 3350 [Miralax] 17 gm PO DAILY pack 05/06/17 [Rx] Sennosides-Docusate Sodium [Senokot-S] 2 each PO HS tab 05/06/17 [Rx] Sertraline [Zoloft] 25 mg PO DAILY tab 05/06/17 [Rx] Follow up Appointment(s)/Referral(s): Aga Gallardo MD [STAFF PHYSICIAN] - 05/13/17 2:30 pm Katerina Dexter MD [STAFF PHYSICIAN] - 05/21/17 1:30 pm Alejandro Somers MD [STAFF PHYSICIAN] - 05/31/17 11:00 am [facility], [NON-STAFF] - Denis Robles MD [STAFF PHYSICIAN] - 05/24/17 2:30 pm Ambulatory/Diagnostic Orders: Complete Blood Count w/diff [LAB.AMB] Time Frame: 3 Days, Location: Determined By Patient Comprehensive Metabolic Panel [LAB.AMB] Time Frame: 3 Days, Location: Determined By Patient Discharge Disposition: DC/TRNS INTERMEDIATE CARE FAC
[2017-05-06] MEDS: BISACODYL 10 MG SUPP RECTAL PRN (16:31)
[2017-05-06 16:51] LABS: Glucose,Whole Blood 121 mg/dL (75-99)
[2017-05-06] MEDS: METOPROLOL TARTRATE 25 MG TAB PO SCH (20:35)
[2017-05-06] MEDS: SENNOSIDES-DOCUSATE SODIUM 1 EACH TAB PO SCH (20:35)
[2017-05-06] MEDS: ANASTROZOLE 1 MG TAB PO SCH (20:35)
[2017-05-06 20:36] LABS: Glucose,Whole Blood 135 mg/dL (75-99)
[2017-05-06] MEDS: ATORVASTATIN 40 MG TAB PO SCH (20:36)
[2017-05-07 01:54] LABS: Glucose,Whole Blood 118 mg/dL (75-99)
[2017-05-07] MEDS: KETOROLAC 30 MG/ML 1 ML VIAL IVP SCH ×2 (02:04→08:11)
[2017-05-07] MEDS: HYDROcodone/APAP 5-325MG 1 EACH TAB PO PRN ×2 (03:49→09:34)
[2017-05-07 05:56] LABS: Glucose,Whole Blood 112 mg/dL (75-99)
[2017-05-07] MEDS: INSULIN LISPRO (humaLOG) 300 UNIT/3 ML VIAL SQ SCH (06:06)
[2017-05-07] MEDS: PANTOPRAZOLE 40 MG TABLET PO SCH (06:07)
[2017-05-07 06:36] LABS: Anisocytosis Slight; Basophils % (A) 1 %; CH 29.1; CHCM 31.7; Eosinophils # (A) 0.3 k/uL (0-0.7); Eosinophils % (A) 4 %; HCT 28.2 % (34.0-46.0); HDW 3.18; HGB 9.1 gm/dL (11.4-16.0); Hypochromasia Slight; Luc # (Auto) 0.25; Luc % (Auto) 3; Lymphocytes # (A) 1.2 k/uL (1.0-4.8); Lymphocytes % (A) 14 %; MCH 29.7 pg (25.0-35.0); MCHC 32.3 g/dL (31.0-37.0); Mean Platelet Volume 7.3; Monocytes # (A) 0.6 k/uL (0-1.0); Monocytes % (A) 7 %; Neutrophils % (A) 72 %; RBC 3.07 m/uL (3.80-5.40); WBC 8.4 k/uL (3.8-10.6); WBC (Perox) 8.57
[2017-05-07 06:50] LABS: Anion Gap 7 mmol/L; Blood Urea Nitrogen 17 mg/dL (7-17); Calcium 8.5 mg/dL (8.4-10.2); Carbon Dioxide 28 mmol/L (22-30); Chloride 93 mmol/L (98-107); Glucose 108 mg/dL (74-99); Magnesium 1.8 mg/dL (1.6-2.3); Non-African American GFR(MDRD) >60 (>60 ml/min/1.73 sqM); Potassium 5.2 mmol/L (3.5-5.1); Sodium 128 mmol/L (137-145)
[2017-05-07] MEDS: ALBUTEROL NEBULIZED 2.5 MG/3 ML INHALATION SCH (07:05)
[2017-05-07] MEDS: IPRATROPIUM 0.5 MG/2.5 ML NEBU INHALATION SCH (07:06)
[2017-05-07] MEDS ORDERED: FUROSEMIDE 10 MG/ML 2 ML VIAL IV STA (07:45)
--- NOTE | 2017-05-07 07:52 | P.PN ---
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 POD #8 elective aortic valve replacement using a 21 mm pericardial bioprosthesis magna ease bovine. Exclusion of the left atrial appendage using a 35 mm AtriClip. Intraoperative transesophageal echocardiogram and epi-aortic scanning. Postoperative acute blood loss anemia, inherent to this surgery. POD #8 return to the OR for emergent exploratory chest, evacuation of clots Postoperative paroxysmal atrial fibrillation with conversion back into sinus rhythm, an expected outcome of surgery. Patient is sitting up in the chair in no acute distress. States she is feeling better. Ambulated in the hallway yesterday. Objective - Vital Signs Vital signs: Vital Signs Temp 97.2 F L 05/07/17 04:00 Pulse 66 05/07/17 04:00 Resp 18 05/07/17 04:00 BP 138/73 05/07/17 04:00 Pulse Ox 94 L 05/07/17 04:00 Intake & Output 05/06/17 05/07/17 05/07/17 18:59 06:59 18:59 Intake Total 472 Balance 472 Weight 80.5 kg 80.4 kg Intake: Oral 472 Other: Voiding Method Toilet Toilet # Voids 1 1 ABP, PAP, CO, CI - Last Documented Arterial Blood Pressure 139/72 Pulmonary Artery Pressure 34/19 Cardiac Output 5.4 Cardiac Index 3.0 - Constitutional General appearance: Present: cooperative, no acute distress - Respiratory Details: Lungs sounds diminished bilaterally. Respirations even, nonlabored. Currently on room air with oxygen saturation 94%. Able to achieve 1000 mL on her incentive spirometry. Effective cough. - Cardiovascular Details: S1, S2 present. Regular rate and rhythm, normal sinus rhythm on telemetry. Sternum stable. Heart hugger in place with patient able to demonstrate appropriate use. Palpable pulses bilaterally. Trace bilateral lower extremity edema present. Teds/SCDs present. - Gastrointestinal Gastrointestinal Comment(s): Abdomen soft, nontender, nondistended. Active bowel sounds 4 quadrants. Tolerating diet. Positive bowel movement yesterday. - Genitourinary Genitourinary Comment(s): Continues to void. - Integumentary Integumentary Comment(s): Anterior chest incision well approximated with Dermabond dressing. - Neurologic Neurologic: Present: CNII-XII intact - Musculoskeletal Musculoskeletal: Present: gait normal, strength equal bilaterally - Psychiatric Psychiatric: Present: A&O x's 3, appropriate affect, intact judgment & insight - Allied health notes Allied health notes reviewed: nursing - Labs CBC & Chem 7: 05/07/17 06:23 05/07/17 06:23 Labs: Abnormal Lab Results - Last 24 Hours (Table) 04/29/17 04/29/17 05/06/17 Range/Units 20:14 21:16 11:33 RBC (3.80-5.40) m/uL Hgb (11.4-16.0) gm/dL Hct (34.0-46.0) % RDW (11.5-15.5) % ABG pH 7.53 H 7.49 H (7.35-7.45) ABG pCO2 28 L 28 L (35-45) mmHg ABG pO2 305 H 194 H (83-108) mmHg ABG O2 Saturation 99.9 H 99.8 H (94-97) % ABG Hematocrit 24 L 24 L (34.0-46.0) % Sodium (137-145) mmol/L Potassium (3.5-5.1) mmol/L Chloride (98-107) mmol/L Glucose (74-99) mg/dL POC Glucose (mg/dL) 144 H (75-99) mg/dL 05/06/17 05/06/17 05/07/17 Range/Units 16:49 20:34 01:52 RBC (3.80-5.40) m/uL Hgb (11.4-16.0) gm/dL Hct (34.0-46.0) % RDW (11.5-15.5) % ABG pH (7.35-7.45) ABG pCO2 (35-45) mmHg ABG pO2 (83-108) mmHg ABG O2 Saturation (94-97) % ABG Hematocrit (34.0-46.0) % Sodium (137-145) mmol/L Potassium (3.5-5.1) mmol/L Chloride (98-107) mmol/L Glucose (74-99) mg/dL POC Glucose (mg/dL) 121 H 135 H 118 H (75-99) mg/dL 05/07/17 05/07/17 05/07/17 Range/Units 05:54 06:23 06:23 RBC 3.07 L (3.80-5.40) m/uL Hgb 9.1 L (11.4-16.0) gm/dL Hct 28.2 L (34.0-46.0) % RDW 19.0 H (11.5-15.5) % ABG pH (7.35-7.45) ABG pCO2 (35-45) mmHg ABG pO2 (83-108) mmHg ABG O2 Saturation (94-97) % ABG Hematocrit (34.0-46.0) % Sodium 128 L (137-145) mmol/L Potassium 5.2 H (3.5-5.1) mmol/L Chloride 93 L (98-107) mmol/L Glucose 108 H (74-99) mg/dL POC Glucose (mg/dL) 112 H (75-99) mg/dL Assessment and Plan (1) Severe aortic valve stenosis Status: Acute (2) Status post chemotherapy Status: Acute (3) Status post radiation therapy Status: Acute (4) History of cancer of right breast Status: Acute (5) Hyperlipidemia Status: Acute Plan: 1. Continue low-dose aspirin, heparin, beta taylor, statin. Will maximize beta taylor therapy as tolerated. 2. Continue amiodarone for A. fib prophylaxis. 3. Encourage incentive spirometry use. 4. Increase activity, ambulate in hallway. Physical therapy following. 5. GI/DVT prophylaxis. 6. Continue Zoloft. 7. Pain management per ordered medications. 8. Magnesium replacement ordered. 9. Will discharge to inpatient rehab today. Time with Patient: Greater than 30
[2017-05-07] MEDS: POLYETHYLENE GLYCOL 3350 17 GM POWD.PACK PO SCH (08:13)
[2017-05-07] MEDS: AMIODARONE 200 MG TAB PO SCH (08:15)
[2017-05-07] MEDS: ASPIRIN 81 MG CHEW PO SCH (08:15)
[2017-05-07] MEDS: SERTRALINE 25 MG TAB PO SCH (08:15)
[2017-05-07] MEDS: METOPROLOL TARTRATE 25 MG TAB PO SCH (08:15)
[2017-05-07] MEDS: HEPARIN SODIUM,PORCINE 5,000 UNIT/ML 1 ML VIAL SQ SCH ×2 (08:15)
[2017-05-07] MEDS: MAGNESIUM SULFATE-D5W PMX 1 GM in DEXTROSE/WATER 1 100ML.BAG IVPB SCH ×2 (08:24→09:33)
[2017-05-07 08:28] VITALS: BP 156/70; PULSE 69; TEMP 98.1
--- NOTE | 2017-05-07 14:37 | P.PN ---
Subjective Principal diagnosis: AVR Status post AVR This is a pleasant 77-year-old female patient who sees Dr. VC Robles as an outpatient who was admitted to the hospital yesterday and underwent an aortic valve replacement using a bioprosthetic valve for severe symptomatic aortic stenosis. The surgery was complicated by bleeding from the mediastinal tube and the patient was taken again to the OR for the bleeding. 05/02/2017 Patient seen and examined this morning, continues to have chest tube in place. Earlier this morning she had an episode of nausea but that the time of my examination states that she was feeling much better. Breathing is overall stable. Let pressure 132/70 with a heart rate in the 70s. Chest x-ray shows continued low lung volumes, continued elevation of right hemidiaphragm, small bilateral effusions. Patient has been encouraged regarding the regular use of her incentive spirometry. 05/04/2017 Seen and examined this morning, sitting up in the chair. Chest tubes have been removed. Overall she does states she's feeling mildly better today, although still feeling very weak.Blood Pressure 110/70 with a heart rate in the 70s. Hgb8.7, sodium 134, potassium 4.2, BUN 19, creatinine 0.4. 05/06/2017 Patient seen and examined this morning, sitting up in the chair at bedside. Son is present. Arrangements are being made for transfer to [facility] rehab. 12/06/2016 Patient seen and examined, being transferred to [facility] today. Objective - Vital Signs Vital signs: Vital Signs Temp 98.1 F 05/07/17 08:24 Pulse 69 05/07/17 08:24 Resp 18 05/07/17 08:24 BP 156/70 05/07/17 08:24 Pulse Ox 92 L 05/07/17 08:24 Intake & Output 05/06/17 05/07/17 05/07/17 18:59 06:59 18:59 Intake Total 472 Balance 472 Weight 80.5 kg 80.4 kg Intake: Oral 472 Other: Voiding Method Toilet Toilet Toilet # Voids 1 1 ABP, PAP, CO, CI - Last Documented Arterial Blood Pressure 139/72 Pulmonary Artery Pressure 34/19 Cardiac Output 5.4 Cardiac Index 3.0 - Exam PHYSICAL EXAMINATION: HEENT: Head is atraumatic, normocephalic. Pupils equal, round. Neck is supple. There is no elevated jugular venous pressure. HEART EXAMINATION: Heart S1, S2 normal. No murmur or gallop heard. CHEST EXAMINATION: Lungs are clear with diminished air entry to bilateral bases. ABDOMEN: Soft, nontender. Bowel sounds are heard. No organomegaly noted. EXTREMITIES:[ 2+ peripheral pulses with no evidence of peripheral edema and no calf tenderness noted]. NEUROLOGIC [patient is awake, alert and oriented -3.] . - Labs CBC & Chem 7: 05/07/17 06:23 05/07/17 06:23 Labs: Abnormal Lab Results - Last 24 Hours (Table) 05/06/17 05/06/17 05/07/17 Range/Units 16:49 20:34 01:52 RBC (3.80-5.40) m/uL Hgb (11.4-16.0) gm/dL Hct (34.0-46.0) % RDW (11.5-15.5) % Sodium (137-145) mmol/L Potassium (3.5-5.1) mmol/L Chloride (98-107) mmol/L Glucose (74-99) mg/dL POC Glucose (mg/dL) 121 H 135 H 118 H (75-99) mg/dL 05/07/17 05/07/17 05/07/17 Range/Units 05:54 06:23 06:23 RBC 3.07 L (3.80-5.40) m/uL Hgb 9.1 L (11.4-16.0) gm/dL Hct 28.2 L (34.0-46.0) % RDW 19.0 H (11.5-15.5) % Sodium 128 L (137-145) mmol/L Potassium 5.2 H (3.5-5.1) mmol/L Chloride 93 L (98-107) mmol/L Glucose 108 H (74-99) mg/dL POC Glucose (mg/dL) 112 H (75-99) mg/dL Assessment and Plan (1) S/P AVR (aortic valve replacement) Status: Acute (2) Postoperative anemia Status: Acute (3) Hx of breast cancer Status: Acute Plan: Cardiology's perspective, we'll recommend to continue patient on her current medications. Being discharged from [facility] today. We'll make her a follow- up appointment with Dr. VC Robles as an outpatient DNP note has been reviewed, I agree with a documented findings and plan of care. Patient was seen and examined.
== END 2017-05-07 11:02 | DRG 220 ==
LOC: 2ORMAIN 05:45 → 6ICU 12:15 → 6SEL 05-02 05:45
PROVIDERS: ADMIT Surgery; ATTEND Surgery
PROC: 30233N1 Transfusion of Nonautologous Red Blood Cells into Peripheral Vein, Percutaneous Approach (ICD-10-PCS; principal; 2017-04-29 08:00)
PROC: 02RF08Z Replacement of Aortic Valve with Zooplastic Tissue, Open Approach (ICD-10-PCS; principal; 2017-04-29 08:00)
PROC: 0W980ZZ Drainage of Chest Wall, Open Approach (ICD-10-PCS; principal; 2017-04-29 08:00)
PROC: 30233M1 Transfusion of Nonautologous Plasma Cryoprecipitate into Peripheral Vein, Percutaneous Approach (ICD-10-PCS; principal; 2017-04-29 08:00)
PROC: 5A1221Z Performance of Cardiac Output, Continuous (ICD-10-PCS; principal; 2017-04-29 08:00)
PROC: B246ZZ4 Ultrasonography of Right and Left Heart, Transesophageal (ICD-10-PCS; principal; 2017-04-29 08:00)
PROC: 02L70CK Occlusion of Left Atrial Appendage with Extraluminal Device, Open Approach (ICD-10-PCS; principal; 2017-04-29 08:00)
DX: I08.3 Combined rheumatic disorders of mitral, aortic and tricuspid valves (principal); J90 Pleural effusion, not elsewhere classified; D68.9 Coagulation defect, unspecified; D62 Acute posthemorrhagic anemia; J98.11 Atelectasis; I48.0 Paroxysmal atrial fibrillation; J98.6 Disorders of diaphragm; E66.9 Obesity, unspecified; E78.5 Hyperlipidemia, unspecified; Z79.82 Long term (current) use of aspirin; Z79.899 Other long term (current) drug therapy; Z80.3 Family history of malignant neoplasm of breast; Z82.49 Family history of ischemic heart disease and other diseases of the circulatory system; Z85.3 Personal history of malignant neoplasm of breast; Z87.440 Personal history of urinary (tract) infections; Z90.11 Acquired absence of right breast and nipple; Z92.21 Personal history of antineoplastic chemotherapy; Z92.3 Personal history of irradiation; Z88.0 Allergy status to penicillin
CPT/HCPCS: 36430; 36600; 36620; 71010; 71020; 80048; 80053; 81003; 82330; 82805; 83735; 84100; 84132; 85025; 85027; 85049; 85379; 85384; 85520; 85610; 85730; 86850; 86891; 86900; 86901; 86920; 87086; 88305; 88311; 94002; 94003; 94640; 94760

== ENCOUNTER → 2018-04-14 | Outpatient (CLI) | payer MEDICARE, BC ==
--- NOTE | 2018-04-14 08:38 | US ---
EXAMINATION TYPE: US liver DATE OF EXAM: 04/14/2018 COMPARISON: CT abdomen and pelvis September 23, 2015. CLINICAL HISTORY: R16.0 Hepatomegaly, R19.7 Diarrhea. Hepatomegaly, diarrhea, indigestion, cholecyste ctomy EXAM MEASUREMENTS: Liver Length: 11.2 cm Gallbladder Wall: Surgically absent CBD: 0.4 cm Right Kidney: 9.9 x 5.2 x 4.7 cm Technical limitations due to large amount of overlying bowel content Pancreas: Obscured by bowel gas Liver: limited evaluation, only visualized intercostally, appears heterogeneous Gallbladder: Surgically absent Evidence for sonographic Cerna's sign: No CBD: appears wnl as visualized Right Kidney: limited evaluation, no evidence of hydronephrosis Pancreas is obscured by overlying bowel gas on images saved. Visualized portion of liver shows hetero geneity without worrisome intrahepatic mass or ductal dilatation seen on images saved. Gallbladder is noted surgically absent. IMPRESSION: Suboptimal study without obvious intrahepatic mass or enlargement seen.
== END | disposition home or self-care (01) ==
LOC: RADUSWWP 07:50
PROVIDERS: ATTEND Family Medicine
DX: R16.0 Hepatomegaly, not elsewhere classified (principal); R19.7 Diarrhea, unspecified
CPT/HCPCS: 76705

== ENCOUNTER 2019-05-30 20:05 | Emergency (ER) | payer MEDICARE, BC ==
[2019-05-30 20:21] VITALS: TEMP 98.3
[2019-05-30] MEDS ORDERED: GLUCAGON 1 MG/ML VIAL IVP STA (21:24)
[2019-05-30] MEDS ORDERED: METOCLOPRAMIDE 5 MG/ML 2 ML VIAL IVP STA (21:24)
--- NOTE | 2019-05-30 22:31 | ED ---
ENT HPI - General Chief complaint: ENT Stated complaint: FB throat Time Seen by Provider: 05/30/19 20:59 Source: patient, family Mode of arrival: ambulatory Limitations: no limitations - History of Present Illness Initial comments: Patient is an 79-year-old female presenting to emergency Department with a chief complaint of food stuck in the throat. Patient reports she was eating steak when she suddenly was not able to swallow any more fluid. Patient reports she vomited the contents after she felt the obstruction. Patient reports she is not able to swallow her spit. Patient reports incident occurred about 2 hours prior to ED arrival. Patient denies dysphagia. Patient denies any shortness of breath or dyspnea. Patient denies any nausea or abdominal pain. - Related Data Home Medications Medication Instructions Recorded Confirmed Aspirin 81 mg PO HS 04/03/17 05/30/19 Multivit-Min/Iron/Folic/Lutein 1 tab PO DAILY 04/03/17 05/30/19 [Centrum Silver Women Tablet] Metoprolol Tartrate [Lopressor] 25 mg PO BID 05/30/19 05/30/19 Simvastatin [Zocor] 20 mg PO HS 05/30/19 05/30/19 Allergies Allergy/AdvReac Type Severity Reaction Status Date / Time Penicillins Allergy Rash/Hives Verified 05/30/19 21:44 Review of Systems ROS Statement: Those systems with pertinent positive or pertinent negative responses have been documented in the HPI. ROS Other: All systems not noted in ROS Statement are negative. Past Medical History Past Medical History: Cancer, Hyperlipidemia Additional Past Medical History / Comment(s): increased fatigue and feels like heart is pounding at night,heart murmur, having difficulty sleeping at night,breast CA with lumpectomy 1989, 35 treatments of radiation and 6 months of chemotherapy, 2013 right breast mastectomy,increased gas and freq diarrhea, urge urinary incontinence. History of Any Multi-Drug Resistant Organisms: None Reported Past Surgical History: Cardiac Valve Replacement, Cholecystectomy, Hysterectomy Additional Past Surgical History / Comment(s): right lumpectomy 1989, right masectomy 2012, hemorrhoidectomy. Past Anesthesia/Blood Transfusion Reactions: No Reported Reaction Past Psychological History: No Psychological Hx Reported Smoking Status: Never smoker Past Alcohol Use History: None Reported Past Drug Use History: None Reported - Past Family History Mother Family Medical History: No Reported History Additional Family Medical History / Comment(s): Alzheimer's Father Additional Family Medical History / Comment(s): heart problems due to rheumatic fever Sister(s) Family Medical History: Cancer Additional Family Medical History / Comment(s): 1 sister of ovarian cancer in 1993 , her other sister was diagnosed with breast cancer. General Exam Limitations: no limitations General appearance: alert, in no apparent distress Head exam: Present: atraumatic, normocephalic, normal inspection Eye exam: Present: normal appearance, PERRL, EOMI Pupils: Present: normal accommodation ENT exam: Present: normal exam, normal oropharynx (No foreign body noted), mucous membranes moist, TM's normal bilaterally, normal external ear exam Neck exam: Present: normal inspection, full ROM Respiratory exam: Present: normal lung sounds bilaterally. Absent: wheezes Cardiovascular Exam: Present: regular rate, normal rhythm, normal heart sounds GI/Abdominal exam: Present: soft, normal bowel sounds. Absent: tenderness, guarding, rebound Extremities exam: Present: normal inspection, full ROM Back exam: Present: normal inspection, full ROM Neurological exam: Present: alert, oriented X3 Psychiatric exam: Present: normal affect, normal mood Skin exam: Present: warm, intact, normal color Course Vital Signs 05/30/19 05/30/19 20:18 22:51 Temperature 98.3 F Pulse Rate 73 81 Respiratory 18 16 Rate Blood Pressure 187/95 129/81 O2 Sat by Pulse 95 99 Oximetry Medical Decision Making - Medical Decision Making Patient is an 79-year-old female presenting to emergency Department with a chief complaint of food sticking in her throat. Patient states that she was eating steak when she suddenly developed an obstruction is not able to swallow anything. Patient was given glucagon and Reglan, followed by a soda. Patient was able to drink all the soda. On reevaluation patient reports feeling much better and is able to swallow fluids without vomiting. Patient advised to follow with GI. Strict return parameters were thoroughly discussed the patient was understanding and agreeable. Case discussed with physician. Disposition Clinical Impression: Esophageal obstruction due to food impaction Disposition: HOME SELF-CARE Condition: Stable Instructions (If sedation given, give patient instructions): Esophageal Stricture (ED) Additional Instructions: Please follow up with GI. Please return to emergency department if symptoms worsen. Is patient prescribed a controlled substance at d/c from ED?: No Referrals: Katerina Dexter MD [Primary Care Provider] - 1-2 days Cleo Arrieta MD [STAFF PHYSICIAN] - 1-2 days Time of Disposition: 22:31
[2019-05-30 22:52] VITALS: BP 129/81; PULSE 81; RESP 16
== END 2019-05-30 22:52 | disposition home or self-care (01) ==
LOC: EC 20:05
DX: T18.128A Food in esophagus causing other injury, initial encounter (principal); E78.5 Hyperlipidemia, unspecified; Z88.0 Allergy status to penicillin; Z79.82 Long term (current) use of aspirin; Z79.899 Other long term (current) drug therapy; Z85.3 Personal history of malignant neoplasm of breast; Z92.3 Personal history of irradiation; Z92.21 Personal history of antineoplastic chemotherapy; Z90.11 Acquired absence of right breast and nipple; Z98.890 Other specified postprocedural states; Y93.89 Activity, other specified
CPT/HCPCS: 99283; 96374; 96375; J1610; J2765

== ENCOUNTER 2020-02-12 14:25 | Emergency (ER) | payer MEDICARE, BC ==
[2020-02-12 14:34] VITALS: RESP 18; TEMP 98.2
[2020-02-12] MEDS ORDERED: ASPIRIN 81 MG PO STA (15:15)
--- NOTE | 2020-02-12 15:18 | ED ---
General Adult HPI - General Chief complaint: Chest Pain Stated complaint: chest pain Time Seen by Provider: 02/12/20 15:07 Source: patient Mode of arrival: ambulatory Limitations: no limitations - History of Present Illness Initial comments: Dictation was produced using [employer] dictation software. please excuse any grammatical, word or spelling errors. This patient was cared for during a federal and state declared state of emergency secondary to Covid 19 Chief Complaint: 79-year-old female presents today with palpitations. History of Present Illness: 79-year-old female she has past medical history of hypertension, dyslipidemia. She presents today with chief complaint of fluttering in her chest. She denies that her symptoms feel like chest pain. She states she also feels a throbbing in her ear. She states that her symptoms keep her up at night. She refuses to report that her symptoms are discomforting. She denies chest pressure or chest pain. She locates her symptoms to the left anterior chest. Denies any numbness and paresthesias to the arms and legs. She takes aspirin and blood pressure medications. Patient s petty she tried to check her blood pressure at home with low readings. Her systolics are measured in the 90s. She currently feels asymptomatic. She states that her symptoms are only usually at night and sometimes exacerbated with lying flat. Denies any fever, chills or night sweats. No coughing. Denies any lower external symptoms. No calf pain or calf swelling. The ROS documented in this emergency department record has been reviewed and confirmed by me. Those systems with pertinent positive or negative responses have been documented in the HPI. All other systems are other negative and/or noncontributory. PHYSICAL EXAM: General Impression: Alert and oriented x3, not in acute distress HEENT: Normocephalic atraumatic, extra-ocular movements intact, pupils equal and reactive to light bilaterally, mucous membranes moist, and obstructing the visualization of the TM on the right, clear TMs on the left Cardiovascular: Heart regular rate and rhythm Chest: Able to complete full sentences, no retractions, no tachypnea Abdomen: abdomen soft, non-tender, non-distended, no organomegaly Musculoskeletal: Pulses present and equal in all extremities, no peripheral edema Motor: no focal deficits noted Neurological: CN II-XII grossly intact, no focal motor or sensory deficits noted Skin: Intact with no visualized rashes Psych: Normal affect and mood ED course: 79-year-old female presents with chest symptoms described as fluttering in her chest that she reports is positional. Signs upon arrival are within acceptable limits. Physical examination is benign. EKG is benign. Laboratory evaluation obtained. CBC, coag panel, 1 pounds unremarkable. Cardiac enzymes negative. Chest x-ray shows no acute processes. She does however have continued asymmetric elevation of the right diaphragm. She denies any abdominal complaints. No concern for free air in the abdomen. Observation and admission was offered to the patient however she preferred to be discharged. She will make an appointment with her senior caregiver as soon as possible. Return for evidence discussed. At this point there are no high-risk features identified. Patient is well-appearing. Patient agreeable with disposition. EKG interpretation: Ventricular rate 68, normal sinus rhythm,. Interval to 6, QRS 82, QTc 433. No NH prolongation, no QTC prolongation, no ST or T-wave changes noted. EKG compared to 05/05/2017 showing no changes. Overall, this EKG is unremarkable - Related Data Home Medications Medication Instructions Recorded Confirmed Aspirin 81 mg PO HS 04/03/17 05/30/19 Multivit-Min/Iron/Folic/Lutein 1 tab PO DAILY 04/03/17 05/30/19 [Centrum Silver Women Tablet] Metoprolol Tartrate [Lopressor] 25 mg PO BID 05/30/19 05/30/19 Simvastatin [Zocor] 20 mg PO HS 05/30/19 05/30/19 Allergies Allergy/AdvReac Type Severity Reaction Status Date / Time Penicillins Allergy Rash/Hives Verified 02/12/20 14:33 Review of Systems ROS Statement: Those systems with pertinent positive or pertinent negative responses have been documented in the HPI. ROS Other: All systems not noted in ROS Statement are negative. Past Medical History Past Medical History: Cancer, Hyperlipidemia Additional Past Medical History / Comment(s): increased fatigue and feels like heart is pounding at night,heart murmur, having difficulty sleeping at night,breast CA with lumpectomy 1989, treatments of radiation and 6 months of chemotherapy, 2013 right breast mastectomy,increased gas and freq diarrhea, urge urinary incontinence. History of Any Multi-Drug Resistant Organisms: None Reported Past Surgical History: Cardiac Valve Replacement, Cholecystectomy, Hysterectomy Additional Past Surgical History / Comment(s): right lumpectomy 1989, right masectomy 2012, hemorrhoidectomy. Past Anesthesia/Blood Transfusion Reactions: No Reported Reaction Past Psychological History: No Psychological Hx Reported Smoking Status: Never smoker Past Alcohol Use History: None Reported Past Drug Use History: None Reported - Past Family History Mother Family Medical History: No Reported History Additional Family Medical History / Comment(s): Alzheimer's Father Additional Family Medical History / Comment(s): heart problems due to rheumatic fever Sister(s) Family Medical History: Cancer Additional Family Medical History / Comment(s): 1 sister of ovarian cancer in 1993 , her other sister was diagnosed with breast cancer. General Exam Limitations: no limitations Course Vital Signs 02/12/20 14:31 Temperature 98.2 F Pulse Rate 74 Respiratory 18 Rate Blood Pressure 182/88 O2 Sat by Pulse 96 Oximetry Medical Decision Making - Lab Data Result diagrams: 02/12/20 15:00 02/12/20 15:00 Lab Results 02/12/20 02/12/20 02/12/20 Range/Units 15:00 15:00 15:00 WBC 5.9 (3.8-10.6) k/uL RBC 4.26 (3.80-5.40) m/uL Hgb 13.4 (11.4-16.0) gm/dL Hct 42.1 (34.0-46.0) % MCV 98.9 (80.0-100.0) fL MCH 31.4 (25.0-35.0) pg MCHC 31.8 (31.0-37.0) g/dL RDW 12.6 (11.5-15.5) % Plt Count 257 (150-450) k/uL Neutrophils % 66 % Lymphocytes % 21 % Monocytes % 9 % Eosinophils % 1 % Basophils % 0 % Neutrophils # 3.9 (1.3-7.7) k/uL Lymphocytes # 1.2 (1.0-4.8) k/uL Monocytes # 0.5 (0-1.0) k/uL Eosinophils # 0.1 (0-0.7) k/uL Basophils # 0.0 (0-0.2) k/uL PT 9.9 (9.0-12.0) sec INR 1.0 (<1.2) APTT 20.9 L (22.0-30.0) sec Sodium 138 (137-145) mmol/L Potassium 4.3 (3.5-5.1) mmol/L Chloride 105 (98-107) mmol/L Carbon Dioxide 25 (22-30) mmol/L Anion Gap 8 mmol/L BUN 11 (7-17) mg/dL Creatinine 0.44 L (0.52-1.04) mg/dL Est GFR (CKD-EPI)AfAm >90 (>60 ml/min/1.73 sqM) Est GFR (CKD-EPI)NonAf >90 (>60 ml/min/1.73 sqM) Glucose 106 H (74-99) mg/dL Calcium 9.7 (8.4-10.2) mg/dL Magnesium 2.1 (1.6-2.3) mg/dL Total Bilirubin 0.5 (0.2-1.3) mg/dL AST 29 (14-36) U/L ALT 18 (4-34) U/L Alkaline Phosphatase 74 (38-126) U/L Troponin I (0.000-0.034) ng/mL Total Protein 7.1 (6.3-8.2) g/dL Albumin 4.2 (3.5-5.0) g/dL 02/12/20 Range/Units 15:00 WBC (3.8-10.6) k/uL RBC (3.80-5.40) m/uL Hgb (11.4-16.0) gm/dL Hct (34.0-46.0) % MCV (80.0-100.0) fL MCH (25.0-35.0) pg MCHC (31.0-37.0) g/dL RDW (11.5-15.5) % Plt Count (150-450) k/uL Neutrophils % % Lymphocytes % % Monocytes % % Eosinophils % % Basophils % % Neutrophils # (1.3-7.7) k/uL Lymphocytes # (1.0-4.8) k/uL Monocytes # (0-1.0) k/uL Eosinophils # (0-0.7) k/uL Basophils # (0-0.2) k/uL PT (9.0-12.0) sec INR (<1.2) APTT (22.0-30.0) sec Sodium (137-145) mmol/L Potassium (3.5-5.1) mmol/L Chloride (98-107) mmol/L Carbon Dioxide (22-30) mmol/L Anion Gap mmol/L BUN (7-17) mg/dL Creatinine (0.52-1.04) mg/dL Est GFR (CKD-EPI)AfAm (>60 ml/min/1.73 sqM) Est GFR (CKD-EPI)NonAf (>60 ml/min/1.73 sqM) Glucose (74-99) mg/dL Calcium (8.4-10.2) mg/dL Magnesium (1.6-2.3) mg/dL Total Bilirubin (0.2-1.3) mg/dL AST (14-36) U/L ALT (4-34) U/L Alkaline Phosphatase (38-126) U/L Troponin I <0.012 (0.000-0.034) ng/mL Total Protein (6.3-8.2) g/dL Albumin (3.5-5.0) g/dL Disposition Clinical Impression: Palpitations Disposition: HOME SELF-CARE Condition: Good Instructions (If sedation given, give patient instructions): Heart Palpitations (ED) Is patient prescribed a controlled substance at d/c from ED?: No Referrals: Katerina Dexter MD [Primary Care Provider] - 1-2 days Time of Disposition: 17:07
[2020-02-12 15:38] LABS: Basophils % (A) 0 %; Eosinophils # (A) 0.1 k/uL (0-0.7); Eosinophils % (A) 1 %; HCT 42.1 % (34.0-46.0); HGB 13.4 gm/dL (11.4-16.0); Lymphocytes # (A) 1.2 k/uL (1.0-4.8); Lymphocytes % (A) 21 %; MCH 31.4 pg (25.0-35.0); MCHC 31.8 g/dL (31.0-37.0); MCV 98.9 fL (80.0-100.0); Mean Platelet Volume 8.4; Monocytes # (A) 0.5 k/uL (0-1.0); Monocytes % (A) 9 %; Neutrophils # (A) 3.9 k/uL (1.3-7.7); Neutrophils % (A) 66 %; Platelet Count 257 k/uL (150-450); RBC 4.26 m/uL (3.80-5.40); RDW 12.6 % (11.5-15.5); WBC 5.9 k/uL (3.8-10.6)
[2020-02-12 15:45] LABS: ALT 18 U/L (4-34); AST 29 U/L (14-36); African American GFR (CKD) >90 (>60 ml/min/1.73 sqM); Albumin 4.2 g/dL (3.5-5.0); Alkaline Phosphatase 74 U/L (38-126); Anion Gap 8 mmol/L; Blood Urea Nitrogen 11 mg/dL (7-17); Calcium 9.7 mg/dL (8.4-10.2); Carbon Dioxide 25 mmol/L (22-30); Chloride 105 mmol/L (98-107); Glucose 106 mg/dL (74-99); Magnesium 2.1 mg/dL (1.6-2.3); Non-African American GFR(CKD) >90 (>60 ml/min/1.73 sqM); Potassium 4.3 mmol/L (3.5-5.1); Sodium 138 mmol/L (137-145); Total Bilirubin 0.5 mg/dL (0.2-1.3); Total Protein 7.1 g/dL (6.3-8.2)
[2020-02-12 15:52] LABS: Prothrombin Time 9.9 sec (9.0-12.0)
--- NOTE | 2020-02-12 15:52 | XR ---
EXAMINATION TYPE: XR chest 2V DATE OF EXAM: 02/12/2020 COMPARISON: 05/05/2017 HISTORY: 79-year-old female with chest pain TECHNIQUE: PA and lateral views FINDINGS: Continued asymmetric elevation of the right hemidiaphragm. There is air lucency seen below the hemidi aphragm. On the patient's 2016 exam, this had the appearance of the hepatic flexure of the colon, les s so on the current study. The hemidiaphragm extends up to the mid thoracic level. Mild interstitial prominence as a chronic appearance. The right heart margin is obscured. Surgical clips in the right a xilla. Median sternotomy wires with prosthetic aortic valve. No adelina consolidation or pleural effusi on. IMPRESSION: 1. Continued asymmetric elevation of the right hemidiaphragm. There is air lucency below the hemidiap hragm that could represent interposed hepatic flexure of the colon. Recommend abdominal series with a left decubitus view to exclude free intraperitoneal air. 2. Otherwise, chronic changes without acute process seen.
[2020-02-12 16:06] LABS: Partial Thromboplastin Time 20.9 sec (22.0-30.0)
[2020-02-12 17:26] VITALS: BP 161/86; PULSE 72
== END 2020-02-12 17:32 | disposition home or self-care (01) ==
LOC: EC 14:25
DX: R00.2 Palpitations (principal); R07.9 Chest pain, unspecified; E78.5 Hyperlipidemia, unspecified; I10 Essential (primary) hypertension; Z79.82 Long term (current) use of aspirin; Z79.899 Other long term (current) drug therapy; Z88.0 Allergy status to penicillin; Z95.2 Presence of prosthetic heart valve; Z85.3 Personal history of malignant neoplasm of breast; Z90.11 Acquired absence of right breast and nipple
CPT/HCPCS: 36415; 71046; 80053; 83735; 84484; 85025; 85610; 85730; 93005; 99285

== ENCOUNTER → 2020-03-02 | Outpatient (CLI) | payer MEDICARE, BC ==
--- NOTE | 2020-03-02 10:46 | XR ---
EXAMINATION TYPE: XR abdomen complete w decub DATE OF EXAM: 03/02/2020 COMPARISON: Chest x-ray 02/12/2020, CT 04/09/2017 HISTORY: R 93.89, abnormal x-ray TECHNIQUE: Supine, upright, and left side down lateral decubitus views of the abdomen are obtained. FINDINGS: Patient is post median sternotomy, atrial appendage clipping, aortic valve replacement. Adam rgical clips present in the right axilla. Surgical clips present in the upper abdomen. Right hemidiap hragm may be elevated, increased opacity again noted in the right lower chest. Air is noted beneath t he right hemidiaphragm. There is no evidence for pneumoperitoneum. The bowel gas pattern is unremarkable as there is air throughout nondilated small and large bowel. There are air-fluid levels without bowel distention. No mass effects are seen. No unusual calcifications. IMPRESSION: Postop changes. Pneumoperitoneum is not evident. Correlate for ileus or enteritis. Elevation right he midiaphragm is chronic.
== END | disposition home or self-care (01) ==
LOC: RADXRMAIN 09:19
PROVIDERS: ATTEND Family Medicine
DX: Z95.2 Presence of prosthetic heart valve (principal); R93.89 Abnormal findings on diagnostic imaging of other specified body structures
CPT/HCPCS: 74021

== ENCOUNTER 2021-05-30 11:49 | Emergency (ER) | payer MEDICARE, BC ==
[2021-05-30 12:08] VITALS: RESP 20; TEMP 98.8
[2021-05-30] MEDS ORDERED: DIPH,PERTUS(ACELL)TETVAC-LF 0.5 ML VIAL IM ONE (12:45)
--- NOTE | 2021-05-30 12:50 | ED ---
General Adult HPI - General Chief complaint: Fall Stated complaint: trip & fall, head injury Time Seen by Provider: 05/30/21 12:15 Source: patient, RN notes reviewed, old records reviewed Mode of arrival: wheelchair Limitations: no limitations - History of Present Illness Initial comments: This is an 81-year-old female presents emergency Department complaining that she fell and hit her head. Patient states she is on no blood thinners. Patient states she tripped over something fell forward and hit the right side of her forehead. Patient denies any loss of consciousness. Patient denies being days. Patient denies any neck pain. Patient denies any visual problems. Patient states she also hurt her right fifth finger and has a small cut on her fifth finger. Patient denies having any tetanus recently. Patient denies hitting her chest. Patient denies any abdominal pain. Patient's any back pain. Patient's any extremity pain. - Related Data Home Medications Medication Instructions Recorded Confirmed Aspirin 81 mg PO HS 04/03/17 05/30/21 Multivit-Min/Iron/Folic/Lutein 1 tab PO DAILY 04/03/17 05/30/21 [Centrum Silver Women Tablet] Metoprolol Tartrate [Lopressor] 25 mg PO BID 05/30/19 05/30/21 Simvastatin [Zocor] 20 mg PO HS 05/30/19 05/30/21 Bifidobacterium Infantis [Align] 4 mg PO HS 05/30/21 05/30/21 Cholecalciferol (Vitamin D3) 125 mcg PO DAILY 05/30/21 05/30/21 [Vitamin D3 (125 MCG = 5,000 IU)] Psyllium Husk 100% [Metamucil 6 gm PO HS 05/30/21 05/30/21 Packet] Allergies Allergy/AdvReac Type Severity Reaction Status Date / Time Penicillins Allergy Rash/Hives Verified 05/30/21 13:17 Review of Systems ROS Statement: Those systems with pertinent positive or pertinent negative responses have been documented in the HPI. ROS Other: All systems not noted in ROS Statement are negative. Past Medical History Past Medical History: Cancer, Hyperlipidemia Additional Past Medical History / Comment(s): increased fatigue and feels like heart is pounding at night,heart murmur, having difficulty sleeping at night,breast CA with lumpectomy 1989, treatments of radiation and 6 months of chemotherapy, 2013 right breast mastectomy,increased gas and freq diarrhea, urge urinary incontinence. History of Any Multi-Drug Resistant Organisms: None Reported Past Surgical History: Cardiac Valve Replacement, Cholecystectomy, Hysterectomy Additional Past Surgical History / Comment(s): right lumpectomy 1989, right masectomy 2012, hemorrhoidectomy. Past Anesthesia/Blood Transfusion Reactions: No Reported Reaction Past Psychological History: No Psychological Hx Reported Smoking Status: Never smoker Past Alcohol Use History: None Reported Past Drug Use History: None Reported - Past Family History Mother Family Medical History: No Reported History Additional Family Medical History / Comment(s): Alzheimer's Father Additional Family Medical History / Comment(s): heart problems due to rheumatic fever Sister(s) Family Medical History: Cancer Additional Family Medical History / Comment(s): 1 sister of ovarian cancer in 1993 , her other sister was diagnosed with breast cancer. General Exam - General Exam Comments Initial Comments: GENERAL: Patient is well-developed and well-nourished. Patient is nontoxic and well- hydrated and is in mild distress. ENT: Neck is soft and supple. No significant lymphadenopathy is noted. Oropharynx is clear. Moist mucous membranes. Neck has full range of motion without eliciting any pain. EYES: The sclera were anicteric and conjunctiva were pink and moist. Extraocular movements were intact and pupils were equal round and reactive to light. Eyelids were unremarkable. Patient has ecchymosis along the right upper eyelid and coming around on the medial aspect of the right lower eyelid. Area is tender to palpation. There is no open lacerations on the forehead or around the eye. PULMONARY: Unlabored respirations. Good breath sounds bilaterally. No audible rales rhonchi or wheezing was noted. CARDIOVASCULAR: There is a regular rate and rhythm without any murmurs gallops or rubs. ABDOMEN: Soft and nontender with normal bowel sounds. SKIN: Laceration 1 cm on the medial aspect of the fifth right finger NEUROLOGIC: Patient is alert and oriented x3. Cranial nerves II through XII are grossly intact. Motor and sensory are also intact. Normal speech, volume and content. Symmetrical smile. MUSCULOSKELETAL: Normal extremities with adequate strength and full range of motion. Fifth right finger has a small 1 cm laceration LYMPHATICS: No significant lymphadenopathy is noted PSYCHIATRIC: Normal psychiatric evaluation. Limitations: no limitations Course Vital Signs 05/30/21 05/30/21 05/30/21 12:04 13:08 14:53 Temperature 98.8 F 98.8 F 98.8 F Pulse Rate 69 71 71 Respiratory 20 20 20 Rate Blood Pressure 159/88 148/88 148/88 O2 Sat by Pulse 96 96 96 Oximetry Procedures - Laceration Laceration #1 Consent Obtained: verbal consent Indication: laceration Site: other (Right fifth finger) Description: linear Size of Sutures: other (Exofin glue) Medical Decision Making - Medical Decision Making I was going to suture the finger but the patient wanted me to use glue. CT of the brain and C-spine showed no acute abnormality. CT facial bones showed no acute abnormality. X-ray of the finger show no acute abnormality Disposition Clinical Impression: Fall, Finger laceration, Forehead contusion Disposition: HOME SELF-CARE Instructions (If sedation given, give patient instructions): Head Injury (ED), Fall Prevention (ED) Is patient prescribed a controlled substance at d/c from ED?: No Referrals: Katerina Dexter MD [Primary Care Provider] - 1-2 days Time of Disposition: 14:37
--- NOTE | 2021-05-30 13:30 | CT ---
EXAMINATION TYPE: CT facial bones wo con DATE OF EXAM: 05/30/2021 COMPARISON: Pain HISTORY: Pain CT DLP: inc. in brain/c-spine mGycm Automated exposure control for dose reduction was used. TECHNIQUE: CT scan of the sinuses is performed without contrast, axial images are obtained, coronal r eformatted images are also reviewed. FINDINGS: Large soft tissue hematoma overlying the right periorbital region and frontal bone. Osseous structures intact. No definite acute displaced fracture line orbits are symmetric and appear to be intact. Slight nasal septal deviation. Very mild changes of chronic ethmoidal sinusitis. IMPRESSION: Large soft tissue hematoma overlying the right periorbital and frontal bone with no diagn ostic evidence of acute fracture.
--- NOTE | 2021-05-30 13:37 | CT ---
EXAMINATION TYPE: CT brain sami johnson con DATE OF EXAM: 05/30/2021 COMPARISON: HISTORY: Fall CT DLP: 895.8 mGycm Automated exposure control for dose reduction was used. TECHNIQUE: CT scan of the head and cervical spine are performed without contrast. FINDINGS: There is a large cephalhematoma over the right supraorbital region extending over the righ t orbit and towards the nose. There is cortical atrophy present. There is no acute intracranial hemor rhage, mass effect, or midline shift identified. The ventricles and sulci are within normal limits i n size. The globes are intact and the visualized sinuses are clear. Cervical spine is visualized in its entirety from C1 through upper thoracic levels and demonstrates s atisfactory alignment without evidence of acute fracture or dislocation. Suspect is a midline fusion anomaly at C1 posteriorly. Prevertebral soft tissue appears within normal limits. The C1-C2 articul ation is showing arthropathy change. Multilevel facet arthropathy is present, there is degenerative d isc change with loss of disc height at intervertebral levels, multilevel spondylosis, multilevel fora geraldo encroachment is present. IMPRESSION: 1. There is no acute fracture or dislocation evident in the cervical spine. 2. No acute intracranial hemorrhage, mass effect, or midline shift is seen.
--- NOTE | 2021-05-30 13:44 | XR ---
Fifth digit right hand HISTORY: Trauma and pain 3 views of the fifth digit right hand Arthropathy changes present. Bone mineralization is reduced. Alignment is maintained. IMPRESSION: No acute fracture or dislocation is evident. Underlying osteoarthritis noted.
[2021-05-30] MEDS ORDERED: TOPICAL SKIN ADHESIVE 1 EACH AMP TOPICAL ONE (14:21)
[2021-05-30 14:43] VITALS: BP 148/88; PULSE 71
== END 2021-05-30 14:53 | disposition home or self-care (01) ==
LOC: EC 11:49
DX: S61.216A Laceration without foreign body of right little finger without damage to nail, initial encounter (principal); S00.83XA Contusion of other part of head, initial encounter; E78.5 Hyperlipidemia, unspecified; Z79.82 Long term (current) use of aspirin; Z79.899 Other long term (current) drug therapy; Z88.0 Allergy status to penicillin; Z80.3 Family history of malignant neoplasm of breast; Z90.49 Acquired absence of other specified parts of digestive tract; Z95.2 Presence of prosthetic heart valve; W01.0XXA Fall on same level from slipping, tripping and stumbling without subsequent striking against object, initial encounter
CPT/HCPCS: 12001; 70450; 70486; 72125; 90471; 90715; 99284

== ENCOUNTER 2021-06-02 15:46 | Emergency (ER) | payer MEDICARE, BC ==
[2021-06-02 16:05] VITALS: TEMP 98.3
--- NOTE | 2021-06-02 17:06 | ED ---
General Adult HPI - General Chief complaint: Recheck/Abnormal Lab/Rx Stated complaint: Revisit/fall/facal swelling Time Seen by Provider: 06/02/21 16:40 Source: patient Mode of arrival: ambulatory Limitations: no limitations - History of Present Illness Initial comments: Is an 81-year-old female who presents emergency department for concerns of bruising in her oropharynx. She states that she sustained a fall on 914 and was evaluated in emergency department. She had a CT of her head, neck, and face that were unremarkable for any acute abnormalities. The patient was noted to have a right frontal hematoma. She states that this has improved and she had much swelling around her eye however since the fall she's noticed that the bruising has been tracking down her cheek and along her mandible and into her buccal mucosa. She was seen by her primary doctor a couple of days ago who noted bruising on the right buccal mucosa. The patient was concerned today because she looked in her throat and thought that she saw bruising in her posterior pharynx that she can emergency department. She states that she has not had any difficulty breathing, swallowing. She has no sensation of swelling in her posterior pharynx. She denies any increased headache, nausea, or vomiting. He does admit to little bit of decreased appetite. She states that her tongue feels dry however states he has not been eating and drinking as much. She states that she was just concerned and wanted to be evaluated however her primary doctor was not available today. - Related Data Home Medications Medication Instructions Recorded Confirmed Aspirin 81 mg PO HS 04/03/17 05/30/21 Multivit-Min/Iron/Folic/Lutein 1 tab PO DAILY 04/03/17 05/30/21 [Centrum Silver Women Tablet] Metoprolol Tartrate [Lopressor] 25 mg PO BID 05/30/19 05/30/21 Simvastatin [Zocor] 20 mg PO HS 05/30/19 05/30/21 Bifidobacterium Infantis [Align] 4 mg PO HS 05/30/21 05/30/21 Cholecalciferol (Vitamin D3) 125 mcg PO DAILY 05/30/21 05/30/21 [Vitamin D3 (125 MCG = 5,000 IU)] Psyllium Husk 100% [Metamucil 6 gm PO HS 05/30/21 05/30/21 Packet] Allergies Allergy/AdvReac Type Severity Reaction Status Date / Time Penicillins Allergy Rash/Hives Verified 06/02/21 16:05 Review of Systems ROS Statement: Those systems with pertinent positive or pertinent negative responses have been documented in the HPI. ROS Other: All systems not noted in ROS Statement are negative. Past Medical History Past Medical History: Cancer, Hyperlipidemia Additional Past Medical History / Comment(s): increased fatigue and feels like heart is pounding at night,heart murmur, having difficulty sleeping at night,breast CA with lumpectomy 1989, 35 treatments of radiation and 6 months of chemotherapy, 2013 right breast mastectomy,increased gas and freq diarrhea, urge urinary incontinence. History of Any Multi-Drug Resistant Organisms: None Reported Past Surgical History: Cardiac Valve Replacement, Cholecystectomy, Hysterectomy Additional Past Surgical History / Comment(s): right lumpectomy 1989, right masectomy 2012, hemorrhoidectomy. Past Anesthesia/Blood Transfusion Reactions: No Reported Reaction Past Psychological History: No Psychological Hx Reported Smoking Status: Never smoker Past Alcohol Use History: None Reported Past Drug Use History: None Reported - Past Family History Mother Family Medical History: No Reported History Additional Family Medical History / Comment(s): Alzheimer's Father Additional Family Medical History / Comment(s): heart problems due to rheumatic fever Sister(s) Family Medical History: Cancer Additional Family Medical History / Comment(s): 1 sister of ovarian cancer in 1993 , her other sister was diagnosed with breast cancer. General Exam - General Exam Comments Initial Comments: Constitutional: Awake alert Appears comfortable Head: Normocephalic, there is bruising to the bilateral periorbital areas and r ight forehead. She does have some bruising tracking down the right cheek over the mandible area Eyes: no conjunctival injection No scleral icterus EOMI HEENT: Oropharynx appeared clear without any evidence for ecchymosis in the posterior pharynx. The patient does have a 1 cm in diameter area of ecchymosis to the right buccal area however no active bleeding was noted Neck: No JVD Supple Heart: Regular rate rhythm normal S1-S2 no murmurs Lungs: Clear to auscultation bilaterally No wheezing No rales Abdomen: Soft nondistended nontender Extremities: Non edematous DP pulses intact Radial pulses intact Neuro: A&Ox3 No focal neurologic deficits Psych: Appropriate mood and affect Limitations: no limitations Course Vital Signs 06/02/21 06/02/21 06/02/21 16:03 17:18 17:36 Temperature 98.3 F Pulse Rate 60 65 Respiratory 18 18 Rate Blood Pressure 202/89 186/108 O2 Sat by Pulse 96 97 Oximetry 06/02/21 18:12 Temperature Pulse Rate 76 Respiratory 18 Rate Blood Pressure 171/77 O2 Sat by Pulse 96 Oximetry Medical Decision Making - Medical Decision Making Is a 1-year-old female presents emergency department for concerns of bruising in her posterior pharynx. I did not appreciate any bruising in the posterior pharynx however she does have some on the right buccal mucosa. This appears to be stable from the report of her PCP 2 days ago. Otherwise the patient's blood pressure was a little bit elevated and she was given her nighttime dose of metoprolol. She otherwise had no symptoms. She's can follow-up was with her primary doctor. Can return emergency Department if she has any worsening or changing symptoms or any concerns. All questions were answered. Disposition Clinical Impression: Traumatic ecchymosis of face Disposition: HOME SELF-CARE Condition: Stable Instructions (If sedation given, give patient instructions): Ecchymosis (ED) Is patient prescribed a controlled substance at d/c from ED?: No Referrals: Katerina Dexter MD [Primary Care Provider] - 1-2 days
[2021-06-02 17:19] VITALS: RESP 18
[2021-06-02] MEDS ORDERED: METOPROLOL TARTRATE 25 MG TAB PO STA (17:44)
[2021-06-02 18:12] VITALS: BP 171/77; PULSE 76
== END 2021-06-02 18:35 | disposition home or self-care (01) ==
LOC: EC 15:46
DX: S00.83XA Contusion of other part of head, initial encounter (principal); E78.5 Hyperlipidemia, unspecified; Z79.82 Long term (current) use of aspirin; Z79.899 Other long term (current) drug therapy; Z88.0 Allergy status to penicillin; Z90.49 Acquired absence of other specified parts of digestive tract; Z95.2 Presence of prosthetic heart valve; Z80.3 Family history of malignant neoplasm of breast; W19.XXXA Unspecified fall, initial encounter
CPT/HCPCS: 99283

== ENCOUNTER 2021-11-06 10:02 | Observation (INO) | payer MEDICARE, BC ==
--- NOTE | 2021-11-06 12:40 | ED ---
General Adult HPI - General Chief complaint: ENT Stated complaint: Vomiting/feels like food is stuck in throat Time Seen by Provider: 11/06/21 12:00 Source: patient, RN notes reviewed, old records reviewed Mode of arrival: ambulatory Limitations: no limitations - History of Present Illness Initial comments: This is an 81-year-old female who presents emergency department stating that last night she had carrots and coleslaw and it was very difficult to swallow it and it one point she finally vomited up the coleslaw and carrots. Patient states she had no meat. Patient states any time since then she eats anything she feels like she has to burp and she burped a few times and coughed up a little phlegm. Patient states she had applesauce this morning and though she didn't cough up some phlegm after that she did not see any episodes. Patient in the ER is able to keep down water but she states it hurts going down. Patient also ate orange cello and she did not vomit that up. Patient denies any pain except when she swallowing. Patient denies any chest pain difficult breathing shortness of breath. Patient denies any fever chills or cough. Patient states she had a hiatal hernia surgery years ago. - Related Data Home Medications Medication Instructions Recorded Confirmed Aspirin 81 mg PO HS 04/03/17 05/30/21 Multivit-Min/Iron/Folic/Lutein 1 tab PO DAILY 04/03/17 05/30/21 [Centrum Silver Women Tablet] Metoprolol Tartrate [Lopressor] 25 mg PO BID 05/30/19 05/30/21 Simvastatin [Zocor] 20 mg PO HS 05/30/19 05/30/21 Bifidobacterium Infantis [Align] 4 mg PO HS 05/30/21 05/30/21 Cholecalciferol (Vitamin D3) 125 mcg PO DAILY 05/30/21 05/30/21 [Vitamin D3 (125 MCG = 5,000 IU)] Psyllium Husk 100% [Metamucil 6 gm PO HS 05/30/21 05/30/21 Packet] Allergies Allergy/AdvReac Type Severity Reaction Status Date / Time Penicillins Allergy Rash/Hives Verified 06/02/21 16:05 Review of Systems ROS Statement: Those systems with pertinent positive or pertinent negative responses have been documented in the HPI. ROS Other: All systems not noted in ROS Statement are negative. Past Medical History Past Medical History: Cancer, Hyperlipidemia Additional Past Medical History / Comment(s): increased fatigue and feels like heart is pounding at night,heart murmur, having difficulty sleeping at night,breast CA with lumpectomy 1989, 35 treatments of radiation and 6 months of chemotherapy, 2013 right breast mastectomy,increased gas and freq diarrhea, urge urinary incontinence. History of Any Multi-Drug Resistant Organisms: None Reported Past Surgical History: Cardiac Valve Replacement, Cholecystectomy, Hysterectomy Additional Past Surgical History / Comment(s): right lumpectomy 1989, right masectomy 2012, hemorrhoidectomy. Past Anesthesia/Blood Transfusion Reactions: No Reported Reaction Past Psychological History: No Psychological Hx Reported Smoking Status: Never smoker Past Alcohol Use History: None Reported Past Drug Use History: None Reported - Past Family History Mother Family Medical History: No Reported History Additional Family Medical History / Comment(s): Alzheimer's Father Additional Family Medical History / Comment(s): heart problems due to rheumatic fever Sister(s) Family Medical History: Cancer Additional Family Medical History / Comment(s): 1 sister of ovarian cancer in 1993 , her other sister was diagnosed with breast cancer. General Exam - General Exam Comments Initial Comments: GENERAL: Patient is well-developed and well-nourished. Patient is nontoxic and well- hydrated and is in mild distress. ENT: Neck is soft and supple. No significant lymphadenopathy is noted. Oropharynx is clear. Moist mucous membranes. Neck has full range of motion without eliciting any pain. EYES: The sclera were anicteric and conjunctiva were pink and moist. Extraocular movements were intact and pupils were equal round and reactive to light. Eyelids were unremarkable. PULMONARY: Unlabored respirations. Good breath sounds bilaterally. No audible rales rhonchi or wheezing was noted. CARDIOVASCULAR: There is a regular rate and rhythm without any murmurs gallops or rubs. ABDOMEN: Soft and nontender with normal bowel sounds. SKIN: Skin is clear with no lesions or rashes and otherwise unremarkable. NEUROLOGIC: Patient is alert and oriented x3. Cranial nerves II through XII are grossly intact. Motor and sensory are also intact. Normal speech, volume and content. Symmetrical smile. MUSCULOSKELETAL: Normal extremities with adequate strength and full range of motion. LYMPHATICS: No significant lymphadenopathy is noted PSYCHIATRIC: Normal psychiatric evaluation. Limitations: no limitations Course Vital Signs 11/06/21 10:15 Temperature 98.4 F Pulse Rate 71 Respiratory 20 Rate Blood Pressure 152/76 O2 Sat by Pulse 96 Oximetry Medical Decision Making - Medical Decision Making X-ray shows continued elevated diaphragm. Patient was able to swallow some water but it does cause some discomfort but it did eventually go down per patient also Patient was also able to swallow Jell-O with some discomfort. I spoke with Dr. Arrieta she will be willing to see the patient and scope the pat ient about I spoke with Dr. Buck he agreed to admit the patient. I admitted the patient wrote admitting orders. - Lab Data Result diagrams: 11/06/21 13:18 11/06/21 13:18 Lab Results 11/06/21 11/06/21 11/06/21 Range/Units 13:18 13:18 13:18 WBC 6.2 (3.8-10.6) k/uL RBC 4.36 (3.80-5.40) m/uL Hgb 14.5 (11.4-16.0) gm/dL Hct 43.8 (34.0-46.0) % MCV 100.4 H (80.0-100.0) fL MCH 33.4 (25.0-35.0) pg MCHC 33.2 (31.0-37.0) g/dL RDW 12.5 (11.5-15.5) % Plt Count 285 (150-450) k/uL MPV 7.9 Neutrophils % 63 % Lymphocytes % 25 % Monocytes % 8 % Eosinophils % 1 % Basophils % 1 % Neutrophils # 3.9 (1.3-7.7) k/uL Lymphocytes # 1.6 (1.0-4.8) k/uL Monocytes # 0.5 (0-1.0) k/uL Eosinophils # 0.1 (0-0.7) k/uL Basophils # 0.1 (0-0.2) k/uL Sodium 135 L (137-145) mmol/L Potassium 4.3 (3.5-5.1) mmol/L Chloride 102 (98-107) mmol/L Carbon Dioxide 27 (22-30) mmol/L Anion Gap 6 mmol/L BUN 12 (7-17) mg/dL Creatinine 0.53 (0.52-1.04) mg/dL Est GFR (CKD-EPI)AfAm >90 (>60 ml/min/1.73 sqM) Est GFR (CKD-EPI)NonAf 89 (>60 ml/min/1.73 sqM) Glucose 148 H (74-99) mg/dL Calcium 9.5 (8.4-10.2) mg/dL Total Bilirubin 0.9 (0.2-1.3) mg/dL AST 30 (14-36) U/L ALT 21 (4-34) U/L Alkaline Phosphatase 78 (38-126) U/L Total Protein 7.3 (6.3-8.2) g/dL Albumin 4.1 (3.5-5.0) g/dL Urine Color Yellow Urine Appearance Clear (Clear) Urine pH 6.0 (5.0-8.0) Ur Specific [place] 1.012 (1.001-1.035) Urine Protein Negative (Negative) Urine Glucose (UA) Negative (Negative) Urine Ketones 1+ H (Negative) Urine Blood Negative (Negative) Urine Nitrite Negative (Negative) Urine Bilirubin Negative (Negative) Urine Urobilinogen <2.0 (<2.0) mg/dL Ur Leukocyte Esterase Negative (Negative) Disposition Clinical Impression: Dysphagia Disposition: ADMITTED IP TO THIS HOSP Referrals: Katerina Dexter MD [Primary Care Provider] - 1-2 days Time of Disposition: 13:52
[2021-11-06] MEDS ORDERED: SODIUM CHLORIDE 0.9% 1,000 ML IV ONE ×2 (13:02→13:52)
[2021-11-06 13:28] LABS: Basophils # (A) 0.1 k/uL (0-0.2); Basophils % (A) 1 %; Eosinophils # (A) 0.1 k/uL (0-0.7); Eosinophils % (A) 1 %; HCT 43.8 % (34.0-46.0); HGB 14.5 gm/dL (11.4-16.0); Lymphocytes # (A) 1.6 k/uL (1.0-4.8); Lymphocytes % (A) 25 %; MCH 33.4 pg (25.0-35.0); MCHC 33.2 g/dL (31.0-37.0); MCV 100.4 fL (80.0-100.0); Mean Platelet Volume 7.9; Monocytes # (A) 0.5 k/uL (0-1.0); Monocytes % (A) 8 %; Neutrophils # (A) 3.9 k/uL (1.3-7.7); Neutrophils % (A) 63 %; Platelet Count 285 k/uL (150-450); RBC 4.36 m/uL (3.80-5.40); RDW 12.5 % (11.5-15.5); WBC 6.2 k/uL (3.8-10.6)
[2021-11-06 13:34] LABS: Appearance,Urine Clear (Clear); Bilirubin,Urine Negative (Negative); Blood,Urine Negative (Negative); Color,Urine Yellow; Glucose,Urine (UA) Negative (Negative); Ketones,Urine 1+ (Negative); Leukocyte Esterase,Urine Negative (Negative); Nitrite,Urine Negative (Negative); Protein,Urine Negative (Negative); Specific Gravity,Urine 1.012 (1.001-1.035); Urobilinogen,Urine <2.0 mg/dL (<2.0)
[2021-11-06 13:38] LABS: ALT 21 U/L (4-34); AST 30 U/L (14-36); African American GFR (CKD) >90 (>60 ml/min/1.73 sqM); Albumin 4.1 g/dL (3.5-5.0); Alkaline Phosphatase 78 U/L (38-126); Anion Gap 6 mmol/L; Blood Urea Nitrogen 12 mg/dL (7-17); Calcium 9.5 mg/dL (8.4-10.2); Carbon Dioxide 27 mmol/L (22-30); Chloride 102 mmol/L (98-107); Glucose 148 mg/dL (74-99); Non-African American GFR(CKD) 89 (>60 ml/min/1.73 sqM); Potassium 4.3 mmol/L (3.5-5.1); Sodium 135 mmol/L (137-145); Total Bilirubin 0.9 mg/dL (0.2-1.3); Total Protein 7.3 g/dL (6.3-8.2)
--- NOTE | 2021-11-06 14:03 | XR ---
EXAMINATION TYPE: XR chest 2V DATE OF EXAM: 11/06/2021 COMPARISON: 02/12/2020 INDICATION: Chest pain difficulty breathing TECHNIQUE: Frontal and lateral views of the chest are obtained. FINDINGS: The heart size is normal. Sternotomy wires from patient's CABG are evident. The pulmonary vasculature is normal. The lungs are clear. There may be air within the hepatic flexure below the elevated right diaphragm. Peritoneum is considered less likely. This was present previously to 6 greater volume on the prior e xamination. Sternotomy wires are present from prior cardiac valve surgery. Multiple surgical clips are along late ral right chest wall. IMPRESSION: 1. No acute pulmonary process. 2. Chronic elevation of the right diaphragm. 3. Suspected air within the hepatic flexure below the elevated right diaphragm. If there is suspicion of free air, left lateral decubitus view could be performed.
--- NOTE | 2021-11-06 14:54 | P.CONS ---
History of Present Illness - Reason for Consult Consult date: 11/06/21 dysphagia Requesting physician: Daniel Garibay - Chief Complaint Difficulty swallowing - History of Present Illness This pleasant 81-year-old female who presented to the emergency room with difficulty swallowing. Patient apparently yesterday was eating some coleslaw and carrots and felt like her food gets stuck in her throat it became painful to swallow she started coughing and then vomited. Later she tried to drink some fluids and she continued to have a feeling that something was stuck in her throat and she had vomited again. She woke up this morning similar symptoms tried to drink some water but still felt as though she had difficulty with passing. She presented to the emergency department for further evaluation. Patient states she has a previous history of esophageal stricture status post dilation she believes in 2014 that was done by Dr. Jose Mccann. She is also had previous upper endoscopies with Dr. Carroll. I'll in the emergency room she was given some water and Jell-O which she states felt better going down. She's had no further vomiting or choking. States the pain has improved as well however she is requesting that she stay and be further evaluated with an upper endoscopy. She denies being on any anticoagulation, she does have a history of aortic valve replacement in 2017, hyperlipidemia, breast cancer status post mastectomy. He underwent a chest x-ray that showed no acute pulmonary process. Review of Systems REVIEW OF SYSTEMS: CARDIOPULMONARY: No chest pain or shortness of breath. Gastrointestinal: Complains of feeling like food is stuck in her throat, esophagus. She had several episodes of vomiting and coughing yesterday. Resolved now. No hematemesis, coffee-ground emesis. No rectal bleeding, or melena. GENITOURINARY: No dysuria or hematuria. MUSCULOSKELETAL: Reports normal range of motion., Joint pain. SKIN: No rashes. No jaundice. ENDOCRINE: No chills, fevers. No excessive weight gain or loss. No polydipsia or polyuria. PSYCHIATRIC: Unremarkable. NEUROLOGY: No change in mental status. Denies dizziness, headache. ENT: Vision unremarkable. CONSTITUTIONAL: No recent weight loss. No fever, chills, night sweats. Past Medical History Past Medical History: Cancer, Hyperlipidemia Additional Past Medical History / Comment(s): increased fatigue and feels like heart is pounding at night,heart murmur, having difficulty sleeping at night,breast CA with lumpectomy 1989, 35 treatments of radiation and 6 months of chemotherapy, 2013 right breast mastectomy,increased gas and freq diarrhea, urge urinary incontinence. History of Any Multi-Drug Resistant Organisms: None Reported Past Surgical History: Cardiac Valve Replacement, Cholecystectomy, Hysterectomy Additional Past Surgical History / Comment(s): right lumpectomy 1989, right ma sectomy 2012, hemorrhoidectomy. Past Anesthesia/Blood Transfusion Reactions: No Reported Reaction Past Psychological History: No Psychological Hx Reported Smoking Status: Never smoker Past Alcohol Use History: None Reported Past Drug Use History: None Reported - Past Family History Mother Family Medical History: No Reported History Additional Family Medical History / Comment(s): Alzheimer's Father Additional Family Medical History / Comment(s): heart problems due to rheumatic fever Sister(s) Family Medical History: Cancer Additional Family Medical History / Comment(s): 1 sister of ovarian cancer in 1993 , her other sister was diagnosed with breast cancer. Medications and Allergies Home Medications Medication Instructions Recorded Confirmed Type Aspirin 81 mg PO HS 04/03/17 05/30/21 History Multivit-Min/Iron/Folic/Lutein 1 tab PO DAILY 04/03/17 05/30/21 History [Centrum Silver Women Tablet] Metoprolol Tartrate [Lopressor] 25 mg PO BID 05/30/19 05/30/21 History Simvastatin [Zocor] 20 mg PO HS 05/30/19 05/30/21 History Bifidobacterium Infantis [Align] 4 mg PO HS 05/30/21 05/30/21 History Cholecalciferol (Vitamin D3) 125 mcg PO DAILY 05/30/21 05/30/21 History [Vitamin D3 (125 MCG = 5,000 IU)] Psyllium Husk 100% [Metamucil 6 gm PO HS 05/30/21 05/30/21 History Packet] Allergies Allergy/AdvReac Type Severity Reaction Status Date / Time Penicillins Allergy Rash/Hives Verified 06/02/21 16:05 Physical Exam Vitals: Vital Signs Temp Pulse Resp BP Pulse Ox 11/06/21 10:15 98.4 F 71 20 152/76 96 Intake and Output 11/05/21 11/06/21 11/06/21 22:59 06:59 14:59 Other: Weight 68.039 kg General appearance: The patient is alert, oriented, appears in no acute distress. HET: Head is normocephalic and atraumatic. Conjunctiva pink. Sclera anicteric. Neck: Supple without lymphadenopathy. Trachea midline. Heart: S1 S2. Regular rate and rhythm. Lungs: Clear to auscultation. Abdomen: Soft, nontender, nondistended with bowel sounds. No guarding or rigidity. Skin: No rashes. No jaundice. Extremities: Normal skin color and turgor. No pedal edema. Neurological: No focal deficits. Alert and oriented x3. Results CBC & Chem 7: 11/06/21 13:18 11/06/21 13:18 Labs: Abnormal Lab Results - Last 24 Hours (Table) 11/06/21 11/06/21 Range/Units 13:18 13:18 MCV 100.4 H (80.0-100.0) fL Urine Ketones 1+ H (Negative) Chest x-ray: report reviewed (No acute pulmonary process) Assessment and Plan (1) Dysphagia Narrative/Plan: 81-year-old female who came in with symptoms of feeling like food was stuck in her throat, esophagus. Patient was eating coleslaw and cared yesterday after which he felt it was watched in her throat. She had a coughing episode followed by several episodes of vomiting. States she did feel somewhat better than this morning she woke up and she tried to drink some water. States it felt like it would not go down that she had phlegm and she vomited that up. She came to the emergency room for further evaluation as she does have a history of esophageal stricture status post dilation approximately [address] Alexandre Mccann. When she came to the emergency room she was able to drink some water as well as taken Jell-O which she states felt better. She denied any pain with swallowing. She denies any epigastric pain at this time. However patient would like to be admitted for further evaluation of possible foreign body versus esophageal stricture with possible need for dilation. Patient will be clear liquid diet, nothing by mouth after midnight and scheduled for EGD with possible esophageal dilation Current Visit: Yes Status: Acute Code(s): R13.10 - DYSPHAGIA, UNSPECIFIED SNOMED Code(s): 33636761 Plan: 9. Continue symptomatic and supportive care 2. Clear liquid diet 3. Nothing by mouth after midnight 4. No anticoagulation 5. Patient will be scheduled for EGD with possible esophageal dilation, possible foreign body removal Thank you for this consultation, we will continue to follow. Dr. Cindy Arrieta I agree with the dictator's note, documented as a scribe by Jaky Calvo.
--- NOTE | 2021-11-06 19:07 | P.HPIM ---
History of Present Illness H&P Date: 11/06/21 Chely Mcdonough, is an 81-year-old female who presented to [facility] was a chief complaint of difficulty swallowing her food nausea and vomiting. She was evaluated in the emergency room vital examination on presentation revealed a temperature of 98.4 pulse 71 respiration 20 pressure 152/76 pulse ox 96% on room air Laboratory data revealed a white blood count of 6.2 hemoglobin 14.5 platelet count 285 sodium 135 potassium 4.3 chloride 102 CO2 27 BUN 12 creatinine 0.53 glucose was 148 COVID-19 PCR was negative liver enzymes within normal limits and urine analysis normal. Testing in the emergency room revealed chest x-ray done in the emergency room revealed no acute pulmonary process and chronic elevation of the right diaphragm Patient was admitted to medical floor for further evaluation and treatment, gastroenterology consultation was requested for possible EGD and possible esophageal dilation Past medical history is significant for history of breast cancer in 1989 with sasha mpectomy and radiation and chemotherapy with recurrent right breast cancer with right mastectomy in 2012, history of aortic valve replacement, 2016 and history of paroxysmal atrial fibrillation currently not on any anticoagulation Past Medical History Past Medical History: Cancer, Hyperlipidemia Additional Past Medical History / Comment(s): increased fatigue and feels like heart is pounding at night,heart murmur, having difficulty sleeping at night,breast CA with lumpectomy 1989, 35 treatments of radiation and 6 months of chemotherapy, 2013 right breast mastectomy,increased gas and freq diarrhea, urge urinary incontinence. History of Any Multi-Drug Resistant Organisms: None Reported Past Surgical History: Cardiac Valve Replacement, Cholecystectomy, Hysterectomy Additional Past Surgical History / Comment(s): right lumpectomy 1989, right masectomy 2012, hemorrhoidectomy. Past Anesthesia/Blood Transfusion Reactions: No Reported Reaction Past Psychological History: No Psychological Hx Reported Smoking Status: Never smoker Past Alcohol Use History: None Reported Past Drug Use History: None Reported - Past Family History Mother Family Medical History: No Reported History Additional Family Medical History / Comment(s): Alzheimer's Father Additional Family Medical History / Comment(s): heart problems due to rheumatic fever Sister(s) Family Medical History: Cancer Additional Family Medical History / Comment(s): 1 sister of ovarian cancer in 1993 , her other sister was diagnosed with breast cancer. Medications and Allergies Home Medications Medication Instructions Recorded Confirmed Type Aspirin 81 mg PO HS 04/03/17 11/06/21 History Multivit-Min/Iron/Folic/Lutein 1 tab PO DAILY 04/03/17 11/06/21 History [Centrum Silver Women Tablet] Metoprolol Tartrate [Lopressor] 25 mg PO BID 05/30/19 11/06/21 History Simvastatin [Zocor] 20 mg PO HS 05/30/19 11/06/21 History Bifidobacterium Infantis [Align] 4 mg PO DAILY 05/30/21 11/06/21 History Cholecalciferol (Vitamin D3) 125 mcg PO DAILY 05/30/21 11/06/21 History [Vitamin D3 (125 MCG = 5,000 IU)] Psyllium Husk 100% [Metamucil 6 gm PO DAILY 05/30/21 11/06/21 History Packet] Allergies Allergy/AdvReac Type Severity Reaction Status Date / Time Penicillins Allergy Rash/Hives Verified 11/06/21 15:33 Physical Exam Vitals: Vital Signs Temp Pulse Pulse Resp BP BP Pulse Ox 11/06/21 15:00 98.1 F 72 18 176/72 99 11/06/21 10:15 98.4 F 71 20 152/76 96 Intake and Output 11/06/21 11/06/21 11/06/21 06:59 14:59 22:59 Intake Total 90 Balance 90 Intake: Oral 90 Other: Weight 68.039 kg In general patient is alert and oriented x 3 in no distress HEENT head normocephalic and atraumatic Neck is supple no JVD no goiter no lymphadenopathy no carotid bruit Chest examination is clear to auscultation no crackles no wheezing Cardiac exam reveals regular heart sounds S1 and S2 no gallops with 2/6 systolic murmur in the left sternal border Abdomen is soft nontender no organomegaly with normal bowel sounds Extremity exam reveals no edema no cyanosis or clubbing Neurological examination reveals no gross focal deficits Results CBC & Chem 7: 11/06/21 13:18 11/06/21 13:18 Labs: Abnormal Lab Results - Last 24 Hours (Table) 11/06/21 11/06/21 11/06/21 Range/Units 13:18 13:18 13:18 MCV 100.4 H (80.0-100.0) fL Sodium 135 L (137-145) mmol/L Glucose 148 H (74-99) mg/dL Urine Ketones 1+ H (Negative) Thrombosis Risk Factor Assmnt - Choose All That Apply Any of the Below Risk Factors Present?: No Each Risk Factor Represents 3 Points: Age 75 years or older Other congenital or acquired thrombophilia - If yes, enter type in comment: No Thrombosis Risk Factor Assessment Total Risk Factor Score: 3 Thrombosis Risk Factor Assessment Level: Moderate Risk Assessment and Plan Plan: Difficulty swallowing food patient is admitted to medical floor gastroenterology consultation was requested for possible EGD History of valvular heart disease with history of aortic valve replacement Underlying history of hyperlipidemia Previous history of breast cancer Previous history of paroxysmal atrial fibrillation At this time patient is admitted to medical floor She was started on IV protonix Gastrointestinal consultation was requested For DVT prophylaxis SCD stockings Will follow in a.m.
[2021-11-06] MEDS: METOPROLOL TARTRATE 25 MG TAB PO SCH (21:09)
[2021-11-06] MEDS: PANTOPRAZOLE 40 MG/10 ML VIAL IVP SCH (21:09)
[2021-11-06 22:41] VITALS: RESP 16
[2021-11-07] MEDS ORDERED: LIDOCAINE 1% INJ 10MG/ML (20 ML MDV) ONE (06:49)
[2021-11-07] MEDS ORDERED: PROPOFOL 10 MG/ML 20 ML VIAL IV ONE (06:49)
[2021-11-07] MEDS ORDERED: SODIUM CHLORIDE 0.9% 500 ML 500 ML IV ONE ×2 (06:52)
--- NOTE | 2021-11-07 07:07 | P.PCN ---
Date of Procedure: 11/07/21 Procedure(s) Performed: BRIEF HISTORY: Patient is a 81-year-old, pleasant, white female admitted hospital with intermittent dysphagia to solids for the last 1 year duration. She has prior history of esophageal stricture for which she underwent EGD with dilation about 5-6 years ago. Her last 2 days she is been having dysphagia after eating every meal and came to the emergency room yesterday with a food stuck in her throat. He scheduled for an upper endoscopy this morning with a possible dilation. PROCEDURE PERFORMED: Esophagogastroduodenoscopy dilation . PREOPERATIVE DIAGNOSIS: Dysphagia to solids of 1 year duration with worsening symptoms for the last 2 days. IV sedation per anesthesia. PROCEDURE: After informed consent was obtained, the patient was brought into the endoscopy unit. IV sedation was administered by Anesthesia under continuous monitoring. Initially the Olympus GIF-140 video endoscope was inserted into the mouth. Esophagus intubated without any difficulty. It was gradually advanced into the stomach and duodenum and carefully examined. The bulb and the second part of the duodenum appeared normal. The scope at this time was withdrawn to the stomach, adequately insufflated with air, and upon careful examination, mucosa of the antrum, body, cardia and the fundus appeared normal. The scope was then withdrawn into the esophagus. The GE junction was located at 35 cm from the incisors. moderate size I'll hernia noted. There was esophageal stricture at the GE junction which was dilated using 12-15 mm TTS balloon The esophagus darling in a sequential fashion for 60 seconds. There were linear erosions in the distal esophagus consistent with LA grade B reflux esophagitis. The rest of the esophagus appeared normal. the patient tolerated the procedure well. IMPRESSION: 1..Distal esophageal stricture status post balloon dilation using 12-15 mm TTS balloon as described above 2..Moderate size hiatal hernia 3. LA grade B reflux esophagitis RECOMMENDATIONS: The findings of this examination were discussed with the patient. She'll be started on clear liquid diet this can be advanced as tolerated by dinner. She will continue with Protonix 40 mg daily and follow antireflux measures. She'll be seen in office in 2-3 weeks.
[2021-11-07 08:15] VITALS: TEMP 97.6
[2021-11-07] MEDS: METOPROLOL TARTRATE 25 MG TAB PO SCH (08:51)
[2021-11-07] MEDS: PANTOPRAZOLE 40 MG/10 ML VIAL IVP SCH (08:52)
[2021-11-07 09:24] VITALS: BP 145/58; PULSE 57
[2021-11-07 11:40] LABS: Basophils # (A) 0.04 X 10*3/uL (0.00-0.10); Basophils % (A) 0.9 %; Eosinophils % (A) 2.1 %; HCT 40.9 % (37.2-46.3); HGB 13.1 g/dL (12.0-15.0); Immature Grans, Automated 0.2 %; Lymphocytes # (A) 1.37 X 10*3/uL (0.90-5.00); Lymphocytes % (A) 29.2 %; MCV 99.8 fL (80.0-97.0); Mean Platelet Volume 10.5 fL (9.5-12.2); Monocytes # (A) 0.66 X 10*3/uL (0.20-1.00); Monocytes % (A) 14.1 %; NRBC Per 100 WBC 0 /100 WBCS (0.0-0.0); Neutrophils # (A) 2.51 X 10*3/uL (1.80-7.70); Neutrophils % (A) 53.5 %; Platelet Count 268 X 10*3/uL (140-440); RDW 12.8 % (11.5-14.5); WBC 4.69 X 10*3/uL (4.50-10.00)
[2021-11-07 12:58] LABS: African American GFR (CKD) 98.4 (60.0-200.0); Albumin 3.9 g/dL (3.8-4.9); Albumin/Globulin Ratio 1.7 (1.60-3.17); Anion Gap 10.5 mmol/L (10.00-18.00); BUN/Creat Ratio 13.17 Ratio (12.00-20.00); Blood Urea Nitrogen 7.9 mg/dL (9.0-27.0); Calcium 9.2 mg/dL (8.7-10.3); Carbon Dioxide 24.5 mmol/L (20.0-27.5); Globulin 2.3 g/dL (1.6-3.3); Non-African American GFR(CKD) 84.9 (60.0-200.0); Potassium 4.4 mmol/L (3.5-5.5); Total Bilirubin 0.7 mg/dL (0.30-1.20); Total Protein 6.2 g/dL (6.2-8.2)
--- NOTE | 2021-11-07 13:31 | P.DS ---
Providers Date of admission: 11/06/21 13:52 Expected date of discharge: 11/07/21 Attending physician: Shana Buck Consults: 11/06/21 13:52 Consult Physician Urgent Consulting Provider: Cleo Arrieta Consult Reason/Comments: Dysphagia Do you want consulting provider notified?: Already Contacted Primary care physician: Katerina Dexter [facility] Course: Diagnosis on discharge: Difficulty swallowing food patient underwent EGD and had evidence of Distal esophageal stricture status post balloon dilation History of valvular heart disease with history of aortic valve replacement Underlying history of hyperlipidemia Previous history of breast cancer Previous history of paroxysmal atrial fibrillation Hospital course: Chely Mcdonough, is an 81-year-old female who presented to [facility] was a chief complaint of difficulty swallowing her food nausea and vomiting. She was evaluated in the emergency room vital examination on presentation revealed a temperature of 98.4 pulse 71 respiration 20 pressure 152/76 pulse ox 96% on room air Laboratory data revealed a white blood count of 6.2 hemoglobin 14.5 platelet count 285 sodium 135 potassium 4.3 chloride 102 CO2 27 BUN 12 creatinine 0.53 glucose was 148 COVID-19 PCR was negative liver enzymes within normal limits and urine analysis normal. Testing in the emergency room revealed chest x-ray done in the emergency room revealed no acute pulmonary process and chronic elevation of the right diaphragm Patient was admitted to medical floor for further evaluation and treatment, gastroenterology consultation was requested for possible EGD and possible esophageal dilation Past medical history is significant for history of breast cancer in 1989 with lumpectomy and radiation and chemotherapy with recurrent right breast cancer with right mastectomy in 2012, history of aortic valve replacement, 2016 and history of paroxysmal atrial fibrillation currently not on any anticoagulation. On 11/07/2021 patient was seen and examined on the medical floor she is alert and oriented 3 in no apparent distress she underwent EGD with esophageal dilation today by Dr. Arrieta, she was able to tolerate diet well after procedure. Per her nurse Dr. Arrieta has cleared for discharge. Protonix 40 mg by mouth daily was added to her medication regimen patient will be discharged home today she was instructed to return to emergency room if having any lower chest or epigastric pain or having any nausea vomiting or vomiting up blood or blood in the stool or having difficulty again swallowing. Follow-up with Dr. Dexter in the next 2-3 days Plan - Discharge Summary Discharge Rx Participant: Yes New Discharge Prescriptions: New Pantoprazole Sodium [Protonix] 40 mg PO DAILY 30 Days #30 tab Continue Aspirin 81 mg PO HS Multivit-Min/Iron/Folic/Lutein [Centrum Silver Women Tablet] 1 tab PO DAILY Metoprolol Tartrate [Lopressor] 25 mg PO BID Simvastatin [Zocor] 20 mg PO HS Psyllium Husk 100% [Metamucil Packet] 6 gm PO DAILY Bifidobacterium Infantis [Align] 4 mg PO DAILY Cholecalciferol (Vitamin D3) [Vitamin D3 (125 MCG = 5,000 IU)] 125 mcg PO DAILY Discharge Medication List Aspirin 81 mg PO HS 04/03/17 [History] Multivit-Min/Iron/Folic/Lutein [Centrum Silver Women Tablet] 1 tab PO DAILY 04/03/17 [History] Metoprolol Tartrate [Lopressor] 25 mg PO BID 05/30/19 [History] Simvastatin [Zocor] 20 mg PO HS 05/30/19 [History] Bifidobacterium Infantis [Align] 4 mg PO DAILY 05/30/21 [History] Cholecalciferol (Vitamin D3) [Vitamin D3 (125 MCG = 5,000 IU)] 125 mcg PO DAILY 05/30/21 [History] Psyllium Husk 100% [Metamucil Packet] 6 gm PO DAILY 05/30/21 [History] Pantoprazole Sodium [Protonix] 40 mg PO DAILY 30 Days #30 tab 11/07/21 [Rx] Follow up Appointment(s)/Referral(s): Katerina Dexter MD [Primary Care Provider] - 1-2 days Cleo Arrieta MD [STAFF PHYSICIAN] - 3 Weeks
== END 2021-11-07 14:06 | disposition home or self-care (01) ==
LOC: EC 10:02 → 6NMEDSUR 13:52
PROVIDERS: ADMIT Internal Medicine; ATTEND Internal Medicine
DX: K22.2 Esophageal obstruction (principal); K21.00 Gastro-esophageal reflux disease with esophagitis, without bleeding; K44.9 Diaphragmatic hernia without obstruction or gangrene; E78.5 Hyperlipidemia, unspecified; I48.0 Paroxysmal atrial fibrillation; Z20.822 Contact with and (suspected) exposure to COVID-19; Z79.82 Long term (current) use of aspirin; Z79.899 Other long term (current) drug therapy; Z88.0 Allergy status to penicillin; Z87.19 Personal history of other diseases of the digestive system; Z95.2 Presence of prosthetic heart valve; Z90.11 Acquired absence of right breast and nipple; Z92.21 Personal history of antineoplastic chemotherapy; Z92.3 Personal history of irradiation; Z90.710 Acquired absence of both cervix and uterus; Z90.49 Acquired absence of other specified parts of digestive tract; Z85.3 Personal history of malignant neoplasm of breast; Z82.0 Family history of epilepsy and other diseases of the nervous system; Z80.3 Family history of malignant neoplasm of breast; Z80.41 Family history of malignant neoplasm of ovary; Z82.49 Family history of ischemic heart disease and other diseases of the circulatory system
CPT/HCPCS: 96361; 96374; 99285; 36415; 80053 ×2; 85025 ×2; 81003; 87635; 71046; 43249; G0378 ×2; J2001; J2704; C9113 ×2; C1726

== ENCOUNTER 2023-09-12 10:22 | Emergency (ER) | payer MEDICARE, BC ==
[2023-09-12 11:27] VITALS: BP 172/100; PULSE 68; RESP 18; TEMP 98
--- NOTE | 2023-09-12 11:39 | ED ---
Arrhythmia/Palpitations HPI - General Chief Complaint: Arrhythmia/Palpitations Stated Complaint: headache/sore throat Source: patient Mode of arrival: ambulatory Limitations: no limitations - History of Present Illness Initial Comments: 83-year-old female presenting to the ED with a chief complaint of palpitations. Patient states for the past week has had sinus pressure, congestion, and has generally not been feeling well. she notes over the past 2-3 days has had a sensation where her heart feels as if it is old fluttering lasting 1-2 minutes. Denies chest pain or shortness of breath. - Related Data Home Medications Medication Instructions Recorded Confirmed Aspirin 81 mg PO HS 04/03/17 11/06/21 Multivit-Min/Iron/Folic/Lutein 1 tab PO DAILY 04/03/17 11/06/21 [Centrum Silver Women Tablet] Metoprolol Tartrate [Lopressor] 25 mg PO BID 05/30/19 11/06/21 Simvastatin [Zocor] 20 mg PO HS 05/30/19 11/06/21 Bifidobacterium Infantis [Align] 4 mg PO DAILY 05/30/21 11/06/21 Cholecalciferol (Vitamin D3) 125 mcg PO DAILY 05/30/21 11/06/21 [Vitamin D3 (125 MCG = 5,000 IU)] Psyllium Husk 100% [Metamucil 6 gm PO DAILY 05/30/21 11/06/21 Packet] Previous Rx's Medication Instructions Recorded Pantoprazole Sodium [Protonix] 40 mg PO DAILY 30 Days #30 tab 11/07/21 Allergies Allergy/AdvReac Type Severity Reaction Status Date / Time Penicillins Allergy Rash/Hives Verified 09/12/23 11:05 Review of Systems ROS Statement: Those systems with pertinent positive or pertinent negative responses have been documented in the HPI. ROS Other: All systems not noted in ROS Statement are negative. Past Medical History Past Medical History: Cancer, Hyperlipidemia Additional Past Medical History / Comment(s): increased fatigue and feels like heart is pounding at night,heart murmur, having difficulty sleeping at night,breast CA with lumpectomy 1989, 35 treatments of radiation and 6 months of chemotherapy, 2013 right breast mastectomy,increased gas and freq diarrhea, urge urinary incontinence. History of Any Multi-Drug Resistant Organisms: None Reported Past Surgical History: Cardiac Valve Replacement, Cholecystectomy, Hysterectomy Additional Past Surgical History / Comment(s): right lumpectomy 1989, right masectomy 2012, hemorrhoidectomy. Past Anesthesia/Blood Transfusion Reactions: No Reported Reaction Past Psychological History: No Psychological Hx Reported Smoking Status: Never smoker Past Alcohol Use History: None Reported Past Drug Use History: None Reported - Past Family History Mother Family Medical History: No Reported History Additional Family Medical History / Comment(s): Alzheimer's Father Additional Family Medical History / Comment(s): heart problems due to rheumatic fever Sister(s) Family Medical History: Cancer Additional Family Medical History / Comment(s): 1 sister of ovarian cancer in 1993 , her other sister was diagnosed with breast cancer. General Exam - General Exam Comments Initial Comments: Visual Physical Exam Vital signs reviewed General: Well-appearing, nontoxic, no acute distress. Head: Normocephalic, atraumatic Eyes: PERRLA, EOMI ENT: Airway patent Chest: Nonlabored breathing Skin: No visual rash, normal skin tone Neuro: Alert and oriented 3 Musculoskeletal: No gross abnormalities Limitations: no limitations Course Vital Signs 09/12/23 11:01 Temperature 98 F Pulse Rate 68 Respiratory 18 Rate Blood Pressure 172/100 O2 Sat by Pulse 97 Oximetry Medical Decision Making - Medical Decision Making Quicknote portion performed. Signed Elmo Morelos PA-C Quick nail portion was performed however patient left AGAINST MEDICAL ADVICE before completing formal medical evaluation. - Lab Data Result diagrams: 09/12/23 11:35 09/12/23 11:35 Lab Results 09/12/23 09/12/23 09/12/23 Range/Units 11:35 11:35 11:35 WBC 5.1 (3.8-10.6) k/uL RBC 4.21 (3.80-5.40) m/uL Hgb 13.9 (11.4-16.0) gm/dL Hct 40.6 (34.0-46.0) % MCV 96.5 (80.0-100.0) fL MCH 33.0 (25.0-35.0) pg MCHC 34.2 (31.0-37.0) g/dL RDW 12.4 (11.5-15.5) % Plt Count 249 (150-450) k/uL MPV 8.5 Neutrophils % 60 % Lymphocytes % 29 % Monocytes % 8 % Eosinophils % 2 % Basophils % 0 % Neutrophils # 3.0 (1.3-7.7) k/uL Lymphocytes # 1.5 (1.0-4.8) k/uL Monocytes # 0.4 (0-1.0) k/uL Eosinophils # 0.1 (0-0.7) k/uL Basophils # 0.0 (0-0.2) k/uL PT 11.3 (10.0-12.5) sec INR 1.0 (<1.2) APTT 22.9 (22.0-30.0) sec Sodium 135 L (137-145) mmol/L Potassium 4.8 (3.5-5.1) mmol/L Chloride 100 (98-107) mmol/L Carbon Dioxide 24 (22-30) mmol/L Anion Gap 11 mmol/L BUN 9 (7-17) mg/dL Creatinine 0.43 L (0.52-1.04) mg/dL Est GFR (CKD-EPI)AfAm >90 (>60 ml/min/1.73 sqM) Est GFR (CKD-EPI)NonAf >90 (>60 ml/min/1.73 sqM) Glucose 108 H (74-99) mg/dL Calcium 9.4 (8.4-10.2) mg/dL Magnesium 2.1 (1.6-2.3) mg/dL Total Bilirubin 0.8 (0.2-1.3) mg/dL AST 34 (14-36) U/L ALT 21 (4-34) U/L Alkaline Phosphatase 71 (38-126) U/L Troponin I (0.000-0.034) ng/mL Total Protein 7.1 (6.3-8.2) g/dL Albumin 4.0 (3.5-5.0) g/dL 09/12/23 Range/Units 11:35 WBC (3.8-10.6) k/uL RBC (3.80-5.40) m/uL Hgb (11.4-16.0) gm/dL Hct (34.0-46.0) % MCV (80.0-100.0) fL MCH (25.0-35.0) pg MCHC (31.0-37.0) g/dL RDW (11.5-15.5) % Plt Count (150-450) k/uL MPV Neutrophils % % Lymphocytes % % Monocytes % % Eosinophils % % Basophils % % Neutrophils # (1.3-7.7) k/uL Lymphocytes # (1.0-4.8) k/uL Monocytes # (0-1.0) k/uL Eosinophils # (0-0.7) k/uL Basophils # (0-0.2) k/uL PT (10.0-12.5) sec INR (<1.2) APTT (22.0-30.0) sec Sodium (137-145) mmol/L Potassium (3.5-5.1) mmol/L Chloride (98-107) mmol/L Carbon Dioxide (22-30) mmol/L Anion Gap mmol/L BUN (7-17) mg/dL Creatinine (0.52-1.04) mg/dL Est GFR (CKD-EPI)AfAm (>60 ml/min/1.73 sqM) Est GFR (CKD-EPI)NonAf (>60 ml/min/1.73 sqM) Glucose (74-99) mg/dL Calcium (8.4-10.2) mg/dL Magnesium (1.6-2.3) mg/dL Total Bilirubin (0.2-1.3) mg/dL AST (14-36) U/L ALT (4-34) U/L Alkaline Phosphatase (38-126) U/L Troponin I <0.012 (0.000-0.034) ng/mL Total Protein (6.3-8.2) g/dL Albumin (3.5-5.0) g/dL Disposition Clinical Impression: Palpitations Disposition: LEFT AGAINST MEDICAL ADVICE Referrals: Katerina Dexter MD [Primary Care Provider] - 1-2 days
[2023-09-12 12:09] LABS: ALT 21 U/L (4-34); AST 34 U/L (14-36); African American GFR (CKD) >90 (>60 ml/min/1.73 sqM); Alkaline Phosphatase 71 U/L (38-126); Anion Gap 11 mmol/L; Blood Urea Nitrogen 9 mg/dL (7-17); Calcium 9.4 mg/dL (8.4-10.2); Carbon Dioxide 24 mmol/L (22-30); Chloride 100 mmol/L (98-107); Glucose 108 mg/dL (74-99); Magnesium 2.1 mg/dL (1.6-2.3); Non-African American GFR(CKD) >90 (>60 ml/min/1.73 sqM); Potassium 4.8 mmol/L (3.5-5.1); Sodium 135 mmol/L (137-145); Total Bilirubin 0.8 mg/dL (0.2-1.3); Total Protein 7.1 g/dL (6.3-8.2)
[2023-09-12 12:10] LABS: Partial Thromboplastin Time 22.9 sec (22.0-30.0); Prothrombin Time 11.3 sec (10.0-12.5)
[2023-09-12 12:32] LABS: Basophils % (A) 0 %; Eosinophils # (A) 0.1 k/uL (0-0.7); Eosinophils % (A) 2 %; HCT 40.6 % (34.0-46.0); HGB 13.9 gm/dL (11.4-16.0); Lymphocytes # (A) 1.5 k/uL (1.0-4.8); Lymphocytes % (A) 29 %; MCHC 34.2 g/dL (31.0-37.0); MCV 96.5 fL (80.0-100.0); Mean Platelet Volume 8.5; Monocytes # (A) 0.4 k/uL (0-1.0); Monocytes % (A) 8 %; Neutrophils % (A) 60 %; Platelet Count 249 k/uL (150-450); RBC 4.21 m/uL (3.80-5.40); RDW 12.4 % (11.5-15.5); WBC 5.1 k/uL (3.8-10.6)
--- NOTE | 2023-09-12 13:18 | XR ---
EXAMINATION TYPE: XR chest 2V DATE OF EXAM: 09/12/2023 1:10 PM CLINICAL INDICATION:Female, 83 years old with history of dysrhythmia; [facility] COMPARISON: Chest radiographs from 11/06/2021. TECHNIQUE: XR chest 2V Frontal and lateral views of the chest. FINDINGS: Lungs/Pleura: Similar elevated right diaphragm. There is no evidence of pleural effusion, focal conso lidation, or pneumothorax. Pulmonary vascularity: Unremarkable. Heart/mediastinum: Cardiomediastinal silhouette is enlarged and stable. Post aortic valve repair court nges. Left atrial appendage occlusion device is present. Musculoskeletal: No acute osseous pathology. Other findings: Right axillary surgical clips. IMPRESSION: Stable exam with right elevated diaphragm. No evidence for heart failure.
== END 2023-09-12 18:35 | disposition left against medical advice (07) ==
LOC: EC 10:22
DX: R00.2 Palpitations (principal); E78.5 Hyperlipidemia, unspecified; Z79.82 Long term (current) use of aspirin; Z79.899 Other long term (current) drug therapy; Z88.0 Allergy status to penicillin; Z53.29 Procedure and treatment not carried out because of patient's decision for other reasons
CPT/HCPCS: 36415; 71046; 80053; 83735; 84484; 85025; 85610; 85730; 99284

== ENCOUNTER 2023-11-03 10:58 | Observation (INO) | payer MEDICARE, BC ==
[2023-11-03] MEDS: ASPIRIN 81 MG PO STA (11:32)
--- NOTE | 2023-11-03 11:33 | ED ---
General Adult HPI - General Chief complaint: Chest Pain Stated complaint: Chest pain Time Seen by Provider: 11/03/23 11:16 Source: patient, RN notes reviewed Mode of arrival: EMS Limitations: no limitations - History of Present Illness Initial comments: Patient is a pleasant 83-year-old female presenting to the emergency department with concerns for chest discomfort. Onset of symptoms was this morning. Symptoms woke her. Symptoms were somewhat severe. Symptoms have improved and now resolved. Patient has a difficult time describing symptoms. No associated nausea. No associated dyspnea. Patient was sweaty earlier. No history of similar symptoms previously - Related Data Home Medications Medication Instructions Recorded Confirmed Aspirin 81 mg PO HS 04/03/17 11/03/23 Multivit-Min/Iron/Folic/Lutein 1 tab PO DAILY 04/03/17 11/03/23 [Centrum Silver Women Tablet] Metoprolol Tartrate [Lopressor] 25 mg PO BID 05/30/19 11/03/23 Simvastatin [Zocor] 20 mg PO HS 05/30/19 11/03/23 Bifidobacterium Infantis [Align] 4 mg PO DAILY 05/30/21 11/03/23 Cholecalciferol (Vitamin D3) 125 mcg PO DAILY 05/30/21 11/03/23 [Vitamin D3 (125 MCG = 5,000 IU)] Psyllium Husk 100% [Metamucil 6 gm PO DAILY PRN 05/30/21 11/03/23 Packet] Azithromycin [Zithromax] See Taper PO DIRECTED 11/03/23 11/03/23 Previous Rx's Medication Instructions Recorded Pantoprazole Sodium [Protonix] 40 mg PO DAILY 30 Days #30 tab 11/07/21 Allergies Allergy/AdvReac Type Severity Reaction Status Date / Time Penicillins Allergy Rash/Hives Verified 11/03/23 13:03 Review of Systems ROS Statement: Those systems with pertinent positive or pertinent negative responses have been documented in the HPI. ROS Other: All systems not noted in ROS Statement are negative. Constitutional: Denies: fever, chills Eyes: Denies: eye pain ENT: Denies: ear pain Respiratory: Denies: cough Cardiovascular: Reports: as per HPI, chest pain Gastrointestinal: Denies: nausea Musculoskeletal: Denies: back pain Past Medical History Past Medical History: Cancer, Hyperlipidemia Additional Past Medical History / Comment(s): increased fatigue and feels like heart is pounding at night,heart murmur, having difficulty sleeping at night,breast CA with lumpectomy 1989, 35 treatments of radiation and 6 months of chemotherapy, 2013 right breast mastectomy,increased gas and freq diarrhea, urge urinary incontinence. History of Any Multi-Drug Resistant Organisms: None Reported Past Surgical History: Cardiac Valve Replacement, Cholecystectomy, Hysterectomy Additional Past Surgical History / Comment(s): right lumpectomy 1989, right masectomy 2012, hemorrhoidectomy. Past Anesthesia/Blood Transfusion Reactions: No Reported Reaction Past Psychological History: No Psychological Hx Reported Smoking Status: Never smoker Past Alcohol Use History: Occasional Past Drug Use History: None Reported - Past Family History Mother Family Medical History: No Reported History Additional Family Medical History / Comment(s): Alzheimer's Father Additional Family Medical History / Comment(s): heart problems due to rheumatic fever Sister(s) Family Medical History: Cancer Additional Family Medical History / Comment(s): 1 sister of ovarian cancer in 1993 , her other sister was diagnosed with breast cancer. General Exam Limitations: no limitations General appearance: alert, in no apparent distress Head exam: Present: normocephalic Eye exam: Present: normal appearance ENT exam: Present: TM's normal bilaterally Neck exam: Present: normal inspection Respiratory exam: Present: normal lung sounds bilaterally Cardiovascular Exam: Present: regular rate, normal rhythm Expanded Peripheral pulses: 2+: Radial (R), Radial (L), Posterior Tibialis (R), Posterior Tibialis (L) GI/Abdominal exam: Present: soft. Absent: tenderness Extremities exam: Present: normal inspection. Absent: pedal edema, calf tenderness Neurological exam: Present: alert Psychiatric exam: Present: normal affect, normal mood Skin exam: Present: normal color Course Vital Signs 11/03/23 11/03/23 11/03/23 11:05 11:11 12:26 Temperature 97.8 F Pulse Rate 55 L 56 L Pulse Rate [ 53 L Fashion Consultant ] Respiratory 18 18 Rate Blood Pressure 188/50 165/76 O2 Sat by Pulse 94 L 96 Oximetry EKG Findings - EKG Results: EKG: interpreted by ERMD (Septal Q waves. LVH criteria.), sinus rhythm, normal axis, normal ST/T EKG shows: bradycardia Medical Decision Making - Medical Decision Making Was pt. sent in by a medical professional or institution (Dr., PA, MOBILE PHLEBOTOMIST, urgent care, hospital, or [facility]...) When possible be specific @ -No Did you speak to anyone other than the patient for history (EMS, parent, family, police, friend...)? What history was obtained from this source @ -No Did you review nursing and triage notes (agree or disagree)? Why? @ -I reviewed and agree with nursing and triage notes Were old charts reviewed (outside hosp., previous admission, EMS record, old EKG, old radiological studies, urgent care reports/EKG's, [facility] records)? Report findings @ -Previous chest x-ray reviewed Differential Diagnosis (chest pain, altered mental status, abdominal pain women, abdominal pain men, vaginal bleeding, weakness, fever, dyspnea, syncope, headache, dizziness, GI bleed, back pain, seizure, CVA, palpatations, mental health, musculoskeletal)? @ -Differential Chest Pain: Stable Angina, Unstable Angina, STEMI, NSTEMI Aortic Dissection, Pneumothorax, Musculoskeletal, Esophageal Spasm GERD, Cholecystitis, Pancreatitis, Zoster, this is not meant to be an all-inclusive list. EKG interpreted by me (3pts min.). @ -As above X-rays interpreted by me (1pt min.). @ -Elevated right hemidiaphragm, similar to previous CT interpreted by me (1pt min.). @ -None done U/S interpreted by me (1pt. min.). @ -None done What testing was considered but not performed or refused? (CT, X-rays, U/S, labs)? Why? @ -None What meds were considered but not given or refused? Why? @ -None Did you discuss the management of the patient with other professionals (professionals i.e. , MARICEL, MOBILE PHLEBOTOMIST, lab, RT, psych nurse, social work professor, program director/air personality, teacher, navy airspace officer, dependency case manager)? Give summary @ -Case discussed with Dr. Buck, who will admit covering Dr. García Was smoking cessation discussed for >3mins.? @ -No Was critical care preformed (if so, how long)? @ -No Were there social determinants of health that impacted care today? How? (Homelessness, low income, unemployed, alcoholism, drug addiction, transportat ion, low edu. Level, literacy, decrease access to med. care, care home, rehab)? @ -No Was there de-escalation of care discussed even if they declined (Discuss DNR or withdrawal of care, Hospice)? DNR status @ -No What co-morbidities impacted this encounter? (DM, HTN, Smoking, COPD, CAD, Cancer, CVA, ARF, Chemo, Hep., AIDS, mental health diagnosis, sleep apnea, morbid obesity)? @ -None Was patient admitted / discharged? Hospital course, mention meds given and route, prescriptions, significant lab abnormalities, going to OR and other pertinent info. @ -Patient reevaluated and updated. Patient will be admitted for cardiac. Admission orders placed. Consult placed. Undiagnosed new problem with uncertain prognosis? @ -No Drug Therapy requiring intensive monitoring for toxicity (Heparin, Nitro, Insulin, Cardizem)? @ -No Were any procedures done? @ -No Diagnosis/symptom? @ -Chest pain Acute, or Chronic, or Acute on Chronic? @ -Acute Uncomplicated (without systemic symptoms) or Complicated (systemic symptoms)? @ -Default Side effects of treatment? @ -No Exacerbation, Progression, or Severe Exacerbation? @ -No Poses a threat to life or bodily function? How? (Chest pain, USA, MA, pneumonia, PE, COPD, DKA, ARF, appy, cholecystitis, CVA, Diverticulitis, Homicidal, Suicidal, threat to staff... and all critical care pts) @ -No - Lab Data Result diagrams: 11/03/23 11:34 11/03/23 11:34 Lab Results 11/03/23 11/03/23 11/03/23 Range/Units 11:34 11:34 11:34 WBC 6.5 (3.8-10.6) k/uL RBC 4.18 (3.80-5.40) m/uL Hgb 13.5 (11.4-16.0) gm/dL Hct 40.7 (34.0-46.0) % MCV 97.3 (80.0-100.0) fL MCH 32.4 (25.0-35.0) pg MCHC 33.3 (31.0-37.0) g/dL RDW 13.0 (11.5-15.5) % Plt Count 238 (150-450) k/uL MPV 8.5 Neutrophils % 63 % Lymphocytes % 26 % Monocytes % 7 % Eosinophils % 1 % Basophils % 1 % Neutrophils # 4.0 (1.3-7.7) k/uL Lymphocytes # 1.7 (1.0-4.8) k/uL Monocytes # 0.4 (0-1.0) k/uL Eosinophils # 0.1 (0-0.7) k/uL Basophils # 0.0 (0-0.2) k/uL PT 10.6 (10.0-12.5) sec INR 1.0 (<1.2) APTT 21.8 L (22.0-30.0) sec D-Dimer 0.67 H (<0.60) mg/L FEU Sodium 137 (137-145) mmol/L Potassium 4.3 (3.5-5.1) mmol/L Chloride 104 (98-107) mmol/L Carbon Dioxide 28 (22-30) mmol/L Anion Gap 5 mmol/L BUN 13 (7-17) mg/dL Creatinine 0.48 L (0.52-1.04) mg/dL Est GFR (CKD-EPI)AfAm >90 (>60 ml/min/1.73 sqM) Est GFR (CKD-EPI)NonAf >90 (>60 ml/min/1.73 sqM) Glucose 101 H (74-99) mg/dL Calcium 9.3 (8.4-10.2) mg/dL Magnesium 2.0 (1.6-2.3) mg/dL Total Bilirubin 0.9 (0.2-1.3) mg/dL AST 28 (14-36) U/L ALT 20 (4-34) U/L Alkaline Phosphatase 79 (38-126) U/L Troponin I (0.000-0.034) ng/mL Total Protein 6.8 (6.3-8.2) g/dL Albumin 4.0 (3.5-5.0) g/dL 11/03/23 Range/Units 11:34 WBC (3.8-10.6) k/uL RBC (3.80-5.40) m/uL Hgb (11.4-16.0) gm/dL Hct (34.0-46.0) % MCV (80.0-100.0) fL MCH (25.0-35.0) pg MCHC (31.0-37.0) g/dL RDW (11.5-15.5) % Plt Count (150-450) k/uL MPV Neutrophils % % Lymphocytes % % Monocytes % % Eosinophils % % Basophils % % Neutrophils # (1.3-7.7) k/uL Lymphocytes # (1.0-4.8) k/uL Monocytes # (0-1.0) k/uL Eosinophils # (0-0.7) k/uL Basophils # (0-0.2) k/uL PT (10.0-12.5) sec INR (<1.2) APTT (22.0-30.0) sec D-Dimer (<0.60) mg/L FEU Sodium (137-145) mmol/L Potassium (3.5-5.1) mmol/L Chloride (98-107) mmol/L Carbon Dioxide (22-30) mmol/L Anion Gap mmol/L BUN (7-17) mg/dL Creatinine (0.52-1.04) mg/dL Est GFR (CKD-EPI)AfAm (>60 ml/min/1.73 sqM) Est GFR (CKD-EPI)NonAf (>60 ml/min/1.73 sqM) Glucose (74-99) mg/dL Calcium (8.4-10.2) mg/dL Magnesium (1.6-2.3) mg/dL Total Bilirubin (0.2-1.3) mg/dL AST (14-36) U/L ALT (4-34) U/L Alkaline Phosphatase (38-126) U/L Troponin I <0.012 (0.000-0.034) ng/mL Total Protein (6.3-8.2) g/dL Albumin (3.5-5.0) g/dL Disposition Clinical Impression: Chest pain Disposition: ADMITTED IP TO THIS HOSP Is patient prescribed a controlled substance at d/c from ED?: No Referrals: Katerina Dexter MD [Primary Care Provider] - 1-2 days Time of Disposition: 13:12
[2023-11-03 11:41] LABS: Basophils % (A) 1 %; Eosinophils # (A) 0.1 k/uL (0-0.7); Eosinophils % (A) 1 %; HCT 40.7 % (34.0-46.0); HGB 13.5 gm/dL (11.4-16.0); Lymphocytes # (A) 1.7 k/uL (1.0-4.8); Lymphocytes % (A) 26 %; MCH 32.4 pg (25.0-35.0); MCHC 33.3 g/dL (31.0-37.0); MCV 97.3 fL (80.0-100.0); Mean Platelet Volume 8.5; Monocytes # (A) 0.4 k/uL (0-1.0); Monocytes % (A) 7 %; Neutrophils % (A) 63 %; Platelet Count 238 k/uL (150-450); RBC 4.18 m/uL (3.80-5.40); WBC 6.5 k/uL (3.8-10.6)
[2023-11-03 11:51] LABS: ALT 20 U/L (4-34); AST 28 U/L (14-36); African American GFR (CKD) >90 (>60 ml/min/1.73 sqM); Alkaline Phosphatase 79 U/L (38-126); Anion Gap 5 mmol/L; Blood Urea Nitrogen 13 mg/dL (7-17); Calcium 9.3 mg/dL (8.4-10.2); Carbon Dioxide 28 mmol/L (22-30); Chloride 104 mmol/L (98-107); Glucose 101 mg/dL (74-99); Non-African American GFR(CKD) >90 (>60 ml/min/1.73 sqM); Potassium 4.3 mmol/L (3.5-5.1); Sodium 137 mmol/L (137-145); Total Bilirubin 0.9 mg/dL (0.2-1.3); Total Protein 6.8 g/dL (6.3-8.2)
--- NOTE | 2023-11-03 11:59 | XR ---
EXAMINATION TYPE: XR chest 2V DATE OF EXAM: 11/03/2023 11:42 AM CLINICAL INDICATION:Female, 83 years old with history of Chest Pain; COMPARISON: Chest radiographs from 09/12/2023. TECHNIQUE: XR chest 2V Frontal and lateral views of the chest. FINDINGS: Lungs/Pleura: There is no evidence of pleural effusion, focal consolidation, or pneumothorax. Pulmonary vascularity: Unremarkable. Heart/mediastinum: Cardiomediastinal silhouette is partially obscured due to overlying and adjacent o pacities. Post aortic valve repair changes. Left atrial appendage occlusion device is present. Musculoskeletal: No acute osseous pathology. Other findings: Right axillary clips. IMPRESSION: Similar elevated right diaphragm. No evidence for acute process.
[2023-11-03 12:02] LABS: Prothrombin Time 10.6 sec (10.0-12.5)
[2023-11-03 12:07] LABS: Partial Thromboplastin Time 21.8 sec (22.0-30.0)
[2023-11-03] MEDS ORDERED: NITROGLYCERIN SL TABS 0.4 MG TAB SUBLINGUAL PRN (13:12)
[2023-11-03] MEDS ORDERED: PSYLLIUM HUSK 100% 6 GM PACKET PO PRN (16:47)
[2023-11-03] MEDS: ASPIRIN 81 MG PO SCH (20:56)
[2023-11-03] MEDS: METOPROLOL TARTRATE 25 MG TAB PO SCH (20:57)
[2023-11-03] MEDS: ATORVASTATIN 10 MG TAB PO SCH (20:57)
[2023-11-04] MEDS: PANTOPRAZOLE 40 MG TABLET PO SCH (06:09)
[2023-11-04] MEDS ORDERED: REGADENOSON 0.4 MG/5 ML SYRINGE IV PRN (08:24)
[2023-11-04] MEDS ORDERED: AMINOPHYLLINE 500 MG/20 ML VIAL IV PRN (08:24)
[2023-11-04] MEDS ORDERED: CAFFEINE CITRATE 60 MG/3 ML VIAL IV PRN (08:24)
[2023-11-04] MEDS ORDERED: ASPIRIN 325 MG TAB PO SCH (09:00)
[2023-11-04] MEDS ORDERED: BIFIDOBACTERIUM INFANTIS 4 MG PO SCH (09:00)
[2023-11-04] MEDS: ENOXAPARIN 40 MG/0.4 ML SYRINGE SQ SCH (09:05)
[2023-11-04] MEDS: MULTIVITAMINS, THERA 1 EACH TAB PO SCH (09:05)
[2023-11-04] MEDS: CHOLECALCIFEROL 125 MCG (5000 IU) TABLET PO SCH (09:06)
[2023-11-04 09:14] LABS: Chol/HDL Ratio 2.35 Ratio; LDL Cholesterol,Calculated 61.4 mg/dL (0.0-131.0); VLDL Calculation 17.16 mg/dL (5.00-40.00)
--- NOTE | 2023-11-04 10:44 | P.CRDCN ---
History of Present Illness Consult date: 11/04/23 Consult reason: chest pain History of present illness: History of present illness: This is an 83-year-old female patient of Dr. MARISOL Workman with past medical history of aortic stenosis status post replacement in 2017, no significant coronary artery disease, hypertension, hyperlipidemia. We have been asked to evaluate the patient for chest pain. Patient states that she woke up with a thumping in her chest but no chest pain. She went to the bathroom and walked around until the sensation went away. She denies having any pressure or tightness in her chest. She states that it was all a fluttering sensation and woke her from her sleep. She denies have any shortness of breath no lower extremity edema. She is normally active at home. She states she had a little bit of dizziness and sweats. No history of stroke. She is states she had some bleeding in her stool which she thought was related to hemorrhoids. No fever no cough. Patient does complain of loss of hearing in her left ear for about a week. EKG sinus rhythm with first-degree AV block Chest x-ray: Similar elevated right diaphragm compared to study done on 09/12/2023. No acute process. CBC INR normal. D-dimer 0.67. Electrolytes normal. BUN 13 creatinine 0.48. Troponin negative x 3. Liver function tests are within normal limits. Magnesium 2. Triglycerides 85, cholesterol 137, LDL 61, HDL 58. Home cardiac medications: Aspirin 81 mg daily, Lopressor 25 mg twice daily, Zocor 20 mg at bedtime. Cardiac catheterization 2017 revealed no significant coronary artery disease, severe aortic stenosis. Cardiovascular surgery 04/29/2017, aortic valve replacement with bioprosthetic #21 valve. Exclusion of left atrial appendage with atrial clip. Echocardiogram performed 07/09/2023 in the office revealed EF 55% with mild concentric left ventricular hypertrophy. Biological AV prosthesis. Mild to moderate mitral regurgitation. Mitral valve is calcified. Lexiscan stress test performed in the office on 07/14/2020 revealed EF 60% with no ischemia. Review Of Systems: At the time of my exam: CONSTITUTIONAL: Denies fever or chills. HEENT: Denies blurred vision, vision changes, or eye pain. Denies hemoptysis CARDIOVASCULAR: Denies chest pain. Denies orthopnea. Denies PND. Denies palpitations RESPIRATORY: Denies shortness of breath. GASTROINTESTINAL: Denies abdominal pain. Denies nausea or vomiting. HEMATOLOGIC: Denies bleeding disorders. GENITOURINARY: Denies any blood in urine. SKIN: Denies pruitis. Denies rash. Physical examination: Gen: This is an 83-year-old female in no acute distress VS: reviewed HEENT: Head is atraumatic, normocephalic. Pupils equal, round. Sclerae is anicteric. NECK: Supple. No JVD. LUNGS: Clear to auscultation. No wheezes or rhonchi. No intercostal retractions. HEART: Regular rate and rhythm. 2/6 systolic ejection murmur. ABDOMEN: Soft No tenderness. EXTREMITIES: No pedal edema. No calf tenderness. NEUROLOGICAL: Patient is awake, alert and oriented x3. Assessment: Atypical chest pain, acute coronary syndrome ruled out History of aortic stenosis status post bioprosthetic valve replacement Hypertension Hyperlipidemia Plan: Resume patient's home cardiac medications Obtain Lexiscan stress test today Obtain 2-D echocardiogram and Doppler study to assess cardiac structure and function If stress test and echocardiogram are unremarkable, patient is cleared from cardiology for discharge home and may follow-up with Dr. MARISOL Workman in 1 to 2 weeks. Thank you kindly for this consultation. Nurse practitioner note has been reviewed, I agree with documented findings and plan of care. Patient was seen and examined. Past Medical History Past Medical History: Cancer, Hyperlipidemia Additional Past Medical History / Comment(s): heart murmur, having difficulty sleeping at night,breast CA with lumpectomy 1989, 35 treatments of radiation and 6 months of chemotherapy, 2013 right breast mastectomy, urge urinary incontinence. History of Any Multi-Drug Resistant Organisms: None Reported Past Surgical History: Cardiac Valve Replacement, Cholecystectomy, Hysterectomy Additional Past Surgical History / Comment(s): right lumpectomy 1989, right masectomy 2012, hemorrhoidectomy. 2017 valve replacement. Past Anesthesia/Blood Transfusion Reactions: No Reported Reaction Past Psychological History: No Psychological Hx Reported Smoking Status: Never smoker Past Alcohol Use History: Occasional Additional Past Alcohol Use History / Comment(s): Less than 1 drink a week Past Drug Use History: None Reported - Past Family History Mother Family Medical History: No Reported History Additional Family Medical History / Comment(s): Alzheimer's Father Additional Family Medical History / Comment(s): heart problems due to rheumatic fever Sister(s) Family Medical History: Cancer Additional Family Medical History / Comment(s): 1 sister of ovarian cancer in 1993 , her other sister was diagnosed with breast cancer. Medications and Allergies Home Medications Medication Instructions Recorded Confirmed Type Aspirin 81 mg PO HS 04/03/17 11/03/23 History Multivit-Min/Iron/Folic/Lutein 1 tab PO DAILY 04/03/17 11/03/23 History [Centrum Silver Women Tablet] Metoprolol Tartrate [Lopressor] 25 mg PO BID 05/30/19 11/03/23 History Simvastatin [Zocor] 20 mg PO HS 05/30/19 11/03/23 History Bifidobacterium Infantis [Align] 4 mg PO DAILY 05/30/21 11/03/23 History Cholecalciferol (Vitamin D3) 125 mcg PO DAILY 05/30/21 11/03/23 History [Vitamin D3 (125 MCG = 5,000 IU)] Psyllium Husk 100% [Metamucil 6 gm PO DAILY PRN 05/30/21 11/03/23 History Packet] Pantoprazole Sodium [Protonix] 40 mg PO DAILY 30 Days #30 tab 11/07/21 11/03/23 Rx Azithromycin [Zithromax] See Taper PO DIRECTED 11/03/23 11/03/23 History Allergies Allergy/AdvReac Type Severity Reaction Status Date / Time Penicillins Allergy Rash/Hives Verified 11/03/23 13:03 Physical Exam Vitals: Vital Signs Temp Pulse Pulse Pulse Resp BP BP 11/04/23 06:30 98.1 F 65 16 151/72 11/04/23 02:00 72 11/04/23 01:31 98.0 F 72 16 125/52 11/03/23 20:57 76 11/03/23 19:32 98.0 F 76 16 111/64 11/03/23 14:32 61 16 11/03/23 14:05 97.9 F 61 16 167/70 11/03/23 13:31 56 L 18 160/69 11/03/23 12:26 56 L 18 165/76 11/03/23 11:11 53 L 11/03/23 11:05 97.8 F 55 L 18 188/50 Pulse Ox 11/04/23 06:30 95 11/04/23 02:00 11/04/23 01:31 96 11/03/23 20:57 11/03/23 19:32 94 L 11/03/23 14:32 11/03/23 14:05 97 11/03/23 13:31 96 11/03/23 12:26 96 11/03/23 11:11 11/03/23 11:05 94 L Intake and Output 11/03/23 11/04/23 11/04/23 22:59 06:59 14:59 Intake Total 118 Balance 118 Intake: Oral 118 Other: Voiding Method Toilet # Voids 1 2 Results 11/03/23 11:34 11/03/23 11:34 Cardiac Enzymes 11/03/23 11/03/23 11/03/23 Range/Units 11:34 11:34 14:49 AST 28 (14-36) U/L Troponin I <0.012 <0.012 (0.000-0.034) ng/mL 11/03/23 Range/Units 17:23 AST (14-36) U/L Troponin I <0.012 (0.000-0.034) ng/mL Coagulation 11/03/23 Range/Units 11:34 PT 10.6 (10.0-12.5) sec APTT 21.8 L (22.0-30.0) sec CBC 11/03/23 Range/Units 11:34 WBC 6.5 (3.8-10.6) k/uL RBC 4.18 (3.80-5.40) m/uL Hgb 13.5 (11.4-16.0) gm/dL Hct 40.7 (34.0-46.0) % Plt Count 238 (150-450) k/uL Comprehensive Metabolic Panel 11/03/23 Range/Units 11:34 Sodium 137 (137-145) mmol/L Potassium 4.3 (3.5-5.1) mmol/L Chloride 104 (98-107) mmol/L Carbon Dioxide 28 (22-30) mmol/L BUN 13 (7-17) mg/dL Creatinine 0.48 L (0.52-1.04) mg/dL Glucose 101 H (74-99) mg/dL Calcium 9.3 (8.4-10.2) mg/dL AST 28 (14-36) U/L ALT 20 (4-34) U/L Alkaline Phosphatase 79 (38-126) U/L Total Protein 6.8 (6.3-8.2) g/dL Albumin 4.0 (3.5-5.0) g/dL Current Medications Generic Name Dose Route Start Last Admin Trade Name Freq PRN Reason Stop Dose Admin Aspirin 81 mg 11/03/23 21:00 11/03/23 20:56 Aspirin 81 Mg PO Not Given HS [facility] Atorvastatin Calcium 10 mg 11/03/23 21:00 11/03/23 20:57 Atorvastatin 10 Mg Tab PO 10 mg HS [facility] Administration Cholecalciferol 125 mcg 11/04/23 09:00 Cholecalciferol 125 Mcg (5000 Iu) Tablet PO DAILY [facility] Enoxaparin Sodium 40 mg 11/04/23 09:00 Enoxaparin 40 Mg/0.4 Ml Syringe SQ DAILY [facility] Metoprolol Tartrate 25 mg 11/03/23 21:00 11/03/23 20:57 Metoprolol Tartrate 25 Mg Tab PO 25 mg BID [facility] Administration Multivitamins 1 each 11/04/23 09:00 Multivitamins, Thera 1 Each Tab PO DAILY [facility] Nitroglycerin 0.4 mg 11/03/23 13:12 Nitroglycerin Sl Tabs 0.4 Mg Tab SUBLINGUAL Q5M PRN Chest Pain Pantoprazole Sodium 40 mg 11/04/23 07:30 11/04/23 06:09 Pantoprazole 40 Mg Tablet PO 40 mg DAILY@0730 [facility] Administration Psyllium Hydrophilic Mucilloid 6 gm 11/03/23 16:47 Psyllium Husk 100% 6 Gm Packet PO DAILY PRN Constipation Intake and Output 11/03/23 11/04/23 11/04/23 22:59 06:59 14:59 Intake Total 118 Balance 118 Intake: Oral 118 Other: Voiding Method Toilet # Voids 1 2 11/03/23 11:34 11/03/23 11:34
--- NOTE | 2023-11-04 12:00 | CA ---
Lexiscan Nuclear Stress Test Report Name: Chely Mcdonough Exam Date: 11/04/2023 10:00 Exam Location: [place] Stress Ht (in): 65 Wt (lb): 150 BSA: 1.75 Ordering Phys: Rosa Bermudez Referring Phys: ZAINA Technologist: Niranjan Henry Age: 83 Gender: F : 1940 Procedure CPT: Indications: Reflex order-Stress test ICD-10 Codes: Patient History: Medications: SEE CHART Meds past 24 hrs: Pretest Chest Pain: STRESS TEST Lexiscan Protocol Exercise Duration (min:sec): 01:[address] Depressions (mm): Angina Score: Georges Score: Resting HR (bpm): 63 Peak HR (bpm): 91 Resting BP (mmHg): 156 / 84 Peak BP (mmHg): 116 / 60 MPHR: 136 Target HR: 116 % MPHR: 67 METS: 1.0 Total Dose: Peak Dose: Atropine: Double Product: 98007 BP Response: Stress Termination: INFUSION COMPLETE Stress Symptoms: "FLUTTER FEELING" Stress Summary: ECG ANALYSIS Resting ECG: Sinus rhythm. Normal conduction. No arrhythmias. Nonspecific ST-T abnormality. Stress ECG: No ECG changes from baseline with Lexiscan infusion. CONCLUSIONS No ECG evidence of ischemia with Lexiscan infusion. Nuclear test results to follow. Dr. Matt Lux MD (Electronically Signed) Final Date: 04 November 2023 11:59
--- NOTE | 2023-11-04 14:14 | P.HPIM ---
History of Present Illness H&P Date: 11/03/23 Chely Mcdonough, is an 83-year-old female, who presented to [facility] emergency room with a chief complaint of chest pain, patient describes a throbbing sensation in the middle of her chest radiating to the back, that lasted a few minutes. She was evaluated in the emergency room vital examination on presentation revealed a temperature of 97.8 pulse 55 respiration 18 blood pressure 188/50 pulse ox 94% on room air Laboratory data revealed a white blood count of 6.5 hemoglobin 13.5 platelet count 238 d-dimer 0.67 BUN 13 creatinine 0.48 troponin level 0.012 Testing in the emergency room revealed EKG revealed sinus bradycardia with first-degree AV block chest x-ray revealed elevated right diaphragmatic no evidence for acute pulmonary process Patient was admitted to medical floor for further evaluation and treatment Past Medical History Past Medical History: Cancer, Hyperlipidemia Additional Past Medical History / Comment(s): heart murmur, having difficulty sleeping at night,breast CA with lumpectomy 1989, 35 treatments of radiation and 6 months of chemotherapy, 2013 right breast mastectomy, urge urinary i ncontinence. History of Any Multi-Drug Resistant Organisms: None Reported Past Surgical History: Cardiac Valve Replacement, Cholecystectomy, Hysterectomy Additional Past Surgical History / Comment(s): right lumpectomy 1989, right masectomy 2012, hemorrhoidectomy. 2017 valve replacement. Past Anesthesia/Blood Transfusion Reactions: No Reported Reaction Past Psychological History: No Psychological Hx Reported Smoking Status: Never smoker Past Alcohol Use History: Occasional Additional Past Alcohol Use History / Comment(s): Less than 1 drink a week Past Drug Use History: None Reported - Past Family History Mother Family Medical History: No Reported History Additional Family Medical History / Comment(s): Alzheimer's Father Additional Family Medical History / Comment(s): heart problems due to rheumatic fever Sister(s) Family Medical History: Cancer Additional Family Medical History / Comment(s): 1 sister of ovarian cancer in 1993 , her other sister was diagnosed with breast cancer. Medications and Allergies Home Medications Medication Instructions Recorded Confirmed Type Aspirin 81 mg PO HS 04/03/17 11/03/23 History Multivit-Min/Iron/Folic/Lutein 1 tab PO DAILY 04/03/17 11/03/23 History [Centrum Silver Women Tablet] Metoprolol Tartrate [Lopressor] 25 mg PO BID 05/30/19 11/03/23 History Simvastatin [Zocor] 20 mg PO HS 05/30/19 11/03/23 History Bifidobacterium Infantis [Align] 4 mg PO DAILY 05/30/21 11/03/23 History Cholecalciferol (Vitamin D3) 125 mcg PO DAILY 05/30/21 11/03/23 History [Vitamin D3 (125 MCG = 5,000 IU)] Psyllium Husk 100% [Metamucil 6 gm PO DAILY PRN 05/30/21 11/03/23 History Packet] Pantoprazole Sodium [Protonix] 40 mg PO DAILY 30 Days #30 tab 11/07/21 11/03/23 Rx Azithromycin [Zithromax] See Taper PO DIRECTED 11/03/23 11/03/23 History Allergies Allergy/AdvReac Type Severity Reaction Status Date / Time Penicillins Allergy Rash/Hives Verified 11/03/23 13:03 Physical Exam Vitals: Vital Signs Temp Pulse Pulse Pulse Resp BP BP 11/03/23 14:32 61 16 11/03/23 14:05 97.9 F 61 16 167/70 11/03/23 13:31 56 L 18 160/69 11/03/23 12:26 56 L 18 165/76 11/03/23 11:11 53 L 11/03/23 11:05 97.8 F 55 L 18 188/50 Pulse Ox 11/03/23 14:32 11/03/23 14:05 97 11/03/23 13:31 96 11/03/23 12:26 96 11/03/23 11:11 11/03/23 11:05 94 L Intake and Output 11/03/23 11/03/23 11/03/23 06:59 14:59 22:59 Other: Voiding Method Toilet Weight 68.039 kg In general patient is alert and oriented x 3 in no distress HEENT head normocephalic and atraumatic Neck is supple no JVD no goiter no lymphadenopathy no carotid bruit Chest examination is clear to auscultation no crackles no wheezing Cardiac exam reveals regular heart sounds S1 and S2 no gallops no murmurs Abdomen is soft nontender no organomegaly with normal bowel sounds Extremity exam reveals no edema no cyanosis or clubbing Neurological examination reveals no gross focal deficits Results CBC & Chem 7: 11/03/23 11:34 11/03/23 11:34 Labs: Abnormal Lab Results - Last 24 Hours (Table) 11/03/23 11/03/23 Range/Units 11:34 11:34 APTT 21.8 L (22.0-30.0) sec D-Dimer 0.67 H (<0.60) mg/L FEU Creatinine 0.48 L (0.52-1.04) mg/dL Glucose 101 H (74-99) mg/dL Thrombosis Risk Factor Assmnt - Choose All That Apply Any of the Below Risk Factors Present?: No Other Risk Factors: Yes Each Risk Factor Represents 3 Points: Age 75 years or older Other congenital or acquired thrombophilia - If yes, enter type in comment: No Thrombosis Risk Factor Assessment Total Risk Factor Score: 3 Thrombosis Risk Factor Assessment Level: Moderate Risk Assessment and Plan Plan: Episode of chest pain Underlying history of hypertension Underlying history of hyperlipidemia Previous history of breast cancer with lumpectomy and radiation therapy in 1989 and movement right breast mastectomy in 2012 History of valvular heart disease with previous history of aortic valve replacement Previous history of esophageal stricture with history of EGD and balloon dilatation in October 2021 Previous history of paroxysmal atrial fibrillation At this time patient is admitted to telemetry floor Home medications reviewed and reordered Cardiology consultation requested For DVT prophylaxis subcu [place] Will follow closely
[2023-11-04 15:46] VITALS: BP 114/69; PULSE 89; RESP 15; TEMP 98
--- NOTE | 2023-11-04 17:29 | NM ---
EXAMINATION TYPE: NM stress lexiscan cardiolite DATE OF EXAM: 11/04/2023 COMPARISON: NONE CLINICAL INDICATION: Female, 83 years old with history of chest pain; TECHNIQUE: After the intravenous administration of 10.03 mCi Tc 99m Sestamibi - Cardiolite resting S PECT images acquired 45 minutes post injection. The patient received 0.4mg Lexiscan, 25.5 mCi Tc 99m Sestamibi - Stress images obtained [address] injection FINDINGS: Review of stress and rest SPECT images demonstrates defects along the anterior and inferolateral wall s on rest but no discrete defect on stress. Gated analysis shows normal wall motion with an estimated left ventricular ejection fraction of 88 %. TID is calculated at 0.94, within normal limits. IMPRESSION: Prominent areas of attenuation artifact on rest. No scintigraphic evidence for inducible ischemia.
--- NOTE | 2023-11-04 17:46 | P.DS ---
Providers Date of admission: 11/03/23 13:13 Expected date of discharge: 11/04/23 Attending physician: Shana Buck Consults: 11/03/23 13:12 Consult Physician Urgent Consulting Provider: Jaylen Arrieta Consult Reason/Comments: cp Do you want consulting provider notified?: Yes Primary care physician: Katerina Dexter [facility] Course: Diagnosis on discharge: Episode of chest pain Underlying history of hypertension Underlying history of hyperlipidemia Previous history of breast cancer with lumpectomy and radiation therapy in 1989 and movement right breast mastectomy in 2012 History of valvular heart disease with previous history of aortic valve replacement Previous history of esophageal stricture with history of EGD and balloon dilatation in October 2021 Previous history of paroxysmal atrial fibrillation Hospital course: Chely Mcdonough, is an 83-year-old female, who presented to [facility] emergency room with a chief complaint of chest pain, patient describes a throbbing sensation in the middle of her chest radiating to the back, that lasted a few minutes. She was evaluated in the emergency room vital examination on presentation revealed a temperature of 97.8 pulse 55 respiration 18 blood pressure 188/50 pulse ox 94% on room air Laboratory data revealed a white blood count of 6.5 hemoglobin 13.5 platelet count 238 d-dimer 0.67 BUN 13 creatinine 0.48 troponin level 0.012 Testing in the emergency room revealed EKG revealed sinus bradycardia with first-degree AV block chest x-ray revealed elevated right diaphragmatic no evidence for acute pulmonary process Patient was admitted to medical floor for further evaluation and treatment On 11/04/2023 patient was seen and examined on the medical floor she is alert and oriented 3 in no apparent distress she denies any complaints at this time there is no fever or chills no headache or dizziness no new episodes of chest pain no shortness of breath no cough no nausea or vomiting no abdominal pain no diarrhea and no urinary symptoms. Patient was evaluated by cardiology, stress test was done and was within normal limits, she was cleared by cardiology for discharge, she will follow-up with Dr. MARISOL Workman in 1-2 weeks Plan - Discharge Summary Discharge Rx Participant: No New Discharge Prescriptions: Continue Aspirin 81 mg PO HS Multivit-Min/Iron/Folic/Lutein [Centrum Silver Women Tablet] 1 tab PO DAILY Metoprolol Tartrate [Lopressor] 25 mg PO BID Simvastatin [Zocor] 20 mg PO HS Pantoprazole Sodium [Protonix] 40 mg PO DAILY 30 Days #30 tab Psyllium Husk 100% [Metamucil Packet] 6 gm PO DAILY PRN PRN Reason: Constipation Bifidobacterium Infantis [Align] 4 mg PO DAILY Cholecalciferol (Vitamin D3) [Vitamin D3 (125 MCG = 5,000 IU)] 125 mcg PO DAILY Discontinued Azithromycin [Zithromax] See Taper PO DIRECTED Discharge Medication List Aspirin 81 mg PO HS 04/03/17 [History] Multivit-Min/Iron/Folic/Lutein [Centrum Silver Women Tablet] 1 tab PO DAILY 04/03/17 [History] Metoprolol Tartrate [Lopressor] 25 mg PO BID 05/30/19 [History] Simvastatin [Zocor] 20 mg PO HS 05/30/19 [History] Bifidobacterium Infantis [Align] 4 mg PO DAILY 05/30/21 [History] Cholecalciferol (Vitamin D3) [Vitamin D3 (125 MCG = 5,000 IU)] 125 mcg PO DAILY 05/30/21 [History] Psyllium Husk 100% [Metamucil Packet] 6 gm PO DAILY PRN 05/30/21 [History] Pantoprazole Sodium [Protonix] 40 mg PO DAILY 30 Days #30 tab 11/07/21 [Rx] Follow up Appointment(s)/Referral(s): Katerina Dexter MD [Primary Care Provider] - 1-2 days
--- NOTE | 2023-11-04 18:01 | CA ---
Transthoracic Echo Report Name: Chely Mcdonough Age: 83 Gender: F : 1940 Exam Date: 11/04/2023 11:12 Exam Location: [place] [facility] Ht (in): 65 Wt (lb): 150 Ordering Physician: Rosa Bermudez Attending/Referring Phys: Mangle Catcher Evelyn Grissom RDCS Procedure CPT: Indications: LVF Cardiac Hx: Technical Quality: Fair Contrast 1: Total Dose (mL): Contrast 2: Total Dose (mL): MEASUREMENTS (Male / Female) Normal Values 2D ECHO LV Diastolic Diameter PLAX 2.7 cm 4.2 - 5.9 / 3.9 - 5.3 cm LV Systolic Diameter PLAX 1.6 cm IVS Diastolic Thickness 1.5 cm 0.6 - 1.0 / 0.6 - 0.9 cm LVPW Diastolic Thickness 1.3 cm 0.6 - 1.0 / 0.6 - 0.9 cm LV Relative Wall Thickness 1.0 RV Internal Dim ED PLAX 3.5 cm LVOT Diameter 1.5 cm LA Volume 48.7 cm??? 18 - 58 / 22 - 52 cm??? LA Volume Index 27.4 cm???/m??? 16 - 28 cm???/m??? DOPPLER AV Peak Velocity 387.0 cm/s AV Peak Gradient 59.9 mmHg AV Mean Velocity 256.1 cm/s AV Mean Gradient 30.6 mmHg AV Velocity Time Integral 84.7 cm LVOT Peak Velocity 156.0 cm/s LVOT Peak Gradient 9.7 mmHg LVOT Velocity Time Integral 38.5 cm LVOT Stroke Volume 65.2 cm??? LVOT Stroke Volume Index 37.3 ml/m??? LVOT Cardiac Index 2753.4 cm???/min???m??? AV Area Cont Eq vti 0.8 cm??? AV Area Cont Eq pk 0.7 cm??? MV Area PHT 3.1 cm??? Mitral E Point Velocity 90.2 cm/s Mitral A Point Velocity 105.0 cm/s Mitral E to A Ratio 0.9 MV Deceleration Time 246.7 ms TR Peak Velocity 245.5 cm/s TR Peak Gradient 24.1 mmHg Right Ventricular Systolic Press 28.8 mmHg FINDINGS Left Ventricle Moderately increased left ventricular wall thickness. Abnormal (paradoxical) septal motion consistent with postoperative state. Left ventricular ejection fraction is estimated at 55-60 %. Right Ventricle Normal right ventricular size and function. Right ventricular systolic pressure within normal limits. Right Atrium Normal right atrial size. Left Atrium Left atrial size at the upper limits of normal. Mitral Valve Structurally normal mitral valve. Mitral valve thickened. Moderate mitral annular calcification. [id number] mitral regurgitation. Aortic Valve [id number] prosthetic aortic valve regurgitation. Porcine aortic valve bioprosthesis. Gradient recorded across the prosthetic aortic valve above the expected range. Peak velocity 3.8 m/s, Av peak gradient 60 mmHg, mean gradient 31mmHg. calcified leaflets Tricuspid Valve Structurally normal tricuspid valve. Mild tricuspid regurgitation. Pulmonic Valve Structurally normal pulmonic valve. Mild to moderate pulmonic regurgitation. Pericardium No pericardial effusion. Aorta Normal size aortic root and proximal ascending aorta. CONCLUSIONS 1. Normal left ventricle size and systolic function 2. Bioprosthetic aortic valve with mild to moderate regurgitation and a mean gradient of 31 mmHg consistent with moderate severe aortic stenosis. Mild to moderate mitral and mild tricuspid regurgitation. Previewed by: Dr. Matt Lux MD (Electronically Signed) Final Date: 04 November 2023 18:01
== END 2023-11-04 18:00 | disposition home or self-care (01) ==
LOC: EC 10:58 → 6NMEDSUR 13:13
PROVIDERS: ADMIT Internal Medicine; ATTEND Internal Medicine
DX: R07.89 Other chest pain (principal); R06.02 Shortness of breath; E78.5 Hyperlipidemia, unspecified; N39.41 Urge incontinence; I08.0 Rheumatic disorders of both mitral and aortic valves; I10 Essential (primary) hypertension; Z79.899 Other long term (current) drug therapy; Z79.82 Long term (current) use of aspirin; Z88.0 Allergy status to penicillin; Z85.3 Personal history of malignant neoplasm of breast; Z92.3 Personal history of irradiation; Z92.21 Personal history of antineoplastic chemotherapy; Z98.61 Coronary angioplasty status; Z95.2 Presence of prosthetic heart valve; I44.0 Atrioventricular block, first degree
CPT/HCPCS: 96372; 99285; 36415; 93005; 93017; 93306; 85379; 80061; 80053; 83735; 84484; 85025; 85610; 85730; 71046; 78452; G0378 ×2; A9500; J1650; J2785